=== PATIENT | female | born 1985 | race Caucasian/White ===

== ENCOUNTER 2016-07-09 16:26 | Emergency (ER) | payer OTHER | END 2016-07-09 18:05 | disposition left against medical advice (07) | LOC: UCCORT 16:26 | DX: J02.9 Acute pharyngitis, unspecified (principal); Z53.21 Procedure and treatment not carried out due to patient leaving prior to being seen by health care provider ==

== ENCOUNTER 2016-11-16 15:23 | Emergency (ER) | payer OTHER ==
[2016-11-16 15:47] VITALS: BP 149/87
--- NOTE | 2016-11-16 15:59 | UC ---
Throat Pain/Nasal Arley HPI - HPI Summary HPI Summary: pt c/o gradual onset of right ear pain, tooth pain , and ulcer on bottom of right mid tongue. X 4 days. Pt reports positive history of canker sores, chicken pox as a kid and frequent canker sores. pt denies fever, chills, sore throat, recent dental work. - History of Current Complaint Chief Complaint: UCGeneralIllness Stated Complaint: SORE THROAT,RIGHT EAR PAIN,ORAL Time Seen by Provider: 11/16/16 15:37 Hx Obtained From: Patient Hx Last Menstrual Period: 11/09/16 ?: No Onset/Duration: Gradual Onset, Lasting Days - 4 Severity: Mild Cough: None Associated Signs & Symptoms: Positive: Negative - Epiglottits Risk Factors Epiglottis Risk Factors: Negative - Allergies/Home Medications Allergies/Adverse Reactions: Allergies Allergy/AdvReac Type Severity Reaction Status Date / Time Adhesive Tape Allergy Intermediate Rash Verified 11/16/16 15:28 NARCOTICS AdvReac See Comment Uncoded 11/16/16 15:28 Home Medications: Home Medications Gabapentin CAP(*) [Neurontin 100 mg CAP(*)] 200 mg PO BID 11/16/16 [History Confirmed 11/16/16] PMH/Surg Hx/FS Hx/Imm Hx Previously Healthy: Yes - Surgical History Surgical History: Yes Surgery Procedure, Year, and Place: INTESTINAL. STOMACH. COLOSTOMY WITH REVERSAL. TENDON LLE. CYSTECTOMY FROM OVARY. TUBAL. CHOLECYSTECTOMY. CYST REMOVED FROM NASAL CAVATY. C-sec x2 - Family History Known Family History: Positive: Hypertension, Respiratory Disease Negative: Cardiac Disease, Diabetes Family History: no cardiac, cancer history in family - Social History Alcohol Use: None Substance Use Type: None Smoking Status (MU): Never Smoked Tobacco - Immunization History Most Recent Influenza Vaccination: FALL 2015 Most Recent Tetanus Shot: UTD Most Recent Pneumonia Vaccination: N/A Review of Systems Constitutional: Negative Skin: Negative Eyes: Negative ENT: Other - ulcer bottom right mid lateral side of tongue Respiratory: Negative Cardiovascular: Negative Gastrointestinal: Negative Genitourinary: Negative Motor: Negative Neurovascular: Negative Musculoskeletal: Negative Neurological: Negative Psychological: Negative All Other Systems Reviewed And Are Negative: Yes Physical Exam Triage Information Reviewed: Yes Appearance: Well-Appearing Vital Signs: Initial Vital Signs Temp 99.9 F 11/16/16 15:32 Pulse 99 11/16/16 15:32 Resp 27 11/16/16 15:32 BP 149/87 11/16/16 15:32 Pulse Ox 97 11/16/16 15:32 Vital Signs Reviewed: Yes Eye Exam: Normal ENT: Positive: Other: Dental Exam: Normal Neck exam: Normal Respiratory Exam: Normal Cardiovascular Exam: Normal Musculoskeletal Exam: Normal Musculoskeletal: Positive: Other: - uses cane to walk. Neurological Exam: Normal Psychological Exam: Normal Skin Exam: Normal Throat Pain/Nasal Course/Dx - Differential Dx/Diagnosis Differential Diagnosis/HQI/PQRI: Other - viral syndrome Provider Diagnoses: aphthous. viral syndrome Discharge - Discharge Plan Condition: Stable Disposition: HOME Prescriptions: Lidocaine 2% VISCOUS* [Xylocaine 2% Viscous*] 15 ml SWISH SPIT Q4H PRN #1 btl PRN Reason: Pain ValACYclovir (*) [Valtrex 1 GM(*)] 1 gm PO Q12H #10 tab Patient Education Materials: Canker Sores (ED) Referrals: Lorraine Powers MD [Primary Care Provider] - If Needed
== END 2016-11-16 16:09 | disposition home or self-care (01) ==
LOC: UCCORT 15:23
DX: K12.0 Recurrent oral aphthae (principal); B34.9 Viral infection, unspecified; Z88.5 Allergy status to narcotic agent
CPT/HCPCS: 99212; G0463

== ENCOUNTER 2016-12-03 18:27 | Emergency (ER) | payer OTHER ==
[2016-12-03 19:47] VITALS: BP 201/90
--- NOTE | 2016-12-03 20:52 | RAD ---
INDICATION: 1 month cough with recent worsening. History of bronchitis. COMPARISON: April 12, 2016 TECHNIQUE: Dual energy PA and routine lateral views of the chest were obtained. REPORT: Morbid obesity limits image quality. Clear lungs and pleural spaces. Negative for pneumothorax. The heart, pulmonary vasculature, and mediastinal contours are unremarkable. Unremarkable osseous structures and soft tissue contours accounting for body habitus. IMPRESSION: No evidence for acute intrathoracic disease.
[2016-12-03] MEDS ORDERED: predniSONE TAB* 20 MG PO ONE (21:09)
[2016-12-03] MEDS ORDERED: Amoxicillin PO (*) 500 MG CAP PO ONE (21:10)
--- NOTE | 2016-12-03 22:20 | UC ---
Lara Alvarado Rebecca, scribed for Calin Lewis MD on 12/03/16 at 1958 . Respiratory Complaint HPI - HPI Summary HPI Summary: Pt is a 31 y/o F who presents to ED c/o SOB and nonproductive cough. Cough began 1 month ago and has been intermittent since onset, worsening in the last few days. Sx aggravated by laying down and any pressure applied to the chest or back, alleviated by nothing, unchanged by Albuterol Tx 2 hours ago. Additionally c/o sore throat secondary to cough and intermittent wheezing. Denies sinus pressure, ear pain and rhinorrhea. PMHx asthma - unsure if she takes any steroids for it. Dx 7 years ago, has previously been treated with Prednisone. - History of Current Complaint Chief Complaint: UCRespiratory Stated Complaint: COUGH Time Seen by Provider: 12/03/16 19:50 Hx Obtained From: Patient Hx Last Menstrual Period: 11/09/16 Onset/Duration: Lasting Weeks - 1 month, Still Present, Worse Since - a few days ago Severity Currently: Mild Pain Intensity: 3 Pain Scale Used: 0-10 Numeric Character: Cough: Nonproductive Alleviating Factors: Nothing Associated Signs And Symptoms: Positive: Wheezing - Allergies/Home Medications Allergies/Adverse Reactions: Allergies Allergy/AdvReac Type Severity Reaction Status Date / Time Adhesive Tape Allergy Intermediate Rash Verified 12/03/16 19:47 NARCOTICS AdvReac See Comment Uncoded 12/03/16 19:47 PMH/Surg Hx/FS Hx/Imm Hx Cardiovascular History: Hypertension Respiratory History: Asthma - Surgical History Surgical History: Yes Surgery Procedure, Year, and Place: INTESTINAL. STOMACH. COLOSTOMY WITH REVERSAL. TENDON LLE. CYSTECTOMY FROM OVARY. TUBAL. CHOLECYSTECTOMY. CYST REMOVED FROM NASAL CAVATY - Family History Known Family History: Positive: Hypertension, Respiratory Disease Negative: Cardiac Disease, Diabetes Family History: no cardiac, cancer history in family - Social History Alcohol Use: None Substance Use Type: None Smoking Status (MU): Never Smoked Tobacco - Immunization History Most Recent Influenza Vaccination: FALL 2015 Most Recent Tetanus Shot: UTD Most Recent Pneumonia Vaccination: N/A Review of Systems Constitutional: Negative Skin: Negative Eyes: Negative ENT: Sore Throat - secondary to cough Respiratory: Shortness Of Breath, Cough - nonproductive, Other - Intermittent wheezing Cardiovascular: Negative Gastrointestinal: Negative Genitourinary: Negative Motor: Negative Neurovascular: Negative Musculoskeletal: Negative Neurological: Negative Psychological: Negative All Other Systems Reviewed And Are Negative: Yes - Comments Additional Review of Systems Comments: NEGATIVE: Sinus pressure, ear pain and rhinorrhea. Physical Exam Triage Information Reviewed: Yes Vital Signs: Initial Vital Signs Temp 97.0 F 12/03/16 19:42 Pulse 107 12/03/16 19:42 Resp 20 12/03/16 19:42 BP 201/90 12/03/16 19:42 Pulse Ox 98 12/03/16 19:42 Vital Signs Reviewed: Yes - Additional Comments The patient is well-nourished and in no acute pain. She looks winded. The skin is warm and dry and skin color reflects adequate perfusion. HEENT: The head is normocephalic and atraumatic. The pupils are equal and reactive. The conjunctivae are clear and without drainage. Nares are patent and without drainage. Mouth reveals moist mucous membranes and the throat is without erythema and exudate. The external ears are intact. The ear canals are patent and without drainage. The tympanic membranes are intact. Neck is supple with full range of motion and non-tender. No stridor in the neck. Respiratory: Chest is non-tender. Breath sounds are symmetrical and equal. Lungs have rales in the R base. Slight retractions. Cardiovascular: Hear is regular rate and rhythm. There is no murmur or rub auscultated. There is no peripheral edema and pulses are symmetrical and equal. Musculoskeletal: There is no back pain noted. Extremities are non-tender with full range of motion. There is good capillary refill. There is no peripheral edema. Neurological: Patient is alert and oriented to person, place and time. The patient has symmetrical motor strength in all four extremities. Cranial nerves are grossly intact. Deep tendon reflexes are symmetrical and equal in all four extremities. Psychiatric: The patient has an appropriate affect and does not exhibit any anxiety or depression. UC Diagnostic Evaluation - Laboratory O2 Sat by Pulse Oximetry: 98 - Radiology Xray Interpretation: No Acute Changes - CXR: No evidence for acute intrathoracic disease. Radiology Interpretation Completed By: Radiologist Re-Evaluation - Re-Evaluation First Eval Re-Evaluation Time: 21:08 Change: Unchanged Comment: Discussed XR results and plan to D/C patient. Respiratory Course/Dx - Course Course Of Treatment: Pt is a 31 y/o F who presents to ED c/o SOB and nonproductive cough. Cough began 1 month ago and has been intermittent since onset, worsening in the last few days. Sx aggravated by laying down and any pressure applied to the chest or back, unchanged by Albuterol Tx 2 hours ago. Additionally c/o sore throat secondary to cough and intermittent wheezing. Denies sinus pressure, ear pain and rhinorrhea. PMHx asthma - unsure if she takes any steroids for it, has previously been treated with Prednisone. CXR reveals no acute findings. She will be D/C to home with Dx of asthmatic bronchitis and Rx for Amoxicillin and Prednisone. Elevated BP noted and she was advised to follow up with her PCP. - Differential Dx/Diagnosis Differential Diagnosis/HQI/PQRI: Asthma, Bronchitis, Lower Resp Infection Provider Diagnoses: Asthmatic bronchitis Discharge - Discharge Plan Condition: Stable Disposition: HOME Prescriptions: Amoxicillin PO (*) [Amoxicillin 500 MG CAP*] 500 mg PO TID #30 cap predniSONE TAB* [Deltasone TAB*] 60 mg PO DAILY #15 tab Patient Education Materials: Acute Bronchitis (ED) Referrals: Lorraine Powers MD [Primary Care Provider] - 3 Days Additional Instructions: Follow up with your primary care physician in 1-2 days to have your blood pressure rechecked. The documentation as recorded by the Lara mejía Rebecca accurately reflects the service I personally performed and the decisions made by , Calin Lewis MD.
== END 2016-12-03 21:23 | disposition home or self-care (01) ==
LOC: UCCORT 18:27
DX: J45.909 Unspecified asthma, uncomplicated (principal); I10 Essential (primary) hypertension; Z88.5 Allergy status to narcotic agent; Z91.048 Other nonmedicinal substance allergy status
CPT/HCPCS: 71020; 99212; A9270-GY; G0463; J7512

== ENCOUNTER 2017-04-12 09:03 | Emergency (ER) | payer OTHER ==
[2017-04-12 10:42] VITALS: BP 136/84
--- NOTE | 2017-04-12 11:13 | UC ---
Throat Pain/Nasal Arley HPI - HPI Summary HPI Summary: SIX DAYS OF NASAL CONGESTION, FACIAL PRESSURE, COUGH,, BILATERAL EAR PRESSURE. MOUTH SORES. 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 Hx Last Menstrual Period: 02/04/17, PCOS Onset/Duration: Gradual Onset, Lasting Days, Still Present, Worse Since - PROGRESSIVE Pain Intensity: 4 Pain Scale Used: 0-10 Numeric Cough: Productive Associated Signs & Symptoms: Positive: Hoarseness, Sinus Discomfort, Nasal Discharge - Epiglottits Risk Factors Epiglottis Risk Factors: Negative - Allergies/Home Medications Allergies/Adverse Reactions: Allergies Allergy/AdvReac Type Severity Reaction Status Date / Time Adhesive Tape Allergy Intermediate Rash Verified 04/12/17 10:22 NARCOTICS AdvReac See Comment Uncoded 04/12/17 10:22 Home Medications: Home Medications Benzonatate CAP* [Tessalon 100 MG CAP*] 100 mg PO TID 04/12/17 [History Confirmed 04/12/17] PMH/Surg Hx/FS Hx/Imm Hx Previously Healthy: Yes - Surgical History Surgical History: Yes Surgery Procedure, Year, and Place: INTESTINAL. STOMACH. COLOSTOMY WITH REVERSAL. TENDON LLE. CYSTECTOMY FROM OVARY. TUBAL. CHOLECYSTECTOMY. CYST REMOVED FROM NASAL CAVATY - Family History Known Family History: Positive: Hypertension, Respiratory Disease Negative: Cardiac Disease, Diabetes Family History: no cardiac, cancer history in family - Social History Occupation: Employed Full-time Lives: With Family Alcohol Use: None Substance Use Type: None Smoking Status (MU): Never Smoked Tobacco - Immunization History Most Recent Influenza Vaccination: yes 2016 Most Recent Tetanus Shot: UTD Most Recent Pneumonia Vaccination: N/A Review of Systems Constitutional: Fatigue Skin: Negative Eyes: Negative ENT: Ear Ache, Nasal Discharge, Sinus Congestion, Sinus Pain/Tenderness Respiratory: Cough Cardiovascular: Negative Gastrointestinal: Negative Genitourinary: Negative Motor: Negative Neurovascular: Negative Musculoskeletal: Negative Neurological: Negative Psychological: Negative Is Patient Immunocompromised?: No All Other Systems Reviewed And Are Negative: Yes Physical Exam Triage Information Reviewed: Yes Appearance: Well-Appearing, No Pain Distress, Well-Nourished, Obese Vital Signs: Initial Vital Signs Temp 98.7 F 04/12/17 10:17 Pulse 100 04/12/17 10:17 Resp 20 04/12/17 10:17 BP 136/84 04/12/17 10:17 Pulse Ox 97 04/12/17 10:17 Vital Signs Reviewed: Yes Eye Exam: Normal ENT: Positive: Nasal congestion, Nasal drainage, TM bulging - BILATERAL, TM dull , TM red Dental Exam: Normal Neck exam: Normal Neck: Positive: Supple, Nontender, No Lymphadenopathy Respiratory Exam: Normal Respiratory: Positive: Chest non-tender, Lungs clear, Normal breath sounds, No respiratory distress, No accessory muscle use Cardiovascular Exam: Normal Cardiovascular: Positive: RRR, No Murmur, Pulses Normal, Brisk Capillary Refill Abdominal Exam: Normal Musculoskeletal Exam: Normal Musculoskeletal: Positive: Strength Intact, ROM Intact Neurological Exam: Normal Psychological Exam: Normal Skin Exam: Normal Throat Pain/Nasal Course/Dx - Differential Dx/Diagnosis Differential Diagnosis/HQI/PQRI: Pharyngitis, Sinusitis, Tonsillitis, URI Provider Diagnoses: SINUSITIS Discharge - Discharge Plan Condition: Stable Disposition: HOME Prescriptions: Amoxicillin/Clavulanate TAB* [Augmentin TAB 875*] 875 mg PO BID #20 tab Benzonatate CAP* [Tessalon 100 MG CAP*] 100 mg PO TID PRN #15 cap PRN Reason: Cough predniSONE TAB* [Deltasone TAB*] 10 mg PO DAILY #28 tab Patient Education Materials: Sinusitis (ED), Upper Respiratory Infection (ED) Referrals: Lorraine Powers MD [Primary Care Provider] -
== END 2017-04-12 10:47 | disposition home or self-care (01) ==
LOC: UCCORT 09:03
DX: J32.9 Chronic sinusitis, unspecified (principal); E66.9 Obesity, unspecified; Z88.5 Allergy status to narcotic agent; Z91.048 Other nonmedicinal substance allergy status
CPT/HCPCS: 99212; G0463

== ENCOUNTER 2018-10-27 12:17 | Emergency (ER) | payer OTHER ==
--- OUTSIDE RECORDS SUMMARY | 2018-10-27 13:21 | XMS REPORT | Continuity of Care Document ---
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 Lorraine Powers MD Primary Care Physician Unavailable Payers Date Identification Numbers Payment Provider Subscriber Effective: 2009 Policy Number: [id number] [employer] Ginna Pittman PayID: [id number] [address] [place] [address] Effective: 2009 Policy Number: [id number] Medicaid Ginna Pittman Expires: 2012 PayID: [id number] [address] [place] [address] Problems Active Problems Provider Date Palpitations Ra Banks M.D., Onset: 10/22/2012 [facility] Dyspnea Ra Banks M.D., Onset: 10/22/2012 [facility] Migraine variants, not intractable Ra Banks M.D., Onset: 2012 [facility] Infantile cerebral palsy Heavenly Mcclendon MD Onset: 03/06/2013 Spastic hemiplegia of nondominant side Heavenly Mcclendon MD Onset: 03/06/2013 Cerebral palsy Heavenly Mcclendon MD Onset: 07/16/2014 Essential hypertension Lorraine Powers MD Onset: 08/28/2016 Uncomplicated moderate persistent Lorraine Powers MD Onset: 08/28/2016 asthma Morbid obesity Lorraine Powers MD Onset: 08/28/2016 Anxiety state Lorraine Powers MD Onset: 08/28/2016 Thyroid nodule Lorraine Powers MD Onset: 08/28/2016 Long QT syndrome Ra Banks M.D., Onset: 04/18/2017 [facility] Neck pain Lorraine Powers MD Onset: 05/15/2017 Other specified myotonic disorders Lorraine Powers MD Onset: 05/15/2017 Otitis media Lorraine Powers MD Onset: 09/09/2017 Acquired renal cystic disease Lorraine Powers MD Onset: 12/09/2017 Benign neoplasm of skin of face Lorraine Powers MD Onset: 12/09/2017 Cyst of left ovary Lorraine Powers MD Onset: 12/09/2017 Hyperlipidemia Ra Banks M.D., Onset: 02/10/2018 [facility] Hypothyroidism Lorraine Powers MD Onset: 07/16/2018 Electrocardiogram abnormal Ra Banks M.D., Onset: 10/20/2018 [facility] Tachycardia Ra Banks M.D., Onset: 10/20/2018 [facility] Family History Date Family Member(s) Observation Comments Father 46 Father High Cholesterol Father Hypertension Onset: (age 53 Years) Father Alive Mother 45 Mother Hypercholesterolemia Onset: (age 51 Years) Mother Alive First Brother 19 First Brother Asthma Grandfather Heart Attack Grandfather Hypercholesterolemia Social History Type Date Description Comments Sex Unknown Marital Status Lives With Diet Patient is on a low fat diet 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 Not 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 Working ADL's/IADL's Dependent with all ADL's Drive Patient drives Tobacco Use Start: Unknown Never Smoked Cigarettes Smoking Status Reviewed: 10/22/18 Never Smoked Cigarettes ETOH Use Denies alcohol use Tobacco Use Start: Unknown Patient has never smoked Recreational Drug Use Denies Drug Use Exercise Type/Frequency Exercises rarely Currently Active Patient is currently sexually active Age 1st [place] 16 Years Old # Partners in a Lifetime 2 Allergies, Adverse Reactions, Alerts Description No Known Drug Allergies Medications Active Medications SIG Qnty Indications Ordering Date Provider Potassium Chloride 1 tab by mouth 30tabs Lorraine Powers, 07/16/2018 [facility] three times a day 20Meq Tablets ER Levothyroxine Sodium 1 tab by mouth 30tabs Lorraine Powers, 07/02/2018 every day 25mcg Tablets Montelukast Sodium take 1 tablet by 30tabs J45.30 Aravind Mancera, 06/30/2018 10mg mouth once daily MD Tablets Hydrocortisone Use sparingly to 118ml L29.8 Gagen, 04/16/2018 2.5% lower back and Velma, MS, Lotion shoulder area for [employer], CNM severe itching two times a day Klor-Con M20 Take one tablet 60tabs E87.6 Gagen, 04/02/2018 20Meq twice a day Velma, MS, Tablets ER [employer], CNM Nebulizer use nebulizer 1units J45.40 Gagen, 02/25/2018 Kit/Tubing/Mouthpiece with albuterol q Velma, MS, 6 hrs as needed [employer], CNM Kit wheezing/ SOB Ipratropium [place] use 2 sprays in 15ml J06.9 Gagen, 02/25/2018 0.06% each nostril Velma, MS, Solution twice a day as [employer], CNM needed Nebulizer Compressor The Patient is 1units Gagen, 02/25/2018 using albuterol Evlma, MS, Misc nebulizer [employer], CNM treatments and needs the compressor. dx: Moderate persistent asthma Vitamin D take 1 capsule by 4caps Lorraine Powers, 01/22/2018 (Ergocalciferol) mouth every week [id number] Capsules Losartan Potassium 1 by mouth 1 60tabs I10 Gagen, 01/20/2018 50mg tablet twice a Velma, MS, Tablets day [employer], CNM Zantac 75 1 tab by mouth 180tabs Lorraine Powers, 01/15/2018 75mg Tablets twice a day MD Escobarron 7 Series Blood use daily as 1units I10 Gagen, 01/06/2018 Pressure Monitor directed to MS Velma, Device monitor bp/ [employer], CNM dx:htn Amlodipine Besylate take 1 tablet by 30tabs I10 Lorraine Powers, 12/17/2017 5mg mouth once daily MD Tablets PT/OT Eval For Power PT/OT eval for 1units G80.9 Lorraine Powers, 09/24/2017 Mobility Device power mobility MD device G71.19 R26.89 Motorized Power Device Motorized power mobility G71.19 Lorraine Powers MD 09/09/2017 scooter G80.9 R26.89 Roller Walker use wide set Heavy Duty 1units G71.19 Lorraine Powers MD Misc 4 wheel walker with seat for ambulation G80.9 Albuterol Sulfate nebulized every 6 hours as 75ml Lorraine Powers, 2016 needed for MD (2.5mg/3ML) 0.083% sob/cough/wheezing Nebulizer Dulera inhale 1 puff by mouth 13units Lorraine Powers, 09/14/2016 200-5mcg/Act twice a day MD Aerosol Zyrtec Allergy 1 tab by mouth every night 30tabs [place], 08/28/2016 10mg MS Velma, Tablets [employer], CNM CBD/THC Aerosol [place] Unknown Buspirone HCL 1 tab by mouth Am, PM and 90tabs Lorraine Powers, 7.5mg two at QHS daily MD Tablets Triamterene/Hydrochlo take 1/2 tablet by mouth 30tabs Lorraine Powers, rothiazide every morning MD 37.5-25mg Tablets Flonase Allergy 1 spray to both nostrils 9.900ml Gagen, Relief daily. MS Velma, 50mcg/Act [employer], CNM Suspension Tylenol Extra 1-2 tabs by mouth every 4 Unknown Strength hours as needed 500mg Tablets Ventolin HFA 1-2 puffs every 4-6 hours 8gm Gagen, as needed MS Velma, 108(90Base) mcg/Act [employer], CNM Aerosol History Medications Ondansetron 1 tab by mouth one 30tabs Lorraine Powers, 09/25/2018 - 4mg Tablets time a day as Unknown Dispers needed for nausea Nystatin 5 milliliters by 473ml Lorraine Powers, 09/25/2018 - [id number]/ML mouth every 6hrs; 10/22/2018 Suspension swish in mouth for several minutes and spit for 14 days Amoxicillin/Clavulana 1 tab by mouth 20tabs J01.90 Lorraine Powers, 2018 - te Potassium q12hrs for 10 days Unknown 875-125mg Tablets Probiotic Acidophilus 1 cap by mouth 30caps Lorraine Powers, 09/25/2018 - every day while on 10/22/2018 Capsules antibiotic Ergocalciferol take one a week 16caps E55.9 Lorraine Powers, 09/03/2018 - MD Unknown [id number] Capsules Trazodone HCL start with 1/2 30tabs G47.00 Gagen, 04/02/2018 - 50mg tablet every at Velma, 07/16/2018 Tablets bedtime after 2 MS, [employer], CNM weeks, may increase to one tablet Ergocalciferol take one a week 12caps E55.9 Gagen, 04/02/2018 - Velma, 07/16/2018 [id number] Capsules MS, [employer], CNM Metrogel-Vaginal use in vagina for 70gm Gagen, 03/15/2018 - 0.75% 5 nights. no Velma, 04/02/2018 Gel alcohol during use MS, [employer], CNM and 2 days after Benzonatate take one capsule 30caps R05 Gagen, 02/25/2018 - 200mg every 8 hours as Evlma, 03/11/2018 Capsules needed MS, [employer], CNM Ciprodex 4 drops in right 7.500ml H66.91 Gagen, 02/25/2018 - 0.3-0.1% ear twice a day Velma, 03/11/2018 Suspension for 7 days MS, [employer], CNM Prednisone 2 tabs (40 mg) 10tabs J02.9 Gagen, 02/25/2018 - 20mg Tablets daily for 5 days Velma, 03/11/2018 MS, [employer], CNM Atorvastatin Calcium take 1 tablet by 90tabs Gagen, 01/24/2018 - mouth once daily Velma, 07/02/2018 20mg Tablets MS, [employer], CNM Rosuvastatin Calcium Take one every day 30tabs Gagen, 01/21/2018 - Velma, 01/24/2018 10mg Tablets MS, [employer], CNM Losartan Potassium Take 1/2 tablet 45tabs I10 Gagen, 01/09/2018 - 50mg (25 mg) in pm and Velma, 01/20/2018 Tablets take 1 tablet MS, [employer], CNM (50MG) in am Amoxicillin/Clavulana 1 tab by mouth 20tabs J01.90 Priya, Lorraine, 2017 - te Potassium q12hrs for 10 days 01/20/2018 875-125mg Tablets Amoxicillin 1 tab by mouth 14caps Priya Lorraine, 12/09/2017 - 500mg twice a day x 7 MD Unknown Capsules days Losartan Potassium 1 tab by mouth 60tabs I10 Priya Lorraine, 12/09/2017 - 50mg twice a day MD 01/06/2018 Tablets Chlorzoxazone take one tablet by 90tabs Errol Powersa, 11/22/2017 - 500mg mouth two times a MD Unknown Tablets day Chlorzoxazone 1 tab three times 90tabs Priya Lorraine, 11/21/2017 - 250mg a day 11/22/2017 Tablets Metaxalone 1 tab by mouth 90tabs Priya, Lorraine, 11/19/2017 - 400mg three times a day MD 11/21/2017 Tablets Valsartan 1 tab by mouth 30tabs Priya Lorraine, 09/09/2017 - 80mg Tablets every day MD 09/09/2017 Amoxicillin 1 tab by mouth 20tabs Priya Lorraine, 09/09/2017 - 500mg q12hrs x10 days MD Unknown Tablets Methocarbamol 1 tab by mouth 90tabs Priya Lorraine, 06/03/2017 - 750mg every 8 hours as 11/19/2017 Tablets needed muscle pain Lyrica 1 tab by mouth 90caps Priya, Lorraine, 05/29/2017 - 100mg Capsules three times a day 06/04/2017 mdd 3 Cheratussin ac 5ml by mouth every 236ml Lorriane Powers, 05/15/2017 - 4 hour as needed MD 09/09/2017 100-10mg/5ML Syrup cough Gabapentin 2 by mouth three Priya, Lorraine, 05/15/2017 - 100mg times a day MD 06/04/2017 Capsules Diazepam 1 tab by mouth 1 1tabs Lorraine Powers, 04/01/2017 - 2mg Tablets hour prior to MRI Unknown Tizanidine HCL 1 by mouth once in 30tabs Lorraine Powers, 02/11/2017 - 2mg evening for back MD Unknown Tablets pain/muscle spasms Omeprazole 1 by mouth every 30caps Errol Powersa, 02/11/2017 - 40mg day MD 01/15/[address] Prednisone 2 tabs (40 mg) 10tabs J20.9 Lorraine Powers, 12/20/2016 - 20mg Tablets daily for 5 days Unknown for shortness of breath/wheezing Benzonatate 1 tab by mouth 90caps Errol Powersa, 12/05/2016 - 100mg every 8 hours for MD 03/11/2018 Capsules cough Furosemide take 1 tablet by 30tabs Lorraine Powers, 11/21/2016 - 20mg Tablets mouth once daily MD 07/16/2018 if needed Trazodone HCL take 1 tablet by 30tabs Errol Powersa, 10/02/2016 - 50mg mouth at bedtime MD Unknown Tablets for sleep Dulera take one puff 8.800gm Lorraine Powers, 09/03/2016 - 100-5mcg/Act twice daily MD 09/14/2016 Aerosol Baclofen 1 by mouth once a 30tabs Errol Powersa, 08/31/2016 - 10mg Tablets day as needed for MD Unknown back pain Gabapentin take 3 tablets by 270caps Errol Powersa, 08/31/2016 - 100mg mouth three times MD 05/15/2017 Capsules daily as needed for nerve pain Dulera take one puff 8.800gm Lorraine Powers, 08/31/2016 - Aerosol twice daily MD 09/03/2016 Mdi Spacer For use with inhaler J45.20 Lorraine Powers, 08/28/2016 - Inhaler every 6hrs as Unknown needed Labetalol HCL 1/2 tab by mouth 785.0 Milana Greenfield 03/20/2011 - 100mg every evening Mateusz, 10/22/2012 Tablets MSN, [employer] 796.2 Cleocin 1 tab po q 12 hr 14caps Chester Keenan, 03/13/2011 - 300mg Capsules for 7 days M.D. 10/22/2012 Albuterol 2 puffs q 4h/ 1units Keenan Chester, 02/22/2011 - 90mcg/Act prn M.D. 03/06/2013 Aerosol Macrobid 1 po bid for 7 14caps Keenan Chester, 02/18/2011 - 100mg Capsules days M.D. Unknown 19 1 po qd 60units Keenan Chester, 12/06/2010 - Chewtabs M.D. 10/22/2012 Labetalol HCL 1 tab po bid. 60tabs Chester Keenan, 12/06/2010 - 100mg hold dose if M.D. Unknown Tablets syst bp <125 and diast bp < 75 Losartan Potassium 1 by mouth every I10 Unknown - 50mg day 01/09/2018 Tablets Mexiletine HCL 1 capsule by Unknown - 150mg mouth daily 01/06/2018 Capsules Prednisone Calin Lewis DO - 20mg Tablets Unknown Amoxicillin Calin Lewis DO - 500mg Unknown Capsules Valacyclovir HCL Rolly, - 1gm Milana Olguin NP Unknown Tablets Ibuprofen 1 by mouth every 180tabs Lorraine Powers, - 600mg Tablets 12 hours as 01/27/2018 needed pain Ibuprofen Unknown - 600mg Tablets 07/16/2014 Tylenol 8 Hour prn Unknown - 650mg 07/16/2014 Tablets ER Vitamin D High 1x week Unknown - Potency 03/06/2013 [id number] Capsules Labetalol HCL 1/2 tab po bid 785.0 Unknown - 100mg 03/20/2011 Tablets 796.2 Clindamycin HCL 1 tab by mouth twice 6caps Unknown - Unknown 300mg Capsules a day Immunizations CPT Code Status Date Vaccine Reaction Lot # 04638 Given 01/20/2018 Influenza Virus Vaccine, Quadrivalent, 36 [id number] Mos+, .5ML 94747 Given 02/11/2017 Influenza Virus Vaccine Quadrivalent Iiv4 [place] [id number] [id number] Given 08/28/2016 Pneumovax Injection [id number] 03354 Given 03/22/2011 flu vaccination 29812 Given 03/22/2011 flu vaccination [id number] Vital Signs Date Vital Result Comment 10/22/2018 11:04am BP Systolic Sitting Left Arm 124 mmHg forearm BP Diastolic Sitting Left Arm 80 mmHg forearm Body Temperature 99.8 F Heart Rate 93 /min Respiratory Rate 20 /min Height 61 inches 5'1" Weight 356.00 lb BMI (Body Mass Index) 67.3 kg/m2 BSA (Body Surface Area) 2.41 m2 [place] body weight in kilograms 48 kg O2 % BldC Oximetry 95 % Ra 10/20/2018 11:41am BP Systolic Sitting Left Arm 126 mmHg BP Diastolic Sitting Left Arm 66 mmHg Heart Rate 96 /min Respiratory Rate 18 /min Height 61 inches 5'1" Weight 360.00 lb BMI (Body Mass Index) 68.0 kg/m2 BSA (Body Surface Area) 2.42 m2 [place] body weight in kilograms 48 kg O2 % BldC Oximetry 96 % 09/25/2018 11:09am BP Systolic Sitting Right Arm 130 mmHg lower arm BP Diastolic Sitting Right Arm 82 mmHg lower arm Body Temperature 98.1 F Heart Rate 76 /min Respiratory Rate 28 /min Height 61 inches 5'1" Weight 359.00 lb BMI (Body Mass Index) 67.8 kg/m2 BSA (Body Surface Area) 2.42 m2 [place] body weight in kilograms 48 kg O2 % BldC Oximetry 96 % ra 09/16/2018 10:02am BP Systolic Sitting Right Arm 130 mmHg BP Diastolic Sitting Right Arm 82 mmHg Body Temperature 98.2 F Heart Rate 93 /min Height 61 inches 5'1" Weight 366.00 lb BMI (Body Mass Index) 69.1 kg/m2 BSA (Body Surface Area) 2.44 m2 [place] body weight in kilograms 48 kg O2 % BldC Oximetry 98 % ra 09/03/2018 9:51am BP Systolic Sitting Right Arm 110 mmHg BP Diastolic Sitting Right Arm 62 mmHg Body Temperature 98.3 F Heart Rate 100 /min Respiratory Rate 30 /min Height 61 inches 5'1" Weight 366.00 lb BMI (Body Mass Index) 69.1 kg/m2 BSA (Body Surface Area) 2.44 m2 [place] body weight in kilograms 48 kg O2 % BldC Oximetry 96 % ra 07/16/2018 9:57am BP Systolic Sitting Left Arm 110 mmHg manual forearm BP Diastolic Sitting Left Arm 80 mmHg manual forearm Body Temperature 98.9 F Heart Rate 90 /min Respiratory Rate 20 /min Height 61 inches 5'1" Weight 363.00 lb BMI (Body Mass Index) 68.6 kg/m2 BSA (Body Surface Area) 2.43 m2 [place] body weight in kilograms 48 kg O2 % BldC Oximetry 98 % Ra 06/30/2018 1:23pm BP Systolic Sitting Left Arm 124 mmHg BP Diastolic Sitting Left Arm 66 mmHg Heart Rate 87 /min Respiratory Rate 18 /min Height 61 inches 5'1" Weight 362.00 lb BMI (Body Mass Index) 68.4 kg/m2 BSA (Body Surface Area) 2.43 m2 [place] body weight in kilograms 48 kg O2 Saturation Level with Exercise 98 % 04/16/2018 10:54am BP Systolic Sitting Left Arm 118 mmHg x-large cuff - manual. BP Diastolic Sitting Left Arm 58 mmHg x-large cuff - manual. Body Temperature 99.4 F Heart Rate 91 /min reg Respiratory Rate 30 /min Height 61 inches 5'1" Weight 362.00 lb BMI (Body Mass Index) 68.4 kg/m2 BSA (Body Surface Area) 2.43 m2 [place] body weight in kilograms 48 kg O2 % BldC Oximetry 98 % ra 04/02/2018 1:00pm BP Systolic Sitting Left Arm 147 mmHg Priscilla 136/90 BP Diastolic Sitting Left Arm 86 mmHg Priscilla 136/90 Body Temperature 98.6 F Heart Rate 89 /min Respiratory Rate 18 /min Height 61 inches 5'1" [place] body weight in kilograms 48 kg 03/11/2018 10:04am BP Systolic Sitting Right Arm 152 mmHg BP Diastolic Sitting Right Arm 91 mmHg Body Temperature 97.6 F Heart Rate 88 /min Respiratory Rate 16 /min Height 61 inches 5'1" Weight 363.00 lb BMI (Body Mass Index) 68.6 kg/m2 BSA (Body Surface Area) 2.43 m2 [place] body weight in kilograms 48 kg Last Menstrual Period [id number] O2 % BldC Oximetry 99 % 02/25/2018 9:38am BP Systolic Sitting Right Arm 122 mmHg BP Diastolic Sitting Right Arm 72 mmHg Body Temperature 99.2 F Heart Rate 74 /min reg Respiratory Rate 24 /min Height 61 inches 5'1" Weight 362.00 lb per pt. BMI (Body Mass Index) 68.4 kg/m2 BSA (Body Surface Area) 2.43 m2 [place] body weight in kilograms 48 kg O2 % BldC Oximetry 96 % ra 02/10/2018 11:09am BP Systolic Sitting Left Arm 132 mmHg BP Diastolic Sitting Left Arm 86 mmHg Heart Rate 86 /min Respiratory Rate 16 /min Height 61 inches 5'1" Weight 362.00 lb per pt BMI (Body Mass Index) 68.4 kg/m2 BSA (Body Surface Area) 2.43 m2 [place] body weight in kilograms 48 kg O2 % BldC Oximetry 97 % Room air 01/27/2018 8:31am BP Systolic Sitting Left Arm 150 mmHg BP Diastolic Sitting Left Arm 91 mmHg Body Temperature 98.6 F Heart Rate 83 /min Respiratory Rate 16 /min Height 61 inches 5'1" Weight 370.00 lb BMI (Body Mass Index) 69.9 kg/m2 BSA (Body Surface Area) 2.45 m2 [place] body weight in kilograms 48 kg O2 % BldC Oximetry 99 % 01/20/2018 10:55am BP Systolic Sitting Left Arm 154 mmHg BP Diastolic Sitting Left Arm 85 mmHg Body Temperature 99.5 F Heart Rate 93 /min Respiratory Rate 20 /min Height 61 inches 5'1" Weight 367.00 lb BMI (Body Mass Index) 69.3 kg/m2 BSA (Body Surface Area) 2.44 m2 [place] body weight in kilograms 48 kg O2 % BldC Oximetry 100 % Ra 01/06/2018 10:40am BP Systolic 148 mmHg 161/94 BP Diastolic 96 mmHg 161/94 Body Temperature 98.2 F Heart Rate 99 /min Respiratory Rate 22 /min Weight 361.38 lb O2 % BldC Oximetry 97 % Ra 12/25/2017 2:58pm BP Systolic Sitting Right Arm 132 mmHg BP Diastolic Sitting Right Arm 74 mmHg Heart Rate 105 /min Respiratory Rate 18 /min Height 61 inches 5'1" Weight 364.00 lb BMI (Body Mass Index) 68.8 kg/m2 BSA (Body Surface Area) 2.44 m2 [place] body weight in kilograms 48 kg O2 % BldC Oximetry 98 % room air 12/17/2017 10:34am BP Systolic Sitting Right Arm 155 mmHg Priscilla 150/96 BP Diastolic Sitting Right Arm 96 mmHg Priscilla 150/96 Body Temperature 97.8 F Heart Rate 82 /min Respiratory Rate 28 /min Height 61 inches 5'1" Weight 362.00 lb BMI (Body Mass Index) 68.4 kg/m2 BSA (Body Surface Area) 2.43 m2 [place] body weight in kilograms 48 kg O2 % BldC Oximetry 98 % 12/09/2017 2:16pm BP Systolic Sitting Right Arm 156 mmHg priscilla 166/89 BP Diastolic Sitting Right Arm 97 mmHg priscilla 166/89 Body Temperature 99.1 F Heart Rate 102 /min Respiratory Rate 28 /min Height 61 inches 5'1" Weight 367.00 lb BMI (Body Mass Index) 69.3 kg/m2 BSA (Body Surface Area) 2.44 m2 [place] body weight in kilograms 48 kg O2 % BldC Oximetry 94 % 10/09/2017 1:08pm BP Systolic Sitting Left Arm 142 mmHg BP Diastolic Sitting Left Arm 98 mmHg Heart Rate 83 /min Respiratory Rate 18 /min Height 61 inches 5'1" Weight 375.00 lb BMI (Body Mass Index) 70.8 kg/m2 BSA (Body Surface Area) 2.47 m2 [place] body weight in kilograms 48 kg O2 % BldC Oximetry 98 % 09/09/2017 10:47am BP Systolic Sitting Left Arm 166 mmHg priscilla 141/95 BP Diastolic Sitting Left Arm 101 mmHg priscilla 141/95 Body Temperature 98.8 F Heart Rate 98 /min Height 61 inches 5'1" Weight 375.00 lb BMI (Body Mass Index) 70.8 kg/m2 BSA (Body Surface Area) 2.47 m2 [place] body weight in kilograms 48 kg O2 % BldC Oximetry 96 % 05/15/2017 9:52am BP Systolic Sitting Left Arm 120 mmHg BP Diastolic Sitting Left Arm 82 mmHg Body Temperature 98.7 F Heart Rate 113 /min Respiratory Rate 24 /min Height 61 inches 5'1" Weight 360.00 lb BMI (Body Mass Index) 68.0 kg/m2 BSA (Body Surface Area) 2.42 m2 [place] body weight in kilograms 48 kg O2 % BldC Oximetry 95 % 04/18/2017 10:08am BP Systolic Sitting Left Arm 132 mmHg BP Diastolic Sitting Left Arm 77 mmHg Heart Rate 84 /min Respiratory Rate 20 /min Height 61 inches 5'1" Weight 374.00 lb BMI (Body Mass Index) 70.7 kg/m2 BSA (Body Surface Area) 2.46 m2 [place] body weight in kilograms 48 kg 03/28/2017 4:05pm BP Systolic Sitting Left Arm 136 mmHg BP Diastolic Sitting Left Arm 70 mmHg Heart Rate 89 /min Respiratory Rate 24 /min Height 61 inches 5'1" Weight 368.00 lb BMI (Body Mass Index) 69.5 kg/m2 BSA (Body Surface Area) 2.45 m2 [place] body weight in kilograms 48 kg O2 % BldC Oximetry 91 % ra 02/11/2017 8:48am BP Systolic 144 mmHg BP Diastolic 103 mmHg Heart Rate 114 /min Respiratory Rate 18 /min Height 61 inches 5'1" Weight 359.50 lb BMI (Body Mass Index) 67.9 kg/m2 BSA (Body Surface Area) 2.42 m2 [place] body weight in kilograms 48 kg O2 % BldC Oximetry 92 % 01/09/2017 2:08pm BP Systolic Sitting Left Arm 118 mmHg BP Diastolic Sitting Left Arm 60 mmHg Heart Rate 98 /min Respiratory Rate 18 /min Height 61 inches 5'1" Weight 358.00 lb BMI (Body Mass Index) 67.6 kg/m2 BSA (Body Surface Area) 2.42 m2 [place] body weight in kilograms 48 kg O2 % BldC Oximetry 96 % 12/20/2016 2:17pm BP Systolic Sitting Right Arm 158 mmHg BP Diastolic Sitting Right Arm 104 mmHg Body Temperature 98.6 F Heart Rate 107 /min Respiratory Rate 22 /min Height 61 inches 5'1" Weight 349.00 lb BMI (Body Mass Index) 65.9 kg/m2 BSA (Body Surface Area) 2.39 m2 [place] body weight in kilograms 48 kg O2 % BldC Oximetry 96 % 12/05/2016 1:22pm BP Systolic Sitting Right Arm 138 mmHg BP Diastolic Sitting Right Arm 74 mmHg Body Temperature 99.3 F Heart Rate 111 /min Respiratory Rate 16 /min Height 61 inches 5'1" Weight 343.00 lb BMI (Body Mass Index) 64.8 kg/m2 BSA (Body Surface Area) 2.38 m2 [place] body weight in kilograms 48 kg O2 % BldC Oximetry 94 % 11/21/2016 9:21am BP Systolic Sitting Right Arm 116 mmHg BP Diastolic Sitting Right Arm 78 mmHg Body Temperature 99.0 F Heart Rate 118 /min Height 61 inches 5'1" Weight 342.00 lb BMI (Body Mass Index) 64.6 kg/m2 BSA (Body Surface Area) 2.37 m2 [place] body weight in kilograms 48 kg O2 % BldC Oximetry 95 % 10/02/2016 9:18am BP Systolic Sitting Right Arm 130 mmHg BP Diastolic Sitting Right Arm 80 mmHg Height 61 inches 5'1" Weight 332.00 lb BMI (Body Mass Index) 62.7 kg/m2 BSA (Body Surface Area) 2.34 m2 [place] body weight in kilograms 48 kg 09/14/2016 2:23pm BP Systolic 156 mmHg BP Diastolic 92 mmHg Heart Rate 118 /min Height 61 inches 5'1" Weight 324.00 lb BMI (Body Mass Index) 61.2 kg/m2 BSA (Body Surface Area) 2.32 m2 [place] body weight in kilograms 48 kg 09/03/2016 9:44am BP Systolic Sitting Right Arm 132 mmHg BP Diastolic Sitting Right Arm 82 mmHg 09/03/2016 9:41am Height 61 inches 5'1" Weight 321.25 lb BMI (Body Mass Index) 60.7 kg/m2 BSA (Body Surface Area) 2.31 m2 08/31/2016 9:58am BP Systolic 166 mmHg BP Diastolic 96 mmHg Heart Rate 100 /min Height 61 inches 5'1" Weight 321.00 lb BMI (Body Mass Index) 60.6 kg/m2 BSA (Body Surface Area) 2.31 m2 08/28/2016 8:40am BP Systolic 125 mmHg BP Diastolic 78 mmHg Body Temperature 97.5 F Heart Rate 94 /min Respiratory Rate 28 /min Height 61 inches 5'1" Weight 334.00 lb BMI (Body Mass Index) 63.1 kg/m2 BSA (Body Surface Area) 2.35 m2 O2 % BldC Oximetry 98 % 03/06/2013 8:38am BP Systolic Sitting Right Arm 128 mmHg BP Diastolic Sitting Right Arm 78 mmHg Respiratory Rate 18 /min Height 61 inches 5'1" Weight 256.00 lb BMI (Body Mass Index) 48.4 kg/m2 BSA (Body Surface Area) 2.10 m2 10/22/2012 8:56am BP Systolic Sitting Left Arm 128 mmHg BP Diastolic Sitting Left Arm 80 mmHg Heart Rate 75 /min Respiratory Rate 18 /min Height 61 inches 5'1" Weight 253.00 lb BMI (Body Mass Index) 47.8 kg/m2 BSA (Body Surface Area) 2.09 m2 03/20/2011 1:10pm BP Systolic Sitting Right Arm 130 mmHg BP Diastolic Sitting Right Arm 72 mmHg Heart Rate 100 /min Respiratory Rate 18 /min Height 61 inches 5'1" Weight 267.00 lb BMI (Body Mass Index) 50.4 kg/m2 Results Test Date Facility Test Result H/L Range Note Comprehensive Metabolic 10/20/2018 [facility] Glucose 79 mg/dL N 74-106 1 [address] [place] [address] [phone] BUN 16 mg/dL N 7-18 Creatinine 1.0 mg/dL N 0.6-1.3 Glom Filtration Rate, Estimate >60 mL/min >60 If >60 mL/min >60 2 BUN/Creat 16.0 ratio Sodium 140 mmol/L N 136-145 Potassium 3.0 mmol/L Low 3.5-5.1 Chloride 104 mmol/L N 98-107 Carbon Dioxide 25 mmol/L N 21-32 Anion Gap 11 mEq/L N 8-16 Calcium 9.1 mg/dL N 8.5-10.1 Total Protein 7.5 g/dL N 6.4-8.2 Albumin 3.6 g/dL N 3.4-5.0 Globulin 3.9 g/dL N 1.9-4.3 Alb/Glob 0.9 ratio Bilirubin,Total 0.4 mg/dL N 0.2-1.0 Sgot/Ast 53 U/L High 15-37 SGPT/Alt 82 U/L High 12-78 Alkaline Phosphatase 70 U/L N 45-117 CBC W/Automated Diff 10/20/2018 [facility] White Blood 6.6 K/uL N 3.1-10.[address] [place] [address] [phone] Red Blood Count 4.86 M/uL N 3.90-5.40 Hemoglobin 13.6 gm/dL N 11.6-15.8 Hematocrit 41.3 % N 36.0-46.1 Mean Cell Volume 85.0 fl N 80.9-99.0 Mean Corpuscular HGB 28.0 pg N 25.9-32.7 Mean Corpuscular HGB Conc 32.9 g/dL N 30.8-34.3 Platelet Count 291 K/uL N 155-360 Red Cell Distri Width SD 46.1 fl N 36-47 Red Cell Distri Width %CV 15.2 % High 11.7-14.4 Mean Platelet Volume 9.5 fl N 8.9-12.4 Neut% 64.6 % N 40.4-72.8 Lymph % 27.7 % N 20.0-42.0 [place] % 4.1 % Low 4.3-13.2 Eo% 2.4 % N 0.0-6.6 Bas% 0.6 % N 0.0-1.1 Immature Grans 0.6 % N 0.0-5.0 NRBC % 0.0 /100WBC < 10/ 100 WBC Neut# 4.23 K/uL N 1.8-7.0 Lymph # 1.82 K/uL N 1.0-4.0 [place] # 0.27 K/uL Low 0.3-0.9 Eos # 0.16 K/uL N 0.0-0.5 Baso # 0.04 K/uL N 0.0-0.1 Immature Grans Absolute 0.04 K/uL NRBC # 0.00 K/uL Laboratory test 10/20/2018 [facility] Vitamin 18.9 Low 30.0-100.0 [address] D,25-Hydroxy ng/[place] [address] [phone] LDL Cholesterol 10/20/2018 [facility] Cholesterol 181 <200 [address] mg/[place] [address] [phone] Triglycerides 174 mg/dL High <150 5 HDL Cholesterol 39 mg/dL Low >40 6 LDL-Cholesterol 107 mg/dL < 100 7 Serum or plasma 10/03/2018 N2N/CCD Import Serum or plasma 106 98-107 chloride measurement chloride measurement Serum or plasma 10/03/2018 N2N/CCD Import Serum or plasma 3.4 Low 3.5- 5.1 potassium potassium measurement measurement Sodium SerPl-sCnc 10/03/2018 N2N/CCD Import Sodium SerPl-sCnc 141 136- 145 Serum or plasma urea 10/03/2018 N2N/CCD Import Serum or plasma urea 12.7 nitrogen/creatinine nitrogen/creatinine mass rati mass ratio GFR/Bsa pred.black 10/03/2018 N2N/CCD Import GFR/Bsa pred.black >60 >60 SerPl MDRD-ArVRat SerPl MDRD-ArVRat Estimated glomerular 10/03/2018 N2N/CCD Import Estimated glomerular 60 > 60 filtration rate filtration rate (GFR) non-Afr (GFR) non- Serum or plasma 10/03/2018 N2N/CCD Import Serum or plasma 1.1 0.6-1.3 creatinine creatinine measurement measurement (mass/volum (mass/volume) Serum or plasma urea 10/03/2018 N2N/CCD Import Serum or plasma urea 14 7 -18 nitrogen measurement nitrogen measurement (mass/vo (mass/volume) Serum or plasma 10/03/2018 N2N/CCD Import Serum or plasma 103 74-106 glucose measurement glucose measurement (mass/volume) (mass/volume) Platelet poor plasma 10/03/2018 N2N/CCD Import Platelet poor plasma 1.1 0.9-1.1 international international normalized rati normalized ratio (Inr) by coagulation assay (relative time) Prothrombin time 10/03/2018 N2N/CCD Import Prothrombin time 13.7 12.0- 14.4 (PT) in platelet (PT) in platelet poor plasma poor plasma Automated blood 10/03/2018 N2N/CCD Import Automated blood 0.00 nucleated nucleated erythrocyte count erythrocyte count (count (count/volume) Co2 SerPl-sCnc 10/03/2018 N2N/CCD Import Co2 SerPl-sCnc 28 21-32 Serum or plasma 10/03/2018 N2N/CCD Import Serum or plasma 7 Low 8-16 anion gap anion gap Serum or plasma 10/03/2018 N2N/CCD Import Serum or plasma 8.9 8.5-10.1 calcium measurement calcium measurement (mass/volume) (mass/volume) Serum or plasma 10/03/2018 N2N/CCD Import Serum or plasma 7.0 6.4-8.2 protein measurement protein measurement (mass/volume) (mass/volume) Serum or plasma 10/03/2018 N2N/CCD Import Serum or plasma 3.5 3.4-5.0 albumin measurement albumin measurement (mass/volume) (mass/volume) Serum globulin 10/03/2018 N2N/CCD Import Serum globulin 3.5 1.9-4.3 measurement by measurement by calculation (mass/vo calculation (mass/volume) Serum or plasma 10/03/2018 N2N/CCD Import Serum or plasma 1.0 albumin/globulin albumin/globulin mass ratio mass ratio Serum or plasma 10/03/2018 N2N/CCD Import Serum or plasma 0.3 0.2-1.0 total bilirubin total bilirubin measurement (mass/ measurement (mass/volume) Serum or plasma 10/03/2018 N2N/CCD Import Serum or plasma 31 15-37 aspartate aspartate aminotransferase aminotransferase measure measurement (enzymatic activity/volume) Serum or plasma 10/03/2018 N2N/CCD Import Serum or plasma 68 12-78 alanine alanine aminotransferase aminotransferase measureme measurement (enzymatic activity/volume) Serum or plasma 10/03/2018 N2N/CCD Import Serum or plasma 64 45-117 alkaline phosphatase alkaline phosphatase measurement ( measurement (enzymatic activity/volume) Capillary blood 10/03/2018 N2N/CCD Import Capillary blood 118 High 70- 110 glucose measurement glucose measurement by glucometer by glucometer (mass/volume) CBC W/Automated Diff 10/03/2018 [facility] White Blood Count 7.7 N 3.1-10.[address] [place] [address] [phone] Red Blood Count 4.80 M/uL N 3.90-5.40 Hemoglobin 13.3 gm/dL N 11.6-15.8 Hematocrit 40.5 % N 36.0-46.1 Mean Cell Volume 84.4 fl N 80.9-99.0 Mean Corpuscular HGB 27.7 pg N 25.9-32.7 Mean Corpuscular HGB Conc 32.8 g/dL N 30.8-34.3 Platelet Count 296 K/uL N 155-360 Red Cell Distri Width SD 44.2 fl N 36-47 Red Cell Distri Width %CV 14.6 % High 11.7-14.4 Mean Platelet Volume 8.9 fl N 8.9-12.4 Neut% 62.3 % N 40.4-72.8 Lymph % 28.1 % N 20.0-42.0 [place] % 5.9 % N 4.3-13.2 Eo% 2.6 % N 0.0-6.6 Bas% 0.4 % N 0.0-1.1 Immature Grans 0.7 % N 0.0-5.0 NRBC % 0.0 /100WBC < 10/ 100 WBC Neut# 4.79 K/uL N 1.8-7.0 Lymph # 2.16 K/uL N 1.0-4.0 [place] # 0.45 K/uL N 0.3-0.9 Eos # 0.20 K/uL N 0.0-0.5 Baso # 0.03 K/uL N 0.0-0.1 Immature Grans Absolute 0.05 K/uL NRBC # 0.00 K/uL Protime 10/03/2018 [facility] Protime 13.7 seconds N 12.0-14.[address], [place] [id number] [phone] Inr 1.1 N 0.9-1.1 9 Laboratory test 10/03/2018 [facility] Act Partial 26.3 N 23.4-35.0 [address] [place] [address] Time [phone] Comprehensive 10/03/2018 [facility] Glucose 103 mg/dL N 74-106 Metabolic Panel [address], [place] [id number] [phone] BUN 14 mg/dL N 7-18 Creatinine 1.1 mg/dL N 0.6-1.3 Glom Filtration Rate, Estimate 60 mL/min >60 If >60 mL/min >60 11 BUN/Creat 12.7 ratio Sodium 141 mmol/L N 136-145 Potassium 3.4 mmol/L Low 3.5-5.1 Chloride 106 mmol/L N 98-107 Carbon Dioxide 28 mmol/L N 21-32 Anion Gap 7 mEq/L Low 8-16 Calcium 8.9 mg/dL N 8.5-10.1 Total Protein 7.0 g/dL N 6.4-8.2 Albumin 3.5 g/dL N 3.4-5.0 Globulin 3.5 g/dL N 1.9-4.3 Alb/Glob 1.0 ratio Bilirubin,Total 0.3 mg/dL N 0.2-1.0 Sgot/Ast 31 U/L N 15-37 SGPT/Alt 68 U/L N 12-78 Alkaline Phosphatase 64 U/L N 45-117 Laboratory test finding 10/03/2018 [facility] CK 369 U/L High 26-192 [address] [place] [address] [phone] Troponin-I < 0.015 ng/mL 12 Automated 10/03/2018 N2N/CCD Import Automated 7.7 3.1-10.7 leukocyte count leukocyte count (number/volume) (number/volume) Blood erythrocytes 10/03/2018 N2N/CCD Import Blood 4.80 3.90-5.40 automated count erythrocytes (number/volume) automated count (number/volume) Blood hemoglobin 10/03/2018 N2N/CCD Import Blood hemoglobin 13.3 11.6- 15.8 measurement measurement (mass/volume) (mass/volume) Hct VFr Bld Auto 10/03/2018 N2N/CCD Import Hct VFr Bld Auto 40.5 36.0- 46.1 Automated 10/03/2018 N2N/CCD Import Automated 84.4 80.9-99.0 erythrocyte mean erythrocyte mean corpuscular volume corpuscular (MCV volume (MCV) measurement Automated 10/03/2018 N2N/CCD Import Automated 27.7 25.9-32.7 erythrocyte mean erythrocyte mean corpuscular corpuscular hemoglobin hemoglobin (mass per erythrocyte) Automated 10/03/2018 N2N/CCD Import Automated 32.8 30.8-34.3 erythrocyte mean erythrocyte mean corpuscular corpuscular hemoglobin hemoglobin concentration measurement (mass/volume) Automated blood 10/03/2018 N2N/CCD Import Automated blood 296 155-360 platelet count platelet count (count/volume) (count/volume) Automated 10/03/2018 N2N/CCD Import Automated 44.2 36-47 erythrocyte erythrocyte distribution width distribution width Automated 10/03/2018 N2N/CCD Import Automated 14.6 High 11.7-14.4 erythrocyte erythrocyte distribution width distribution ratio width ratio Automated blood 10/03/2018 N2N/CCD Import Automated blood 8.9 8.9-12.4 platelet mean platelet mean volume measurement volume measurement Automated blood 10/03/2018 N2N/CCD Import Automated blood 62.3 40.4- 72.8 neutrophils/100 neutrophils/100 leukocytes leukocytes Automated blood 10/03/2018 N2N/CCD Import Automated blood 28.1 20.0- 42.0 lymphocytes/100 lymphocytes/100 leukocytes leukocytes Automated monocyte 10/03/2018 N2N/CCD Import Automated 5.9 4.3-13.2 % monocyte % Automated 10/03/2018 N2N/CCD Import Automated 2.6 0.0-6.6 eosinophil % eosinophil % Automated basophil 10/03/2018 N2N/CCD Import Automated 0.4 0.0-1.1 % basophil % Automated blood 10/03/2018 N2N/CCD Import Automated blood 0.7 0.0-5.0 immature immature granulocyte count granulocyte count as perc as percentage of total leukocytes Automated blood 10/03/2018 N2N/CCD Import Automated blood 0.0 < 10/ 100 nucleated nucleated WBC erythrocyte count erythrocyte count as per as percentage of total leukocytes Absolute 10/03/2018 N2N/CCD Import Absolute 4.79 1.8-7.0 neutrophil count neutrophil count Automated blood 10/03/2018 N2N/CCD Import Automated blood 0.05 immature immature granulocyte count granulocyte count (number (number/volume) Automated blood 10/03/2018 N2N/CCD Import Automated blood 0.03 0.0-0.1 basophil count basophil count (number/volume) (number/volume) Automated blood 10/03/2018 N2N/CCD Import Automated blood 0.20 0.0-0.5 eosinophil count eosinophil count Blood monocytes 10/03/2018 N2N/CCD Import Blood monocytes 0.45 0.3-0.9 automated count automated count (number/volume) (number/volume) Automated blood 10/03/2018 N2N/CCD Import Automated blood 2.16 1.0-4.0 lymphocyte count lymphocyte count (number/volume) (number/volume) Bacterial throat 09/25/2018 N2N/CCD Import Bacterial throat Normal culture culture Throat Giovanni Throat Culture 09/25/2018 [facility] Throat Culture NORMAL 13, Complete [address] Complete THROAT [place] [address] [place] [address] <SEE NOTE> [phone] Throat Culture 09/16/2018 [facility] Throat Culture NORMAL [address] [place] [address] <SEE NOTE> [phone] Urine 09/15/2018 N2N/CCD Import Urine 167 0-200 protein/creatinine protein/creatinin mass ratio e mass ratio Urine protein 09/15/2018 N2N/CCD Import Urine protein 47.4 Not Estab. measurement measurement (mass/volume) (mass/volume) Urine creatinine 09/15/2018 N2N/CCD Import Urine creatinine 284.6 Not Estab. measurement measurement (mass/volume) (mass/volume) Urine leukocyte 09/15/2018 N2N/CCD Import Urine leukocyte Negative Negative esterase detection esterase by automated te detection by automated test strip Urine nitrite 09/15/2018 N2N/CCD Import Urine nitrite Negative Negative detection by detection by automated test automated test strip strip Urine urobilinogen 09/15/2018 N2N/CCD Import Urine 0.2 0.2-1.0 measurement urobilinogen (units/volume) by measurement t (units/volume) by test strip Urine glucose 09/15/2018 N2N/CCD Import Urine glucose Negative Negative measurement by measurement by automated test automated test strip strip (mass/volume) Urine appearance 09/15/2018 N2N/CCD Import Urine appearance Cloudy Clear determination determination Urine color 09/15/2018 N2N/CCD Import Urine color Yellow Yellow determination determination Protein/Creatinine 09/15/2018 [facility] Creatinine,Urine 284.6 Not Estab. 16 Ratio,Urine [address] mg/dL [address], [place] [id number] [phone] Protein,Total,Urine 47.4 mg/dL Not Estab. Protein/Creatinine Ratio 167 MG/GCRE 0-200 17 Ua RFX Micro & Culture 09/15/2018 [facility] Urine Color YELLOW Yellow II [address] [place], [place] [id number] [phone] Urine Clarity CLOUDY Clear Urine Glucose - Dipstick NEGATIVE mg/dL Negative Urine Bilirubin - Dipstick NEGATIVE Negative Urine Ketone NEGATIVE mg/dL Negative Urine Specific [place] >=1.030 N 1.010-1.030 Urine Blood TRACE Negative Urine PH 5.5 Low 6.5-7.5 Urine Protein - Dipstick 30 mg/dL High Negative Urine Urobilinogen - Dipstick 0.2 E.U./dL N 0.2-1.0 Urine Nitrite - Dipstick NEGATIVE Negative Urine Leuk Esterase NEGATIVE Negative Source: URINE, CLEAN CAT <SEE NOTE> 18 Laboratory test finding 09/15/2018 [facility] CK 284 U/L High 26-192 [address] [place], [place] [id number] [phone] Basic Metabolic Panel 09/15/2018 [facility] Glucose 103 mg/dL N 74-[address] [place] [address] [phone] BUN 16 mg/dL N 7-18 Creatinine 1.1 mg/dL N 0.6-1.3 Glom Filtration Rate, Estimate 60 mL/min >60 If >60 mL/min >60 19 BUN/Creat 14.5 ratio Sodium 139 mmol/L N 136-145 Potassium 3.3 mmol/L Low 3.5-5.1 Chloride 105 mmol/L N 98-107 Carbon Dioxide 24 mmol/L N 21-32 Anion Gap 10 mEq/L N 8-16 Calcium 9.3 mg/dL N 8.5-10.1 Laboratory test 09/15/2018 [facility] Thyroid Stim 3.83 uIU/mL N 0.30-4.20 finding [address] [place] [address] [phone] Free T4 1.23 ng/dL N 0.76-1.46 Urine total 09/15/2018 N2N/CCD Import Urine total Negative Negative bilirubin bilirubin detection by detection by automated test automated test strip Urine ketones 09/15/2018 N2N/CCD Import Urine ketones Negative Negative measurement by measurement by automated test automated test strip strip (mass/volume) Specific gravity 09/15/2018 N2N/CCD Import Specific gravity >=1.030 1.010-1.030 of Urine by of Urine by Automated test Automated test strip strip Urine hemoglobin 09/15/2018 N2N/CCD Import Urine hemoglobin Trace Negative detection by detection by automated test automated test strip strip Urine pH 09/15/2018 N2N/CCD Import Urine pH 5.5 Low 6.5-7.5 measurement by measurement by automated test automated test strip strip Urine protein 09/15/2018 N2N/CCD Import Urine protein 30 High Negative measurement by measurement by automated test automated test strip strip (mass/volume) CBC W/Automated 07/15/2018 [facility] White Blood 7.3 K/uL N 3.1-10.7 [address] [place] [address] [phone] Red Blood Count 4.84 M/uL N 3.90-5.40 Hemoglobin 13.2 gm/dL N 11.6-15.8 Hematocrit 40.8 % N 36.0-46.1 Mean Cell Volume 84.3 fl N 80.9-99.0 Mean Corpuscular HGB 27.3 pg N 25.9-32.7 Mean Corpuscular HGB Conc 32.4 g/dL N 30.8-34.3 Platelet Count 289 K/uL N 155-360 Red Cell Distri Width SD 47.5 fl High 36-47 Red Cell Distri Width %CV 15.7 % High 11.7-14.4 Mean Platelet Volume 9.3 fL N 8.9-12.4 Neut% 63.6 % N 40.4-72.8 Lymph % 29.5 % N 20.0-42.0 [place] % 4.8 % N 4.3-13.2 Eo% 1.8 % N 0.0-6.6 Bas% 0.3 % N 0.0-1.1 Neut# 4.61 K/uL N 1.8-7.0 Lymph # 2.14 K/uL N 1.0-4.0 [place] # 0.35 K/uL N 0.3-0.9 Eos # 0.13 K/uL N 0.0-0.5 Baso # 0.02 K/uL N 0.0-0.1 Comprehensive Metabolic 07/15/2018 [facility] Glucose 101 mg/dL N 74-106 Panel [address] [place] [address] [phone] BUN 17 mg/dL N 7-18 Creatinine 1.0 mg/dL N 0.6-1.3 Glom Filtration Rate, Estimate >60 mL/min >60 If >60 mL/min >60 21 BUN/Creat 17.0 ratio Sodium 140 mmol/L N 136-145 Potassium 3.2 mmol/L Low 3.5-5.1 Chloride 106 mmol/L N 98-107 Carbon Dioxide 26 mmol/L N 21-32 Anion Gap 8 mEq/L N 8-16 Calcium 9.5 mg/dL N 8.5-10.1 Total Protein 7.4 g/dL N 6.4-8.2 Albumin 3.6 g/dL N 3.4-5.0 Globulin 3.8 g/dL N 1.9-4.3 Alb/Glob 0.9 ratio Bilirubin,Total 0.3 mg/dL N 0.2-1.0 Sgot/Ast 31 U/L N 15-37 SGPT/Alt 68 U/L N 12-78 Alkaline Phosphatase 64 U/L N 45-117 Reflex add FT3? N Reflex add FT4? Y LDL Cholesterol Profile 07/15/2018 [facility] Cholesterol 189 mg/dL <[address], [place] [id number] [phone] Triglycerides 162 mg/dL High <150 23 HDL Cholesterol 41 mg/dL >40 24 LDL-Cholesterol 116 mg/dL < 100 25 Reflex add FT3? N Reflex add FT4? Y Laboratory test 07/15/2018 [facility] Vitamin 15.9 Low 30.0-100.0 [address] D,25-Hydroxy ng/mL [place], [place] [id number] [phone] Glycohemoglobin 07/15/2018 [facility] Glycohemoglobin 5.4 % N 4.2-6.[address] (A1c) [place] [address] [phone] eAG 108 mg/dL TSH Reflex FT4 07/15/2018 [facility] Thyroid Stim 3.57 uIU/mL N 0.30-4.20 And/Or FT3 [address] [place] [address] [phone] Reflex add FT3? N Reflex add FT4? Y Serum or plasma 07/15/2018 N2N/CCD Import Serum or plasma 189 <200 cholesterol cholesterol measurement measurement (mass/volu (mass/volume) Serum or plasma 07/15/2018 N2N/CCD Import Serum or plasma 162 High <150 triglyceride triglyceride measurement measurement (mass/vol (mass/volume) Serum or plasma 07/15/2018 N2N/CCD Import Serum or plasma 41 >40 cholesterol in HDL cholesterol in HDL measurement (ma measurement (mass/volume) Serum or plasma 07/15/2018 N2N/CCD Import Serum or plasma 116 < 100 cholesterol in LDL cholesterol in LDL measurement by measurement by calculation (mass/volume) HgbA1c % 07/15/2018 N2N/CCD Import HgbA1c % 5.4 4.2-6.3 Blood estimated 07/15/2018 N2N/CCD Import Blood estimated 108 average glucose average glucose determination by e determination by estimation from glycated hemoglobin (mass/volume) Serum or plasma 07/15/2018 N2N/CCD Import Serum or plasma 15.9 Low 30.0- 100 25-hydroxyvitamin 25-hydroxyvitamin .0 D measurement (m D measurement (mass/volume) Serum or plasma 05/15/2018 N2N/CCD Import Serum or plasma 17 7-18 urea nitrogen urea nitrogen measurement measurement (mass/vo (mass/volume) Serum or plasma 05/15/2018 N2N/CCD Import Serum or plasma 17.0 urea urea nitrogen/creatinin nitrogen/creatinin e mass rati e mass ratio Sodium SerPl-sCnc 05/15/2018 N2N/CCD Import Sodium SerPl-sCnc 139 136- 145 Laboratory test 05/15/2018 [facility] Troponin-I < 0.015 28, [address] ng/[place] [address] [phone] Automated blood 05/15/2018 N2N/CCD Import Automated blood 326 155-360 platelet count platelet count Automated blood 05/15/2018 N2N/CCD Import Automated blood 64.5 40.4-72. neutrophils/100 neutrophils/100 8 leukocytes leukocytes Automated blood 05/15/2018 N2N/CCD Import Automated blood 28.7 20.0-42. lymphocytes/100 lymphocytes/100 0 leukocytes leukocytes Automated blood 05/15/2018 N2N/CCD Import Automated blood 2.60 1.0-4.0 lymphocyte count lymphocyte count (number/volume) (number/volume) Automated blood 05/15/2018 N2N/CCD Import Automated blood 9.1 3.1-10.7 leukocyte count leukocyte count (number/volume) (number/volume) Automated blood 05/15/2018 N2N/CCD Import Automated blood 0.14 0.0-0.5 eosinophil count eosinophil count Automated blood 05/15/2018 N2N/CCD Import Automated blood 0.03 0.0-0.1 basophil count basophil count (number/volume) (number/volume) Automated basophil 05/15/2018 N2N/CCD Import Automated basophil 0.3 0.0- 1.1 % % Absolute 05/15/2018 N2N/CCD Import Absolute 5.85 1.8-7.0 neutrophil count neutrophil count Basic Metabolic 05/15/2018 [facility] Glucose 113 High 74-[address] mg/[place] [address] [phone] BUN 17 mg/dL N 7-18 Creatinine 1.0 mg/dL N 0.6-1.3 Glom Filtration Rate, Estimate >60 mL/min >60 If >60 mL/min >60 30 BUN/Creat 17.0 ratio Sodium 139 mmol/L N 136-145 Potassium 3.3 mmol/L Low 3.5-5.1 Chloride 105 mmol/L N 98-107 Carbon Dioxide 24 mmol/L N 21-32 Anion Gap 10 mEq/L N 8-16 Calcium 8.8 mg/dL N 8.5-10.1 CBC W/Automated Diff 05/15/2018 [facility] White Blood 9.1 K/uL N 3.1-10.[address] [place] [address] [phone] Red Blood Count 4.90 M/uL N 3.90-5.40 Hemoglobin 13.3 gm/dL N 11.6-15.8 Hematocrit 40.9 % N 36.0-46.1 Mean Cell Volume 83.5 fl N 80.9-99.0 Mean Corpuscular HGB 27.1 pg N 25.9-32.7 Mean Corpuscular HGB Conc 32.5 g/dL N 30.8-34.3 Platelet Count 326 K/uL N 155-360 Red Cell Distri Width SD 46.1 fl N 36-47 Red Cell Distri Width %CV 15.4 % High 11.7-14.4 Mean Platelet Volume 9.3 fL N 8.9-12.4 Neut% 64.5 % N 40.4-72.8 Lymph % 28.7 % N 20.0-42.0 [place] % 5.0 % N 4.3-13.2 Eo% 1.5 % N 0.0-6.6 Bas% 0.3 % N 0.0-1.1 Neut# 5.85 K/uL N 1.8-7.0 Lymph # 2.60 K/uL N 1.0-4.0 [place] # 0.45 K/uL N 0.3-0.9 Eos # 0.14 K/uL N 0.0-0.5 Baso # 0.03 K/uL N 0.0-0.1 Automated blood 05/15/2018 N2N/CCD Import Automated blood 9.3 8.9-12.4 platelet mean platelet mean volume volume measurement measurement Automated 05/15/2018 N2N/CCD Import Automated 1.5 0.0-6.6 eosinophil % eosinophil % Automated 05/15/2018 N2N/CCD Import Automated 46.1 36-47 erythrocyte erythrocyte distribution distribution width width Automated 05/15/2018 N2N/CCD Import Automated 15.4 High 11.7-14.4 erythrocyte erythrocyte distribution distribution width ratio width ratio Automated 05/15/2018 N2N/CCD Import Automated 27.1 25.9-32.7 erythrocyte mean erythrocyte mean corpuscular corpuscular hemoglobin hemoglobin (mass per erythrocyte) Automated 05/15/2018 N2N/CCD Import Automated 32.5 30.8-34.3 erythrocyte mean erythrocyte mean corpuscular corpuscular hemoglobin hemoglobin concentration measurement (mass/volume) Automated 05/15/2018 N2N/CCD Import Automated 83.5 80.9-99.0 erythrocyte mean erythrocyte mean corpuscular corpuscular volume (MCV volume (MCV) measurement Automated 05/15/2018 N2N/CCD Import Automated 5.0 4.3-13.2 monocyte % monocyte % Blood 05/15/2018 N2N/CCD Import Blood 4.90 3.90-5.40 erythrocytes erythrocytes automated count automated count (number/volume) (number/volume) Blood hemoglobin 05/15/2018 N2N/CCD Import Blood hemoglobin 13.3 11.6- 15.8 measurement measurement (mass/volume) (mass/volume) Blood monocytes 05/15/2018 N2N/CCD Import Blood monocytes 0.45 0.3-0.9 automated count automated count (number/volume) (number/volume) Co2 SerPl-sCnc 05/15/2018 N2N/CCD Import Co2 SerPl-sCnc 24 21-32 Hct VFr Bld Auto 05/15/2018 N2N/CCD Import Hct VFr Bld Auto 40.9 36.0- 46.1 Serum or plasma 05/15/2018 N2N/CCD Import Serum or plasma 10 8-16 anion gap anion gap Serum or plasma 05/15/2018 N2N/CCD Import Serum or plasma 8.8 8.5-10.1 calcium calcium measurement measurement (mass/volume) (mass/volume) Serum or plasma 05/15/2018 N2N/CCD Import Serum or plasma 105 98-107 chloride chloride measurement measurement Serum or plasma 05/15/2018 N2N/CCD Import Serum or plasma 1.0 0.6-1.3 creatinine creatinine measurement measurement (mass/volum (mass/volume) Serum or plasma 05/15/2018 N2N/CCD Import Serum or plasma 113 High 74- 106 glucose glucose measurement measurement (mass/volume) (mass/volume) Serum or plasma 05/15/2018 N2N/CCD Import Serum or plasma 3.3 Low 3.5- 5.1 potassium potassium measurement measurement Serum or plasma 05/14/2018 N2N/CCD Import Serum or plasma 0.2 0.2-1.0 total bilirubin total bilirubin measurement measurement (mass/ (mass/volume) Aot Request 05/14/2018 [facility] Aot Request Test(s) 31, [address] added [place] [id number] [phone] Tests to be added: d-dimer * Miscellaneous 05/14/2018 N2N/CCD Import * Miscellaneous Test(s) studies (set) studies (set) added Serum or plasma 05/14/2018 N2N/CCD Import Serum or plasma 7.2 6.4- protein measurement protein measurement 8.2 (mass/volume) (mass/volume) Serum or plasma 05/14/2018 N2N/CCD Import Serum or plasma 35 15-3 aspartate aspartate 7 aminotransferase aminotransferase measure measurement (enzymatic activity/volume) Serum or plasma 05/14/2018 N2N/CCD Import Serum or plasma 72 45-1 alkaline phosphatase alkaline phosphatase 17 measurement ( measurement (enzymatic activity/volume) Serum or plasma 05/14/2018 N2N/CCD Import Serum or plasma 0.9 albumin/globulin mass albumin/globulin mass ratio ratio Serum or plasma 05/14/2018 N2N/CCD Import Serum or plasma 3.4 3.4- albumin measurement albumin measurement 5.0 (mass/volume) (mass/volume) Serum or plasma 05/14/2018 N2N/CCD Import Serum or plasma 68 12-7 alanine alanine 8 aminotransferase aminotransferase measureme measurement (enzymatic activity/volume) Serum globulin 05/14/2018 N2N/CCD Import Serum globulin 3.8 1.9- measurement by measurement by 4.3 calculation (mass/vo calculation (mass/volume) Fibrin D-dimer Feu 05/14/2018 N2N/CCD Import Fibrin D-dimer Feu 0.33 measurement in measurement in platelet poor pl platelet poor plasma (mass/volume) Laboratory test 05/14/2018 [facility] Troponin-I < 0.015 [address] ng/mL [place] [address] [phone] HCG,Serum (Qualitative) NEGATIVE (Negative) 34 D-Dimer, Quantitative 0.33 ug/mL 35 Comprehensive Metabolic 05/14/2018 [facility] Glucose 151 mg/dL High 74-[address] [place] [address] [phone] BUN 17 mg/dL N 7-18 Creatinine 1.1 mg/dL N 0.6-1.3 Glom Filtration Rate, Estimate >60 mL/min >60 If >60 mL/min >60 36 BUN/Creat 15.4 ratio Sodium 138 mmol/L N 136-145 Potassium 3.4 mmol/L Low 3.5-5.1 Chloride 105 mmol/L N 98-107 Carbon Dioxide 24 mmol/L N 21-32 Anion Gap 9 mEq/L N 8-16 Calcium 9.0 mg/dL N 8.5-10.1 Total Protein 7.2 g/dL N 6.4-8.2 Albumin 3.4 g/dL N 3.4-5.0 Globulin 3.8 g/dL N 1.9-4.3 Alb/Glob 0.9 ratio Bilirubin,Total 0.2 mg/dL N 0.2-1.0 Sgot/Ast 35 U/L N 15-37 SGPT/Alt 68 U/L N 12-78 Alkaline Phosphatase 72 U/L N 45-117 CBC W/Automated Diff 05/14/2018 [facility] White Blood 9.0 K/uL N 3.1-10.[address] [place] [address] [phone] Red Blood Count 5.19 M/uL N 3.90-5.40 Hemoglobin 14.2 gm/dL N 11.6-15.8 Hematocrit 43.1 % N 36.0-46.1 Mean Cell Volume 83.0 fl N 80.9-99.0 Mean Corpuscular HGB 27.4 pg N 25.9-32.7 Mean Corpuscular HGB Conc 32.9 g/dL N 30.8-34.3 Platelet Count 280 K/uL N 155-360 Red Cell Distri Width SD 45.7 fl N 36-47 Red Cell Distri Width %CV 15.2 % High 11.7-14.4 Mean Platelet Volume 8.9 fL N 8.9-12.4 Neut% 75.7 % High 40.4-72.8 Lymph % 17.9 % Low 20.0-42.0 [place] % 4.6 % N 4.3-13.2 Eo% 1.5 % N 0.0-6.6 Bas% 0.3 % N 0.0-1.1 Neut# 6.79 K/uL N 1.8-7.0 Lymph # 1.60 K/uL N 1.0-4.0 [place] # 0.41 K/uL N 0.3-0.9 Eos # 0.13 K/uL N 0.0-0.5 Baso # 0.03 K/uL N 0.0-0.1 Laboratory test 04/14/2018 [facility] PTH,Intact 39 pg/mL 15-65 37, 38 finding [address] [place] [address] [phone] Basic Metabolic 04/14/2018 [facility] Glucose 106 mg/dL N 74-106 Panel [address] [place] [address] [phone] BUN 14 mg/dL N 7-18 Creatinine 1.0 mg/dL N 0.6-1.3 Glom Filtration Rate, Estimate >60 mL/min >60 If >60 mL/min >60 39 BUN/Creat 14.0 ratio Sodium 139 mmol/L N 136-145 Potassium 3.6 mmol/L N 3.5-5.1 Chloride 102 mmol/L N 98-107 Carbon Dioxide 30 mmol/L N 21-32 Anion Gap 7 mEq/L Low 8-16 Calcium 8.8 mg/dL N 8.5-10.1 Serum or plasma 03/31/2018 N2N/CCD Import Serum or plasma 192 High <150 triglyceride triglyceride measurement measurement (mass/vol (mass/volume) Serum or plasma 03/31/2018 N2N/CCD Import Serum or plasma 192 <200 cholesterol cholesterol measurement measurement (mass/volu (mass/volume) Serum or plasma 03/31/2018 N2N/CCD Import Serum or plasma 114 < 100 cholesterol in LDL cholesterol in LDL measurement by measurement by calculation (mass/volume) Serum or plasma 03/31/2018 N2N/CCD Import Serum or plasma 40 >40 cholesterol in HDL cholesterol in HDL measurement (ma measurement (mass/volume) Serum or plasma 03/31/2018 N2N/CCD Import Serum or plasma 21.5 Low 30.0- 100 25-hydroxyvitamin 25-hydroxyvitamin .0 D measurement (m D measurement (mass/volume) HgbA1c % 03/31/2018 N2N/CCD Import HgbA1c % 5.9 4.2-6.3 Blood estimated 03/31/2018 N2N/CCD Import Blood estimated 123 average glucose average glucose determination by e determination by estimation from glycated hemoglobin (mass/volume) Laboratory test 03/31/2018 [facility] Vitamin 21.5 Low 30.0-100 40, [address] D,25-Hydroxy ng/mL .[address], [place] [id number] [phone] LDL Cholesterol 03/31/2018 [facility] Cholesterol 192 <200 [address] mg/dL [place], [place] [id number] [phone] Triglycerides 192 mg/dL High <150 43 HDL Cholesterol 40 mg/dL >40 44 LDL-Cholesterol 114 mg/dL < 100 45 Comprehensive Metabolic 03/31/2018 [facility] Glucose 99 mg/dL N 74-[address] [place], [place] [address]01 [phone] BUN 16 mg/dL N 7-18 Creatinine 1.0 mg/dL N 0.6-1.3 Glom Filtration Rate, Estimate >60 mL/min >60 If >60 mL/min >60 46 BUN/Creat 16.0 ratio Sodium 140 mmol/L N 136-145 Potassium 3.0 mmol/L Low 3.5-5.1 Chloride 104 mmol/L N 98-107 Carbon Dioxide 30 mmol/L N 21-32 Anion Gap 6 mEq/L Low 8-16 Calcium 8.8 mg/dL N 8.5-10.1 Total Protein 7.2 g/dL N 6.4-8.2 Albumin 3.4 g/dL N 3.4-5.0 Globulin 3.8 g/dL N 1.9-4.3 Alb/Glob 0.9 ratio Bilirubin,Total 0.4 mg/dL N 0.2-1.0 Sgot/Ast 34 U/L N 15-37 SGPT/Alt 60 U/L N 12-78 Alkaline Phosphatase 70 U/L N 45-117 Glycohemoglobin A1c 03/31/2018 [facility] Glycohemoglobin 5.9 % N 4.2-6.[address] (A1c) [place], [place] [id number] [phone] eAG 123 mg/dL CBC W/Automated Diff 03/31/2018 [facility] White Blood 6.6 K/uL N 3.1-10.[address] [place] [address] [phone] Red Blood Count 5.03 M/uL N 3.90-5.40 Hemoglobin 13.8 gm/dL N 11.6-15.8 Hematocrit 41.5 % N 36.0-46.1 Mean Cell Volume 82.5 fl N 80.9-99.0 Mean Corpuscular HGB 27.4 pg N 25.9-32.7 Mean Corpuscular HGB Conc 33.3 g/dL N 30.8-34.3 Platelet Count 286 K/uL N 155-360 Red Cell Distri Width SD 46.8 fl N 3-47 Red Cell Distri Width %CV 15.7 % High 11.7-14.4 Mean Platelet Volume 8.8 fL Low 8.9-12.4 Neut% 64.6 % N 40.4-72.8 Lymph % 28.3 % N 20.0-42.0 [place] % 4.8 % N 4.3-13.2 Eo% 2.0 % N 0.0-6.6 Bas% 0.3 % N 0.0-1.1 Neut# 4.26 K/uL N 1.8-7.0 Lymph # 1.87 K/uL N 1.0-4.0 [place] # 0.32 K/uL N 0.3-0.9 Eos # 0.13 K/uL N 0.0-0.5 Baso # 0.02 K/uL N 0.0-0.1 Genital Culture W/ 03/11/2018 [facility] Gram Stain GRAM STAIN 48, [address] [place] [address] NOTE> [phone] Gram Stain MODERATE GR POS. <SEE NOTE> 50 Gram Stain MODERATE GRAM VA <SEE NOTE> 51 Gram Stain RARE GRAM POSITI <SEE NOTE> 52 Gram Stain RARE RARE WHITE <SEE NOTE> 53 Genital Culture GENITAL GIOVANNI Urine Dipstick 03/11/2018 [facility] Ua Color orange Yellow Ua Clarity clear Clear Ua Leuko - Negative Ua Nitrite - Negative Ua Urobilinogen - Low 0.2 - 1.0 E.U./dL Ua Protein - Negative Ua PH 5 Low 6.5-7.5 Ua Blood - Negative Ua Specific [place] 1.030 1.010-1.030 Ua Ketones - Negative Ua Bilirubin - Negative Ua Glucose - Negative Serum or plasma 01/20/2018 N2N/CCD Import Serum or plasma 31 8-252 ferritin ferritin measurement measurement (mass/volume) (mass/volume) Serum or plasma 01/20/2018 N2N/CCD Import Serum or plasma 383 250-450 iron binding iron binding capacity capacity measurement measurement (mass/volume) Laboratory test 01/20/2018 [facility] Vitamin 16.2 Low 30.0-100. 54, finding 134 [facility] D,25-Hydroxy ng/mL 0 [address] [place] [address] [phone] Glycohemoglobin A1c 01/20/2018 [facility] Glycohemoglobin 6.1 % N 4.2-6.3 56 [address] [facility] (A1c) [place] [address] [phone] eAG 128 mg/dL LDL Cholesterol Profile 01/20/2018 [facility] Cholesterol 195 mg/dL <200 57 [address] [place] [address], [place] [address] [phone] Triglycerides 186 mg/dL High <150 58 HDL Cholesterol 41 mg/dL >40 59 LDL-Cholesterol 117 mg/dL < 100 60 Comprehensive Metabolic 01/20/2018 [facility] Glucose 94 mg/dL N 74-106 Panel [address] [place], [place] [address] [phone] BUN 13 mg/dL N 7-18 Creatinine 0.9 mg/dL N 0.6-1.3 Glom Filtration Rate, Estimate >60 mL/min >60 If >60 mL/min >60 61 BUN/Creat 14.4 ratio Sodium 141 mmol/L N 136-145 Potassium 3.7 mmol/L N 3.5-5.1 Chloride 102 mmol/L N 98-107 Carbon Dioxide 30 mmol/L N 21-32 Anion Gap 9 mEq/L N 8-16 Calcium 9.0 mg/dL N 8.5-10.1 Total Protein 7.2 g/dL N 6.4-8.2 Albumin 3.7 g/dL N 3.4-5.0 Globulin 3.5 g/dL N 1.9-4.3 Alb/Glob 1.1 ratio Bilirubin,Total 0.5 mg/dL N 0.2-1.0 Sgot/Ast 31 U/L N 15-37 SGPT/Alt 63 U/L N 12-78 Alkaline Phosphatase 76 U/L N 45-117 CBC W/Automated Diff 01/20/2018 [facility] White Blood 7.3 K/uL N 3.1-10.[address] [place], [place] [address] [phone] Red Blood Count 5.19 M/uL N 3.90-5.40 Hemoglobin 13.9 gm/dL N 11.6-15.8 Hematocrit 42.2 % N 36.0-46.1 Mean Cell Volume 81.3 fl N 80.9-99.0 Mean Corpuscular HGB 26.8 pg N 25.9-32.7 Mean Corpuscular HGB Conc 32.9 g/dL N 30.8-34.3 Platelet Count 285 K/uL N 155-360 Red Cell Distri Width SD 46.5 fl N 3-47 Red Cell Distri Width %CV 15.9 % High 11.7-14.4 Mean Platelet Volume 9.2 fL N 8.9-12.4 Neut% 69.1 % N 40.4-72.8 Lymph % 24.4 % N 20.0-42.0 [place] % 4.6 % N 4.3-13.2 Eo% 1.6 % N 0.0-6.6 Bas% 0.3 % N 0.0-1.1 Neut# 5.07 K/uL N 1.8-7.0 Lymph # 1.79 K/uL N 1.0-4.0 [place] # 0.34 K/uL N 0.3-0.9 Eos # 0.12 K/uL N 0.0-0.5 Baso # 0.02 K/uL N 0.0-0.1 Laboratory test 01/20/2018 [facility] Transferrin 296 mg/dL 200-370 62 finding [address] [place] [address] [phone] Iron-Tibc-%Sat 01/20/2018 [facility] Serum Iron 55 g/dL N 50-170 [address] [place] [address] [phone] Total Iron Binding Capacity 383 g/dL N 250-450 Transferrin %Saturation 14 % N 12-57 Laboratory test 01/20/2018 [facility] Ferritin 31 ng/mL N 8-252 finding [address] [place] [address] [phone] Serum or plasma 01/20/2018 N2N/CCD Import Serum or plasma 296 200-370 transferrin transferrin measurement measurement (mass/volu (mass/volume) Serum or plasma 01/20/2018 N2N/CCD Import Serum or plasma 14 12-57 iron saturation iron saturation measurement (mass measurement (mass fraction) Serum or plasma 01/20/2018 N2N/CCD Import Serum or plasma 55 50-170 iron measurement iron measurement (mass/volume) (mass/volume) Ua RFX Micro & 12/17/2017 [facility] Urine Color YELLOW Yellow 63 Culture II [address] [place] [address] [phone] Urine Clarity TURBID Clear Urine Glucose - Dipstick NEGATIVE mg/dL Negative Urine Bilirubin - Dipstick NEGATIVE Negative Urine Ketone NEGATIVE mg/dL Negative Urine Specific [place] >=1.030 N 1.010-1.030 Urine Blood NEGATIVE Negative Urine PH 6.0 Low 6.5-7.5 Urine Protein - Dipstick 30 mg/dL High Negative Urine Urobilinogen - Dipstick 0.2 E.U./dL N 0.2-1.0 Urine Nitrite - Dipstick NEGATIVE Negative Urine Leuk Esterase NEGATIVE Negative Source: URINE, CLEAN CAT <SEE NOTE> 64 Protein/Creatinine 12/17/2017 [facility] Creatinine,Urine 233.6 Not Ratio,Urine [address] [facility] mg/dL [facility] [place] [address] [phone] Protein,Total,Urine 49.5 mg/dL Not Estab. Protein/Creatinine Ratio 212 MG/GCRE High 0-200 65 CBS W/Automated 10/18/2017 [facility] White Blood 8.0 K/uL N 3.1-10.7 [address] [place] [address] [phone] Red Blood Count 5.04 M/uL N 3.90-5.40 Hemoglobin 13.3 gm/dL N 11.6-15.8 Hematocrit 40.2 % N 36.0-46.1 Mean Cell Volume 79.8 fl Low 80.9-99.0 Mean Corpuscular HGB 26.4 pg N 25.9-32.7 Mean Corpuscular HGB Conc 33.1 g/dL N 30.8-34.3 Platelet Count 307 K/uL N 155-360 Red Cell Distri Width SD 45.1 fl N 3-47 Red Cell Distri Width %CV 16.2 % High 11.7-14.4 Mean Platelet Volume 9.1 fL N 8.9-12.4 Neut% 68.1 % N 40.4-72.8 Lymph % 25.2 % N 20.0-42.0 [place] % 4.4 % N 4.3-13.2 Eo% 1.9 % N 0.0-6.6 Bas% 0.4 % N 0.0-1.1 Neut# 5.42 K/uL N 1.8-7.0 Lymph # 2.00 K/uL N 1.0-4.0 [place] # 0.35 K/uL N 0.3-0.9 Eos # 0.15 K/uL N 0.0-0.5 Baso # 0.03 K/uL N 0.0-0.1 Ua RFX Micro & Culture 10/18/2017 [facility] Urine Color YELLOW Yellow II [address] [place] [address] [phone] Urine Clarity SL CLOUDY Clear Urine Glucose - Dipstick NEGATIVE mg/dL Negative Urine Bilirubin - Dipstick NEGATIVE Negative Urine Ketone NEGATIVE mg/dL Negative Urine Specific [place] >=1.030 N 1.010-1.030 Urine Blood TRACE Negative Urine PH 5.5 Low 6.5-7.5 Urine Protein - Dipstick 30 mg/dL High Negative Urine Urobilinogen - Dipstick 0.2 E.U./dL N 0.2-1.0 Urine Nitrite - Dipstick NEGATIVE Negative Urine Leuk Esterase NEGATIVE Negative Source: URINE, CLEAN CAT <SEE NOTE> 67 Chlmaydia/GC/Trichomonas 10/18/2017 [facility] Trichomonas Negative Negative PCR [address] [place] [address] PCR [phone] Chlamydia trachomatis, PCR Negative Negative Neisseria gonorrhoeae, PCR Negative Negative 68 Comprehensive Metabolic 09/07/2017 [facility] Glucose 101 mg/dL N 74-106 [address] [place] [address] [phone] BUN 16 mg/dL N 7-18 Creatinine 1.1 mg/dL N 0.6-1.3 Glom Filtration Rate, Estimate >60 mL/min >60 If >60 mL/min >60 70 BUN/Creat 14.5 ratio Sodium 141 mmol/L N 136-145 Potassium 3.5 mmol/L N 3.5-5.1 Chloride 106 mmol/L N 98-107 Carbon Dioxide 30 mmol/L N 21-32 Anion Gap 5 mEq/L Low 8-16 Calcium 9.2 mg/dL N 8.5-10.1 Total Protein 7.2 g/dL N 6.4-8.2 Albumin 3.5 g/dL N 3.4-5.0 Globulin 3.7 g/dL N 1.9-4.3 Alb/Glob 0.9 ratio Bilirubin,Total 0.3 mg/dL N 0.2-1.0 Sgot/Ast 28 U/L N 15-37 SGPT/Alt 58 U/L N 12-78 Alkaline Phosphatase 70 U/L N 45-117 CBS W/Automated Diff 09/07/2017 [facility] White Blood 6.6 K/uL N 3.1-10.[address] [place] [address] [phone] Red Blood Count 5.18 M/uL N 3.90-5.40 Hemoglobin 13.5 gm/dL N 11.6-15.8 Hematocrit 41.7 % N 36.0-46.1 Mean Cell Volume 80.5 fl Low 80.9-99.0 Mean Corpuscular HGB 26.1 pg N 25.9-32.7 Mean Corpuscular HGB Conc 32.4 g/dL N 30.8-34.3 Platelet Count 283 K/uL N 155-360 Red Cell Distri Width SD 45.2 fl N 3-47 Red Cell Distri Width %CV 15.7 % High 11.7-14.4 Mean Platelet Volume 8.9 fL N 8.9-12.4 Neut% 62.2 % N 40.4-72.8 Lymph % 30.0 % N 20.0-42.0 [place] % 5.3 % N 4.3-13.2 Eo% 2.0 % N 0.0-6.6 Bas% 0.5 % N 0.0-1.1 Neut# 4.14 K/uL N 1.8-7.0 Lymph # 1.99 K/uL N 1.0-4.0 [place] # 0.35 K/uL N 0.3-0.9 Eos # 0.13 K/uL N 0.0-0.5 Baso # 0.03 K/uL N 0.0-0.1 LDL Cholesterol Profile 09/07/2017 [facility] Cholesterol 180 mg/dL <200 71 [address] [place], [place] [address] [phone] Triglycerides 182 mg/dL High <150 72 HDL Cholesterol 43 mg/dL >40 73 LDL-Cholesterol 101 mg/dL < 100 74 Glycohemoglobin A1c 09/07/2017 [facility] Glycohemoglobin 6.2 % N 4.2-6.3 75 [address] [facility] (A1c) [place], [place] [address] [phone] eAG 131 mg/dL Ua RFX Micro & Culture 09/07/2017 [facility] Urine Color YELLOW Yellow II [address] [place] [address] [phone] Urine Clarity CLEAR Clear Urine Glucose - Dipstick NEGATIVE mg/dL Negative Urine Bilirubin - Dipstick NEGATIVE Negative Urine Ketone NEGATIVE mg/dL Negative Urine Specific [place] >=1.030 N 1.010-1.030 Urine Blood NEGATIVE Negative Urine PH 5.5 Low 6.5-7.5 Urine Protein - Dipstick TRACE mg/dL Negative Urine Urobilinogen - Dipstick 0.2 E.U./dL N 0.2-1.0 Urine Nitrite - Dipstick NEGATIVE Negative Urine Leuk Esterase NEGATIVE Negative Source: URINE, CLEAN CAT <SEE NOTE> 76 Protein/Creatinine 09/07/2017 [facility] Creatinine,Urine 291.1 Not Ratio,Urine [address] mg/dL [place], [place] [address] [phone] Protein,Total,Urine 47.2 mg/dL Not Estab. Protein/Creatinine Ratio 162 MG/GCRE 0-200 77 Laboratory 04/18/2017 [facility] Anti-Nuclear Negative Negative 78, 79 test finding [address] Antibodies [place] [address] Direct [phone] Complement C4, Serum 36 mg/dL 14-44 Complement C3, Serum 202 mg/dL High 82-167 LDL Cholesterol Profile 04/18/2017 [facility] Cholesterol 184 mg/dL <[address] [place] [address] [phone] Triglycerides 199 mg/dL High <150 81 HDL Cholesterol 40 mg/dL >40 82 LDL-Cholesterol 104 mg/dL < 100 83 Glycohemoglobin A1c 04/18/2017 [facility] Glycohemoglobin 6.2 % N 4.2-6.[address] (A1c) [place] [address] [phone] eAG 131 mg/dL Laboratory test 04/18/2017 [facility] Rheumatoid < 10.0 N 0.0-15.[address] Factor Screen IU/[place] [address] [phone] Comprehensive 04/18/2017 [facility] Glucose 110 mg/dL High 74-106 Metabolic Panel [address], [place] [address]73 [phone] BUN 15 mg/dL N 7-18 Creatinine 1.0 mg/dL N 0.6-1.3 Glom Filtration Rate, Estimate >60 mL/min >60 If >60 mL/min >60 85 BUN/Creat 15.0 ratio Sodium 142 mmol/L N 136-145 Potassium 3.5 mmol/L N 3.5-5.1 Chloride 104 mmol/L N 98-107 Carbon Dioxide 32 mmol/L N 21-32 Anion Gap 6 mEq/L Low 8-16 Calcium 9.1 mg/dL N 8.5-10.1 Total Protein 7.1 g/dL N 6.4-8.2 Albumin 3.4 g/dL N 3.4-5.0 Globulin 3.7 g/dL N 1.9-4.3 Alb/Glob 0.9 ratio Bilirubin,Total 0.4 mg/dL N 0.2-1.0 Sgot/Ast 41 U/L High 15-37 SGPT/Alt 75 U/L N 12-78 Alkaline Phosphatase 68 U/L N 45-117 Allergens,Zone 1 01/09/2017 [facility] mRast Class (SEE NOTE) 86, [address] (Text Only) [place] [address] [phone] D Pteronyssinus <0.10 kU/L Class 0 D Farinae Mite <0.10 kU/L Class 0 Cat Hair/Dander <0.10 kU/L Class 0 Dog Hair/Dander <0.10 kU/L Class 0 Bluegrass,[facility] <0.10 kU/L Class 0 B[place] Grass <0.10 kU/L Class 0 [place] Grass <0.10 kU/L Class 0 Cockroach,Vietnamese <0.10 kU/L Class 0 Penicillium Not <0.10 kU/L Class 0 Cladosporium Herbarum <0.10 kU/L Class 0 Apergillis Fumigatus Ige <0.10 kU/L Class 0 Mucor Racemosus <0.10 kU/L Class 0 Alternaria Alternata <0.10 kU/L Class 0 Stemphylium Bot <0.10 kU/L Class 0 Birch,White <0.10 kU/L Class 0 [place],White <0.10 kU/L Class 0 Elm,Vietnamese (White) <0.10 kU/L Class 0 Vipin,White <0.10 kU/L Class 0 Hazelnut Tree T004 Ige <0.10 kU/L Class 0 Allen,White <0.10 kU/L Class 0 [place],White <0.10 kU/L Class 0 [employer],Mountain <0.10 kU/L Class 0 Ragweed,Short/ <0.10 kU/L Class 0 Mugwort <0.10 kU/L Class 0 Plantain,Armenian <0.10 kU/L Class 0 Pigweed,Rough <0.10 kU/L Class 0 Sheep Sleepy Eye (DO <0.10 kU/L Class 0 Nettle <0.10 kU/L Class 0 Maple/Diamond Ige T001 <0.10 kU/L Class 0 88 Laboratory test 01/09/2017 [facility] Immunoglobulin 47 IU/mL 0-[address],[place] [address] [phone] Laboratory test 12/06/2016 [facility] Thyroid Stim 3.78 N 0.30-4.20 [address] Hormone uIU/[place] [address] [phone] Free T4 0.95 ng/dL N 0.76-1.46 Comprehensive Metabolic 09/03/2016 [facility] Glucose 90 mg/dL N 74-106 91 Panel [address] [place] [address] [phone] BUN 17 mg/dL N 7-18 Creatinine 1.0 mg/dL N 0.6-1.3 Glom Filtration Rate, Estimate >60 mL/min >60 If >60 mL/min >60 92 BUN/Creat 17.0 ratio Sodium 142 mmol/L N 136-145 Potassium 4.1 mmol/L N 3.5-5.1 Chloride 106 mmol/L N 98-107 Carbon Dioxide 28 mmol/L N 21-32 Anion Gap 8 mEq/L N 8-16 Calcium 8.8 mg/dL N 8.5-10.1 Total Protein 7.1 g/dL N 6.4-8.2 Albumin 3.6 g/dL N 3.4-5.0 Globulin 3.5 g/dL N 1.9-4.3 Alb/Glob 1.0 ratio Bilirubin,Total 0.5 mg/dL N 0.2-1.0 Sgot/Ast 24 U/L N 15-37 SGPT/Alt 46 U/L N 12-78 Alkaline Phosphatase 66 U/L N 45-117 Laboratory test 09/03/2016 [facility] Magnesium 2.0 mg/dL N 1.8-2.4 finding [address] [place] [address] [phone] CBS W/Automated 09/03/2016 [facility] White Blood 8.2 K/uL N 3.1-10.[address] [place], [place] [address]98 [phone] Red Blood Count 5.39 M/uL N 3.90-5.40 Hemoglobin 15.0 gm/dL N 11.6-15.8 Hematocrit 45.0 % N 36.0-46.1 Mean Cell Volume 83.5 fl N 80.9-99.0 Mean Corpuscular HGB 27.8 pg N 25.9-32.7 Mean Corpuscular HGB Conc 33.3 g/dL N 30.8-34.3 Platelet Count 235 K/uL N 150-400 Red Cell Distri Width SD 47.2 fl High 3-47 Red Cell Distri Width %CV 15.8 % High 11.7-14.4 Mean Platelet Volume 10.2 fL N 8.9-12.4 Neut% 67.2 % N 40.4-72.8 Lymph % 24.8 % N 20.0-42.0 [place] % 5.0 % N 4.3-13.2 Eo% 2.8 % N 0.0-6.6 Bas% 0.2 % N 0.0-1.1 Neut# 5.47 K/uL N 1.8-7.0 Lymph # 2.02 K/uL N 1.0-4.0 [place] # 0.41 K/uL N 0.3-0.9 Eos # 0.23 K/uL N 0.0-0.5 Baso # 0.02 K/uL N 0.0-0.1 Urine Creat 04/10/2011 [facility] Urine Collection 24 Hours Clearance Profile [address], [place] [address] [phone] Urine Total Volume 750 mL Serum Creatinine 0.7 mg/dL 0.5-1.4 Urine Creatinine Conc 221 mg/dL Urine Creatinine Clearance 164 mL/min High 70-156 Urine Total Prot 04/10/2011 [facility] Urine Collection Time 24 Hours Timed Profile [address] [place] [address] [phone] Urine Total Volume 750 mL Urine Total Protein Conc 45.0 mg/dL Urine TP Total (mg/24hr) 338 [id number] High Comprehensive Metabolic 04/03/2011 [facility] Glucose 113 mg/dL 76-115 Panel [address] [place], [place] [address] [phone] BUN 8 mg/dL 5-23 Creatinine 0.9 mg/dL 0.5-1.4 Glom Filtration Rate, Estimate >60 mL/min >60 If >60 mL/min >60 93 BUN/Creat 8.8 ratio Sodium 140 mmol/L 136-145 Potassium 3.7 mmol/L 3.5-5.1 Chloride 108 mmol/L High 98-107 Carbon Dioxide 22 mEq/L 18-29 Anion Gap 14 mEq/L 8-16 Calcium 8.8 mg/dL 8.5-10.1 Total Protein 6.1 g/dL Low 6.3-8.0 Albumin 2.6 g/dL Low 3.5-5.0 Globulin 3.5 g/dL 1.9-4.3 Alb/Glob 0.7 ratio Bilirubin,Total 0.2 mg/dL 0.2-1.2 Sgot/Ast 8 U/L Low 16-40 SGPT/Alt 19 U/L Low 30-65 Alkaline Phosphatase 73 U/L 50-136 Laboratory test finding 04/03/2011 [facility] Uric Acid 3.4 mg/dL 2.1-7.4 [address] [place] [address] [phone] LDH 163 U/L Low 165-265 CBS W/Automated 04/03/2011 [facility] White Blood 11.1 K/uL High 3.1-10.[address] [place] [address] [phone] Red Blood Count 3.88 M/uL Low 3.90-5.40 Hemoglobin 11.9 gm/dL 11.6-15.8 Hematocrit 34.5 % Low 36.0-46.1 Mean Cell Volume 88.9 fl 80.9-99.0 Mean Corpuscular HGB 30.7 pg 25.9-32.7 Mean Corpuscular HGB Conc 34.5 g/dL High 30.8-34.3 Platelet Count 244 K/uL 155-360 Red Cell Distri Width %CV 14.6 % High 11.7-14.4 Mean Platelet Volume 9.0 fL 8.9-12.4 Neut% 79.2 % High 40.4-72.8 Lymph % 15.4 % Low 17.0-46.1 [place] % 4.4 % 4.3-13.2 Eo% 0.9 % 0.0-6.6 Bas% 0.1 % 0.0-1.1 Neut# 8.76 K/uL High 1.0-7.0 Lymph # 1.70 K/uL 0.8-3.4 [place] # 0.49 K/uL 0.3-0.9 Eos # 0.10 K/uL 0.0-0.5 Baso # 0.01 K/uL 0.0-0.1 Red Cell Distri Width SD 46.3 fl 3-47 Urinalysis With 03/14/2011 [facility] Urine Color YELLOW Yellow Microscopic [address] [place] [address] [phone] Urine Clarity SL CLOUDY Clear Urine Glucose - Dipstick NEGATIVE mg/dL Negative Urine Bilirubin - Dipstick NEGATIVE Negative Urine Ketone TRACE mg/dL High Negative Urine Specific [place] 1.025 1.010-1.030 Urine Blood TRACE Negative Urine PH 6.5 6.5-7.5 Urine Protein - Dipstick 30 mg/dL High Negative Urine Urobilinogen - Dipstick 1.0 E.U./dL 0.2-1.0 Urine Nitrite - Dipstick NEGATIVE Negative Urine Leuk Esterase NEGATIVE Negative Urine RBC 0-2 rbc/hpf 0-7 Urine WBC 0-2 wbc/hpf 0-7 Urine Epithelial Cells MANY NONESEEN 94 Urine Bacteria MANY NONESEEN High Urine Amorph Sediment MODERATE Negative Laboratory test 03/14/2011 [facility] Culture If See Note [address] [place] [address] [phone] Urine Culture See Note 96 CBC 03/13/2011 [facility] White Blood Count 10.1 K/uL 3.1-10.[address] [place] [address] [phone] Red Blood Count 3.95 M/uL 3.90-5.40 Hemoglobin 11.9 gm/dL 11.6-15.8 Hematocrit 34.3 % Low 36.0-46.1 Mean Cell Volume 86.8 fl 80.9-99.0 Mean Corpuscular HGB 30.1 pg 25.9-32.7 Mean Corpuscular HGB Conc 34.7 g/dL High 30.8-34.3 Platelet Count 230 K/uL 155-360 Red Cell Distri Width %CV 14.7 % High 11.7-14.4 Mean Platelet Volume 8.9 fL 8.9-12.4 Affirm Test 03/13/2011 [facility] Gardnerella Vaginalis See Note [address] [place] [address] [phone] Trichomonas Vaginalis See Note 98 Evi Species See Note 99 OB Initial 12/26/2010 [facility] Thyroid Stim 1.27 uIU/mL 0.49-4.67 [address] [place] [address] [phone] Free T4 0.79 ng/dL 0.71-1.85 101 Toxoplasma IgG Antibody <6.5 IU/mL 0.0-6.4 102 Toxoplasma IgM Antibody <0.9 index 0.0-0.8 103 Varicella-Zoster Virus IgG Ab 1.49 index High 0.00-0.90 104 Varicella-Zoster Virus IgM Ab <0.91 AU 0.00-0.90 105 Urine Screen See Note 106 Urine Culture See Note 107 Parvovirus 12/26/2010 [facility] Parvovirus B19 3.0 index High 0.0-0.8 108 B19,Human [address] [address] [phone] Parvovirus B19 Igm 0.1 index 0.0-0.8 109 Glucose,1 HR 12/26/2010 [facility] 1 HR Glucose,Post 87 mg/dL -138 110 Post [address]ucola [address] [place] [address] [phone] 1 Hour Urine Glucose NEGATIVE % Negative 1 Hour Urine Ketone NEGATIVE Negative CBS W/Automated Diff 12/26/2010 [facility] White Blood 8.9 K/uL 3.1-10.[address] [place] [address] [phone] Red Blood Count 4.96 M/uL 3.90-5.40 Hemoglobin 14.3 gm/dL 11.6-15.8 Hematocrit 40.9 % 36.0-46.1 Mean Cell Volume 82.5 fl 80.9-99.0 Mean Corpuscular HGB 28.8 pg 25.9-32.7 Mean Corpuscular HGB Conc 35.0 g/dL High 30.8-34.3 Platelet Count 238 K/uL 155-360 Red Cell Distri Width %CV 14.9 % High 11.7-14.4 Mean Platelet Volume 9.2 fL 8.9-12.4 Neut% 69.6 % 40.4-72.8 Lymph % 23.1 % 17.0-46.1 [place] % 5.5 % 4.3-13.2 Eo% 1.5 % 0.0-6.6 Bas% 0.3 % 0.0-1.1 Neut# 6.18 K/uL 1.0-7.0 Lymph # 2.05 K/uL 0.8-3.4 [place] # 0.49 K/uL 0.3-0.9 Eos # 0.13 K/uL 0.0-0.5 Baso # 0.03 K/uL 0.0-0.1 Red Cell Distri Width SD 44.0 fl 3-47 Urinalysis With 12/26/2010 [facility] Urine Color YELLOW Yellow Microscopic [address] [place] [address] [phone] Urine Clarity CLEAR Clear Urine Glucose - Dipstick NEGATIVE mg/dL Negative Urine Bilirubin - Dipstick NEGATIVE Negative Urine Ketone NEGATIVE mg/dL Negative Urine Specific [place] >=1.030 1.010-1.030 Urine Blood TRACE Negative Urine PH 6.0 Low 6.5-7.5 Urine Protein - Dipstick NEGATIVE mg/dL Negative Urine Urobilinogen - Dipstick 1.0 E.U./dL 0.2-1.0 Urine Nitrite - Dipstick NEGATIVE Negative Urine Leuk Esterase NEGATIVE Negative Urine RBC 0-2 rbc/hpf 0-7 Urine WBC NONE SEEN wbc/hpf 0-7 Urine Epithelial Cells MODERATE NONESEEN 111 Urine Bacteria MODERATE NONESEEN High Urine Mucus SMALL NONESEEN Laboratory test 12/26/2010 [facility] Rapid Plasma NONREACTIVE 112 finding [address] [place] [address] [phone] Hepatitis B Surface Antigen NEGATIVE Negative 113 Rubella IgG Antibody POSITIVE (Positive) 114 Type And Screen 12/26/2010 [facility] Patient Blood Type A POS [address] [place] [address] [phone] Antibody Screen NEGATIVE Dna Probe N. Gono 12/06/2010 [facility] Dna Probe For See Note 115 + C. Trach. [address]lam[place] [address] [phone] Dna Probe For N. Gonorrhoeae See Note 116 1 R79.89 2 Note: Persistent reduction for 3 months or more in an eGFR <60 mL/min/1.73 m2 defines CKD. Patients with eGFR values >/=60 mL/min/1.73 m2 may also have CKD if evidence of persistent proteinuria is present. The original MDRD equation for estimated GFR is not valid for patients less than 18 years of age. Additional information may be found at www.kdoqi.org. 3 Vitamin D deficiency has been defined by the [place] [employer] and an Endocrine Society practice guideline as a level of serum 25-OH vitamin D less than 20 ng/mL (1,2). The Endocrine Society went on to further define vitamin D insufficiency as a level between 21 and 29 ng/mL (2). 1. IOM ([place] of [employer]). 2010. Dietary reference intakes for calcium and D. [place]: The National Academies Press. 2. Anitra MF, Jason NC, Hansa-Loy MERLOS, et al. Evaluation, treatment, and prevention of vitamin D deficiency: an Endocrine Society clinical practice guideline. JCEM. 2010; 96(7):1911-30. Performed at: RN - [facility] [address] [id number] Manager Labor Delivery: Tonia Paz MD, Phone: [phone] 4 Reference Guidelines*: Desirable: ........... < 200 mg/dL Borderline High: ..... 200-239 mg/dL High: ................ >=240 mg/dL * The National Cholesterol Education Program (NCEP) 5 Reference Guidelines*: Normal: ............. < 150 mg/dL Borderline High: .... 150-199 mg/dL High: ............... 200-499 mg/dL Very High: .......... > 500 mg/dL * Source: National Cholesterol Education Program (NCEP) 6 Reference Guidelines*: Low HDL: ..... < 40 mg/dL Normal: ..... 40-60 mg/dL Desirable: ... > 60 mg/dL *The National Cholesterol Education Program(NCEP) 7 Reference Guidelines*: Optimal:........... <100 mg/dL Near Optimal....... 100-129 mg/dL Borderline High.... 130-159 mg/dL High............... 160-189 mg/dL Very High.......... >=190 mg/dL * Source: National Cholesterol Education Program (NCEP) 8 ?STROKE 9 THERAPEUTIC INR RANGE: 2.0 - 3.0 DVT, Pulmonary embolus, prophylaxis against venous thrombosis or systemic embolization in high risk patients. 2.5 - 3.5 Mechanical heart valves 10 Is patient on anticoagulants? Coumadin 11 Note: Persistent reduction for 3 months or more in an eGFR <60 mL/min/1.73 m2 defines CKD. Patients with eGFR values >/=60 mL/min/1.73 m2 may also have CKD if evidence of persistent proteinuria is present. The original MDRD equation for estimated GFR is not valid for patients less than 18 years of age. Additional information may be found at www.kdoqi.org. 12 0.0 - 0.045 ng/mL: Normal 0.046 - 0.5 ng/mL: Suggestive 0.6 - 1.5 ng/mL: Consistent 13 J02.9 14 NORMAL THROAT GIOVANNI 15 NORMAL THROAT GIOVANNI 16 Q61.2 E03.9 M62.82 17 INFCE Result Units: mg/g creat Performed at: RN - [facility] [address] [id number] Manager Labor Delivery: Tonia Paz MD, Phone: [phone] 18 URINE, CLEAN CATCH 19 Note: Persistent reduction for 3 months or more in an eGFR <60 mL/min/1.73 m2 defines CKD. Patients with eGFR values >/=60 mL/min/1.73 m2 may also have CKD if evidence of persistent proteinuria is present. The original MDRD equation for estimated GFR is not valid for patients less than 18 years of age. Additional information may be found at www.kdoqi.org. 20 E87.6 E55.9 21 Note: Persistent reduction for 3 months or more in an eGFR <60 mL/min/1.73 m2 defines CKD. Patients with eGFR values >/=60 mL/min/1.73 m2 may also have CKD if evidence of persistent proteinuria is present. The original MDRD equation for estimated GFR is not valid for patients less than 18 years of age. Additional information may be found at www.kdoqi.org. 22 Reference Guidelines*: Desirable: ........... < 200 mg/dL Borderline High: ..... 200-239 mg/dL High: ................ >=240 mg/dL * The National Cholesterol Education Program (NCEP) 23 Reference Guidelines*: Normal: ............. < 150 mg/dL Borderline High: .... 150-199 mg/dL High: ............... 200-499 mg/dL Very High: .......... > 500 mg/dL * Source: National Cholesterol Education Program (NCEP) 24 Reference Guidelines*: Low HDL: ..... < 40 mg/dL Normal: ..... 40-60 mg/dL Desirable: ... > 60 mg/dL *The National Cholesterol Education Program(NCEP) 25 Reference Guidelines*: Optimal:........... <100 mg/dL Near Optimal....... 100-129 mg/dL Borderline High.... 130-159 mg/dL High............... 160-189 mg/dL Very High.......... >=190 mg/dL * Source: National Cholesterol Education Program (NCEP) 26 Vitamin D deficiency has been defined by the [place] [employer] and an Endocrine Society practice guideline as a level of serum 25-OH vitamin D less than 20 ng/mL (1,2). The Endocrine Society went on to further define vitamin D insufficiency as a level between 21 and 29 ng/mL (2). 1. IOM ([place] [employer]). 2010. Dietary reference intakes for calcium and D. [place]: The National Academies Press. 2. Anitra MF, Jason NC, Irene MERLOS, et al. Evaluation, treatment, and prevention of vitamin D deficiency: an Endocrine Society clinical practice guideline. JCEM. 2010; 96(7):1911-30. Performed at: RN - [facility] [address] [id number] Manager Labor Delivery: Tonia Paz MD, Phone: [phone] 27 Elevated levels of HbA1c suggest the need for more aggressive treatment of glycemia. The [place] Diabetes Association recommends that a primary goal of therapy should be a HbA1c of <7% and that physicians should re-evaluate the treatment regimen in patients with HbA1c values consistently >8%. 28 CHEST PAIN 29 0.0 - 0.045 ng/mL: Normal 0.046 - 0.5 ng/mL: Suggestive 0.6 - 1.5 ng/mL: Consistent 30 Note: Persistent reduction for 3 months or more in an eGFR <60 mL/min/1.73 m2 defines CKD. Patients with eGFR values >/=60 mL/min/1.73 m2 may also have CKD if evidence of persistent proteinuria is present. The original MDRD equation for estimated GFR is not valid for patients less than 18 years of age. Additional information may be found at www.kdoqi.org. 31 CP 32 Tests: d-dimer Instructions: 33 0.0 - 0.045 ng/mL: Normal 0.046 - 0.5 ng/mL: Suggestive 0.6 - 1.5 ng/mL: Consistent 34 Method: Quidel QuickVue One-Step Immunoassay 35 <=0.49 ug/mL - Low likelihood of DIC, DVT or Pulmonary Embolism >0.49 ug/mL - Additional testing should be done to rule out DIC, DVT, or Pulmonary embolism as clinically indicated. ([facility] has established a 97.89% negative predictive value for thrombotic disease when a cutoff value of 0.5 ug/mL is used.) 36 Note: Persistent reduction for 3 months or more in an eGFR <60 mL/min/1.73 m2 defines CKD. Patients with eGFR values >/=60 mL/min/1.73 m2 may also have CKD if evidence of persistent proteinuria is present. The original MDRD equation for estimated GFR is not valid for patients less than 18 years of age. Additional information may be found at www.kdoqi.org. 37 E55.9 E87.6 38 Performed at: - [facility] [id number] Manager Labor Delivery: Tonia Paz MD, Phone: [phone] 39 Note: Persistent reduction for 3 months or more in an eGFR <60 mL/min/1.73 m2 defines CKD. Patients with eGFR values >/=60 mL/min/1.73 m2 may also have CKD if evidence of persistent proteinuria is present. The original MDRD equation for estimated GFR is not valid for patients less than 18 years of age. Additional information may be found at www.kdoqi.org. 40 R42 41 Vitamin D deficiency has been defined by the [employer] and an Endocrine Society practice guideline as a level of serum 25-OH vitamin D less than 20 ng/mL (1,2). The Endocrine Society went on to further define vitamin D insufficiency as a level between 21 and 29 ng/mL (2). 1. IOM ([place]). 2010. Dietary reference intakes for calcium and D. [place]: The National Academies Press. 2. Anitra MF, Jason NC, Hansa-Loy MERLOS, et al. Evaluation, treatment, and prevention of vitamin D deficiency: an Endocrine Society clinical practice guideline. JCEM. 2010; 96(7):1911-30. Performed at: - [facility] [address] [id number] Manager Labor Delivery: Tonia Paz MD, Phone: [phone] 42 Reference Guidelines*: Desirable: ........... < 200 mg/dL Borderline High: ..... 200-239 mg/dL High: ................ >=240 mg/dL * The National Cholesterol Education Program (NCEP) 43 Reference Guidelines*: Normal: ............. < 150 mg/dL Borderline High: .... 150-199 mg/dL High: ............... 200-499 mg/dL Very High: .......... > 500 mg/dL * Source: National Cholesterol Education Program (NCEP) 44 Reference Guidelines*: Low HDL: ..... < 40 mg/dL Normal: ..... 40-60 mg/dL Desirable: ... > 60 mg/dL *The National Cholesterol Education Program(NCEP) 45 Reference Guidelines*: Optimal:........... <100 mg/dL Near Optimal....... 100-129 mg/dL Borderline High.... 130-159 mg/dL High............... 160-189 mg/dL Very High.......... >=190 mg/dL * Source: National Cholesterol Education Program (NCEP) 46 Note: Persistent reduction for 3 months or more in an eGFR <60 mL/min/1.73 m2 defines CKD. Patients with eGFR values >/=60 mL/min/1.73 m2 may also have CKD if evidence of persistent proteinuria is present. The original MDRD equation for estimated GFR is not valid for patients less than 18 years of age. Additional information may be found at www.kdoqi.org. 47 Elevated levels of HbA1c suggest the need for more aggressive treatment of glycemia. The [place] Diabetes Association recommends that a primary goal of therapy should be a HbA1c of <7% and that physicians should re-evaluate the treatment regimen in patients with HbA1c values consistently >8%. 48 N76.0 49 GRAM STAIN INDETERMINANT FOR BACTERIAL VAGINOSIS 50 MODERATE GR POS. BACILLI SUGGESTIVE OF LACTOBACILLUS SP. 51 MODERATE GRAM VARIABLE COCCOBACILLI 52 RARE GRAM POSITIVE COCCI 53 RARE RARE WHITE BLOOD CELLS 54 R42 N28.1 55 Vitamin D deficiency has been defined by the [employer] and an Endocrine Society practice guideline as a level of serum 25-OH vitamin D less than 20 ng/mL (1,2). The Endocrine Society went on to further define vitamin D insufficiency as a level between 21 and 29 ng/mL (2). 1. IOM ([place] of [employer]). 2010. Dietary reference intakes for calcium and D. [place]: The National Academies Press. 2. Anitra MF, Jason NC, Irene MERLOS, et al. Evaluation, treatment, and prevention of vitamin D deficiency: an Endocrine Society clinical practice guideline. JCEM. 2010; 96(7):1911-30. Performed at: RN - [facility] [address] [id number] Manager Labor Delivery: Tonia Paz MD, Phone: [phone] 56 Elevated levels of HbA1c suggest the need for more aggressive treatment of glycemia. The [place] Diabetes Association recommends that a primary goal of therapy should be a HbA1c of <7% and that physicians should re-evaluate the treatment regimen in patients with HbA1c values consistently >8%. 57 Reference Guidelines*: Desirable: ........... < 200 mg/dL Borderline High: ..... 200-239 mg/dL High: ................ >=240 mg/dL * The National Cholesterol Education Program (NCEP) 58 Reference Guidelines*: Normal: ............. < 150 mg/dL Borderline High: .... 150-199 mg/dL High: ............... 200-499 mg/dL Very High: .......... > 500 mg/dL * Source: National Cholesterol Education Program (NCEP) 59 Reference Guidelines*: Low HDL: ..... < 40 mg/dL Normal: ..... 40-60 mg/dL Desirable: ... > 60 mg/dL *The National Cholesterol Education Program(NCEP) 60 Reference Guidelines*: Optimal:........... <100 mg/dL Near Optimal....... 100-129 mg/dL Borderline High.... 130-159 mg/dL High............... 160-189 mg/dL Very High.......... >=190 mg/dL * Source: National Cholesterol Education Program (NCEP) 61 Note: Persistent reduction for 3 months or more in an eGFR <60 mL/min/1.73 m2 defines CKD. Patients with eGFR values >/=60 mL/min/1.73 m2 may also have CKD if evidence of persistent proteinuria is present. The original MDRD equation for estimated GFR is not valid for patients less than 18 years of age. Additional information may be found at www.kdoqi.org. 62 Performed at: RN - [facility] [address] [place], [place] [id number] Manager Labor Delivery: Tonia Paz MD, Phone: [phone] 63 E66.01 I10 R82.99 64 URINE, CLEAN CATCH 65 INFCE Result Units: mg/g creat Performed at: RN - [facility] [place] [address] [place], [place] [id number] Manager Labor Delivery: Tonia Paz MD, Phone: [phone] 66 SEVERE ABD BACK PAIN 67 URINE, CLEAN CATCH 68 A negative result for either C. trachomatis and/or N. gonorrhoeae does not preclued an infection because results are dependent on adequate specimen collection, absence of inhibitors, and sufficient DNA to be detected. 69 K21.9 E78.2 R73.9 70 Note: Persistent reduction for 3 months or more in an eGFR <60 mL/min/1.73 m2 defines CKD. Patients with eGFR values >/=60 mL/min/1.73 m2 may also have CKD if evidence of persistent proteinuria is present. The original MDRD equation for estimated GFR is not valid for patients less than 18 years of age. Additional information may be found at www.kdoqi.org. 71 Reference Guidelines*: Desirable: ........... < 200 mg/dL Borderline High: ..... 200-239 mg/dL High: ................ >=240 mg/dL * The National Cholesterol Education Program (NCEP) 72 Reference Guidelines*: Normal: ............. < 150 mg/dL Borderline High: .... 150-199 mg/dL High: ............... 200-499 mg/dL Very High: .......... > 500 mg/dL * Source: National Cholesterol Education Program (NCEP) 73 Reference Guidelines*: Low HDL: ..... < 40 mg/dL Normal: ..... 40-60 mg/dL Desirable: ... > 60 mg/dL *The National Cholesterol Education Program(NCEP) 74 Reference Guidelines*: Optimal:........... <100 mg/dL Near Optimal....... 100-129 mg/dL Borderline High.... 130-159 mg/dL High............... 160-189 mg/dL Very High.......... >=190 mg/dL * Source: National Cholesterol Education Program (NCEP) 75 Elevated levels of HbA1c suggest the need for more aggressive treatment of glycemia. The [place] Diabetes Association recommends that a primary goal of therapy should be a HbA1c of <7% and that physicians should re-evaluate the treatment regimen in patients with HbA1c values consistently >8%. 76 URINE, CLEAN CATCH 77 INFCE Result Units: mg/g creat Performed at: [facility] - [facility] [address] [id number] Manager Labor Delivery: Tonia Paz MD, Phone: [phone] 78 G80.9 O71.19 R53.82 R60.0 R66.01 79 Performed at: [facility] [address] [id number] Manager Labor Delivery: Tonia Paz MD, Phone: [phone] 80 Reference Guidelines*: Desirable: ........... < 200 mg/dL Borderline High: ..... 200-239 mg/dL High: ................ >=240 mg/dL * The National Cholesterol Education Program (NCEP) 81 Reference Guidelines*: Normal: ............. < 150 mg/dL Borderline High: .... 150-199 mg/dL High: ............... 200-499 mg/dL Very High: .......... > 500 mg/dL * Source: National Cholesterol Education Program (NCEP) 82 Reference Guidelines*: Low HDL: ..... < 40 mg/dL Normal: ..... 40-60 mg/dL Desirable: ... > 60 mg/dL *The National Cholesterol Education Program(NCEP) 83 Reference Guidelines*: Optimal:........... <100 mg/dL Near Optimal....... 100-129 mg/dL Borderline High.... 130-159 mg/dL High............... 160-189 mg/dL Very High.......... >=190 mg/dL * Source: National Cholesterol Education Program (NCEP) 84 Elevated levels of HbA1c suggest the need for more aggressive treatment of glycemia. The [place] Diabetes Association recommends that a primary goal of therapy should be a HbA1c of <7% and that physicians should re-evaluate the treatment regimen in patients with HbA1c values consistently >8%. 85 Note: Persistent reduction for 3 months or more in an eGFR <60 mL/min/1.73 m2 defines CKD. Patients with eGFR values >/=60 mL/min/1.73 m2 may also have CKD if evidence of persistent proteinuria is present. The original MDRD equation for estimated GFR is not valid for patients less than 18 years of age. Additional information may be found at www.kdoqi.org. 86 J30.89 87 Levels of Specific IgE Class Description of Class ----- < 0.10 0 Negative 0.10 - 0.31 0/I Equivocal/Low 0.32 - 0.55 I Low 0.56 - 1.40 II Moderate 1.41 - 3.90 III High 3.91 - 19.00 IV Very High 19.01 - 100.00 V Very High >100.00 Very High 88 Performed at: - [facility] [id number] Manager Labor Delivery: Kwasi Henson MD, Phone: [phone] Performed at: - [facility] [address] [id number] Manager Labor Delivery: Tonia Paz MD, Phone: [phone] 89 Test(s) [id number] Cockroach, Vietnamese; [id number]- [id number] Deni Stanley were developed and had performance characteristics determined by [employer]. These tests have not been cleared or approved by the U.S. Food and Drug Administration. The FDA has determined that such clearance or approval is not necessary. These tests are used for clinical purposes. These should not be regarded as investigational or for research. 90 E07.9 91 INS HAS STAUBER- BEING FIXED (pittman name) 92 Note: Persistent reduction for 3 months or more in an eGFR <60 mL/min/1.73 m2 defines CKD. Patients with eGFR values >/=60 mL/min/1.73 m2 may also have CKD if evidence of persistent proteinuria is present. The original MDRD equation for estimated GFR is not valid for patients less than 18 years of age. Additional information may be found at www.kdoqi.org. 93 Note: Persistent reduction for 3 months or more in an eGFR <60 mL/min/1.73 m2 defines CKD. Patients with eGFR values >/=60 mL/min/1.73 m2 may also have CKD if evidence of persistent proteinuria is present. The original MDRD equation for estimated GFR is not valid for patients less than 18 years of age. Additional information may be found at www.kdoqi.org. 94 POSSIBLE UROGENITAL CONTAMINATION. 95 CULTURE TO FOLLOW 96 COLONY COUNT ! 40,000-50,000 CFU/ml Organism 1 ! MIXED URETHRAL GIOVANNI 97 POSITIVE FOR GARDNERELLA VAGINALIS 98 NEGATIVE FOR TRICHOMONAS VAGINALIS 99 NEGATIVE FOR EVI SPECIES Testing Performed by: [place] [address] 100 QUERY: @[facility] Pat ID: [id number] QUERY: @[facility] Req #: [id number] QUERY: @[facility] Pat ID: [id number] QUERY: @[facility] Req #: [id number] 102 Negative <6.5 Equivocal 6.5 - 7.9 Positive >7.9 103 Negative <0.9 Indeterminate 0.9 - 1.0 Positive >1.0 Although the presence of Toxo IgM antibodies suggests an acute infection, low levels may persist for many months following infection. 104 Negative <0.91 Equivocal 0.91 - 1.09 Positive >1.09 105 Negative <0.91 Borderline 0.91 - 1.09 Positive >1.09 Performed at: RN - [facility] [address] [id number] Manager Labor Delivery: Phil Roque MD, Phone: [phone] 106 12/26/10 [email or web address] Deleted by [facility] [place] 107 COLONY COUNT ! >100,000 CFU/ml Organism 1 ! URETHRAL GIOVANNI 108 Negative <0.9 Equivocal 0.9 - 1.1 Positive >1.1 109 Negative <0.9 Equivocal 0.9 - 1.1 Positive >1.1 110 POST GLUCOLA 111 POSSIBLE UROGENITAL CONTAMINATION. 112 PENDING; TEST PERFORMED ON MONDAYS AND THURSDAYS QUERY: @EMR Pat ID: [id number] QUERY: @[facility] Req #: [id number] QUERY: @EMR Pat ID: [id number] QUERY: @[facility] Req #: [id number] 113 HBsAg not detected; does not exclude the possibility of exposure to or early acute infections with HBV. 114 QUERY: @EMR Pat ID: [id number] QUERY: @[facility] Req #: [id number] 115 NEGATIVE FOR CHLAMYDIA TRACHOMATIS BY DNA HYBRIDIZATION ASSAY. THIS TEST IS APPROVED FOR OCULAR AND UROGENITAL SITES ONLY. 116 NEGATIVE FOR NEISSERIA GONORRHOEAE BY DNA HYBRIDIZATION ASSAY. THIS METHOD IS APPROVED FOR UROGENITAL SITES ONLY. Procedures Date Code Description Status 09/25/2018 05001 Pressurized/Non-Pressurized Inhalation Treatment,Acute Completed Obstructio 09/04/2018 98102 Event Monitor Inter/Review Only Completed 09/01/2018 90891 EKG-Tracing And Report Completed 07/09/2018 54951 EKG-Tracing And Report Completed 05/15/2018 65023 Echocardiogram Complete Completed 02/25/2018 05699 Pressurized/Non-Pressurized Inhalation Treatment,Acute Completed Obstructio 02/10/2018 95348 EKG-Tracing And Report Completed 12/25/2017 75706 EKG-Tracing And Report Completed 04/18/2017 87916 EKG-Tracing And Report Completed 12/26/2016 89994 Bronchospasm Provocation Evaluation Multi Spirometric Completed Determinati 12/26/2016 82908 Spirometry Completed 01/15/2013 19835 Anesthesia, Nose & Accessory Sinus Surgery Not Otherwise Completed Spec 10/22/2012 26118 EKG-Tracing And Report Completed 10/22/2012 60829 Event Monitor Inter/Review Only Completed 07/08/2011 70127 Anesthesia, Delivery Completed 03/22/2011 97011 Theraputic Or Diagnostic Injection Completed 03/22/2011 19900 For Antepartum 4-6 Total Office Visits Completed 03/20/2011 80343 EKG-Tracing And Report Completed 03/13/2011 65849 For Antepartum 4-6 Total Office Visits Completed 03/13/2011 55977 Non-Stress Test (NST) Completed 02/22/2011 22270 For Antepartum 4-6 Total Office Visits Completed 01/30/2011 48671 For Antepartum 4-6 Total Office Visits Completed 01/04/2011 69573 For Antepartum 4-6 Total Office Visits Completed 12/06/2010 64161 Ultrasound Transvag, Completed 09/06/2009 94201 Echocardiogram Complete Completed 09/06/2009 94481 EKG Interpretation And Report Only Completed Encounters Type Date Location Provider Dx Diagnosis Office Visit 09/25/2018 Primary Care Lorraine Powers MD J02.9 Acute pharyngitis, 11:20a Office unspecified R19.7 Diarrhea, unspecified J01.90 Acute sinusitis, unspecified R05 Cough B37.0 Candidal stomatitis Office Visit 09/16/2018 Primary Care Malathi, E03.9 Hypothyroidism, 10:00a Office [place] Velma, unspecified [facility], CNM J02.9 Acute pharyngitis, unspecified R79.89 Other specified abnormal findings of blood chemistry E87.6 Hypokalemia H69.93 Unspecified Eustachian tube disorder, bilateral Office Visit 09/03/2018 10:00a Primary Care Velma Servin, I10 Essential (primary) Office MS, [facility] OFFICIAL-[facility], CNM hypertension Q61.2 Polycystic kidney, adult type 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 E55.9 Vitamin D deficiency, unspecified R42 Dizziness and giddiness Office Visit 07/16/2018 10:00a Primary Care Lorraine Powers, I10 Essential ( primary) Office hypertension Q61.2 Polycystic kidney, adult type E03.9 Hypothyroidism, unspecified 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 Office Visit 07/09/2018 9:30a Cardiology Office Ra Banks 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., FACC syndrome R07.9 Chest pain, unspecified Office Visit 06/30/2018 1:30p Pulmonology Aravind Mancera 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, uncomplicated G47.33 Obstructive sleep apnea (adult) (pediatric) J30.89 Other allergic rhinitis K21.9 Gastro-esophageal reflux disease without esophagitis Office Visit 04/16/2018 11:00a Primary Care Velma Servin, L29.8 Other pruritus Office , [facility], CNM E87.6 Hypokalemia M25.549 Pain in joints of unspecified hand G47.00 Insomnia, unspecified E66.9 Obesity, unspecified E55.9 Vitamin D deficiency, unspecified Q61.2 Polycystic kidney, adult type Office Visit 04/02/2018 1:00p Primary Care Malathi Velma, E87.6 Hypokalemia Office , [facility], CNM E55.9 Vitamin D deficiency, unspecified Q61.2 Polycystic kidney, adult type E66.9 Obesity, unspecified E78.5 Hyperlipidemia, unspecified I10 Essential (primary) hypertension G47.00 Insomnia, unspecified M25.549 Pain in joints of unspecified hand M79.669 Pain in unspecified lower leg Office Visit 03/11/2018 10:00a Primary Care Velma Servin, Z00.00 Encntr for Office , [facility], CNM general adult medical exam w/o abnormal findings N76.0 Acute vaginitis I10 Essential (primary) hypertension E66.9 Obesity, unspecified Z71.3 Dietary counseling and surveillance Office Visit 02/25/2018 9:30a Primary Care Velma Servin, J06.9 Acute upper Office , ALEJANDRO-C, CNBernie respiratory infection, unspecified J02.9 Acute pharyngitis, unspecified J45.40 Moderate persistent asthma, uncomplicated J06.9 Acute upper respiratory infection, unspecified J45.40 Moderate persistent asthma, uncomplicated H66.91 Otitis media, unspecified, right ear R05 Cough Office Visit 02/10/2018 11:00a Cardiology Office Ra Banks 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., FACC syndrome E78.5 Hyperlipidemia, unspecified I10 Essential (primary) hypertension Office Visit 01/27/2018 8:30a Primary Care Velma Servin, Q61.2 Polycystic Office , ALEJANDRO-C, CNM kidney, adult type I10 Essential (primary) hypertension E66.01 Morbid (severe) obesity due to excess calories E55.9 Vitamin D deficiency, unspecified R60.0 Localized edema 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 E78.2 Mixed hyperlipidemia Office Visit 01/20/2018 11:00a Primary Care Velma Servin, I10 Essential (primary) Office MS, [facility], CNM hypertension Q61.2 Polycystic kidney, adult type E66.01 Morbid (severe) obesity due to excess calories M54.5 Low back pain Z23 Encounter for immunization Office Visit 01/06/2018 10:30a Primary Care Velma Servin, I10 Essential (primary) Office MS, [facility], CNM hypertension R29.6 Repeated falls R42 Dizziness and giddiness Z71.3 Dietary counseling and surveillance 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 Office Visit 12/25/2017 2:45p Pulmonology Aravind Mancera, J45.40 Moderate persistent MD asthma, uncomplicated J30.89 Other allergic rhinitis K21.9 Gastro-esophageal reflux disease without esophagitis G47.33 Obstructive sleep apnea (adult) (pediatric) Office Visit 12/17/2017 10:40a Primary Care Lorraine Powers, E66.01 Morbid ( severe) Office MD obesity due to excess calories 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 G80.9 Cerebral palsy, unspecified I10 Essential (primary) hypertension J01.90 Acute sinusitis, unspecified Office Visit 12/09/2017 2:20p Primary Care Lorraine Powers, E66.01 Morbid ( severe) Office MD obesity due to excess calories F41.9 Anxiety disorder, unspecified I10 Essential (primary) hypertension 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 N28.1 Cyst of kidney, acquired D22.39 Melanocytic nevi of other parts of face H66.91 Otitis media, unspecified, right ear N83.292 Other ovarian cyst, left side Office Visit 10/09/2017 1:00p Cardiology Office Ra Banks I45.81 Long QT [place] Esparza, FACC syndrome Office Visit 09/09/2017 10:40a Primary Care Lorraine Powers, G71.19 Other specified Office MD myotonic disorders I45.81 Long QT syndrome E66.01 Morbid (severe) obesity due to excess calories F41.9 Anxiety disorder, unspecified I10 Essential (primary) hypertension H66.92 Otitis media, unspecified, left ear M54.2 Cervicalgia Office Visit 05/15/2017 10:00a Primary Care Lorraine Powers, G80.9 Cerebral palsy, Office MD unspecified M54.2 Cervicalgia 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 J45.40 Moderate persistent asthma, uncomplicated Office Visit 04/18/2017 10:00a Cardiology Office Ra Banks I45.81 Long QT [place] Esparza, FACC syndrome Office Visit 03/28/2017 4:00p Primary Care Lorraine Powers, R60.0 Localized edema Office MD 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 G80.9 Cerebral palsy, unspecified R53.82 Chronic fatigue, unspecified M54.2 Cervicalgia R06.02 Shortness of breath Office Visit 02/11/2017 8:40a Primary Care Lorraine Powers J45.20 Mild intermittent Office MD asthma, uncomplicated J30.89 Other allergic rhinitis K21.9 Gastro-esophageal reflux disease without esophagitis 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 G80.9 Cerebral palsy, unspecified Z23 Encounter for immunization Office Visit 01/09/2017 2:00p Pulmonology Aravind Mancera J45.20 Mild intermittent MD asthma, uncomplicated J30.89 Other allergic rhinitis G47.33 Obstructive sleep apnea (adult) (pediatric) K21.9 Gastro-esophageal reflux disease without esophagitis Office Visit 12/20/2016 2:20p Primary Care Lorraine Powers, J20.9 Acute bronchitis, Office MD unspecified 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 J45.41 Moderate persistent asthma with (acute) exacerbation Office Visit 12/05/2016 1:20p Primary Care Lorraine Powers, G80.9 Cerebral palsy, Office MD unspecified R20.2 Paresthesia of skin E66.01 Morbid (severe) obesity due to excess calories J20.9 Acute bronchitis, unspecified F41.9 Anxiety disorder, unspecified Office Visit 11/21/2016 9:20a Primary Care Lorraine Powers, R20.2 Paresthesia of Office MD skin G80.9 Cerebral palsy, unspecified F41.9 Anxiety disorder, unspecified R60.0 Localized edema Office Visit 10/02/2016 9:20a Primary Care Lorraine Powers, G80.9 Cerebral palsy, Office MD unspecified R20.2 Paresthesia of skin M54.5 Low back pain F41.9 Anxiety disorder, unspecified Office Visit 09/14/2016 2:20p Primary Care Lorraine Powers, G80.9 Cerebral palsy, Office MD unspecified R20.2 Paresthesia of skin Office Visit 09/03/2016 9:40a Primary Care Lorraine Powers, R20.2 Paresthesia of Office MD skin G80.9 Cerebral palsy, unspecified Office Visit 08/31/2016 10:00a Primary Care Lorraine Powers, G80.9 Cerebral palsy, Office MD unspecified Office Visit 08/28/2016 8:40a Primary Care Lorraine Powers G80.9 Cerebral palsy, Office MD unspecified I10 Essential (primary) hypertension J45.40 Moderate persistent asthma, uncomplicated E66.01 Morbid (severe) obesity due to excess calories E04.1 Nontoxic single thyroid nodule F41.9 Anxiety disorder, unspecified Z23 Encounter for immunization Office Visit 07/16/2014 8:45a Orthopaedic Office Heavenly Mcclendon, 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 Office Visit 03/06/2013 8:30a Orthopaedic Office Heavenly Mcclendon, 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 Office Visit 10/22/2012 8:30a Cardiology Office Ra Banks 785.1 Palpitations [place] Esparza, FACC 786.05 Shortness Of Breath 346.92 Migraine Unspecified, W/Out Mention Intractable Migraine Office Visit 03/20/2011 1:00p Cardiology Milana Greenfield 785.0 Tachycardia Office MIRELA Child, Unspec [facility] 796.2 Blood Pressure Reading Elevated W/O Hypertension 278.00 Obesity Unspec Office Visit 03/13/2011 1:40p 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 Normal Other V23.9 High Risk Unspec 278.00 Obesity Unspec 654.23 Delivery Previous Antepartum Cond Or Compl Plan of Treatment Future Appointment(s):12/05/2018 10:15 am - Ra Banks M.D., FACC at Cardiology [id number]/01/2018 11:00 am - Velma Servin MS, [facility], CNM at Primary Care [id number]/29/2018 1:30 pm - Aravind Mancera MD at Pulmonology
--- OUTSIDE RECORDS SUMMARY | 2018-10-27 13:22 | XMS REPORT | Continuity of Care Document ---
:1985 External Reference #:[id number] Author Name Graciela Guerin Care Team Providers Name Role Phone Lorraine Powers MD Care Team Information Product Safety Head Unavailable Lorraine Powers MD Primary Care Physician Unavailable Payers Date Identification Numbers Payment Provider Subscriber Effective: 2009 Policy Number: [id number] [employer] Ginna Pittman PayID: [id number] [address] [place] [address] Effective: 2009 Policy Number: [id number] Medicaid Ginna Pittman Expires: 2012 PayID: [id number] [address] [place] [address] Problems Active Problems Provider Date Palpitations Ra Banks M.D., Onset: 10/22/2012 [facility] Dyspnea Ra Banks M.D., Onset: 10/22/2012 [facility] Migraine variants, not intractable Ra Banks M.D., Onset: 2012 [facility] Infantile cerebral palsy Heavenly Mcclendon MD Onset: [...] QT syndrome Ra Banks M.D., Onset: 04/18/2017 [facility] Neck pain Lorraine Powers MD Onset: 05/15/2017 Other specified myotonic disorders Lorraine Powers MD Onset: 05/15/2017 Otitis media Lorraine Powers MD Onset: 09/09/2017 Acquired renal cystic disease Lorraine Powers MD Onset: 12/09/2017 Benign neoplasm of skin of face Lorraine Powers MD Onset: 12/09/2017 Cyst of left ovary Lorraine Powers MD Onset: 12/09/2017 Hyperlipidemia Ra Banks M.D., Onset: 02/10/2018 [facility] Hypothyroidism Lorraine Powers MD Onset: 07/16/2018 Electrocardiogram abnormal Ra Banks M.D., Onset: 10/20/2018 [facility] Tachycardia Ra Banks M.D., Onset: 10/20/2018 [facility] Family History Date Family Member(s) Observation Comments [...] Unknown Never Smoked Cigarettes Smoking Status Reviewed: 10/20/18 Never Smoked Cigarettes ETOH Use Denies alcohol use Tobacco Use Start: Unknown Patient has never smoked Recreational Drug Use Denies Drug Use Exercise Type/Frequency Exercises rarely Currently Active Patient is currently sexually active Age 1st [place] 16 Years Old # Partners in a Lifetime 2 Allergies, Adverse Reactions, Alerts Description No Known Drug Allergies Medications Active Medications SIG Qnty Indications Ordering Date Provider Nystatin 5 milliliters by 473ml Lorraine Powers, 09/25/2018 [id number] mouth every 6hrs; Suspension swish in mouth for several minutes and spit for 14 days Probiotic Acidophilus 1 cap by mouth 30caps Lorraine Powers, 09/25/2018 every day while on MD Capsules antibiotic Potassium Chloride 1 tab by mouth 30tabs Lorraine Powers, 07/16/2018 T[facility] ER every day MD 20Meq Tablets ER Levothyroxine Sodium 1 tab by mouth 30tabs Lorraine Powers, 07/02/2018 every day MD 25mcg Tablets Montelukast Sodium take 1 tablet by 30tabs J45.30 Aravind Mancera, 06/30/2018 10mg mouth once daily MD Tablets Hydrocortisone Use sparingly to 118ml L29.8 Gagen, 04/16/2018 2.5% lower back and Velma, MS, Lotion shoulder area for [employer], CNM severe itching two times a day Klor-Con M20 Take one tablet 60tabs E87.6 Gagen, 04/02/2018 20Meq twice a day Velma, MS, Tablets ER [employer], CNM Nebulizer use nebulizer with 1units J45.40 Gagen, 02/25/2018 Kit/Tubing/Mouthpiece albuterol q 6 hrs Velma, MS, as needed [employer], CNM Kit wheezing/ SOB Ipratropium Shelly use 2 sprays in 15ml J06.9 Gagen, 02/25/2018 each nostril twice Velma, MS, 0.06% Solution a day as needed [employer], CNM Nebulizer Compressor The Patient is 1units Gagen, 02/25/2018 using albuterol Velma, MS, Misc nebulizer [employer], CNM treatments and needs the compressor. dx: Moderate persistent asthma Vitamin D take 1 capsule by 12capLorraine Cash, 01/22/2018 (Ergocalciferol) mouth every week [id number] Capsules Losartan Potassium 1 by mouth 1 60tabs I10 Gagen, 01/20/2018 50mg tablet twice a day Velma, MS, Tablets [employer], CNM Zantac 75 1 tab by mouth 180tabs Lorraine Powers, 01/15/2018 75mg Tablets twice a day Omurbano 7 Series Blood use daily as 1units I10 Gagen, 01/06/2018 Pressure Monitor directed to MS Velma, monitor bp/ dx:htn [employer], CNM Device Amlodipine Besylate take 1 tablet by 30tabs [...] 1 tab by mouth every night 30tabs Gagen, 08/28/2016 10mg MS Velma, Tablets [employer], CNM CBD/THC Aerosol [place] Unknown Buspirone HCL 1 tab by mouth three times 90tabs Lorraine Powers, 7.5mg daily MD Tablets Triamterene/Hydrochlo take 1 tablet by mouth 30tabs Lorraine Powers, rothiazide every morning MD 37.5-25mg Tablets Flonase Allergy 1 spray to both nostrils 9.900ml Gagen, Relief daily. Velma MS, 50mcg/Act [employer], CNM Suspension Tylenol Extra 1-2 tabs by mouth every 4 Unknown Strength hours as needed 500mg Tablets Ventolin HFA 1-2 puffs every 4-6 hours 8gm Gagen, as needed Velma, MS, 108(90Base) mcg/Act [employer], CNM Aerosol History Medications Ondansetron 1 tab by mouth 30tabs Errol Powersa, 09/25/2018 - 4mg Tablets one time a day as MD Unknown Dispers needed for nausea Amoxicillin/Clavulanat 1 tab by mouth 20tabs J01.90 Lorraine Powers, 2018 - e Potassium q12hrs for 10 MD Unknown 875-125mg days Tablets Ergocalciferol take one a week 16caps E55.9 Priya, Lorraine, 09/03/2018 - 58537Rsic MD Unknown Capsules Ergocalciferol take one a week 12caps E55.9 Gagen, 04/02/2018 - 94647Ccto Velma, 07/16/2018 Capsules MS, [employer], CNM Trazodone HCL start with 1/2 30tabs G47.00 Gagen, 04/02/2018 - 50mg tablet every at Velma, 07/16/2018 Tablets bedtime after 2 MS, [employer], CNM weeks, may increase to one tablet Metrogel-Vaginal use in vagina for 70gm Gagen, 03/15/2018 - 0.75% 5 nights. no Velma, 04/02/2018 Gel alcohol during MS, [employer], CNM use and 2 days after Benzonatate take one capsule 30caps R05 Gagen, 02/25/2018 - 200mg every 8 hours as Velma, 03/11/2018 Capsules needed MS, [employer], CNM Ciprodex 4 drops in right 7.500ml H66.91 Gagen, 02/25/2018 - 0.3-0.1% ear twice a day Velma, 03/11/2018 Suspension for 7 days MS, [employer], CNM Prednisone 2 tabs (40 mg) 10tabs J02.9 Gagen, 02/25/2018 - 20mg Tablets daily for 5 days Velma, 03/11/2018 MS, [employer], CNM Atorvastatin Calcium take 1 tablet by 90tabs Gagen, 01/24/2018 - 20mg mouth once daily Velma, 07/02/2018 Tablets MS, [employer], CNM Rosuvastatin Calcium Take one every 30tabs Gagen, 01/21/2018 - 10mg day Velma, 01/24/2018 Tablets MS, [employer], CNM Losartan Potassium Take 1/2 tablet 45tabs I10 Gagen, 01/09/2018 - 50mg (25 mg) in pm and Velma, 01/20/2018 Tablets take 1 tablet MS, [employer], CNM (50MG) in am Amoxicillin/Clavulanat 1 tab by mouth 20tabs J01.90 Priya, Lorraine, 2017 - e Potassium q12hrs for 10 MD 01/20/2018 875-125mg days Tablets Amoxicillin 1 tab by mouth 14caps Priya, Lorraine, 12/09/2017 - 500mg twice a day x 7 MD Unknown Capsules days Losartan Potassium 1 tab by mouth 60tabs I10 Priya, Lorraine, 12/09/2017 - 50mg twice a day MD 01/06/2018 Tablets Chlorzoxazone take one tablet 90tabs Priya, Lorraine, 11/22/2017 - 500mg by mouth two MD Unknown Tablets times a day Chlorzoxazone 1 tab three times 90tabs Priya, Lorraine, 11/21/2017 - 250mg a day MD 11/22/2017 Tablets Metaxalone 1 tab by mouth 90tabs Priya, Lorraine, 11/19/2017 - 400mg Tablets three times a day MD 11/21/2017 Valsartan 1 tab by mouth 30tabs Priya, Lorraine, 09/09/2017 - 80mg Tablets every day MD 09/09/2017 Amoxicillin 1 tab by mouth 20tabs Priya, Lorraine, 09/09/2017 - 500mg Tablets q12hrs x10 days Unknown Methocarbamol 1 tab by mouth 90tabs Priya, Lorraine, 06/03/2017 - 750mg every 8 hours as 11/19/2017 Tablets needed muscle pain Lyrica 1 tab by mouth 90caps Priya, Lorraine, 05/29/2017 - 100mg Capsules three times a day 06/04/2017 mdd 3 Cheratussin ac 5ml by mouth 236ml Priya, Lorraine, 05/15/2017 - every 4 hour as 09/09/2017 100-10mg/5ML Syrup needed cough Gabapentin 2 by mouth three PriyaErrola, 05/15/2017 - 100mg Capsules times a day 06/04/2017 Diazepam 1 tab by mouth 1 1tabs Errol Powersa, 04/01/2017 - 2mg Tablets hour prior to MRI MD Unknown Tizanidine HCL 1 by mouth once 30tabs Errol Powersa, 02/11/2017 - 2mg in evening for MD Unknown Tablets back pain/muscle spasms Omeprazole 1 by mouth every 30caps Errol Powersa, 02/11/2017 - 40mg Capsules day 01/15/2018 DR Prednisone 2 tabs (40 mg) 10tabs J20.9 Errol Powersa, 12/20/2016 - 20mg Tablets daily for 5 days Unknown for shortness of breath/wheezing Benzonatate 1 tab by mouth 90caps Lorraine Powers, 12/05/2016 - 100mg every 8 hours for 03/11/2018 Capsules cough Furosemide take 1 tablet by 30tabs Priya Lorraine, 11/21/2016 - 20mg Tablets mouth once daily MD 07/16/2018 if needed Trazodone HCL take 1 tablet by 30tabs Errol Powersa, 10/02/2016 - 50mg mouth at bedtime MD Unknown Tablets for sleep Dulera take one puff 8.800gm Errol Powersa, 09/03/2016 - 100-5mcg/Act twice daily MD 09/14/2016 Aerosol Baclofen 1 by mouth once a 30tabs Errol Powersa, 08/31/2016 - 10mg Tablets day as needed for MD Unknown back pain Gabapentin take 3 tablets by 270caps Errol Powersa, 08/31/2016 - 100mg Capsules mouth three times MD 05/15/2017 daily as needed for nerve pain Dulera take one puff 8.800gm Errol Powersa, 08/31/2016 - Aerosol twice daily MD 09/03/2016 Mdi Spacer For Inhaler use with inhaler J45.20 Errol Powersa, 08/28/2016 - every 6hrs as MD Unknown needed Labetalol HCL 1/2 tab by mouth 785.0 Milana Greenfield 03/20/2011 - 100mg every evening Mateusz, 10/22/2012 Tablets MSN, [employer] 796.2 Cleocin 1 tab po q 12 hr 14caps Chester Keenan, 03/13/2011 - 300mg Capsules for 7 days M.D. 10/22/2012 Albuterol 2 puffs q 4h/ 1units Chester Keenan, 02/22/2011 - 90mcg/Act prn M.D. 03/06/2013 Aerosol Macrobid 1 po bid for 7 14caps Chester Keenan, 02/18/2011 - 100mg Capsules days M.D. Unknown 19 1 po qd 60units Chester Keenan, 12/06/2010 - Chewtabs M.D. 10/22/2012 Labetalol HCL [...] High 1x week Unknown - Potency 03/06/2013 [id number] Capsules Labetalol HCL 1/2 tab po bid 785.0 Unknown - 100mg 03/20/2011 Tablets 796.2 Clindamycin HCL 1 tab by mouth twice 6caps Unknown - Unknown 300mg Capsules a day Immunizations CPT Code Status Date Vaccine Reaction Lot # 44267 Given 01/20/2018 Influenza Virus Vaccine, Quadrivalent, 36 [id number] Mos+, .5ML 03207 Given 02/11/2017 Influenza Virus Vaccine Quadrivalent Iiv4 [id number] [id number] Given 08/28/2016 Pneumovax Injection [id number] 79313 Given 03/22/2011 flu vaccination 95339 Given 03/22/2011 flu vaccination [id number] Vital Signs Date Vital Result Comment 10/20/2018 11:41am BP Systolic Sitting Left Arm 126 mmHg BP Diastolic Sitting Left Arm 66 mmHg Heart Rate 96 /min Respiratory Rate 18 /min Height 61 inches 5'1" Weight 360.00 lb BMI (Body Mass Index) 68.0 kg/m2 BSA (Body Surface Area) 2.42 m2 Weinert body weight in kilograms 48 kg O2 % BldC Oximetry 96 % 09/25/2018 11:09am BP Systolic Sitting Right Arm 130 mmHg lower arm BP Diastolic Sitting Right Arm 82 mmHg lower arm Body Temperature 98.1 F Heart Rate 76 /min Respiratory Rate 28 /min Height 61 inches 5'1" Weight 359.00 lb BMI (Body Mass Index) 67.8 kg/m2 BSA (Body Surface Area) 2.42 m2 Weinert body weight in kilograms 48 kg O2 % BldC Oximetry 96 % ra 09/16/2018 10:02am BP Systolic Sitting Right Arm 130 mmHg BP Diastolic Sitting Right Arm 82 mmHg Body Temperature 98.2 F Heart Rate 93 /min Height 61 inches 5'1" Weight 366.00 lb BMI (Body Mass Index) 69.1 kg/m2 BSA (Body Surface Area) 2.44 m2 Weinert body weight in kilograms 48 kg O2 % BldC Oximetry 98 % ra 09/03/2018 9:51am BP Systolic Sitting Right Arm 110 mmHg BP Diastolic Sitting Right Arm 62 mmHg Body Temperature 98.3 F Heart Rate 100 /min Respiratory Rate 30 /min Height 61 inches 5'1" Weight 366.00 lb BMI (Body Mass Index) 69.1 kg/m2 BSA (Body Surface Area) 2.44 m2 Weinert body weight in kilograms 48 kg O2 [...] kg/m2 BSA (Body Surface Area) 2.43 m2 Weinert body weight in kilograms 48 kg O2 % BldC Oximetry 98 % Ra 06/30/2018 1:23pm BP Systolic Sitting Left Arm 124 mmHg BP Diastolic Sitting Left Arm 66 mmHg Heart Rate 87 /min Respiratory Rate 18 /min Height 61 inches 5'1" Weight 362.00 lb BMI (Body Mass Index) 68.4 kg/m2 BSA (Body Surface Area) 2.43 m2 Weinert body weight in kilograms 48 kg O2 [...] kg/m2 BSA (Body Surface Area) 2.43 m2 Weinert body weight in kilograms 48 kg O2 % BldC Oximetry 98 % ra 04/02/2018 1:00pm BP Systolic Sitting Left Arm 147 mmHg Priscilla 136/90 BP Diastolic Sitting Left Arm 86 mmHg Priscilla 136/90 Body Temperature 98.6 F Heart Rate 89 /min Respiratory Rate 18 /min Height 61 inches 5'1" Weinert body weight in kilograms 48 kg 03/11/2018 10:04am BP Systolic Sitting Right Arm 152 mmHg BP Diastolic Sitting Right Arm 91 mmHg Body Temperature 97.6 F Heart Rate 88 /min Respiratory Rate 16 /min Height 61 inches 5'1" Weight 363.00 lb BMI (Body Mass Index) 68.6 kg/m2 BSA (Body Surface Area) 2.43 m2 Weinert body weight in kilograms 48 kg Last Menstrual Period [id number] O2 % BldC Oximetry 99 % 02/25/2018 9:38am BP Systolic Sitting Right Arm 122 mmHg BP Diastolic Sitting Right Arm 72 mmHg Body Temperature 99.2 F Heart Rate 74 /min reg Respiratory Rate 24 /min Height 61 inches 5'1" Weight 362.00 lb per pt. BMI (Body Mass Index) 68.4 kg/m2 BSA (Body Surface Area) 2.43 m2 Weinert body weight in kilograms 48 kg O2 % BldC Oximetry 96 % ra 02/10/2018 11:09am BP Systolic Sitting Left Arm 132 mmHg BP Diastolic Sitting Left Arm 86 mmHg Heart Rate 86 /min Respiratory Rate 16 /min Height 61 inches 5'1" Weight 362.00 lb per pt BMI (Body Mass Index) 68.4 kg/m2 BSA (Body Surface Area) 2.43 m2 Weinert body weight in kilograms 48 kg O2 % BldC Oximetry 97 % Room air 01/27/2018 8:31am BP Systolic Sitting Left Arm 150 mmHg BP Diastolic Sitting Left Arm 91 mmHg Body Temperature 98.6 F Heart Rate 83 /min Respiratory Rate 16 /min Height 61 inches 5'1" Weight 370.00 lb BMI (Body Mass Index) 69.9 kg/m2 BSA (Body Surface Area) 2.45 m2 Weinert body weight in kilograms 48 kg O2 % BldC Oximetry 99 % 01/20/2018 10:55am BP Systolic Sitting Left Arm 154 mmHg BP Diastolic Sitting Left Arm 85 mmHg Body Temperature 99.5 F Heart Rate 93 /min Respiratory Rate 20 /min Height 61 inches 5'1" Weight 367.00 lb BMI (Body Mass Index) 69.3 kg/m2 BSA (Body Surface Area) 2.44 m2 Weinert body weight in kilograms 48 kg O2 [...] kg/m2 BSA (Body Surface Area) 2.44 m2 Weinert body weight in kilograms 48 kg O2 [...] kg/m2 BSA (Body Surface Area) 2.43 m2 Weinert body weight in kilograms 48 kg O2 % BldC Oximetry 98 % 12/09/2017 2:16pm BP Systolic Sitting Right Arm 156 mmHg priscilla 166/89 BP Diastolic Sitting Right Arm 97 mmHg priscilla 166/89 Body Temperature 99.1 F Heart Rate 102 /min Respiratory Rate 28 /min Height 61 inches 5'1" Weight 367.00 lb BMI (Body Mass Index) 69.3 kg/m2 BSA (Body Surface Area) 2.44 m2 Weinert body weight in kilograms 48 kg O2 % BldC Oximetry 94 % 10/09/2017 1:08pm BP Systolic Sitting Left Arm 142 mmHg BP Diastolic Sitting Left Arm 98 mmHg Heart Rate 83 /min Respiratory Rate 18 /min Height 61 inches 5'1" Weight 375.00 lb BMI (Body Mass Index) 70.8 kg/m2 BSA (Body Surface Area) 2.47 m2 Weinert body weight in kilograms 48 kg O2 % BldC Oximetry 98 % 09/09/2017 10:47am BP Systolic Sitting Left Arm 166 mmHg priscilla 141/95 BP Diastolic Sitting Left Arm 101 mmHg priscilla 141/95 Body Temperature 98.8 F Heart Rate 98 /min Height 61 inches 5'1" Weight 375.00 lb BMI (Body Mass Index) 70.8 kg/m2 BSA (Body Surface Area) 2.47 m2 Weinert body weight in kilograms 48 kg O2 % BldC Oximetry 96 % 05/15/2017 9:52am BP Systolic Sitting Left Arm 120 mmHg BP Diastolic Sitting Left Arm 82 mmHg Body Temperature 98.7 F Heart Rate 113 /min Respiratory Rate 24 /min Height 61 inches 5'1" Weight 360.00 lb BMI (Body Mass Index) 68.0 kg/m2 BSA (Body Surface Area) 2.42 m2 Weinert body weight in kilograms 48 kg O2 % BldC Oximetry 95 % 04/18/2017 10:08am BP Systolic Sitting Left Arm 132 mmHg BP Diastolic Sitting Left Arm 77 mmHg Heart Rate 84 /min Respiratory Rate 20 /min Height 61 inches 5'1" Weight 374.00 lb BMI (Body Mass Index) 70.7 kg/m2 BSA (Body Surface Area) 2.46 m2 Weinert body weight in kilograms 48 kg 03/28/2017 4:05pm BP Systolic Sitting Left Arm 136 mmHg BP Diastolic Sitting Left Arm 70 mmHg Heart Rate 89 /min Respiratory Rate 24 /min Height 61 inches 5'1" Weight 368.00 lb BMI (Body Mass Index) 69.5 kg/m2 BSA (Body Surface Area) 2.45 m2 Weinert body weight in kilograms 48 kg O2 % BldC Oximetry 91 % ra 02/11/2017 8:48am BP Systolic 144 mmHg BP Diastolic 103 mmHg Heart Rate 114 /min Respiratory Rate 18 /min Height 61 inches 5'1" Weight 359.50 lb BMI (Body Mass Index) 67.9 kg/m2 BSA (Body Surface Area) 2.42 m2 Weinert body weight in kilograms 48 kg O2 % BldC Oximetry 92 % 01/09/2017 2:08pm BP Systolic Sitting Left Arm 118 mmHg BP Diastolic Sitting Left Arm 60 mmHg Heart Rate 98 /min Respiratory Rate 18 /min Height 61 inches 5'1" Weight 358.00 lb BMI (Body Mass Index) 67.6 kg/m2 BSA (Body Surface Area) 2.42 m2 Weinert body weight in kilograms 48 kg O2 % BldC Oximetry 96 % 12/20/2016 2:17pm BP Systolic Sitting Right Arm 158 mmHg BP Diastolic Sitting Right Arm 104 mmHg Body Temperature 98.6 F Heart Rate 107 /min Respiratory Rate 22 /min Height 61 inches 5'1" Weight 349.00 lb BMI (Body Mass Index) 65.9 kg/m2 BSA (Body Surface Area) 2.39 m2 Weinert body weight in kilograms 48 kg O2 % BldC Oximetry 96 % 12/05/2016 1:22pm BP Systolic Sitting Right Arm 138 mmHg BP Diastolic Sitting Right Arm 74 mmHg Body Temperature 99.3 F Heart Rate 111 /min Respiratory Rate 16 /min Height 61 inches 5'1" Weight 343.00 lb BMI (Body Mass Index) 64.8 kg/m2 BSA (Body Surface Area) 2.38 m2 Weinert body weight in kilograms 48 kg O2 % BldC Oximetry 94 % 11/21/2016 9:21am BP Systolic Sitting Right Arm 116 mmHg BP Diastolic Sitting Right Arm 78 mmHg Body Temperature 99.0 F Heart Rate 118 /min Height 61 inches 5'1" Weight 342.00 lb BMI (Body Mass Index) 64.6 kg/m2 BSA (Body Surface Area) 2.37 m2 Weinert body weight in kilograms 48 kg O2 % BldC Oximetry 95 % 10/02/2016 9:18am BP Systolic Sitting Right Arm 130 mmHg BP Diastolic Sitting Right Arm 80 mmHg Height 61 inches 5'1" Weight 332.00 lb BMI (Body Mass Index) 62.7 kg/m2 BSA (Body Surface Area) 2.34 m2 Weinert body weight in kilograms 48 kg 09/14/2016 2:23pm BP Systolic 156 mmHg BP Diastolic 92 mmHg Heart Rate 118 /min Height 61 inches 5'1" Weight 324.00 lb BMI (Body Mass Index) 61.2 kg/m2 BSA (Body Surface Area) 2.32 m2 Weinert body weight in kilograms 48 kg 09/03/2016 [...] Result H/L Range Note Comprehensive Metabolic 10/20/2018 [facility] Glucose 79 mg/dL N 74-106 1 Panel [address] [place] [address] [phone] BUN 16 mg/dL N 7-18 Creatinine 1.0 [...] U/L N 45-117 CBC W/Automated Diff 10/20/2018 [facility] White Blood 6.6 K/uL N 3.1-10.[address] [place], [place] [id number] [phone] Red Blood Count 4.86 M/uL N 3.90-5.40 [...] 40.4-72.8 Lymph % 27.7 % N 20.0-42.0 Twiggs % 4.1 % Low 4.3-13.2 Eo% 2.4 % N 0.0-6.6 Bas% 0.6 % N 0.0-1.1 Immature Grans 0.6 % N 0.0-5.0 NRBC % 0.0 /100WBC < 10/ 100 WBC Neut# 4.23 K/uL N 1.8-7.0 Lymph # 1.82 K/uL N 1.0-4.0 Twiggs # 0.27 K/uL Low 0.3-0.9 Eos # 0.16 K/uL N 0.0-0.5 Baso # 0.04 K/uL N 0.0-0.1 Immature Grans Absolute 0.04 K/uL NRBC # 0.00 K/uL Laboratory test 10/20/2018 [facility] Vitamin <pending> finding [address] [address] [phone] LDL Cholesterol 10/20/2018 [facility] Cholesterol 181 mg/dL <200 3 Profile [address] [place] [address] [phone] Triglycerides 174 mg/dL High <150 4 HDL Cholesterol 39 mg/dL Low >40 5 LDL-Cholesterol 107 mg/dL < 100 6 Co2 SerPl-sCnc 10/03/2018 N2N/CCD Import Co2 SerPl-sCnc 28 21-32 Serum or plasma 10/03/2018 N2N/CCD Import Serum or plasma 106 98-107 chloride measurement chloride measurement Serum or plasma 10/03/2018 N2N/CCD Import Serum or plasma 3.4 Low 3.5- 5.1 potassium potassium measurement measurement Sodium SerPl-sCnc 10/03/2018 [facility]D [facility] 136- 145 Serum or plasma urea [...] (PT) in platelet poor plasma poor plasma Serum or plasma 10/03/2018 N2N/CCD Import Serum [...] by glucometer (mass/volume) CBC W/Automated Diff 10/03/2018 [facility] White Blood Count 7.7 N 3.1-10.[address] [place] [address] [phone] Red Blood Count 4.80 M/uL N 3.90-5.40 [...] 40.4-72.8 Lymph % 28.1 % N 20.0-42.0 Twiggs % 5.9 % N 4.3-13.2 Eo% 2.6 % N 0.0-6.6 Bas% 0.4 % N 0.0-1.1 Immature Grans 0.7 % N 0.0-5.0 NRBC % 0.0 /100WBC < 10/ 100 WBC Neut# 4.79 K/uL N 1.8-7.0 Lymph # 2.16 K/uL N 1.0-4.0 Twiggs # 0.45 K/uL N 0.3-0.9 Eos # 0.20 K/uL N 0.0-0.5 Baso # 0.03 K/uL N 0.0-0.1 Immature Grans Absolute 0.05 K/uL NRBC # 0.00 K/uL Protime 10/03/2018 [facility] Protime 13.7 seconds N 12.0-14.4 [address] [place] [address] [phone] Inr 1.1 N 0.9-1.1 8 Laboratory test 10/03/2018 [facility] Act Partial 26.3 N 23.4-35.0 [address] [place] [place] [address] [phone] Comprehensive 10/03/2018 [facility] Glucose 103 mg/dL N 74-106 Metabolic Panel [address] [place] [address] [phone] BUN 14 mg/dL N 7-18 Creatinine 1.1 mg/dL N 0.6-1.3 Glom Filtration Rate, Estimate 60 mL/min >60 If >60 mL/min >60 10 BUN/Creat 12.7 ratio Sodium 141 mmol/L N [...] U/L N 45-117 Laboratory test finding 10/03/2018 [facility] CK 369 U/L High 26-192 [address] [place] [address] [phone] Troponin-I < 0.015 ng/mL 11 Automated 10/03/2018 N2N/CCD Import Automated 7.7 3.1-10.7 [...] nucleated erythrocyte count erythrocyte count (count (count/volume) Automated blood 10/03/2018 N2N/CCD Import Automated blood [...] culture culture Throat Giovanni Throat Culture 09/25/2018 [facility] Throat Culture NORMAL 12, Complete [address] Complete THROAT [address] [place] [address] <SEE NOTE> [phone] Throat Culture 09/16/2018 [facility] Throat Culture NORMAL [address] [place] [address] <SEE NOTE> [phone] Urine 09/15/2018 N2N/CCD Import Urine 167 0-200 [...] automated test automated test strip strip Urine total 09/15/2018 N2N/CCD Import Urine total Negative Negative bilirubin bilirubin detection by detection by automated test automated test strip Urine glucose 09/15/2018 N2N/CCD Import Urine glucose Negative Negative measurement by measurement by automated test automated test strip strip (mass/volume) Urine appearance 09/15/2018 N2N/CCD Import Urine appearance Cloudy Clear determination determination Urine color 09/15/2018 N2N/CCD Import Urine color Yellow Yellow determination determination Protein/Creatinine 09/15/2018 [facility] Creatinine,Urine 284.6 Not Estab. 15 Ratio,Urine [address] [facility] mg/dL [place], [place] [id number] [phone] Protein,Total,Urine 47.4 mg/dL Not Estab. Protein/Creatinine Ratio 167 MG/GCRE 0-200 16 Ua RFX Micro & Culture 09/15/2018 [facility] Urine Color YELLOW Yellow II [address] [place] [address] [phone] Urine Clarity CLOUDY Clear Urine Glucose - Dipstick NEGATIVE mg/dL Negative Urine Bilirubin - Dipstick NEGATIVE Negative Urine Ketone NEGATIVE mg/dL Negative Urine Specific [place] >=1.030 N 1.010-1.030 Urine Blood TRACE Negative Urine PH 5.5 Low 6.5-7.5 Urine Protein - Dipstick 30 mg/dL High Negative Urine Urobilinogen - Dipstick 0.2 E.U./dL N 0.2-1.0 Urine Nitrite - Dipstick NEGATIVE Negative Urine Leuk Esterase NEGATIVE Negative Source: URINE, CLEAN CAT <SEE NOTE> 17 Laboratory test finding 09/15/2018 [facility] CK 284 U/L High 26-192 [address] [place], [place] [id number] [phone] Basic Metabolic Panel 09/15/2018 [facility] Glucose 103 mg/dL N 74-106 [address] [place] [address] [phone] BUN 16 mg/dL N 7-18 Creatinine 1.1 mg/dL N 0.6-1.3 Glom Filtration Rate, Estimate 60 mL/min >60 If >60 mL/min >60 18 BUN/Creat 14.5 ratio Sodium 139 mmol/L N 136-145 Potassium 3.3 mmol/L Low 3.5-5.1 Chloride 105 mmol/L N 98-107 Carbon Dioxide 24 mmol/L N 21-32 Anion Gap 10 mEq/L N 8-16 Calcium 9.3 mg/dL N 8.5-10.1 Laboratory test 09/15/2018 [facility] Thyroid Stim 3.83 uIU/mL N 0.30-4.20 finding [address] [place] [address] [phone] Free T4 1.23 ng/dL N 0.76-1.46 Urine ketones 09/15/2018 N2N/CCD Import Urine ketones [...] test automated test strip strip (mass/volume) Urine 09/15/2018 N2N/CCD Import Urine 0.2 0.2-1.0 urobilinogen urobilinogen measurement measurement (units/volume) by (units/volume) t by test strip Serum or plasma 07/15/2018 N2N/CCD Import Serum or plasma 15.9 Low 30.0- 100.0 25-hydroxyvitamin 25-hydroxyvitami D measurement (m n D measurement (mass/volume) Blood estimated 07/15/2018 N2N/CCD Import Blood estimated 108 average glucose average glucose determination by determination by e estimation from glycated hemoglobin (mass/volume) HgbA1c % 07/15/2018 N2N/CCD Import HgbA1c % 5.4 4.2-6.3 Serum or plasma 07/15/2018 N2N/CCD Import Serum or plasma 116 < 100 cholesterol in cholesterol in LDL measurement LDL measurement by by calculation (mass/volume) Serum or plasma 07/15/2018 N2N/CCD Import Serum or plasma 41 >40 cholesterol in cholesterol in HDL measurement HDL measurement (ma (mass/volume) Serum or plasma 07/15/2018 N2N/CCD Import Serum or plasma 162 High <150 triglyceride triglyceride measurement measurement (mass/vol (mass/volume) Serum or plasma 07/15/2018 N2N/CCD Import Serum or plasma 189 <200 cholesterol cholesterol measurement measurement (mass/volu (mass/volume) TSH Reflex FT4 07/15/2018 [facility] Thyroid Stim 3.57 uIU/mL N 0.30-4.20 19 And/Or FT3 [address] [place] [address] [phone] Reflex add FT3? N Reflex add FT4? Y Glycohemoglobin A1c 07/15/2018 [facility] Glycohemoglobin 5.4 % N 4.2-6.[address] (A1c) [place] [address] [phone] eAG 108 mg/dL Laboratory test 07/15/2018 [facility] Vitamin 15.9 Low 30.0-100.0 [address] D,25-Hydroxy ng/[place] [address] [phone] LDL Cholesterol 07/15/2018 [facility] Cholesterol 189 <200 [address] mg/[place] [address] [phone] Triglycerides 162 mg/dL High <150 23 HDL Cholesterol 41 mg/dL >40 24 LDL-Cholesterol 116 mg/dL < 100 25 Reflex add FT3? N Reflex add FT4? Y Comprehensive Metabolic 07/15/2018 [facility] Glucose 101 mg/dL N 74-[address] [place] [address] [phone] BUN 17 mg/dL N 7-18 Creatinine 1.0 mg/dL N 0.6-1.3 Glom Filtration Rate, Estimate >60 mL/min >60 If >60 mL/min >60 26 BUN/Creat 17.0 ratio Sodium 140 mmol/L N [...] add FT3? N Reflex add FT4? Y CBC W/Automated Diff 07/15/2018 [facility] White Blood 7.3 K/uL N 3.1-10.[address] [place], [place] [id number] [phone] Red Blood Count 4.84 M/uL N 3.90-5.40 [...] 40.4-72.8 Lymph % 29.5 % N 20.0-42.0 Twiggs % 4.8 % N 4.3-13.2 Eo% 1.8 % N 0.0-6.6 Bas% 0.3 % N 0.0-1.1 Neut# 4.61 K/uL N 1.8-7.0 Lymph # 2.14 K/uL N 1.0-4.0 Twiggs # 0.35 K/uL N 0.3-0.9 Eos # 0.13 K/uL N 0.0-0.5 Baso # 0.02 K/uL N 0.0-0.1 Serum or plasma 05/15/2018 N2N/CCD Import Serum [...] potassium potassium measurement measurement Serum or plasma 05/15/2018 N2N/CCD Import Serum or plasma 17 7-18 urea nitrogen urea nitrogen measurement measurement (mass/vo (mass/volume) Serum or plasma 05/15/2018 N2N/CCD Import Serum or plasma 17.0 urea urea nitrogen/creatinin nitrogen/creatini e mass rati ne mass ratio Sodium SerPl-sCnc 05/15/2018 N2N/CCD Import Sodium SerPl-sCnc 139 136- 145 Laboratory test 05/15/2018 [facility] Troponin-I < 0.015 27, [address] ng/mL [place], [place] [id number] [phone] CBC W/Automated 05/15/2018 [facility] White Blood Count 9.1 N 3.1-10.[address] K/[place] [address] [phone] Red Blood Count 4.90 M/uL N 3.90-5.40 [...] 40.4-72.8 Lymph % 28.7 % N 20.0-42.0 Twiggs % 5.0 % N 4.3-13.2 Eo% 1.5 % N 0.0-6.6 Bas% 0.3 % N 0.0-1.1 Neut# 5.85 K/uL N 1.8-7.0 Lymph # 2.60 K/uL N 1.0-4.0 Twiggs # 0.45 K/uL N 0.3-0.9 Eos # 0.14 K/uL N 0.0-0.5 Baso # 0.03 K/uL N 0.0-0.1 Basic Metabolic Panel 05/15/2018 [facility] Glucose 113 mg/dL High 74-106 [address] [place], [place] [id number] [phone] BUN 17 mg/dL N 7-18 Creatinine 1.0 mg/dL N 0.6-1.3 Glom Filtration Rate, Estimate >60 mL/min >60 If >60 mL/min >60 29 BUN/Creat 17.0 ratio Sodium 139 mmol/L N 136-145 Potassium 3.3 mmol/L Low 3.5-5.1 Chloride 105 mmol/L N 98-107 Carbon Dioxide 24 mmol/L N 21-32 Anion Gap 10 mEq/L N 8-16 Calcium 8.8 mg/dL N 8.5-10.1 Absolute 05/15/2018 N2N/CCD Import Absolute 5.85 1.8-7.0 neutrophil count neutrophil count Automated 05/15/2018 N2N/CCD Import Automated basophil 0.3 0.0-1.1 basophil % % Automated blood 05/15/2018 N2N/CCD Import Automated blood 0.03 0.0-0.1 basophil count basophil count (number/volume) (number/volume) Automated blood 05/15/2018 N2N/CCD Import Automated blood 0.14 0.0-0.5 eosinophil count eosinophil count Automated blood 05/15/2018 N2N/CCD Import Automated blood 9.1 3.1-10.7 leukocyte count leukocyte count (number/volume) (number/volume) Automated blood 05/15/2018 N2N/CCD Import Automated blood 2.60 1.0-4.0 lymphocyte count lymphocyte count (number/volume) (number/volume) Automated blood 05/15/2018 N2N/CCD Import Automated blood 28.7 20.0- 42.0 lymphocytes/100 lymphocytes/100 leukocytes leukocytes Automated blood 05/15/2018 N2N/CCD Import Automated blood 64.5 40.4- 72.8 neutrophils/100 neutrophils/100 leukocytes leukocytes Automated blood 05/15/2018 N2N/CCD Import [...] High 11.7-14.4 erythrocyte erythrocyte distribution distribution width width ratio ratio Automated 05/15/2018 N2N/CCD Import Automated 27.1 25.9-32.7 erythrocyte mean erythrocyte mean corpuscular corpuscular hemoglobin hemoglobin (mass per erythrocyte) Automated 05/15/2018 N2N/CCD Import Automated 32.5 30.8-34.3 erythrocyte mean erythrocyte mean corpuscular corpuscular hemoglobin hemoglobin concentration measurement (mass/volume) Automated 05/15/2018 N2N/CCD Import Automated 83.5 80.9-99.0 erythrocyte mean erythrocyte mean corpuscular corpuscular volume volume (MCV (MCV) measurement Automated 05/15/2018 N2N/CCD Import Automated monocyte 5.0 4.3-13.2 monocyte % % Blood 05/15/2018 N2N/CCD Import Blood erythrocytes 4.90 3.90-5.40 erythrocytes automated count automated count (number/volume) (number/volume) [...] plasma 10 8-16 anion gap anion gap CBC W/Automated 05/14/2018 [facility] White Blood Count 9.0 K/uL N 3.1-10.7 30 Diff [address] [place] [address] [phone] Red Blood Count 5.19 M/uL N 3.90-5.40 [...] 40.4-72.8 Lymph % 17.9 % Low 20.0-42.0 Twiggs % 4.6 % N 4.3-13.2 Eo% 1.5 % N 0.0-6.6 Bas% 0.3 % N 0.0-1.1 Neut# 6.79 K/uL N 1.8-7.0 Lymph # 1.60 K/uL N 1.0-4.0 Twiggs # 0.41 K/uL N 0.3-0.9 Eos # 0.13 K/uL N 0.0-0.5 Baso # 0.03 K/uL N 0.0-0.1 Comprehensive Metabolic 05/14/2018 [facility] Glucose 151 mg/dL High 74-106 Panel [address] [place], [place] [id number] [phone] BUN 17 mg/dL N 7-18 Creatinine 1.1 mg/dL N 0.6-1.3 Glom Filtration Rate, Estimate >60 mL/min >60 If >60 mL/min >60 31 BUN/Creat 15.4 ratio Sodium 138 mmol/L N [...] 12-78 Alkaline Phosphatase 72 U/L N 45-117 Laboratory test finding 05/14/2018 [facility] Troponin-I < 0.015 ng/mL 32 [address] [place] [address] [phone] HCG,Serum (Qualitative) NEGATIVE (Negative) 33 D-Dimer, Quantitative 0.33 ug/mL 34 Fibrin D-dimer Feu 05/14/2018 N2N/CCD Import Fibrin D-dimer Feu 0.33 measurement in measurement in platelet poor pl platelet poor plasma (mass/volume) Serum globulin 05/14/2018 N2N/CCD Import Serum globulin 3.8 1.9-4 measurement by measurement by .3 calculation (mass/vo calculation (mass/volume) Serum or plasma 05/14/2018 N2N/CCD Import Serum or plasma 68 12-78 alanine alanine aminotransferase aminotransferase measureme measurement (enzymatic activity/volume) Serum or plasma 05/14/2018 N2N/CCD Import Serum or plasma 3.4 3.4-5 albumin measurement albumin measurement .0 (mass/volume) (mass/volume) Serum or plasma 05/14/2018 N2N/CCD Import Serum or plasma 0.9 albumin/globulin mass albumin/globulin mass ratio ratio Serum or plasma 05/14/2018 N2N/CCD Import Serum or plasma 72 45-11 alkaline phosphatase alkaline phosphatase 7 measurement ( measurement (enzymatic activity/volume) Serum or plasma 05/14/2018 N2N/CCD Import Serum or plasma 35 15-37 aspartate aspartate aminotransferase aminotransferase measure measurement (enzymatic activity/volume) Serum or plasma 05/14/2018 N2N/CCD Import Serum or plasma 7.2 6.4-8 protein measurement protein measurement .2 (mass/volume) (mass/volume) * Miscellaneous 05/14/2018 N2N/CCD Import * Miscellaneous Test(s) studies (set) studies (set) added Aot Request 05/14/2018 [facility] Aot Request Test(s) [address] [place] [address] [phone] Tests to be added: d-dimer Serum or plasma 05/14/2018 N2N/CCD Import Serum or plasma 0.2 0.2-1.0 total bilirubin total bilirubin measurement (mass/ measurement (mass/volume) Basic Metabolic 04/14/2018 [facility] Glucose 106 mg/dL N 74-106 [address] [place] [address] [phone] BUN 14 mg/dL N 7-18 Creatinine 1.0 mg/dL N 0.6-1.3 Glom Filtration Rate, Estimate >60 mL/min >60 If >60 mL/min >60 37 BUN/Creat 14.0 ratio Sodium 139 mmol/L N 136-145 Potassium 3.6 mmol/L N 3.5-5.1 Chloride 102 mmol/L N 98-107 Carbon Dioxide 30 mmol/L N 21-32 Anion Gap 7 mEq/L Low 8-16 Calcium 8.8 mg/dL N 8.5-10.1 Laboratory test 04/14/2018 [facility] PTH,Intact 39 pg/mL 15-65 [address] [place] [address] [phone] CBC W/Automated 03/31/2018 [facility] White Blood 6.6 K/uL N 3.1-10.7 [address] [place] [address] [phone] Red Blood Count 5.03 M/uL N 3.90-5.40 [...] 40.4-72.8 Lymph % 28.3 % N 20.0-42.0 Twiggs % 4.8 % N 4.3-13.2 Eo% 2.0 % N 0.0-6.6 Bas% 0.3 % N 0.0-1.1 Neut# 4.26 K/uL N 1.8-7.0 Lymph # 1.87 K/uL N 1.0-4.0 Twiggs # 0.32 K/uL N 0.3-0.9 Eos # 0.13 K/uL N 0.0-0.5 Baso # 0.02 K/uL N 0.0-0.1 Serum or plasma 03/31/2018 N2N/CCD Import Serum [...] Import Serum or plasma 21.5 Low 30.0- 100. 25-hydroxyvitamin D 25-hydroxyvitamin 0 measurement (m D measurement (mass/volume) HgbA1c % 03/31/2018 N2N/CCD Import HgbA1c % 5.9 4.2-6.3 Blood estimated 03/31/2018 N2N/CCD Import Blood estimated 123 average glucose average glucose determination by e determination by estimation from glycated hemoglobin (mass/volume) Laboratory test 03/31/2018 [facility] Vitamin 21.5 Low 30.0-100. [address] D,25-Hydroxy ng/mL 0 [place] [address] [phone] LDL Cholesterol 03/31/2018 [facility] Cholesterol 192 <200 [address] mg/[place] [address] [phone] Triglycerides 192 mg/dL High <150 42 HDL Cholesterol 40 mg/dL >40 43 LDL-Cholesterol 114 mg/dL < 100 44 Comprehensive Metabolic 03/31/2018 [facility] Glucose 99 mg/dL N 74-[address] [place], [place] [address] [phone] BUN 16 mg/dL N 7-18 Creatinine 1.0 mg/dL N 0.6-1.3 Glom Filtration Rate, Estimate >60 mL/min >60 If >60 mL/min >60 45 BUN/Creat 16.0 ratio Sodium 140 mmol/L N [...] 70 U/L N 45-117 Glycohemoglobin A1c 03/31/2018 [facility] Glycohemoglobin 5.9 % N 4.2-6.[address] (A1c) [place], [place] [id number] [phone] eAG 123 mg/dL Genital Culture W/ 03/11/2018 [facility] Gram Stain GRAM STAIN 47, [address] [place] <[place] [address] NOTE> [phone] Gram Stain MODERATE GR POS. <SEE NOTE> 49 Gram Stain MODERATE GRAM VA <SEE NOTE> 50 Gram Stain RARE GRAM POSITI <SEE NOTE> 51 Gram Stain RARE RARE WHITE <SEE NOTE> 52 Genital Culture GENITAL GIOVANNI Urine Dipstick 03/11/2018 [facility] Ua Color orange Yellow Ua Clarity clear Clear Ua Leuko - Negative Ua Nitrite - Negative Ua Urobilinogen - Low 0.2 - 1.0 E.U./dL Ua Protein - Negative Ua PH 5 Low 6.5-7.5 Ua Blood - Negative Ua Specific [place] 1.030 1.010-1.030 Ua Ketones - Negative Ua Bilirubin - Negative Ua Glucose - Negative Serum or plasma 01/20/2018 N2N/CCD Import Serum or plasma 31 8-252 ferritin measurement ferritin (mass/volume) measurement (mass/volume) Serum or plasma iron 01/20/2018 N2N/CCD Import Serum or plasma 383 250- 450 binding capacity iron binding measurement capacity measurement (mass/volume) Serum or plasma iron 01/20/2018 N2N/CCD Import Serum or plasma 55 50- 170 measurement iron measurement (mass/volume) (mass/volume) Serum or plasma iron 01/20/2018 N2N/CCD Import Serum or plasma 14 12-57 saturation iron saturation measurement (mass measurement (mass fraction) Serum or plasma 01/20/2018 N2N/CCD Import Serum or plasma 296 200-370 transferrin transferrin measurement measurement (mass/volu (mass/volume) Laboratory test 01/20/2018 [facility] Ferritin 31 ng/mL N 8-252 53 finding [address] [place] [address] [phone] Iron-Tibc-%Sat 01/20/2018 [facility] Serum Iron 55 g/dL N 50-170 [address] [place], [place] [address] [phone] Total Iron Binding Capacity 383 g/dL N 250-450 Transferrin %Saturation 14 % N 12-57 Laboratory test 01/20/2018 [facility] Transferrin 296 mg/dL 200-370 54 finding [address] [place] [address] [phone] CBC W/Automated 01/20/2018 [facility] White Blood 7.3 K/uL N 3.1-10.7 Diff [address] [facility] [place] [address] [phone] Red Blood Count 5.19 M/uL N 3.90-5.40 [...] 40.4-72.8 Lymph % 24.4 % N 20.0-42.0 Twiggs % 4.6 % N 4.3-13.2 Eo% 1.6 % N 0.0-6.6 Bas% 0.3 % N 0.0-1.1 Neut# 5.07 K/uL N 1.8-7.0 Lymph # 1.79 K/uL N 1.0-4.0 Twiggs # 0.34 K/uL N 0.3-0.9 Eos # 0.12 K/uL N 0.0-0.5 Baso # 0.02 K/uL N 0.0-0.1 Comprehensive Metabolic 01/20/2018 [facility] Glucose 94 mg/dL N 74-106 Panel [address] [place] [address] [phone] BUN 13 mg/dL N 7-18 Creatinine 0.9 mg/dL N 0.6-1.3 Glom Filtration Rate, Estimate >60 mL/min >60 If >60 mL/min >60 55 BUN/Creat 14.4 ratio Sodium 141 mmol/L N [...] 12-78 Alkaline Phosphatase 76 U/L N 45-117 LDL Cholesterol Profile 01/20/2018 [facility] Cholesterol 195 mg/dL <200 56 [address] [place] [address] [phone] Triglycerides 186 mg/dL High <150 57 HDL Cholesterol 41 mg/dL >40 58 LDL-Cholesterol 117 mg/dL < 100 59 Glycohemoglobin A1c 01/20/2018 [facility] Glycohemoglobin 6.1 % N 4.2-6.[address] (A1c) [place] [address] [phone] eAG 128 mg/dL Laboratory 01/20/2018 [facility] Vitamin 16.2 Low 30.0-100.0 61 test finding [address] D,25-Hydroxy ng/[place] [address] [phone] Ua RFX Micro & 12/17/2017 [facility] Urine Color YELLOW Yellow 62 Culture II [address] [place] [address] [phone] Urine Clarity TURBID Clear Urine Glucose - Dipstick NEGATIVE mg/dL Negative Urine Bilirubin - Dipstick NEGATIVE Negative Urine Ketone NEGATIVE mg/dL Negative Urine Specific [place] >=1.030 N 1.010-1.030 Urine Blood NEGATIVE Negative Urine PH 6.0 Low 6.5-7.5 Urine Protein - Dipstick 30 mg/dL High Negative Urine Urobilinogen - Dipstick 0.2 E.U./dL N 0.2-1.0 Urine Nitrite - Dipstick NEGATIVE Negative Urine Leuk Esterase NEGATIVE Negative Source: URINE, CLEAN CAT <SEE NOTE> 63 Protein/Creatinine 12/17/2017 [facility] Creatinine,Urine 233.6 Not Ratio,Urine [address] mg/[place] [address] [phone] Protein,Total,Urine 49.5 mg/dL Not [place]. Protein/Creatinine Ratio 212 MG/GCRE High 0-200 64 CBS W/Automated 10/18/2017 [facility] White Blood 8.0 K/uL N 3.1-10.7 [address] [place] [address] [phone] Red Blood Count 5.04 M/uL N 3.90-5.40 [...] 40.4-72.8 Lymph % 25.2 % N 20.0-42.0 Twiggs % 4.4 % N 4.3-13.2 Eo% 1.9 % N 0.0-6.6 Bas% 0.4 % N 0.0-1.1 Neut# 5.42 K/uL N 1.8-7.0 Lymph # 2.00 K/uL N 1.0-4.0 Tw[place]gs # 0.35 K/uL N 0.3-0.9 Eos # 0.15 K/uL N 0.0-0.5 Baso # 0.03 K/uL N 0.0-0.1 Ua RFX Micro & Culture 10/18/2017 [facility] Urine Color YELLOW Yellow II [address] [place] [id number] [phone] Urine Clarity SL CLOUDY Clear Urine Glucose - Dipstick NEGATIVE mg/dL Negative Urine Bilirubin - Dipstick NEGATIVE Negative Urine Ketone NEGATIVE mg/dL Negative Urine Specific [place] >=1.030 N 1.010-1.030 Urine Blood TRACE Negative Urine PH 5.5 Low 6.5-7.5 Urine Protein - Dipstick 30 mg/dL High Negative Urine Urobilinogen - Dipstick 0.2 E.U./dL N 0.2-1.0 Urine Nitrite - Dipstick NEGATIVE Negative Urine Leuk Esterase NEGATIVE Negative Source: URINE, CLEAN CAT <SEE NOTE> 66 Chlmaydia/GC/Trichomonas 10/18/2017 [facility] Trichomonas Negative Negative PCR [address] [place] [address] PCR [phone] Chlamydia trachomatis, PCR Negative Negative Neisseria gonorrhoeae, PCR Negative Negative 67 Comprehensive Metabolic 09/07/2017 [facility] Glucose 101 mg/dL N 74-106 68 Panel [address] [place] [address] [phone] BUN 16 mg/dL N 7-18 Creatinine 1.1 mg/dL N 0.6-1.3 Glom Filtration Rate, Estimate >60 mL/min >60 If >60 mL/min >60 69 BUN/Creat 14.5 ratio Sodium 141 mmol/L N [...] U/L N 45-117 CBS W/Automated Diff 09/07/2017 [facility] White Blood 6.6 K/uL N 3.1-10.[address] [place] [address] [phone] Red Blood Count 5.18 M/uL N 3.90-5.40 [...] 40.4-72.8 Lymph % 30.0 % N 20.0-42.0 Twiggs % 5.3 % N 4.3-13.2 Eo% 2.0 % N 0.0-6.6 Bas% 0.5 % N 0.0-1.1 Neut# 4.14 K/uL N 1.8-7.0 Lymph # 1.99 K/uL N 1.0-4.0 Twiggs # 0.35 K/uL N 0.3-0.9 Eos # 0.13 K/uL N 0.0-0.5 Baso # 0.03 K/uL N 0.0-0.1 Ua RFX Micro & Culture 09/07/2017 [facility] Urine Color YELLOW Yellow II [address] [place] [address] [phone] Urine Clarity CLEAR Clear Urine Glucose - Dipstick NEGATIVE mg/dL Negative Urine Bilirubin - Dipstick NEGATIVE Negative Urine Ketone NEGATIVE mg/dL Negative Urine Specific [place] >=1.030 N 1.010-1.030 Urine Blood NEGATIVE Negative Urine PH 5.5 Low 6.5-7.5 Urine Protein - Dipstick TRACE mg/dL Negative Urine Urobilinogen - Dipstick 0.2 E.U./dL N 0.2-1.0 Urine Nitrite - Dipstick NEGATIVE Negative Urine Leuk Esterase NEGATIVE Negative Source: URINE, CLEAN CAT <SEE NOTE> 70 Protein/Creatinine 09/07/2017 [facility] Creatinine,Urine 291.1 Not Ratio,Urine [address] mg/dL [place], [place] [id number] [phone] Protein,Total,Urine 47.2 mg/dL Not [place]. Protein/Creatinine Ratio 162 MG/GCRE 0-200 71 LDL Cholesterol Profile 09/07/2017 [facility] Cholesterol 180 mg/dL <[address] [place], [place] [address] [phone] Triglycerides 182 mg/dL High <150 73 HDL Cholesterol 43 mg/dL >40 74 LDL-Cholesterol 101 mg/dL < 100 75 Glycohemoglobin A1c 09/07/2017 [facility] Glycohemoglobin 6.2 % N 4.2-6.[address] (A1c) [place] [address] [phone] eAG 131 mg/dL Laboratory 04/18/2017 [facility] Anti-Nuclear Negative Negative 77, 78 test finding [address] Antibodies AU/[place] [address] Direct [phone] Complement C4, Serum 36 mg/dL 14-44 Complement C3, Serum 202 mg/dL High 82-167 LDL Cholesterol Profile 04/18/2017 [facility] Cholesterol 184 mg/dL <[address] [place], [place] [id number] [phone] Triglycerides 199 mg/dL High <150 80 HDL Cholesterol 40 mg/dL >40 81 LDL-Cholesterol 104 mg/dL < 100 82 Glycohemoglobin A1c 04/18/2017 [facility] Glycohemoglobin 6.2 % N 4.2-6.[address] (A1c) [place] [address] [phone] eAG 131 mg/dL Laboratory test 04/18/2017 [facility] Rheumatoid < 10.0 N 0.0-15.[address] Factor Screen IU/[place] [address] [phone] Comprehensive 04/18/2017 [facility] Glucose 110 mg/dL High 74-106 Metabolic Panel [address] [place] [address] [phone] BUN 15 mg/dL N 7-18 Creatinine 1.0 mg/dL N 0.6-1.3 Glom Filtration Rate, Estimate >60 mL/min >60 If >60 mL/min >60 84 BUN/Creat 15.0 ratio Sodium 142 mmol/L N [...] 12-78 Alkaline Phosphatase 68 U/L N 45-117 Laboratory 01/09/2017 [facility] Immunoglobulin 47 IU/mL 0-100 85, 86 test finding [address] E,[place] [address] [phone] Allergens,Zone 01/09/2017 [facility] mRast Class (Text (SEE [address] Only) NOTE) [place] [address] [phone] D Pteronyssinus <0.10 kU/L Class 0 D Farinae Mite <0.10 kU/L Class 0 Cat Hair/Dander <0.10 kU/L Class 0 Dog Hair/Dander <0.10 kU/L Class 0 Bluegrass,[place] <0.10 kU/L Class 0 Bermuda Grass <0.10 kU/L Class 0 [place]ia Grass <0.10 kU/L Class 0 Cockroach,Lebanese <0.10 kU/L Class 0 Penicillium Not <0.10 kU/L Class 0 Cladosporium Herbarum <0.10 kU/L Class 0 Apergillis Fumigatus Ige <0.10 kU/L Class 0 Mucor Racemosus <0.10 kU/L Class 0 Alternaria Alternata <0.10 kU/L Class 0 Stemphylium Bot <0.10 kU/L Class 0 Birch,White <0.10 kU/L Class 0 [place],White <0.10 kU/L Class 0 Elm,Lebanese (White) <0.10 kU/L Class 0 Vipin,White <0.10 kU/L Class 0 Hazelnut Tree T004 Ige <0.10 kU/L Class 0 Luna,White <0.10 kU/L Class 0 [place],White <0.10 kU/L Class 0 [place] <0.10 kU/L Class 0 Ragweed,Short/ <0.10 kU/L Class 0 Mugwort <0.10 kU/L Class 0 Plantain,Samoan <0.10 kU/L Class 0 Pigweed,Rough <0.10 kU/L Class 0 Sheep Coyle (DO <0.10 kU/L Class 0 Nettle <0.10 kU/L Class 0 Maple/Mills Ige T001 <0.10 kU/L Class 0 88 Laboratory test 12/06/2016 [facility] Thyroid Stim 3.78 uIU/mL N 0.30-4.20 [address] [place] [address] [phone] Free T4 0.95 ng/dL N 0.76-1.46 Comprehensive Metabolic 09/03/2016 [facility] Glucose 90 mg/dL N 74-106 90 Panel [address] [place] [address] [phone] BUN 17 mg/dL N 7-18 Creatinine 1.0 mg/dL N 0.6-1.3 Glom Filtration Rate, Estimate >60 mL/min >60 If >60 mL/min >60 91 BUN/Creat 17.0 ratio Sodium 142 mmol/L N [...] 66 U/L N 45-117 Laboratory test 09/03/2016 [facility] Magnesium 2.0 mg/dL N 1.8-2.4 finding [address] [place] [address] [phone] CBS W/Automated 09/03/2016 [facility] White Blood 8.2 K/uL N 3.1-10.7 Diff [address] [place] [address] [phone] Red Blood Count 5.39 M/uL N 3.90-5.40 [...] 40.4-72.8 Lymph % 24.8 % N 20.0-42.0 [place] % 5.0 % N 4.3-13.2 Eo% 2.8 % N 0.0-6.6 Bas% 0.2 % N 0.0-1.1 Neut# 5.47 K/uL N 1.8-7.0 Lymph # 2.02 K/uL N 1.0-4.0 [place] # 0.41 K/uL N 0.3-0.9 Eos # 0.23 K/uL N 0.0-0.5 Baso # 0.02 K/uL N 0.0-0.1 Urine Creat 04/10/2011 [facility] Urine Collection 24 Hours Clearance Profile [address] [place] [address] [phone] Urine Total Volume 750 mL Serum Creatinine 0.7 mg/dL 0.5-1.4 Urine Creatinine Conc 221 mg/dL Urine Creatinine Clearance 164 mL/min High 70-156 Urine Total Prot 04/10/2011 [facility] Urine Collection Time 24 Hours Timed Profile [address] [place] [address] [phone] Urine Total Volume 750 mL Urine Total Protein Conc 45.0 mg/dL Urine TP Total (mg/24hr) 338 [id number] High Comprehensive Metabolic 04/03/2011 [facility] Glucose 113 mg/dL 76-115 Panel [address] [place] [address] [phone] BUN 8 mg/dL 5-23 Creatinine 0.9 mg/dL 0.5-1.4 Glom Filtration Rate, Estimate >60 mL/min >60 If >60 mL/min >60 92 BUN/Creat 8.8 ratio Sodium 140 mmol/L 136-145 [...] 73 U/L 50-136 Laboratory test finding 04/03/2011 [facility] Uric Acid 3.4 mg/dL 2.1-7.[address] [place], [place] [address] [phone] LDH 163 U/L Low 165-265 CBS W/Automated 04/03/2011 [facility] White Blood 11.1 K/uL High 3.1-10.[address] [place] [address] [phone] Red Blood Count 3.88 M/uL Low 3.90-5.40 [...] 40.4-72.8 Lymph % 15.4 % Low 17.0-46.1 [place] % 4.4 % 4.3-13.2 Eo% 0.9 % 0.0-6.6 Bas% 0.1 % 0.0-1.1 Neut# 8.76 K/uL High 1.0-7.0 Lymph # 1.70 K/uL 0.8-3.4 [place] # 0.49 K/uL 0.3-0.9 Eos # 0.10 K/uL 0.0-0.5 Baso # 0.01 K/uL 0.0-0.1 Red Cell Distri Width SD 46.3 fl 3-47 Urinalysis With 03/14/2011 [facility] Urine Color YELLOW Yellow Microscopic [address] [place] [address] [phone] Urine Clarity SL CLOUDY Clear Urine Glucose - Dipstick NEGATIVE mg/dL Negative Urine Bilirubin - Dipstick NEGATIVE Negative Urine Ketone TRACE mg/dL High Negative Urine Specific [place] 1.025 1.010-1.030 Urine Blood TRACE Negative Urine PH 6.5 6.5-7.5 Urine Protein - Dipstick 30 mg/dL High Negative Urine Urobilinogen - Dipstick 1.0 E.U./dL 0.2-1.0 Urine Nitrite - Dipstick NEGATIVE Negative Urine Leuk Esterase NEGATIVE Negative Urine RBC 0-2 rbc/hpf 0-7 Urine WBC 0-2 wbc/hpf 0-7 Urine Epithelial Cells MANY NONESEEN 93 Urine Bacteria MANY NONESEEN High Urine Amorph Sediment MODERATE Negative Laboratory test 03/14/2011 [facility] Culture If See Note 94 finding [address] [facility] [place] [address] [phone] Urine Culture See Note 95 CBC 03/13/2011 [facility] White Blood Count 10.1 K/uL 3.1-10.7 [address] [place] [address] [phone] Red Blood Count 3.95 M/uL 3.90-5.40 Hemoglobin 11.9 gm/dL 11.6-15.8 Hematocrit 34.3 % Low 36.0-46.1 Mean Cell Volume 86.8 fl 80.9-99.0 Mean Corpuscular HGB 30.1 pg 25.9-32.7 Mean Corpuscular HGB Conc 34.7 g/dL High 30.8-34.3 Platelet Count 230 K/uL 155-360 Red Cell Distri Width %CV 14.7 % High 11.7-14.4 Mean Platelet Volume 8.9 fL 8.9-12.4 Affirm Test 03/13/2011 [facility] Gardnerella Vaginalis See Note 96 [address] [place] [address] [phone] Trichomonas Vaginalis See Note 97 Evi Species See Note 98 OB Initial 12/26/2010 [facility] Thyroid Stim 1.27 uIU/mL 0.49-4.67 [address] [place] [address] [phone] Free T4 0.79 ng/dL 0.71-1.85 100 Toxoplasma IgG Antibody <6.5 IU/mL 0.0-6.4 101 Toxoplasma IgM Antibody <0.9 index 0.0-0.8 102 Varicella-Zoster Virus IgG Ab 1.49 index High 0.00-0.90 103 Varicella-Zoster Virus IgM Ab <0.91 AU 0.00-0.90 104 Urine Screen See Note 105 Urine Culture See Note 106 Parvovirus 12/26/2010 [facility] Parvovirus B19 3.0 index High 0.0-0.8 107 B19,Human [address] Igg Igg/[place] [address] [phone] Parvovirus B19 Igm 0.1 index 0.0-0.8 108 Glucose,1 HR 12/26/2010 [facility] 1 HR Glucose,Post 87 mg/dL -138 109 Post Glucola [address] [place] [address] [phone] 1 Hour Urine Glucose NEGATIVE % Negative 1 Hour Urine Ketone NEGATIVE Negative CBS W/Automated Diff 12/26/2010 [facility] White Blood 8.9 K/uL 3.1-10.[address] [place] [address] [phone] Red Blood Count 4.96 M/uL 3.90-5.40 Hemoglobin 14.3 gm/dL 11.6-15.8 Hematocrit 40.9 % 36.0-46.1 Mean Cell Volume 82.5 fl 80.9-99.0 Mean Corpuscular HGB 28.8 pg 25.9-32.7 Mean Corpuscular HGB Conc 35.0 g/dL High 30.8-34.3 Platelet Count 238 K/uL 155-360 Red Cell Distri Width %CV 14.9 % High 11.7-14.4 Mean Platelet Volume 9.2 fL 8.9-12.4 Neut% 69.6 % 40.4-72.8 Lymph % 23.1 % 17.0-46.1 Twiggs % 5.5 % 4.3-13.2 Eo% 1.5 % 0.0-6.6 Bas% 0.3 % 0.0-1.1 Neut# 6.18 K/uL 1.0-7.0 Lymph # 2.05 K/uL 0.8-3.4 Twiggs # 0.49 K/uL 0.3-0.9 Eos # 0.13 K/uL 0.0-0.5 Baso # 0.03 K/uL 0.0-0.1 Red Cell Distri Width SD 44.0 fl 3-47 Urinalysis With 12/26/2010 [facility] Urine Color YELLOW Yellow Microscopic [address] [place], [place] [id number] [phone] Urine Clarity CLEAR Clear Urine Glucose - Dipstick NEGATIVE mg/dL Negative Urine Bilirubin - Dipstick NEGATIVE Negative Urine Ketone NEGATIVE mg/dL Negative Urine Specific [place] >=1.030 1.010-1.030 Urine Blood TRACE Negative Urine PH 6.0 Low 6.5-7.5 Urine Protein - Dipstick NEGATIVE mg/dL Negative Urine Urobilinogen - Dipstick 1.0 E.U./dL 0.2-1.0 Urine Nitrite - Dipstick NEGATIVE Negative Urine Leuk Esterase NEGATIVE Negative Urine RBC 0-2 rbc/hpf 0-7 Urine WBC NONE SEEN wbc/hpf 0-7 Urine Epithelial Cells MODERATE NONESEEN 110 Urine Bacteria MODERATE NONESEEN High Urine Mucus SMALL NONESEEN Laboratory test 12/26/2010 [facility] Rapid Plasma NONREACTIVE [address] [place] [address] [phone] Hepatitis B Surface Antigen NEGATIVE Negative 112 Rubella IgG Antibody POSITIVE (Positive) 113 Type And Screen 12/26/2010 [facility] Patient Blood Type A POS [address] [place] [address] [phone] Antibody Screen NEGATIVE Dna Probe N. Gono 12/06/2010 [facility] Dna Probe For See Note 114 + C. Trach. [address] [place] [address] [phone] Dna Probe For N. Gonorrhoeae See Note 115 1 R79.89 2 Note: Persistent reduction for 3 months or more in an eGFR <60 mL/min/1.73 m2 defines CKD. Patients with eGFR values >/=60 mL/min/1.73 m2 may also have CKD if evidence of persistent proteinuria is present. The original MDRD equation for estimated GFR is not valid for patients less than 18 years of age. Additional information may be found at www.kdoqi.org. 3 Reference Guidelines*: Desirable: ........... < 200 mg/dL Borderline High: ..... 200-239 mg/dL High: ................ >=240 mg/dL * The National Cholesterol Education Program (NCEP) 4 Reference Guidelines*: Normal: ............. < 150 mg/dL Borderline High: .... 150-199 mg/dL High: ............... 200-499 mg/dL Very High: .......... > 500 mg/dL * Source: National Cholesterol Education Program (NCEP) 5 Reference Guidelines*: Low HDL: ..... < 40 mg/dL Normal: ..... 40-60 mg/dL Desirable: ... > 60 mg/dL *The National Cholesterol Education Program(NCEP) 6 Reference Guidelines*: Optimal:........... <100 mg/dL Near Optimal....... 100-129 mg/dL Borderline High.... 130-159 mg/dL High............... 160-189 mg/dL Very High.......... >=190 mg/dL * Source: National Cholesterol Education Program (NCEP) 7 ?STROKE 8 THERAPEUTIC INR RANGE: 2.0 - 3.0 DVT, Pulmonary embolus, prophylaxis against venous thrombosis or systemic embolization in high risk patients. 2.5 - 3.5 Mechanical heart valves 9 Is patient on anticoagulants? Coumadin 10 Note: Persistent reduction for 3 months or more in an eGFR <60 mL/min/1.73 m2 defines CKD. Patients with eGFR values >/=60 mL/min/1.73 m2 may also have CKD if evidence of persistent proteinuria is present. The original MDRD equation for estimated GFR is not valid for patients less than 18 years of age. Additional information may be found at www.kdoqi.org. 11 0.0 - 0.045 ng/mL: Normal 0.046 - 0.5 ng/mL: Suggestive 0.6 - 1.5 ng/mL: Consistent 12 J02.9 13 NORMAL THROAT GIOVANNI 14 NORMAL THROAT GIOVANNI 15 Q61.2 E03.9 M62.82 16 INFCE Result Units: mg/g creat Performed at: RN - [facility] [address] [id number] Signal Technician: Tonia Paz MD, Phone: [phone] 17 URINE, CLEAN CATCH 18 Note: Persistent reduction for 3 months or more in an eGFR <60 mL/min/1.73 m2 defines CKD. Patients with eGFR values >/=60 mL/min/1.73 m2 may also have CKD if evidence of persistent proteinuria is present. The original MDRD equation for estimated GFR is not valid for patients less than 18 years of age. Additional information may be found at www.[email or web address]. 19 E87.6 E55.9 20 Elevated levels of HbA1c suggest the need for more aggressive treatment of glycemia. The [place] [employer] recommends that a primary goal of therapy should be a HbA1c of <7% and that physicians should re-evaluate the treatment regimen in patients with HbA1c values consistently >8%. 21 Vitamin D deficiency has been defined by the [employer] and an Endocrine Society practice guideline as a level of serum 25-OH vitamin D less than 20 ng/mL (1,2). The Endocrine Society went on to further define vitamin D insufficiency as a level between 21 and 29 ng/mL (2). 1. IOM ([employer]). 2010. Dietary reference intakes for calcium and D. [place]: The National Academies Press. 2. Anitra MF, Jason RINALDI, Irene MERLOS, et al. Evaluation, treatment, and prevention of vitamin D deficiency: an Endocrine Society clinical practice guideline. JCEM. 2010; 96(7):1911-30. Performed at: RN - [facility] [address] [id number] Signal Technician: Tonia Paz MD, Phone: [phone] 22 Reference Guidelines*: Desirable: ........... < 200 [...] Source: National Cholesterol Education Program (NCEP) 26 Note: Persistent reduction for 3 months or more in an eGFR <60 mL/min/1.73 m2 defines CKD. Patients with eGFR values >/=60 mL/min/1.73 m2 may also have CKD if evidence of persistent proteinuria is present. The original MDRD equation for estimated GFR is not valid for patients less than 18 years of age. Additional information may be found at www.[email or web address]. 27 CHEST PAIN 28 0.0 - 0.045 ng/mL: Normal 0.046 - 0.5 ng/mL: Suggestive 0.6 - 1.5 ng/mL: Consistent 29 Note: Persistent reduction for 3 months or more in an eGFR <60 mL/min/1.73 m2 defines CKD. Patients with eGFR values >/=60 mL/min/1.73 m2 may also have CKD if evidence of persistent proteinuria is present. The original MDRD equation for estimated GFR is not valid for patients less than 18 years of age. Additional information may be found at www.[email or web address]. 30 CP 31 Note: Persistent reduction for 3 months or more in an eGFR <60 mL/min/1.73 m2 defines CKD. Patients with eGFR values >/=60 mL/min/1.73 m2 may also have CKD if evidence of persistent proteinuria is present. The original MDRD equation for estimated GFR is not valid for patients less than 18 years of age. Additional information may be found at www.[email or web address]. 32 0.0 - 0.045 ng/mL: Normal 0.046 - 0.5 ng/mL: Suggestive 0.6 - 1.5 ng/mL: Consistent 33 Method: Quidel QuickVue One-Step Immunoassay 34 <=0.49 ug/mL - Low likelihood of DIC, DVT or Pulmonary Embolism >0.49 ug/mL - Additional testing should be done to rule out DIC, DVT, or Pulmonary embolism as clinically indicated. ([facility] has established a 97.89% negative predictive value for thrombotic disease when a cutoff value of 0.5 ug/mL is used.) 35 Tests: d-dimer Instructions: 36 E55.9 E87.6 37 Note: Persistent reduction for 3 months or more in an eGFR <60 mL/min/1.73 m2 defines CKD. Patients with eGFR values >/=60 mL/min/1.73 m2 may also have CKD if evidence of persistent proteinuria is present. The original MDRD equation for estimated GFR is not valid for patients less than 18 years of age. Additional information may be found at www.[email or web address]. 38 Performed at: [facility] - [facility] [address] [id number] Signal Technician: Tonia Paz MD, Phone: [phone] 39 r42 40 Vitamin D deficiency has been defined by the [employer] and an Endocrine Society practice guideline as a level of serum 25-OH vitamin D less than 20 ng/mL (1,2). The Endocrine Society went on to further define vitamin D insufficiency as a level between 21 and 29 ng/mL (2). 1. IOM ([employer]). 2010. Dietary reference intakes for calcium and D. [place]: The National Academies Press. 2. Anitra SNOW, Jason RINALDI, Irene MERLOS, et al. Evaluation, treatment, and prevention of vitamin D deficiency: an Endocrine Society clinical practice guideline. JCEM. 2010; 96(7):1911-30. Performed at: [facility] - [facility] [address] [id number] Signal Technician: Tonia Paz MD, Phone: [phone] 41 Reference Guidelines*: Desirable: ........... < 200 mg/dL Borderline High: ..... 200-239 mg/dL High: ................ >=240 mg/dL * The National Cholesterol Education Program (NCEP) 42 Reference Guidelines*: Normal: ............. < 150 mg/dL Borderline High: .... 150-199 mg/dL High: ............... 200-499 mg/dL Very High: .......... > 500 mg/dL * Source: National Cholesterol Education Program (NCEP) 43 Reference Guidelines*: Low HDL: ..... < 40 mg/dL Normal: ..... 40-60 mg/dL Desirable: ... > 60 mg/dL *The National Cholesterol Education Program(NCEP) 44 Reference Guidelines*: Optimal:........... <100 mg/dL Near Optimal....... 100-129 mg/dL Borderline High.... 130-159 mg/dL High............... 160-189 mg/dL Very High.......... >=190 mg/dL * Source: National Cholesterol Education Program (NCEP) 45 Note: Persistent reduction for 3 months or more in an eGFR <60 mL/min/1.73 m2 defines CKD. Patients with eGFR values >/=60 mL/min/1.73 m2 may also have CKD if evidence of persistent proteinuria is present. The original MDRD equation for estimated GFR is not valid for patients less than 18 years of age. Additional information may be found at www.kdoqi.org. 46 Elevated levels of HbA1c suggest the need for more aggressive treatment of glycemia. The [place] [employer] recommends that a primary goal of therapy should be a HbA1c of <7% and that physicians should re-evaluate the treatment regimen in patients with HbA1c values consistently >8%. 47 N76.0 48 GRAM STAIN INDETERMINANT FOR BACTERIAL VAGINOSIS 49 MODERATE GR POS. BACILLI SUGGESTIVE OF LACTOBACILLUS SP. 50 MODERATE GRAM VARIABLE COCCOBACILLI 51 RARE GRAM POSITIVE COCCI 52 RARE RARE WHITE BLOOD CELLS 53 R42 N28.1 54 Performed at: RN - [facility] [address] [id number] Signal Technician: Tonia Paz MD, Phone: [phone] 55 Note: Persistent reduction for 3 months or more in an eGFR <60 mL/min/1.73 m2 defines CKD. Patients with eGFR values >/=60 mL/min/1.73 m2 may also have CKD if evidence of persistent proteinuria is present. The original MDRD equation for estimated GFR is not valid for patients less than 18 years of age. Additional information may be found at www.kdoqi.org. 56 Reference Guidelines*: Desirable: ........... < 200 mg/dL Borderline High: ..... 200-239 mg/dL High: ................ >=240 mg/dL * The National Cholesterol Education Program (NCEP) 57 Reference Guidelines*: Normal: ............. < 150 mg/dL Borderline High: .... 150-199 mg/dL High: ............... 200-499 mg/dL Very High: .......... > 500 mg/dL * Source: National Cholesterol Education Program (NCEP) 58 Reference Guidelines*: Low HDL: ..... < 40 mg/dL Normal: ..... 40-60 mg/dL Desirable: ... > 60 mg/dL *The National Cholesterol Education Program(NCEP) 59 Reference Guidelines*: Optimal:........... <100 mg/dL Near Optimal....... 100-129 mg/dL Borderline High.... 130-159 mg/dL High............... 160-189 mg/dL Very High.......... >=190 mg/dL * Source: National Cholesterol Education Program (NCEP) 60 Elevated levels of HbA1c suggest the need for more aggressive treatment of glycemia. The [place] [employer] recommends that a primary goal of therapy should be a HbA1c of <7% and that physicians should re-evaluate the treatment regimen in patients with HbA1c values consistently >8%. 61 Vitamin D deficiency has been defined by the [employer] and an Endocrine Society practice guideline as a level of serum 25-OH vitamin D less than 20 ng/mL (1,2). The Endocrine Society went on to further define vitamin D insufficiency as a level between 21 and 29 ng/mL (2). 1. IOM ([employer]). 2010. Dietary reference intakes for calcium and D. [place]: The National Academies Press. 2. Anitra MF, Jason RINALDI, Irene MERLOS, et al. Evaluation, treatment, and prevention of vitamin D deficiency: an Endocrine Society clinical practice guideline. JCEM. 2010; 96(7):1911-30. Performed at: [facility] [id number] Signal Technician: Tonia Paz MD, Phone: [phone] 62 E66.01 I10 R82.99 63 URINE, CLEAN CATCH 64 INFCE Result Units: mg/g creat Performed at: [facility] [id number] Signal Technician: Tonia Paz MD, Phone: [phone] 65 SEVERE ABD BACK PAIN 66 URINE, CLEAN CATCH 67 A negative result for either C. trachomatis and/or N. gonorrhoeae does not preclued an infection because results are dependent on adequate specimen collection, absence of inhibitors, and sufficient DNA to be detected. 68 K21.9 E78.2 R73.9 69 Note: Persistent reduction for 3 months or more in an eGFR <60 mL/min/1.73 m2 defines CKD. Patients with eGFR values >/=60 mL/min/1.73 m2 may also have CKD if evidence of persistent proteinuria is present. The original MDRD equation for estimated GFR is not valid for patients less than 18 years of age. Additional information may be found at www.kdoqi.org. 70 URINE, CLEAN CATCH 71 INFCE Result Units: mg/g creat Performed at: [facility] [id number] Signal Technician: Tonia Paz MD, Phone: [phone] 72 Reference Guidelines*: Desirable: ........... < 200 mg/dL Borderline High: ..... 200-239 mg/dL High: ................ >=240 mg/dL * The National Cholesterol Education Program (NCEP) 73 Reference Guidelines*: Normal: ............. < 150 mg/dL Borderline High: .... 150-199 mg/dL High: ............... 200-499 mg/dL Very High: .......... > 500 mg/dL * Source: National Cholesterol Education Program (NCEP) 74 Reference Guidelines*: Low HDL: ..... < 40 mg/dL Normal: ..... 40-60 mg/dL Desirable: ... > 60 mg/dL *The National Cholesterol Education Program(NCEP) 75 Reference Guidelines*: Optimal:........... <100 mg/dL Near Optimal....... 100-129 mg/dL Borderline High.... 130-159 mg/dL High............... 160-189 mg/dL Very High.......... >=190 mg/dL * Source: National Cholesterol Education Program (NCEP) 76 Elevated levels of HbA1c suggest the need for more aggressive treatment of glycemia. The [place] [employer] recommends that a primary goal of therapy should be a HbA1c of <7% and that physicians should re-evaluate the treatment regimen in patients with HbA1c values consistently >8%. 77 G80.9 O71.19 R53.82 R60.0 R66.01 78 Performed at: RN - [facility] [address] [id number] Signal Technician: Tonia Paz MD, Phone: [phone] 79 Reference Guidelines*: Desirable: ........... < 200 mg/dL Borderline High: ..... 200-239 mg/dL High: ................ >=240 mg/dL * The National Cholesterol Education Program (NCEP) 80 Reference Guidelines*: Normal: ............. < 150 mg/dL Borderline High: .... 150-199 mg/dL High: ............... 200-499 mg/dL Very High: .......... > 500 mg/dL * Source: National Cholesterol Education Program (NCEP) 81 Reference Guidelines*: Low HDL: ..... < 40 mg/dL Normal: ..... 40-60 mg/dL Desirable: ... > 60 mg/dL *The National Cholesterol Education Program(NCEP) 82 Reference Guidelines*: Optimal:........... <100 mg/dL Near Optimal....... 100-129 mg/dL Borderline High.... 130-159 mg/dL High............... 160-189 mg/dL Very High.......... >=190 mg/dL * Source: National Cholesterol Education Program (NCEP) 83 Elevated levels of HbA1c suggest the need for more aggressive treatment of glycemia. The [place] [employer] recommends that a primary goal of therapy should be a HbA1c of <7% and that physicians should re-evaluate the treatment regimen in patients with HbA1c values consistently >8%. 84 Note: Persistent reduction for 3 months or more in an eGFR <60 mL/min/1.73 m2 defines CKD. Patients with eGFR values >/=60 mL/min/1.73 m2 may also have CKD if evidence of persistent proteinuria is present. The original MDRD equation for estimated GFR is not valid for patients less than 18 years of age. Additional information may be found at www.kdoqi.org. 85 J30.89 86 Test(s) [id number] Cockroach, [place]; 129515- [id number] Deni Stanley were developed and had performance characteristics determined by [facility]. These tests have not been cleared or approved by the U.S. Food and Drug Administration. The FDA has determined that such clearance or approval is not necessary. These tests are used for clinical purposes. These should not be regarded as investigational or for research. 87 Levels of Specific IgE Class Description of Class ----- < 0.10 0 Negative 0.10 - 0.31 0/I Equivocal/Low 0.32 - 0.55 I Low 0.56 - 1.40 II Moderate 1.41 - 3.90 III High 3.91 - 19.00 IV Very High 19.01 - 100.00 V Very High >100.00 Very High 88 Performed at: BN - [facility] [address] [id number] Signal Technician: Kwasi Henson MD, Phone: [phone] Performed at: - [facility] [address] [id number] Signal Technician: Tonia Paz MD, Phone: [phone] 89 E07.9 90 INS HAS STAUBER- BEING FIXED (pittman name) 91 Note: Persistent reduction for 3 months or more in an eGFR <60 mL/min/1.73 m2 defines CKD. Patients with eGFR values >/=60 mL/min/1.73 m2 may also have CKD if evidence of persistent proteinuria is present. The original MDRD equation for estimated GFR is not valid for patients less than 18 years of age. Additional information may be found at www.kdoqi.org. 92 Note: Persistent reduction for 3 months or more in an eGFR <60 mL/min/1.73 m2 defines CKD. Patients with eGFR values >/=60 mL/min/1.73 m2 may also have CKD if evidence of persistent proteinuria is present. The original MDRD equation for estimated GFR is not valid for patients less than 18 years of age. Additional information may be found at www.kdoqi.org. 93 POSSIBLE UROGENITAL CONTAMINATION. 94 CULTURE TO FOLLOW 95 COLONY COUNT ! 40,000-50,000 CFU/ml Organism 1 ! MIXED URETHRAL GIOVANNI 96 POSITIVE FOR GARDNERELLA VAGINALIS 97 NEGATIVE FOR TRICHOMONAS VAGINALIS 98 NEGATIVE FOR EVI SPECIES Testing Performed by: [place] [address] 99 QUERY: @[facility] Pat ID: [id number] QUERY: @[facility] Req #: [id number] QUERY: @[facility] Pat ID: [id number] QUERY: @[facility] Req #: [id number] 101 Negative <6.5 Equivocal 6.5 - 7.9 Positive >7.9 102 Negative <0.9 Indeterminate 0.9 - 1.0 Positive >1.0 Although the presence of Toxo IgM antibodies suggests an acute infection, low levels may persist for many months following infection. 103 Negative <0.91 Equivocal 0.91 - 1.09 Positive >1.09 104 Negative <0.91 Borderline 0.91 - 1.09 Positive >1.09 Performed at: - [facility] [address] [id number] Signal Technician: Phil Roque MD, Phone: [phone] 105 12/26/10 LAB.[email or web address] Deleted by [facility]ACOM 106 COLONY COUNT ! >100,000 CFU/ml Organism 1 ! URETHRAL GIOVANNI 107 Negative <0.9 Equivocal 0.9 - 1.1 Positive >1.1 108 Negative <0.9 Equivocal 0.9 - 1.1 Positive >1.1 109 POST GLUCOLA 110 POSSIBLE UROGENITAL CONTAMINATION. 111 PENDING; TEST PERFORMED ON MONDAYS AND THURSDAYS QUERY: @[facility] Pat ID: [id number] QUERY: @[facility] Req #: [id number] QUERY: @[facility] Pat ID: [id number] QUERY: @[facility] Req #: [id number] 112 HBsAg not detected; does not exclude the possibility of exposure to or early acute infections with HBV. 113 QUERY: @[facility] Pat ID: [id number] QUERY: @[facility] Req #: [id number] 114 NEGATIVE FOR CHLAMYDIA TRACHOMATIS BY DNA HYBRIDIZATION ASSAY. THIS TEST IS APPROVED FOR OCULAR AND UROGENITAL SITES ONLY. 115 NEGATIVE FOR NEISSERIA GONORRHOEAE BY DNA HYBRIDIZATION ASSAY. THIS METHOD IS APPROVED FOR UROGENITAL SITES ONLY. Procedures Date Code Description Status 09/25/2018 38561 Pressurized/Non-Pressurized Inhalation Treatment,Acute Completed Obstructio 09/04/2018 54806 Event Monitor Inter/Review Only Completed 09/01/2018 55390 EKG-Tracing And Report Completed 07/09/2018 89820 EKG-Tracing And Report Completed 05/15/2018 14417 Echocardiogram Complete Completed 02/25/2018 41560 Pressurized/Non-Pressurized Inhalation Treatment,Acute Completed Obstructio 02/10/2018 55460 EKG-Tracing And Report Completed 12/25/2017 91729 EKG-Tracing And Report Completed 04/18/2017 79291 EKG-Tracing And Report Completed 12/26/2016 15687 Bronchospasm Provocation Evaluation Multi Spirometric Completed Determinati 12/26/2016 19801 Spirometry Completed 01/15/2013 04588 Anesthesia, Nose & Accessory Sinus Surgery Not Otherwise Completed Spec 10/22/2012 09284 EKG-Tracing And Report Completed 10/22/2012 63499 Event Monitor Inter/Review Only Completed 07/08/2011 23912 Anesthesia, Delivery Completed 03/22/2011 72182 Theraputic Or Diagnostic Injection Completed 03/22/2011 15221 For Antepartum 4-6 Total Office Visits Completed 03/20/2011 72081 EKG-Tracing And Report Completed 03/13/2011 14496 For Antepartum 4-6 Total Office Visits Completed 03/13/2011 25871 Non-Stress Test (NST) Completed 02/22/2011 41717 For Antepartum 4-6 Total Office Visits Completed 01/30/2011 76837 For Antepartum 4-6 Total Office Visits Completed 01/04/2011 38137 For Antepartum 4-6 Total Office Visits Completed 12/06/2010 39570 Ultrasound Transvag, Completed 09/06/2009 90079 Echocardiogram Complete Completed 09/06/2009 83892 EKG Interpretation And Report Only Completed Encounters Type Date Location Provider Dx Diagnosis Office Visit 09/25/2018 Primary Care Lorraine Powers MD J02.9 Acute pharyngitis, 11:20a Office unspecified R19.7 Diarrhea, unspecified J01.90 Acute sinusitis, unspecified R05 Cough B37.0 Candidal stomatitis Office Visit 09/16/2018 Primary Care Malathi, E03.9 Hypothyroidism, 10:00a Office [place] Velma, unspecified [employer], CNM J02.9 Acute pharyngitis, unspecified R79.89 Other specified abnormal findings of blood chemistry E87.6 Hypokalemia H69.93 Unspecified Eustachian tube disorder, bilateral Office Visit 09/03/2018 10:00a Primary Care Velma Servin, I10 Essential (primary) Office MS, [employer], CNM hypertension Q61.2 Polycystic kidney, adult type 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 E55.9 Vitamin D deficiency, unspecified R42 Dizziness and giddiness Office Visit 07/16/2018 10:00a Primary Care Lorraine Powers, I10 Essential ( primary) Office MD hypertension Q61.2 Polycystic kidney, adult type E03.9 Hypothyroidism, unspecified 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 Office Visit 07/09/2018 9:30a Cardiology Office Ra Banks I45.81 Long QT iRo Esparza, FACC syndrome R07.9 Chest pain, unspecified Office Visit 06/30/2018 1:30p Pulmonology Aravind Mancera 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, uncomplicated G47.33 Obstructive sleep apnea (adult) (pediatric) J30.89 Other allergic rhinitis K21.9 Gastro-esophageal reflux disease without esophagitis Office Visit 04/16/2018 11:00a Primary Care Velma Servin, L29.8 Other pruritus Office MS, [employer], CNM E87.6 Hypokalemia M25.549 Pain in joints of unspecified hand G47.00 Insomnia, unspecified E66.9 Obesity, unspecified E55.9 Vitamin D deficiency, unspecified Q61.2 Polycystic kidney, adult type Office Visit 04/02/2018 1:00p Primary Care Velma Servin, E87.6 Hypokalemia Office MS, [employer], CNM E55.9 Vitamin D deficiency, unspecified Q61.2 Polycystic kidney, adult type E66.9 Obesity, unspecified E78.5 Hyperlipidemia, unspecified I10 Essential (primary) hypertension G47.00 Insomnia, unspecified M25.549 Pain in joints of unspecified hand M79.669 Pain in unspecified lower leg Office Visit 03/11/2018 10:00a Primary Care Velma Servin, Z00.00 Encntr for Office MS, [employer], CNM general adult medical exam w/o abnormal findings N76.0 Acute vaginitis I10 Essential (primary) hypertension E66.9 Obesity, unspecified Z71.3 Dietary counseling and surveillance Office Visit 02/25/2018 9:30a Primary Care Velma Servin J06.9 Acute upper Office MS, [employer], CNM respiratory infection, unspecified J02.9 Acute pharyngitis, unspecified J45.40 Moderate persistent asthma, uncomplicated J06.9 Acute upper respiratory infection, unspecified J45.40 Moderate persistent asthma, uncomplicated H66.91 Otitis media, unspecified, right ear R05 Cough Office Visit 02/10/2018 11:00a Cardiology Office Ra Banks 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., FACC syndrome E78.5 Hyperlipidemia, unspecified I10 Essential (primary) hypertension Office Visit 01/27/2018 8:30a Primary Care Velma Servin, Q61.2 Polycystic Office MS, [employer], CNM kidney, adult type I10 Essential (primary) hypertension E66.01 Morbid (severe) obesity due to excess calories E55.9 Vitamin D deficiency, unspecified R60.0 Localized edema 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 E78.2 Mixed hyperlipidemia Office Visit 01/20/2018 11:00a Primary Care Velma Servin, I10 Essential (primary) Office MS, [employer], CNM hypertension Q61.2 Polycystic kidney, adult type E66.01 Morbid (severe) obesity due to excess calories M54.5 Low back pain Z23 Encounter for immunization Office Visit 01/06/2018 10:30a Primary Care Velma Servin, I10 Essential (primary) Office MS, [employer], CNM hypertension R29.6 Repeated falls R42 Dizziness and giddiness Z71.3 Dietary counseling and surveillance 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 Office Visit 12/25/2017 2:45p Pulmonology Aravind Mancera, J45.40 Moderate persistent MD asthma, uncomplicated J30.89 Other allergic rhinitis K21.9 Gastro-esophageal reflux disease without esophagitis G47.33 Obstructive sleep apnea (adult) (pediatric) Office Visit 12/17/2017 10:40a Primary Care Priya, Lorraine, E66.01 Morbid ( severe) Office MD obesity due to excess calories 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 G80.9 Cerebral palsy, unspecified I10 Essential (primary) hypertension J01.90 Acute sinusitis, unspecified Office Visit 12/09/2017 2:20p Primary Care Priya, Lorraine, E66.01 Morbid ( severe) Office MD obesity due to excess calories F41.9 Anxiety disorder, unspecified I10 Essential (primary) hypertension 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 N28.1 Cyst of kidney, acquired D22.39 Melanocytic nevi of other parts of face H66.91 Otitis media, unspecified, right ear N83.292 Other ovarian cyst, left side Office Visit 10/09/2017 1:00p Cardiology Office Ra Banks I45.Asha Long QT [place] Esparza, FACC syndrome Office Visit 09/09/2017 10:40a Primary Care Lorraine Powers G71.19 Other specified Office MD myotonic disorders [...] Visit 04/18/2017 10:00a Cardiology Office Ra Banks I45.Asah Long QT [place] Esparza, FACC syndrome Office Visit 03/28/2017 4:00p Primary Care Lorraine Powers, R60.0 Localized edema Office MD 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 G80.9 Cerebral palsy, unspecified R53.82 Chronic fatigue, unspecified M54.2 Cervicalgia R06.02 Shortness of breath Office Visit 02/11/2017 8:40a Primary Care Lorraine Powers, J45.20 Mild intermittent Office MD asthma, uncomplicated [...] Office Visit 08/28/2016 8:40a Primary Care Lorraine Powers, G80.9 Cerebral palsy, Office MD unspecified I10 [...] Office Visit 03/06/2013 8:30a Orthopaedic Office Heavenly Mcclendon 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 Office Visit 10/22/2012 8:30a Cardiology Office Ra Banks 785.1 Palpitations [place] Esparza, FACC 786.05 Shortness Of Breath 346.92 Migraine Unspecified, W/Out Mention Intractable Migraine Office Visit 03/20/2011 1:00p Cardiology Milana Greenfield 785.0 Tachycardia Office Mateusz, MSN, Unspec [employer] 796.2 Blood Pressure Reading Elevated W/O Hypertension 278.00 Obesity Unspec Office Visit 03/13/2011 1:40p 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 Chester Keenan, V22.1 Supervison Of [place] Normal Other V22.1 Supervison Of Normal Other V23.9 High Risk Unspec 654.23 Delivery Previous Antepartum Cond Or Compl 644.03 Premature Labor Threatened Antepartum Cond Or Compl Office Visit 12/06/2010 10:20a 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
--- OUTSIDE RECORDS SUMMARY | 2018-10-27 13:23 | XMS REPORT | Continuity of Care Document ---
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 Unavailable Lorraine Powers MD Primary Care Physician Unavailable Payers Date Identification Numbers Payment Provider Subscriber Effective: 2009 Policy Number: [id number] [employer] Ginna Pittman PayID: [id number] [address] [place] [address] Effective: 2009 Policy Number: [id number] Medicaid Ginna Pittman Expires: 2012 PayID: [id number] [address] [place] [address] Problems Active Problems Provider Date Palpitations Ra Banks M.D., Onset: 10/22/2012 [facility] Dyspnea Ra Banks M.D., Onset: 10/22/2012 [facility] Migraine variants, not intractable Ra Banks M.D., Onset: 2012 [facility] Infantile cerebral palsy Heavenly Mcclendon MD Onset: [...] QT syndrome Ra Banks M.D., Onset: 04/18/2017 [facility] Neck pain Lorraine Powers MD Onset: 05/15/2017 Other specified myotonic disorders Lorraine Powers MD Onset: 05/15/2017 Otitis media Lorraine Powers MD Onset: 09/09/2017 Acquired renal cystic disease Lorraine Powers MD Onset: 12/09/2017 Benign neoplasm of skin of face Lorraine Powers MD Onset: 12/09/2017 Cyst of left ovary Lorraine Powers MD Onset: 12/09/2017 Hyperlipidemia Ra Banks M.D., Onset: 02/10/2018 [facility] Hypothyroidism Lorraine Powers MD Onset: 07/16/2018 Electrocardiogram abnormal Ra Banks M.D., Onset: 10/20/2018 [facility] Tachycardia Ra Banks M.D., Onset: 10/20/2018 [facility] Family History Date Family Member(s) Observation Comments [...] Patient is currently sexually active Age [address] [facility] [place] 16 Years Old # Partners in a Lifetime 2 Allergies, Adverse Reactions, Alerts Description No Known Drug Allergies Medications Active Medications SIG Qnty Indications Ordering Date Provider Nystatin 5 milliliters by 473ml Lorraine Powers, 09/25/2018 158178Ayzz/ML mouth every 6hrs; Suspension swish in mouth [...] and Velma, MS, Lotion shoulder area for [employer]-C, CNM severe itching two times a day Klor-Con M20 Take one tablet 60tabs E87.6 Gagen, 04/02/2018 20Meq twice a day Velma, MS, Tablets ER [employer], CNM Nebulizer use nebulizer with 1units J45.40 Gagen, 02/25/2018 Kit/Tubing/Mouthpiece albuterol q 6 hrs Velma, MS, as needed [employer], CNM Kit wheezing/ SOB Ipratropium [place] use 2 sprays in 15ml J06.9 Gagen, 02/25/2018 each nostril twice Velma, MS, 0.06% Solution a day as needed [employer]-C, CNM Nebulizer Compressor The Patient is 1units Gagen, 02/25/2018 using albuterol Velma, MS, Misc nebulizer [employer]-C, CNM treatments and needs the compressor. dx: Moderate persistent asthma Vitamin D take 1 capsule by 12capLorraine Cash, 01/22/2018 (Ergocalciferol) mouth every week [id number] Capsules Losartan Potassium 1 by mouth 1 60tabs I10 Gagen, 01/20/2018 50mg tablet twice a day MS Velma, Tablets [employer], CNM Zantac 75 1 tab by mouth 180tabs Lorraine Powers, 01/15/2018 75mg Tablets twice a day Omron 7 Series Blood use daily as 1units I10 Gagen, 01/06/2018 Pressure Monitor directed to MS Velma, monitor bp/ dx:htn [employer], CNM Device Amlodipine Besylate take 1 tablet [...] Heavy Duty 1units G71.19 [place]raine Powers [place] [facility] [place] with seat for ambulation G80.9 Albuterol Sulfate nebulized every 6 hours as 75ml Lorraine Powers, 2016 needed for MD (2.5mg/3ML) 0.083% sob/cough/wheezing Nebulizer Dulera inhale 1 puff by mouth 13units Lorraine Powers, 09/14/2016 200-5mcg/Act twice a day Aerosol Zyrtec Allergy 1 tab by mouth every night 30tabs Gagen, 08/28/2016 10mg MS Velma, Tablets [employer], CNM CBD/THC Aerosol [place] Unknown Buspirone HCL 1 tab by mouth three times 90tabs Lorraine Powers, 7.5mg daily MD Tablets Triamterene/Hydrochlo take 1 tablet by mouth 30tabs Lorraine Powers, rothiazide every morning 37.5-25mg Tablets Flonase Allergy 1 spray to both nostrils 9.900ml Gagen, Relief daily. Velma, MS, 50mcg/Act [employer], CNM Suspension Tylenol Extra 1-2 tabs by mouth every 4 Unknown Strength hours as needed 500mg Tablets Ventolin HFA 1-2 puffs every 4-6 hours 8gm Gagen, as needed Velma, MS, 108(90Base) mcg/Act [employer], CNM Aerosol History Medications Ondansetron 1 tab by mouth 30tabs Priya, Lorraine, 09/25/2018 - 4mg Tablets one time a day as MD Unknown Dispers needed for nausea Amoxicillin/Clavulanat 1 tab by mouth 20tabs J01.90 Priya, Lorraine, 2018 - e Potassium q12hrs for 10 MD Unknown 875-125mg days Tablets Ergocalciferol take one a week 16caps E55.9 Priya, Lorraine, 09/03/2018 - 86126Wzof MD Unknown Capsules Ergocalciferol take one a week 12caps E55.9 Gagen, 04/02/2018 - 21256Fixm Velma, 07/16/2018 Capsules MS, [employer], CNM Trazodone HCL start with 1/2 30tabs G47.00 Gagen, 04/02/2018 - 50mg tablet every at Velma, 07/16/2018 Tablets bedtime after 2 MS, [employer], CNM weeks, may increase to one tablet Metrogel-Vaginal use in vagina for 70gm Gagen, 03/15/2018 - 0.75% 5 nights. no Velma, 04/02/2018 Gel alcohol during MS, [employer], CNM use and 2 days after Benzonatate take one capsule 30caps R05 Gagen, 02/25/2018 - 200mg every 8 hours as Velma, 03/11/2018 Capsules needed MS, [employer], CNM Ciprodex 4 drops in right 7.500ml H66.91 Gagen, 02/25/2018 - 0.3-0.1% ear twice a day Velma, 03/11/2018 Suspension for 7 days MS, [employer], CNM Prednisone 2 tabs (40 mg) 10tabs J02.9 Gagen, 02/25/2018 - 20mg Tablets daily for 5 days Velma, 03/11/2018 MS, [employer], CNM Atorvastatin Calcium take 1 tablet by 90tabs Gagen, 01/24/2018 - 20mg mouth once daily Velma, 07/02/2018 Tablets MS, [employer], CNM Rosuvastatin Calcium Take one every 30tabs Gagen, 01/21/2018 - 10mg day Velma, 01/24/2018 Tablets MS, [employer], CNM Losartan Potassium Take 1/2 tablet 45tabs I10 Gagen, 01/09/2018 - 50mg (25 mg) in pm and Velma, 01/20/2018 Tablets take 1 tablet MS, [employer], CNM (50MG) in am Amoxicillin/Clavulanat 1 tab [...] Priya, Lorraine, 11/21/2017 - 250mg a day 11/22/2017 Tablets Metaxalone 1 tab by mouth 90tabs Priya, Lorraine, 11/19/2017 - 400mg Tablets three times a day 11/21/2017 Valsartan 1 tab by mouth 30tabs Priya, Lorraine, 09/09/2017 - 80mg Tablets every day MD 09/09/2017 Amoxicillin 1 tab by mouth 20tabs Priya, Lorraine, 09/09/2017 - 500mg Tablets q12hrs x10 days MD Unknown Methocarbamol 1 tab by mouth 90tabs Priya, Lorraine, 06/03/2017 - 750mg every 8 hours as 11/19/2017 Tablets needed muscle pain Lyrica 1 tab by mouth 90caps Priya, Lorraine, 05/29/2017 - 100mg Capsules three times a day 06/04/2017 mdd 3 Cheratussin ac 5ml by mouth 236ml Lorraine Powers, 05/15/2017 - every 4 hour as 09/09/2017 100-10mg/5ML Syrup needed cough Gabapentin 2 by mouth three Lorraine Powers, 05/15/2017 - 100mg Capsules times a day 06/04/2017 Diazepam 1 tab by mouth 1 1tabs Lorraine Powers, 04/01/2017 - 2mg Tablets hour prior to MRI Unknown Tizanidine HCL 1 by mouth once 30tabs Lorraine Powers, 02/11/2017 - 2mg in evening for MD Unknown Tablets back pain/muscle spasms Omeprazole 1 by mouth every 30caps Lorraine Powers, 02/11/2017 - 40mg Capsules day MD 01/15/2018 Prednisone 2 tabs (40 mg) 10tabs J20.9 [...] Trazodone HCL take 1 tablet by 30tabs Lorraine Powers, 10/02/2016 - 50mg mouth at bedtime MD Unknown Tablets for sleep Dulera take one puff 8.800gm Lorraine Powers, 09/03/2016 - 100-5mcg/Act twice daily MD 09/14/2016 Aerosol Baclofen 1 by mouth once a 30tabs Lorraine Powers, 08/31/2016 - 10mg Tablets day as needed for MD Unknown back pain Gabapentin take 3 tablets by 270caps Lorraine Powers, 08/31/2016 - 100mg Capsules mouth three times MD 05/15/2017 daily as needed for nerve pain Dulera take one puff 8.800gm Lorraine Powers, 08/31/2016 - Aerosol twice daily MD 09/03/2016 Mdi Spacer For Inhaler use with inhaler J45.20 Lorraine Powers, 08/28/2016 - every 6hrs as Unknown needed Labetalol HCL 1/2 tab by mouth 785.0 Milana Greenfield 03/20/2011 - 100mg every evening Mateusz, 10/22/2012 Tablets MSN, [employer] INST[employer]ER 796.2 Cleocin 1 tab po q 12 [...] Labetalol HCL 1 tab po bid. 60tabs Chetser Keenan, 12/06/2010 - 100mg hold dose if [...] High 1x week Unknown - Potency 03/06/2013 [id number] Capsules Labetalol HCL 1/2 tab po bid 785.0 Unknown - 100mg 03/20/2011 Tablets 796.2 Clindamycin HCL 1 tab by mouth twice 6caps Unknown - Unknown 300mg Capsules a day Immunizations CPT Code Status Date Vaccine Reaction Lot # [id number] Given 01/20/2018 Influenza Virus Vaccine, Quadrivalent, 36 [id number] Mos+, .5ML 71554 Given 02/11/2017 Influenza Virus Vaccine Quadrivalent Iiv4 [place] [id number] [address] Given 08/28/2016 Pneumovax Injection [id number] 03928 Given 03/22/2011 flu vaccination 98503 Given 03/22/2011 flu vaccination [id number] Vital Signs Date Vital Result Comment 10/20/2018 11:41am BP Systolic Sitting Left Arm 126 mmHg BP Diastolic Sitting Left Arm 66 mmHg Heart Rate 96 /min Respiratory Rate 18 /min Height 61 inches 5'1" Weight 360.00 lb BMI (Body Mass Index) 68.0 kg/m2 BSA (Body Surface Area) 2.42 m2 [place] body weight in kilograms 48 kg O2 % BldC Oximetry 96 % 09/25/2018 11:09am BP Systolic Sitting Right Arm 130 mmHg lower arm BP Diastolic Sitting Right Arm 82 mmHg lower arm Body Temperature 98.1 F Heart Rate 76 /min Respiratory Rate 28 /min Height 61 inches 5'1" Weight 359.00 lb BMI (Body Mass Index) 67.8 kg/m2 BSA (Body Surface Area) 2.42 m2 [place] body weight in kilograms 48 kg O2 % BldC Oximetry 96 % ra 09/16/2018 10:02am BP Systolic Sitting Right Arm 130 mmHg BP Diastolic Sitting Right Arm 82 mmHg Body Temperature 98.2 F Heart Rate 93 /min Height 61 inches 5'1" Weight 366.00 lb BMI (Body Mass Index) 69.1 kg/m2 BSA (Body Surface Area) 2.44 m2 [place] body weight in kilograms 48 kg O2 % BldC Oximetry 98 % ra 09/03/2018 9:51am BP Systolic Sitting Right Arm 110 mmHg BP Diastolic Sitting Right Arm 62 mmHg Body Temperature 98.3 F Heart Rate 100 /min Respiratory Rate 30 /min Height 61 inches 5'1" Weight 366.00 lb BMI (Body Mass Index) 69.1 kg/m2 BSA (Body Surface Area) 2.44 m2 [place] body weight in kilograms 48 kg O2 [...] kg/m2 BSA (Body Surface Area) 2.43 m2 [place] body weight in kilograms 48 kg O2 % BldC Oximetry 98 % Ra 06/30/2018 1:23pm BP Systolic Sitting Left Arm 124 mmHg BP Diastolic Sitting Left Arm 66 mmHg Heart Rate 87 /min Respiratory Rate 18 /min Height 61 inches 5'1" Weight 362.00 lb BMI (Body Mass Index) 68.4 kg/m2 BSA (Body Surface Area) 2.43 m2 [place] body weight in kilograms 48 kg O2 [...] kg/m2 BSA (Body Surface Area) 2.43 m2 [place] body weight in kilograms 48 kg O2 % BldC Oximetry 98 % ra 04/02/2018 1:00pm BP Systolic Sitting Left Arm 147 mmHg Priscilla 136/90 BP Diastolic Sitting Left Arm 86 mmHg Priscilla 136/90 Body Temperature 98.6 F Heart Rate 89 /min Respiratory Rate 18 /min Height 61 inches 5'1" [place] body weight in kilograms 48 kg 03/11/2018 10:04am BP Systolic Sitting Right Arm 152 mmHg BP Diastolic Sitting Right Arm 91 mmHg Body Temperature 97.6 F Heart Rate 88 /min Respiratory Rate 16 /min Height 61 inches 5'1" Weight 363.00 lb BMI (Body Mass Index) 68.6 kg/m2 BSA (Body Surface Area) 2.43 m2 [place] body weight in kilograms 48 kg Last Menstrual Period [id number] O2 % BldC Oximetry 99 % 02/25/2018 9:38am BP Systolic Sitting Right Arm 122 mmHg BP Diastolic Sitting Right Arm 72 mmHg Body Temperature 99.2 F Heart Rate 74 /min reg Respiratory Rate 24 /min Height 61 inches 5'1" Weight 362.00 lb per pt. BMI (Body Mass Index) 68.4 kg/m2 BSA (Body Surface Area) 2.43 m2 [place] body weight in kilograms 48 kg O2 % BldC Oximetry 96 % ra 02/10/2018 11:09am BP Systolic Sitting Left Arm 132 mmHg BP Diastolic Sitting Left Arm 86 mmHg Heart Rate 86 /min Respiratory Rate 16 /min Height 61 inches 5'1" Weight 362.00 lb per pt BMI (Body Mass Index) 68.4 kg/m2 BSA (Body Surface Area) 2.43 m2 [place] body weight in kilograms 48 kg O2 % BldC Oximetry 97 % Room air 01/27/2018 8:31am BP Systolic Sitting Left Arm 150 mmHg BP Diastolic Sitting Left Arm 91 mmHg Body Temperature 98.6 F Heart Rate 83 /min Respiratory Rate 16 /min Height 61 inches 5'1" Weight 370.00 lb BMI (Body Mass Index) 69.9 kg/m2 BSA (Body Surface Area) 2.45 m2 [place] body weight in kilograms 48 kg O2 % BldC Oximetry 99 % 01/20/2018 10:55am BP Systolic Sitting Left Arm 154 mmHg BP Diastolic Sitting Left Arm 85 mmHg Body Temperature 99.5 F Heart Rate 93 /min Respiratory Rate 20 /min Height 61 inches 5'1" Weight 367.00 lb BMI (Body Mass Index) 69.3 kg/m2 BSA (Body Surface Area) 2.44 m2 [place] body weight in kilograms 48 kg O2 [...] kg/m2 BSA (Body Surface Area) 2.44 m2 [place] body weight in kilograms 48 kg O2 [...] kg/m2 BSA (Body Surface Area) 2.43 m2 [place] body weight in kilograms 48 kg O2 % BldC Oximetry 98 % 12/09/2017 2:16pm BP Systolic Sitting Right Arm 156 mmHg priscilla 166/89 BP Diastolic Sitting Right Arm 97 mmHg priscilla 166/89 Body Temperature 99.1 F Heart Rate 102 /min Respiratory Rate 28 /min Height 61 inches 5'1" Weight 367.00 lb BMI (Body Mass Index) 69.3 kg/m2 BSA (Body Surface Area) 2.44 m2 [place] body weight in kilograms 48 kg O2 % BldC Oximetry 94 % 10/09/2017 1:08pm BP Systolic Sitting Left Arm 142 mmHg BP Diastolic Sitting Left Arm 98 mmHg Heart Rate 83 /min Respiratory Rate 18 /min Height 61 inches 5'1" Weight 375.00 lb BMI (Body Mass Index) 70.8 kg/m2 BSA (Body Surface Area) 2.47 m2 [place] body weight in kilograms 48 kg O2 % BldC Oximetry 98 % 09/09/2017 10:47am BP Systolic Sitting Left Arm 166 mmHg priscilla 141/95 BP Diastolic Sitting Left Arm 101 mmHg priscilla 141/95 Body Temperature 98.8 F Heart Rate 98 /min Height 61 inches 5'1" Weight 375.00 lb BMI (Body Mass Index) 70.8 kg/m2 BSA (Body Surface Area) 2.47 m2 [place] body weight in kilograms 48 kg O2 % BldC Oximetry 96 % 05/15/2017 9:52am BP Systolic Sitting Left Arm 120 mmHg BP Diastolic Sitting Left Arm 82 mmHg Body Temperature 98.7 F Heart Rate 113 /min Respiratory Rate 24 /min Height 61 inches 5'1" Weight 360.00 lb BMI (Body Mass Index) 68.0 kg/m2 BSA (Body Surface Area) 2.42 m2 [place] body weight in kilograms 48 kg O2 % BldC Oximetry 95 % 04/18/2017 10:08am BP Systolic Sitting Left Arm 132 mmHg BP Diastolic Sitting Left Arm 77 mmHg Heart Rate 84 /min Respiratory Rate 20 /min Height 61 inches 5'1" Weight 374.00 lb BMI (Body Mass Index) 70.7 kg/m2 BSA (Body Surface Area) 2.46 m2 [place] body weight in kilograms 48 kg 03/28/2017 4:05pm BP Systolic Sitting Left Arm 136 mmHg BP Diastolic Sitting Left Arm 70 mmHg Heart Rate 89 /min Respiratory Rate 24 /min Height 61 inches 5'1" Weight 368.00 lb BMI (Body Mass Index) 69.5 kg/m2 BSA (Body Surface Area) 2.45 m2 [place] body weight in kilograms 48 kg O2 % BldC Oximetry 91 % ra 02/11/2017 8:48am BP Systolic 144 mmHg BP Diastolic 103 mmHg Heart Rate 114 /min Respiratory Rate 18 /min Height 61 inches 5'1" Weight 359.50 lb BMI (Body Mass Index) 67.9 kg/m2 BSA (Body Surface Area) 2.42 m2 [place] body weight in kilograms 48 kg O2 % BldC Oximetry 92 % 01/09/2017 2:08pm BP Systolic Sitting Left Arm 118 mmHg BP Diastolic Sitting Left Arm 60 mmHg Heart Rate 98 /min Respiratory Rate 18 /min Height 61 inches 5'1" Weight 358.00 lb BMI (Body Mass Index) 67.6 kg/m2 BSA (Body Surface Area) 2.42 m2 [place] body weight in kilograms 48 kg O2 % BldC Oximetry 96 % 12/20/2016 2:17pm BP Systolic Sitting Right Arm 158 mmHg BP Diastolic Sitting Right Arm 104 mmHg Body Temperature 98.6 F Heart Rate 107 /min Respiratory Rate 22 /min Height 61 inches 5'1" Weight 349.00 lb BMI (Body Mass Index) 65.9 kg/m2 BSA (Body Surface Area) 2.39 m2 [place] body weight in kilograms 48 kg O2 % BldC Oximetry 96 % 12/05/2016 1:22pm BP Systolic Sitting Right Arm 138 mmHg BP Diastolic Sitting Right Arm 74 mmHg Body Temperature 99.3 F Heart Rate 111 /min Respiratory Rate 16 /min Height 61 inches 5'1" Weight 343.00 lb BMI (Body Mass Index) 64.8 kg/m2 BSA (Body Surface Area) 2.38 m2 [place] body weight in kilograms 48 kg O2 % BldC Oximetry 94 % 11/21/2016 9:21am BP Systolic Sitting Right Arm 116 mmHg BP Diastolic Sitting Right Arm 78 mmHg Body Temperature 99.0 F Heart Rate 118 /min Height 61 inches 5'1" Weight 342.00 lb BMI (Body Mass Index) 64.6 kg/m2 BSA (Body Surface Area) 2.37 m2 [place] body weight in kilograms 48 kg O2 % BldC Oximetry 95 % 10/02/2016 9:18am BP Systolic Sitting Right Arm 130 mmHg BP Diastolic Sitting Right Arm 80 mmHg Height 61 inches 5'1" Weight 332.00 lb BMI (Body Mass Index) 62.7 kg/m2 BSA (Body Surface Area) 2.34 m2 [place] body weight in kilograms 48 kg 09/14/2016 2:23pm BP Systolic 156 mmHg BP Diastolic 92 mmHg Heart Rate 118 /min Height 61 inches 5'1" Weight 324.00 lb BMI (Body Mass Index) 61.2 kg/m2 BSA (Body Surface Area) 2.32 m2 [place] body weight in kilograms 48 kg 09/03/2016 [...] Date Facility Test Result H/L Range Note Automated blood 10/04/19 N2N/CCD Import Automated blood 0.00 nucleated 19 nucleated erythrocyte count erythrocyte count (count (count/volume) Prothrombin time 10/04/19 N2N/CCD Import Prothrombin time 13.7 12.0-14. (PT) in platelet 19 (PT) in platelet 4 poor plasma poor plasma Platelet poor plasma 10/04/19 N2N/CCD Import Platelet poor 1.1 0.9-1.1 international 19 plasma normalized rati international normalized ratio (Inr) by coagulation assay (relative time) Serum or plasma 10/04/19 N2N/CCD Import Serum or plasma 103 74-106 glucose measurement 19 glucose measurement (mass/volume) (mass/volume) Serum or plasma urea 10/04/19 N2N/CCD Import Serum or plasma 14 7-18 nitrogen measurement 19 urea nitrogen (mass/vo measurement (mass/volume) Serum or plasma 10/04/19 N2N/CCD Import Serum or plasma 1.1 0.6-1.3 creatinine 19 creatinine measurement measurement (mass/volum (mass/volume) Estimated glomerular 10/04/19 N2N/CCD Import Estimated 60 >60 filtration rate 19 glomerular (GFR) non-Afr filtration rate (GFR) non- GFR/Bsa pred.black 10/04/19 N2N/CCD Import GFR/Bsa pred.black >60 >60 SerPl MDRD-ArVRat 19 SerPl MDRD-ArVRat Serum or plasma urea 10/04/19 N2N/CCD Import Serum or plasma 12.7 nitrogen/creatinine 19 urea mass rati nitrogen/creatinine mass ratio Sodium SerPl-sCnc 10/04/19 N2N/CCD Import Sodium SerPl-sCnc 141 136-145 19 Serum or plasma 10/04/19 N2N/CCD Import Serum or plasma 3.4 Low 3.5-5.1 potassium 19 potassium measurement measurement Serum or plasma 10/04/19 N2N/CCD Import Serum or plasma 106 98-107 chloride measurement 19 chloride measurement Co2 SerPl-sCnc 10/04/19 N2N/CCD Import Co2 SerPl-sCnc 28 21-32 19 Serum or plasma 10/04/19 N2N/CCD Import Serum or plasma 7 Low 8-16 anion gap 19 anion gap Serum or plasma 10/04/19 N2N/CCD Import Serum or plasma 8.9 8.5-10.1 calcium measurement 19 calcium measurement (mass/volume) (mass/volume) Serum or plasma 10/04/19 N2N/CCD Import Serum or plasma 7.0 6.4-8.2 protein measurement 19 protein measurement (mass/volume) (mass/volume) Serum or plasma 10/04/19 N2N/CCD Import Serum or plasma 3.5 3.4-5.0 albumin measurement 19 albumin measurement (mass/volume) (mass/volume) Serum globulin 10/04/19 N2N/CCD Import Serum globulin 3.5 1.9-4.3 measurement by 19 measurement by calculation (mass/vo calculation (mass/volume) Serum or plasma 10/04/19 N2N/CCD Import Serum or plasma 1.0 albumin/globulin 19 albumin/globulin mass ratio mass ratio Serum or plasma 10/04/19 N2N/CCD Import Serum or plasma 0.3 0.2-1.0 total bilirubin 19 total bilirubin measurement (mass/ measurement (mass/volume) Serum or plasma 10/04/19 N2N/CCD Import Serum or plasma 31 15-37 aspartate 19 aspartate aminotransferase aminotransferase measure measurement (enzymatic activity/volume) Serum or plasma 10/04/19 N2N/CCD Import Serum or plasma 68 12-78 alanine 19 alanine aminotransferase aminotransferase measureme measurement (enzymatic activity/volume) Serum or plasma 10/04/19 N2N/CCD Import Serum or plasma 64 45-117 alkaline phosphatase 19 alkaline measurement ( phosphatase measurement (enzymatic activity/volume) Capillary blood 10/04/19 N2N/CCD Import Capillary blood 118 High 70-110 glucose measurement 19 glucose measurement by glucometer by glucometer (mass/volume) CBC W/Automated Diff 10/04/19 [facility] White Blood Count 7.7 K/uL N 3.1-10.7 1 19 [address] [place] [address] [phone] Red Blood Count 4.80 M/uL N 3.90-5.40 [...] 40.4-72.8 Lymph % 28.1 % N 20.0-42.0 [place] % 5.9 % N 4.3-13.2 Eo% 2.6 % N 0.0-6.6 Bas% 0.4 % N 0.0-1.1 Immature Grans 0.7 % N 0.0-5.0 NRBC % 0.0 /100WBC < 10/ 100 WBC Neut# 4.79 K/uL N 1.8-7.0 Lymph # 2.16 K/uL N 1.0-4.0 [place] # 0.45 K/uL N 0.3-0.9 Eos # 0.20 K/uL N 0.0-0.5 Baso # 0.03 K/uL N 0.0-0.1 Immature Grans Absolute 0.05 K/uL NRBC # 0.00 K/uL Protime 10/03/2018 [facility] Protime 13.7 seconds N 12.0-14.4 [address] [place] [address] [phone] Inr 1.1 N 0.9-1.1 2 Laboratory test 10/03/2018 [facility] Act Partial 26.3 N 23.4-35.0 [address] [place] [address] [phone] Comprehensive 10/03/2018 [facility] Glucose 103 mg/dL N 74-106 Metabolic Panel [address] [place] [address] [phone] BUN 14 mg/dL N 7-18 Creatinine 1.1 mg/dL N 0.6-1.3 Glom Filtration Rate, Estimate 60 mL/min >60 If >60 mL/min >60 4 BUN/Creat 12.7 ratio Sodium 141 mmol/L N [...] U/L N 45-117 Laboratory test finding [facility]/03[facility] U/L High 26-192 [address] [place] [address] [phone] Troponin-I < 0.015 ng/mL 5 Automated 10/03/2018 N2N/CCD Import Automated 7.7 3.1-10.7 leukocyte count leukocyte count (number/volume) (number/volume) Blood erythrocytes 10/03/2018 N2N/CCD Import Blood erythrocytes 4.80 3.90-5.40 automated count automated count (number/volume) (number/volume) Blood hemoglobin 10/03/2018 N2N/CCD Import Blood hemoglobin 13.3 11.6- 15.8 measurement measurement (mass/volume) (mass/volume) Hct VFr Bld Auto 10/03/2018 N2N/CCD Import Hct VFr Bld Auto 40.5 36.0- 46.1 Automated 10/03/2018 N2N/CCD Import Automated 84.4 80.9-99.0 erythrocyte mean erythrocyte mean corpuscular volume corpuscular volume (MCV (MCV) measurement Automated 10/03/2018 N2N/CCD Import Automated [...] erythrocyte erythrocyte distribution width distribution width Automated blood 10/03/2018 N2N/CCD Import Automated blood 2.16 1.0-4.0 lymphocyte count lymphocyte count (number/volume) (number/volume) Blood monocytes 10/03/2018 N2N/CCD Import Blood monocytes 0.45 0.3-0.9 automated count automated count (number/volume) (number/volume) Automated blood 10/03/2018 N2N/CCD Import Automated blood 0.20 0.0-0.5 eosinophil count eosinophil count Automated blood 10/03/2018 N2N/CCD Import Automated blood 0.03 0.0-0.1 basophil count basophil count (number/volume) (number/volume) Automated blood 10/03/2018 N2N/CCD Import Automated blood 0.05 immature immature granulocyte count granulocyte count (number (number/volume) Absolute 10/03/2018 N2N/CCD Import Absolute 4.79 1.8-7.0 neutrophil count neutrophil count Automated blood 10/03/2018 N2N/CCD Import Automated blood 0.0 < 10/ 100 nucleated nucleated WBC erythrocyte count erythrocyte count as per as percentage of total leukocytes Automated blood 10/03/2018 N2N/CCD Import Automated blood 0.7 0.0-5.0 immature immature granulocyte count granulocyte count as perc as percentage of total leukocytes Automated basophil 10/03/2018 N2N/CCD Import Automated basophil 0.4 0.0- 1.1 % % Automated 10/03/2018 N2N/CCD Import Automated 2.6 0.0-6.6 eosinophil % eosinophil % Automated monocyte 10/03/2018 N2N/CCD Import Automated monocyte 5.9 4.3- 13.2 % % Automated blood 10/03/2018 N2N/CCD Import Automated blood 28.1 20.0- 42.0 lymphocytes/100 lymphocytes/100 leukocytes leukocytes Automated blood 10/03/2018 N2N/CCD Import Automated blood 62.3 40.4- 72.8 neutrophils/100 neutrophils/100 leukocytes leukocytes Automated blood 10/03/2018 N2N/CCD Import Automated blood 8.9 8.9-12.4 platelet mean platelet mean volume measurement volume measurement Automated 10/03/2018 N2N/CCD Import Automated 14.6 High 11.7-14.4 erythrocyte erythrocyte distribution width distribution width ratio ratio Throat Culture 09/25/2018 [facility] Throat Culture NORMAL 6, Complete [address] Complete THROAT [place] 7 [place] [address] <SEE NOTE> [phone] Bacterial throat 09/25/2018 N2N/CCD Import Bacterial throat Normal culture culture Throat Giovanni Throat Culture 09/16/2018 [facility] Throat Culture NORMAL [address] [place] [address] <SEE NOTE> [phone] Urine 09/15/2018 N2N/CCD Import Urine 167 0-200 protein/creatinine protein/creatinine mass ratio mass ratio Urine protein 09/15/2018 N2N/CCD Import Urine protein 47.4 Not Estab. measurement measurement (mass/volume) (mass/volume) Urine creatinine 09/15/2018 N2N/CCD Import Urine creatinine 284.6 Not Estab. measurement measurement (mass/volume) (mass/volume) Urine leukocyte 09/15/2018 N2N/CCD Import Urine leukocyte Negative Negative esterase detection esterase detection by automated te by automated test strip Specific gravity 09/15/2018 N2N/CCD Import Specific gravity >=1.030 1.010-1.03 of Urine by of Urine by 0 Automated test Automated test strip strip Urine ketones 09/15/2018 N2N/CCD Import Urine ketones Negative Negative measurement by measurement by automated test automated test strip strip (mass/volume) Urine total 09/15/2018 N2N/CCD Import Urine total [...] color Yellow Yellow determination determination Protein/Creatinine 09/15/2018 [facility] Creatinine,Urine 284.6 Not Estab. 9 Ratio,Urine [address] mg/dL [place], [place] [id number] [phone] Protein,Total,Urine 47.4 mg/dL Not Estab. Protein/Creatinine Ratio 167 MG/GCRE 0-200 10 Ua RFX Micro & Culture 09/15/2018 [facility] Urine Color YELLOW Yellow II [address] [place] [address] [phone] Urine Clarity CLOUDY Clear Urine Glucose - Dipstick NEGATIVE mg/dL Negative Urine Bilirubin - Dipstick NEGATIVE Negative Urine Ketone NEGATIVE mg/dL Negative Urine Specific [place] >=1.030 N 1.010-1.030 Urine Blood TRACE Negative Urine PH 5.5 Low 6.5-7.5 Urine Protein - Dipstick 30 mg/dL High Negative Urine Urobilinogen - Dipstick 0.2 E.U./dL N 0.2-1.0 Urine Nitrite - Dipstick NEGATIVE Negative Urine Leuk Esterase NEGATIVE Negative Source: URINE, CLEAN CAT <SEE NOTE> 11 Laboratory test finding 09/15/2018 [facility] CK 284 U/L High 26-192 [address] [place], [place] [id number] [phone] Basic Metabolic Panel 09/15/2018 [facility] Glucose 103 mg/dL N 74-106 [address] [place] [address] [phone] BUN 16 mg/dL N 7-18 Creatinine 1.1 mg/dL N 0.6-1.3 Glom Filtration Rate, Estimate 60 mL/min >60 If >60 mL/min >60 12 BUN/Creat 14.5 ratio Sodium 139 mmol/L N 136-145 Potassium 3.3 mmol/L Low 3.5-5.1 Chloride 105 mmol/L N 98-107 Carbon Dioxide 24 mmol/L N 21-32 Anion Gap 10 mEq/L N 8-16 Calcium 9.3 mg/dL N 8.5-10.1 Laboratory test 09/15/2018 [facility] Thyroid Stim 3.83 uIU/mL N 0.30-4.20 finding [address] [place] [address] [phone] Free T4 1.23 ng/dL N 0.76-1.46 Urine hemoglobin 09/15/2018 N2N/CCD Import Urine hemoglobin [...] (units/volume) by (units/volume) t by test strip Urine nitrite 09/15/2018 N2N/CCD Import Urine nitrite Negative Negative detection by detection by automated test automated test strip strip Serum or plasma 07/15/2018 N2N/CCD Import [...] measurement (mass/volu (mass/volume) TSH Reflex FT4 07/15/2018 [facility] Thyroid Stim 3.57 uIU/mL N 0.30-4.20 13 And/Or FT3 [address] Hormone [place], [place] [id number] [phone] Reflex add FT3? N Reflex add FT4? Y Glycohemoglobin A1c 07/15/2018 [facility] Glycohemoglobin 5.4 % N 4.2-6.[address] (A1c) [place], [place] [id number] [phone] eAG 108 mg/dL Laboratory test 07/15/2018 [facility] Vitamin 15.9 Low 30.0-100.0 [address] D,25-Hydroxy ng/[place] [address] [phone] LDL Cholesterol 07/15/2018 [facility] Cholesterol 189 <200 [address] mg/[place] [address] [phone] Triglycerides 162 mg/dL High <150 17 HDL Cholesterol 41 mg/dL >40 18 LDL-Cholesterol 116 mg/dL < 100 19 Reflex add FT3? N Reflex add FT4? Y Comprehensive Metabolic 07/15/2018 [facility] Glucose 101 mg/dL N 74-[address] [place] [address] [phone] BUN 17 mg/dL N 7-18 Creatinine 1.0 mg/dL N 0.6-1.3 Glom Filtration Rate, Estimate >60 mL/min >60 If >60 mL/min >60 20 BUN/Creat 17.0 ratio Sodium 140 mmol/L N [...] add FT4? Y CBC W/Automated Diff 07/15/2018 [facility] White Blood 7.3 K/uL N 3.1-10.[address] Count [place], [place] [id number] [phone] Red Blood Count 4.84 M/uL N 3.90-5.40 [...] 40.4-72.8 Lymph % 29.5 % N 20.0-42.0 [place] % 4.8 % N 4.3-13.2 Eo% 1.8 % N 0.0-6.6 Bas% 0.3 % N 0.0-1.1 Neut# 4.61 K/uL N 1.8-7.0 Lymph # 2.14 K/uL N 1.0-4.0 [place] # 0.35 K/uL N 0.3-0.9 Eos # 0.13 K/uL N 0.0-0.5 Baso # 0.02 K/uL N 0.0-0.1 Basic Metabolic Panel 05/15/2018 [facility] Glucose 113 mg/dL High 74-[address] [place] [address] [phone] BUN 17 mg/dL N 7-18 Creatinine 1.0 mg/dL N 0.6-1.3 Glom Filtration Rate, Estimate >60 mL/min >60 If >60 mL/min >60 22 BUN/Creat 17.0 ratio Sodium 139 mmol/L N 136-145 Potassium 3.3 mmol/L Low 3.5-5.1 Chloride 105 mmol/L N 98-107 Carbon Dioxide 24 mmol/L N 21-32 Anion Gap 10 mEq/L N 8-16 Calcium 8.8 mg/dL N 8.5-10.1 CBC W/Automated Diff 05/15/2018 [facility] White Blood 9.1 K/uL N 3.1-10.[address] [place] [address] [phone] Red Blood Count 4.90 M/uL N 3.90-5.40 [...] 40.4-72.8 Lymph % 28.7 % N 20.0-42.0 [place] % 5.0 % N 4.3-13.2 Eo% 1.5 % N 0.0-6.6 Bas% 0.3 % N 0.0-1.1 Neut# 5.85 K/uL N 1.8-7.0 Lymph # 2.60 K/uL N 1.0-4.0 [place] # 0.45 K/uL N 0.3-0.9 Eos # 0.14 K/uL N 0.0-0.5 Baso # 0.03 K/uL N 0.0-0.1 Laboratory test 05/15/2018 [facility] Troponin-I < 0.015 [address] ng/[place] [address] [phone] Sodium SerPl-sCnc 05/15/2018 N2N/CCD Import Sodium SerPl-sCnc 139 136- 145 Serum or plasma 05/15/2018 N2N/CCD Import Serum or plasma 17.0 urea urea nitrogen/creatini nitrogen/creatini ne mass rati ne mass ratio Serum or plasma 05/15/2018 N2N/CCD Import Serum or plasma 17 7-18 urea nitrogen urea nitrogen measurement measurement (mass/vo (mass/volume) Serum or plasma 05/15/2018 N2N/CCD Import Serum or plasma 3.3 Low 3.5- potassium potassium 5.1 measurement measurement Serum or plasma 05/15/2018 N2N/CCD Import Serum or plasma 113 High 74-1 glucose glucose 06 measurement measurement (mass/volume) (mass/volume) Serum or plasma 05/15/2018 N2N/CCD Import Serum or plasma 1.0 0.6- creatinine creatinine 1.3 measurement measurement (mass/volum (mass/volume) Absolute 05/15/2018 N2N/CCD Import Absolute 5.85 1.8- neutrophil count neutrophil count 7.0 Automated 05/15/2018 N2N/CCD Import Automated 0.3 0.0- basophil % basophil % 1.1 Automated blood 05/15/2018 N2N/CCD Import Automated blood 0.03 0.0- basophil count basophil count 0.1 (number/volume) (number/volume) Automated blood 05/15/2018 N2N/CCD Import Automated blood 0.14 0.0- eosinophil count eosinophil count 0.5 Automated blood 05/15/2018 N2N/CCD Import Automated blood 9.1 3.1- leukocyte count leukocyte count 10.7 (number/volume) (number/volume) Automated blood 05/15/2018 N2N/CCD Import Automated blood 2.60 1.0- lymphocyte count lymphocyte count 4.0 (number/volume) (number/volume) Automated blood 05/15/2018 N2N/CCD Import Automated blood 28.7 20.0 lymphocytes/100 lymphocytes/100 -42. leukocytes leukocytes 0 Automated blood 05/15/2018 N2N/CCD Import Automated blood 64.5 40.4 neutrophils/100 neutrophils/100 -72. leukocytes leukocytes 8 Automated blood 05/15/2018 N2N/CCD Import Automated blood 326 155- platelet count platelet count 360 Automated blood 05/15/2018 N2N/CCD Import Automated blood 9.3 8.9- platelet mean platelet mean 12.4 volume volume measurement measurement Automated 05/15/2018 N2N/CCD Import Automated 1.5 0.0- eosinophil % eosinophil % 6.6 Automated 05/15/2018 N2N/CCD Import Automated 46.1 36-4 erythrocyte erythrocyte 7 distribution distribution width width Automated 05/15/2018 N2N/CCD Import Automated 15.4 High 11.7 erythrocyte erythrocyte -14. distribution distribution 4 width ratio width ratio Automated 05/15/2018 N2N/CCD Import Automated 27.1 25.9 erythrocyte mean erythrocyte mean -32. corpuscular corpuscular 7 hemoglobin hemoglobin (mass per erythrocyte) Automated 05/15/2018 N2N/CCD Import Automated 32.5 30.8 erythrocyte mean erythrocyte mean -34. corpuscular corpuscular 3 hemoglobin hemoglobin concentration measurement (mass/volume) Automated 05/15/2018 N2N/CCD Import Automated 83.5 80.9 erythrocyte mean erythrocyte mean -99. corpuscular corpuscular 0 volume (MCV volume (MCV) measurement Automated 05/15/2018 N2N/CCD Import Automated 5.0 4.3- monocyte % monocyte % 13.2 Blood 05/15/2018 N2N/CCD Import Blood 4.90 3.90 erythrocytes erythrocytes -5.4 automated count automated count 0 (number/volume) (number/volume) Blood hemoglobin 05/15/2018 N2N/CCD Import Blood hemoglobin 13.3 11.6 measurement measurement -15. (mass/volume) (mass/volume) 8 Blood monocytes 05/15/2018 N2N/CCD Import Blood monocytes 0.45 0.3- automated count automated count 0.9 (number/volume) (number/volume) Co2 SerPl-sCnc 05/15/2018 N2N/CCD Import Co2 SerPl-sCnc 24 21-3 2 Hct VFr Bld Auto 05/15/2018 N2N/CCD Import Hct VFr Bld Auto 40.9 36.0 -46. 1 Serum or plasma 05/15/2018 N2N/CCD Import Serum or plasma 10 8-16 anion gap anion gap Serum or plasma 05/15/2018 N2N/CCD Import Serum or plasma 8.8 8.5- calcium calcium 10.1 measurement measurement (mass/volume) (mass/volume) Serum or plasma 05/15/2018 N2N/CCD Import Serum or plasma 105 98-1 chloride chloride 07 measurement measurement CBC W/Automated 05/14/2018 [facility] White Blood Count 9.0 K/uL N 3.1- [address] 10.7 [place] [address] [phone] Red Blood Count 5.19 M/uL N 3.90-5.40 [...] 40.4-72.8 Lymph % 17.9 % Low 20.0-42.0 [place] % 4.6 % N 4.3-13.2 Eo% 1.5 % N 0.0-6.6 Bas% 0.3 % N 0.0-1.1 Neut# 6.79 K/uL N 1.8-7.0 Lymph # 1.60 K/uL N 1.0-4.0 [place] # 0.41 K/uL N 0.3-0.9 Eos # 0.13 K/uL N 0.0-0.5 Baso # 0.03 K/uL N 0.0-0.1 Comprehensive Metabolic 05/14/2018 [facility] Glucose 151 mg/dL High 74-106 Panel [address] [place], [place] [address] [phone] BUN 17 mg/dL N 7-18 Creatinine 1.1 mg/dL N 0.6-1.3 Glom Filtration Rate, Estimate >60 mL/min >60 If >60 mL/min >60 25 BUN/Creat 15.4 ratio Sodium 138 mmol/L N [...] U/L N 45-117 Laboratory test finding 05/14/2018 [facility] Troponin-I < 0.015 ng/mL 26 [address] [place] [address] [phone] HCG,Serum (Qualitative) NEGATIVE (Negative) 27 D-Dimer, Quantitative 0.33 ug/mL 28 Fibrin D-dimer Feu 05/14/2018 N2N/CCD Import Fibrin [...] (set) studies (set) added Aot Request 05/14/2018 [facility] Aot Request Test(s) 29 [address] [facility] [place] [address] [phone] Tests to be added: d-dimer Serum or plasma 05/14/2018 N2N/CCD Import Serum or plasma 0.2 0.2-1.0 total bilirubin total bilirubin measurement (mass/ measurement (mass/volume) Basic Metabolic 04/14/2018 [facility] Glucose 106 mg/dL N 74-106 30 Panel [address] [place] [address] [phone] BUN 14 mg/dL N 7-18 Creatinine 1.0 mg/dL N 0.6-1.3 Glom Filtration Rate, Estimate >60 mL/min >60 If >60 mL/min >60 31 BUN/Creat 14.0 ratio Sodium 139 mmol/L N 136-145 Potassium 3.6 mmol/L N 3.5-5.1 Chloride 102 mmol/L N 98-107 Carbon Dioxide 30 mmol/L N 21-32 Anion Gap 7 mEq/L Low 8-16 Calcium 8.8 mg/dL N 8.5-10.1 Laboratory test finding 04/14/2018 [facility] PTH,Intact 39 pg/mL 15-[address] [place] [address] [phone] Comprehensive Metabolic 03/31/2018 [facility] Glucose 99 mg/dL N 74-106 33 Panel [address] [place] [address] [phone] BUN 16 mg/dL N 7-18 Creatinine 1.0 mg/dL N 0.6-1.3 Glom Filtration Rate, Estimate >60 mL/min >60 If >60 mL/min >60 34 BUN/Creat 16.0 ratio Sodium 140 mmol/L N [...] 70 U/L N 45-117 Glycohemoglobin A1c 03/31/2018 [facility] Glycohemoglobin 5.9 % N 4.2-6.[address] (A1c) [place] [address] [phone] eAG 123 mg/dL CBC W/Automated Diff 03/31/2018 [facility] White Blood 6.6 K/uL N 3.1-10.[address] [place] [address] [phone] Red Blood Count 5.03 M/uL N 3.90-5.40 [...] 40.4-72.8 Lymph % 28.3 % N 20.0-42.0 [place] % 4.8 % N 4.3-13.2 Eo% 2.0 % N 0.0-6.6 Bas% 0.3 % N 0.0-1.1 Neut# 4.26 K/uL N 1.8-7.0 Lymph # 1.87 K/uL N 1.0-4.0 [place] # 0.32 K/uL N 0.3-0.9 Eos # 0.13 K/uL N 0.0-0.5 Baso # 0.02 K/uL N 0.0-0.1 LDL Cholesterol Profile 03/31/2018 [facility] Cholesterol 192 mg/dL <[address] [place] [address] [phone] Triglycerides 192 mg/dL High <150 37 HDL Cholesterol 40 mg/dL >40 38 LDL-Cholesterol 114 mg/dL < 100 39 Laboratory test 03/31/2018 [facility] Vitamin 21.5 Low 30.0-100.0 [address] D,25-Hydroxy ng/[place] [address] [phone] Blood estimated 03/31/2018 N2N/CCD Import Blood estimated 123 average glucose average glucose determination by determination e by estimation from glycated hemoglobin (mass/volume) HgbA1c % 03/31/2018 N2N/CCD Import HgbA1c % 5.9 4.2-6.3 Serum or plasma 03/31/2018 N2N/CCD Import Serum or plasma 21.5 Low 30.0- 100.0 25-hydroxyvitami 25-hydroxyvitam n D measurement in D (m measurement (mass/volume) Serum or plasma 03/31/2018 N2N/CCD Import Serum or plasma 40 >40 cholesterol in cholesterol in HDL measurement HDL measurement (ma (mass/volume) Serum or plasma 03/31/2018 N2N/CCD Import Serum or plasma 114 < 100 cholesterol in cholesterol in LDL measurement LDL measurement by by calculation (mass/volume) Serum or plasma 03/31/2018 N2N/CCD Import Serum or plasma 192 <200 cholesterol cholesterol measurement measurement (mass/volu (mass/volume) Serum or plasma 03/31/2018 N2N/CCD Import Serum or plasma 192 High <150 triglyceride triglyceride measurement measurement (mass/vol (mass/volume) Urine Dipstick 03/11/2018 [facility] Ua Color orange Yellow Ua Clarity clear Clear Ua Leuko - Negative Ua Nitrite - Negative Ua Urobilinogen - Low 0.2 - 1.0 E.U./dL Ua Protein - Negative Ua PH 5 Low 6.5-7.5 Ua Blood - Negative Ua Specific [place] 1.030 1.010-1.030 Ua Ketones - Negative Ua Bilirubin - Negative Ua Glucose - Negative Genital Culture W/ 03/11/2018 [facility] Gram Stain GRAM STAIN 41, 42 Gram Stain [address] [facility] [place] <[place] [address] NOTE> [phone] Gram Stain MODERATE GR POS. <SEE NOTE> 43 Gram Stain MODERATE GRAM VA <SEE NOTE> 44 Gram Stain RARE GRAM POSITI <SEE NOTE> 45 Gram Stain RARE RARE WHITE <SEE NOTE> 46 Genital Culture GENITAL GIOVANNI Serum or plasma 01/20/2018 N2N/CCD Import Serum or plasma 31 8-842 ferritin measurement ferritin (mass/volume) measurement (mass/volume) Serum [...] measurement measurement (mass/volu (mass/volume) Laboratory test 01/20/2018 [facility] Ferritin 31 ng/mL N 8-252 [address] [place], [place] [id number] [phone] Iron-Tibc-%Sat 01/20/2018 [facility] Serum Iron 55 g/dL N 50-170 [address] [place] [address] [phone] Total Iron Binding Capacity 383 g/dL N 250-450 Transferrin %Saturation 14 % N 12-57 Laboratory test 01/20/2018 [facility] Transferrin 296 mg/dL 200-370 48 finding [address] [place] [address] [phone] CBC W/Automated 01/20/2018 [facility] White Blood 7.3 K/uL N 3.1-10.[address] [place] [address] [phone] Red Blood Count 5.19 M/uL N 3.90-5.40 [...] 40.4-72.8 Lymph % 24.4 % N 20.0-42.0 [place] % 4.6 % N 4.3-13.2 Eo% 1.6 % N 0.0-6.6 Bas% 0.3 % N 0.0-1.1 Neut# 5.07 K/uL N 1.8-7.0 Lymph # 1.79 K/uL N 1.0-4.0 [place] # 0.34 K/uL N 0.3-0.9 Eos # 0.12 K/uL N 0.0-0.5 Baso # 0.02 K/uL N 0.0-0.1 Comprehensive Metabolic 01/20/2018 [facility] Glucose 94 mg/dL N 74-106 Panel [address] [place] [address] [phone] BUN 13 mg/dL N 7-18 Creatinine 0.9 mg/dL N 0.6-1.3 Glom Filtration Rate, Estimate >60 mL/min >60 If >60 mL/min >60 49 BUN/Creat 14.4 ratio Sodium 141 mmol/L N [...] U/L N 45-117 LDL Cholesterol Profile 01/20/2018 [facility] Cholesterol 195 mg/dL <200 50 [address] [place], [place] [id number] [phone] Triglycerides 186 mg/dL High <150 51 HDL Cholesterol 41 mg/dL >40 52 LDL-Cholesterol 117 mg/dL < 100 53 Glycohemoglobin A1c 01/20/2018 [facility] Glycohemoglobin 6.1 % N 4.2-6.3 54 [address] [facility] (A1c) [place] [id number] [phone] eAG 128 mg/dL Laboratory 01/20/2018 [facility] Vitamin 16.2 Low 30.0-100.0 55 test finding [address] D,25-Hydroxy ng/[place] [address] [phone] Ua RFX Micro & 12/17/2017 [facility] Urine Color YELLOW Yellow 56 Culture II [address] [place] [address] [phone] Urine Clarity TURBID Clear Urine Glucose - Dipstick NEGATIVE mg/dL Negative Urine Bilirubin - Dipstick NEGATIVE Negative Urine Ketone NEGATIVE mg/dL Negative Urine Specific [place] >=1.030 N 1.010-1.030 Urine Blood NEGATIVE Negative Urine PH 6.0 Low 6.5-7.5 Urine Protein - Dipstick 30 mg/dL High Negative Urine Urobilinogen - Dipstick 0.2 E.U./dL N 0.2-1.0 Urine Nitrite - Dipstick NEGATIVE Negative Urine Leuk Esterase NEGATIVE Negative Source: URINE, CLEAN CAT <SEE NOTE> 57 Protein/Creatinine 12/17/2017 [facility] Creatinine,Urine 233.6 Not Ratio,Urine [address] mg/[place] [address] [phone] Protein,Total,Urine 49.5 mg/dL Not Estab. Protein/Creatinine Ratio 212 MG/GCRE High 0-200 58 Chlmaydia/GC/Trichomonas 10/18/2017 [facility] Trichomonas Negative Negative [address] [place] [address] PCR [phone] Chlamydia trachomatis, PCR Negative Negative Neisseria gonorrhoeae, PCR Negative Negative 60 Ua RFX Micro & Culture 10/18/2017 [facility] Urine Color YELLOW Yellow II [address] [place] [address] [phone] Urine Clarity SL CLOUDY Clear Urine Glucose - Dipstick NEGATIVE mg/dL Negative Urine Bilirubin - Dipstick NEGATIVE Negative Urine Ketone NEGATIVE mg/dL Negative Urine Specific [place] >=1.030 N 1.010-1.030 Urine Blood TRACE Negative Urine PH 5.5 Low 6.5-7.5 Urine Protein - Dipstick 30 mg/dL High Negative Urine Urobilinogen - Dipstick 0.2 E.U./dL N 0.2-1.0 Urine Nitrite - Dipstick NEGATIVE Negative Urine Leuk Esterase NEGATIVE Negative Source: URINE, CLEAN CAT <SEE NOTE> 61 CBS W/Automated Diff 10/18/2017 [facility] White Blood 8.0 K/uL N 3.1-10.[address] [place] [address] [phone] Red Blood Count 5.04 M/uL N 3.90-5.40 [...] 40.4-72.8 Lymph % 25.2 % N 20.0-42.0 [place] % 4.4 % N 4.3-13.2 Eo% 1.9 % N 0.0-6.6 Bas% 0.4 % N 0.0-1.1 Neut# 5.42 K/uL N 1.8-7.0 Lymph # 2.00 K/uL N 1.0-4.0 [place] # 0.35 K/uL N 0.3-0.9 Eos # 0.15 K/uL N 0.0-0.5 Baso # 0.03 K/uL N 0.0-0.1 LDL Cholesterol 09/07/2017 [facility] Cholesterol 180 mg/dL <200 62, [address] [place] [address] [phone] Triglycerides 182 mg/dL High <150 64 HDL Cholesterol 43 mg/dL >40 65 LDL-Cholesterol 101 mg/dL < 100 66 Glycohemoglobin A1c 09/07/2017 [facility] Glycohemoglobin 6.2 % N 4.2-6.[address] (A1c) [place] [address] [phone] eAG 131 mg/dL CBS W/Automated Diff 09/07/2017 [facility] White Blood 6.6 K/uL N 3.1-10.[address] [place] [address] [phone] Red Blood Count 5.18 M/uL N 3.90-5.40 [...] 40.4-72.8 Lymph % 30.0 % N 20.0-42.0 [place] % 5.3 % N 4.3-13.2 Eo% 2.0 % N 0.0-6.6 Bas% 0.5 % N 0.0-1.1 Neut# 4.14 K/uL N 1.8-7.0 Lymph # 1.99 K/uL N 1.0-4.0 [place] # 0.35 K/uL N 0.3-0.9 Eos # 0.13 K/uL N 0.0-0.5 Baso # 0.03 K/uL N 0.0-0.1 Protein/Creatinine 09/07/2017 [facility] Creatinine,Urine 291.1 Not Ratio,Urine [address] mg/[place] [address] [phone] Protein,Total,Urine 47.2 mg/dL Not Estab. Protein/Creatinine Ratio 162 MG/GCRE 0-200 68 Ua RFX Micro & Culture 09/07/2017 [facility] Urine Color YELLOW Yellow II [address] [place] [address] [phone] Urine Clarity CLEAR Clear Urine Glucose - Dipstick NEGATIVE mg/dL Negative Urine Bilirubin - Dipstick NEGATIVE Negative Urine Ketone NEGATIVE mg/dL Negative Urine Specific [place] >=1.030 N 1.010-1.030 Urine Blood NEGATIVE Negative Urine PH 5.5 Low 6.5-7.5 Urine Protein - Dipstick TRACE mg/dL Negative Urine Urobilinogen - Dipstick 0.2 E.U./dL N 0.2-1.0 Urine Nitrite - Dipstick NEGATIVE Negative Urine Leuk Esterase NEGATIVE Negative Source: URINE, CLEAN CAT <SEE NOTE> 69 Comprehensive Metabolic 09/07/2017 [facility] Glucose 101 mg/dL N 74-106 Panel [address] [place] [address] [phone] BUN 16 mg/dL N 7-18 Creatinine 1.1 [...] 12-78 Alkaline Phosphatase 70 U/L N 45-117 Comprehensive 04/18/2017 [facility] Glucose 110 mg/dL High 74-106 71 Metabolic Panel [address] [place] [address] [phone] BUN 15 mg/dL N 7-18 Creatinine 1.0 mg/dL N 0.6-1.3 Glom Filtration Rate, Estimate >60 mL/min >60 If >60 mL/min >60 72 BUN/Creat 15.0 ratio Sodium 142 mmol/L N [...] Alkaline Phosphatase 68 U/L N 45-117 Laboratory 04/18/2017 [facility] Anti-Nuclear Negative Negative 73 test finding [address] Antibodies AU/[place] [address] Direct [phone] Complement C4, Serum 36 mg/dL 14-44 Complement C3, Serum 202 mg/dL High 82-167 LDL Cholesterol Profile 04/18/2017 [facility] Cholesterol 184 mg/dL <[address] [place], [place] [address] [phone] Triglycerides 199 mg/dL High <150 75 HDL Cholesterol 40 mg/dL >40 76 LDL-Cholesterol 104 mg/dL < 100 77 Glycohemoglobin A1c 04/18/2017 [facility] Glycohemoglobin 6.2 % N 4.2-6.[address] (A1c) [place], [place] [id number] [phone] eAG 131 mg/dL Laboratory 04/18/2017 [facility] Rheumatoid Factor < 10.0 N 0.0-15.0 test finding [address] Screen IU/[place] [address] [phone] Laboratory 01/09/2017 [facility] Immunoglobulin 47 IU/mL 0-100 79, test finding [address] E,Total 80 [place], [place] [id number] [phone] Allergens,Zone 01/09/2017 [facility] mRast Class (Text (SEE [address] Only) NOTE) [place], [place] [id number] [phone] D Pteronyssinus <0.10 kU/L Class 0 D Farinae Mite <0.10 kU/L Class 0 Cat Hair/Dander <0.10 kU/L Class 0 Dog Hair/Dander <0.10 kU/L Class 0 Bluegrass,[place] <0.10 kU/L Class 0 Bermuda Grass <0.10 kU/L Class 0 Bahia Grass <0.10 kU/L Class 0 Cockroach,[place] <0.10 kU/L Class 0 Penicillium Not <0.10 kU/L Class 0 Cladosporium Herbarum <0.10 kU/L Class 0 Apergillis Fumigatus Ige <0.10 kU/L Class 0 Mucor Racemosus <0.10 kU/L Class 0 Alternaria Alternata <0.10 kU/L Class 0 Stemphylium Bot <0.10 kU/L Class 0 Birch,White <0.10 kU/L Class 0 Glenwood,White <0.10 kU/L Class 0 Elm,[place] (White) <0.10 kU/L Class 0 Vipin,White <0.10 kU/L Class 0 Hazelnut Tree T004 Ige <0.10 kU/L Class 0 [place],White <0.10 kU/L Class 0 [place],White <0.10 kU/L Class 0 [place] <0.10 kU/L Class 0 Ragweed,Short/ <0.10 kU/L Class 0 Mugwort <0.10 kU/L Class 0 Plantain,Kyrgyz <0.10 kU/L Class 0 Pigweed,Rough <0.10 kU/L Class 0 Sheep [place] (DO <0.10 kU/L Class 0 Nettle <0.10 kU/L Class 0 Maple/[place] Ige T001 <0.10 kU/L Class 0 82 Laboratory test 12/06/2016 [facility] Thyroid Stim 3.78 uIU/mL N 0.30-4.[address] [place] [address] [phone] Free T4 0.95 ng/dL N 0.76-1.46 CBS W/Automated 09/03/2016 [facility] White Blood 8.2 K/uL N 3.1-10.[address] Count [place], [place] [address] [phone] Red Blood Count 5.39 M/uL N 3.90-5.40 [...] 40.4-72.8 Lymph % 24.8 % N 20.0-42.0 [place] % 5.0 % N 4.3-13.2 Eo% 2.8 % N 0.0-6.6 Bas% 0.2 % N 0.0-1.1 Neut# 5.47 K/uL N 1.8-7.0 Lymph # 2.02 K/uL N 1.0-4.0 [place] # 0.41 K/uL N 0.3-0.9 Eos # 0.23 K/uL N 0.0-0.5 Baso # 0.02 K/uL N 0.0-0.1 Laboratory test finding 09/03/2016 [facility] Magnesium 2.0 mg/dL N 1.8-2.4 [address] [place] [address] [phone] Comprehensive Metabolic 09/03/2016 [facility] Glucose 90 mg/dL N 74-106 Panel [address] [place] [address] [phone] BUN 17 mg/dL N 7-18 Creatinine 1.0 mg/dL N 0.6-1.3 Glom Filtration Rate, Estimate >60 mL/min >60 If >60 mL/min >60 85 BUN/Creat 17.0 ratio Sodium 142 mmol/L N [...] 12-78 Alkaline Phosphatase 66 U/L N 45-117 Urine Creat 04/10/2011 [facility] Urine Collection 24 Hours Clearance Profile [address] [place] [address] [phone] Urine Total Volume 750 mL Serum Creatinine 0.7 mg/dL 0.5-1.4 Urine Creatinine Conc 221 mg/dL Urine Creatinine Clearance 164 mL/min High 70-156 Urine Total Prot 04/10/2011 [facility] Urine Collection Time 24 Hours Timed Profile [address] [place] [address] [phone] Urine Total Volume 750 mL Urine Total Protein Conc 45.0 mg/dL Urine TP Total (mg/24hr) 338 [id number] High Comprehensive Metabolic 04/03/2011 [facility] Glucose 113 mg/dL 76-115 Panel [address] [place] [address] [phone] BUN 8 mg/dL 5-23 Creatinine 0.9 mg/dL 0.5-1.4 Glom Filtration Rate, Estimate >60 mL/min >60 If >60 mL/min >60 86 BUN/Creat 8.8 ratio Sodium 140 mmol/L 136-145 [...] 73 U/L 50-136 Laboratory test finding 04/03/2011 [facility] Uric Acid 3.4 mg/dL 2.1-7.4 [address] [place] [address] [phone] LDH 163 U/L Low 165-265 CBS W/Automated 04/03/2011 [facility] White Blood 11.1 K/uL High 3.1-10.7 Diff [address] [place] [address] [phone] Red Blood Count 3.88 M/uL Low 3.90-5.40 [...] 40.4-72.8 Lymph % 15.4 % Low 17.0-46.1 [place] % 4.4 % 4.3-13.2 Eo% 0.9 % 0.0-6.6 Bas% 0.1 % 0.0-1.1 Neut# 8.76 K/uL High 1.0-7.0 Lymph # 1.70 K/uL 0.8-3.4 [place] # 0.49 K/uL 0.3-0.9 Eos # 0.10 K/uL 0.0-0.5 Baso # 0.01 K/uL 0.0-0.1 Red Cell Distri Width SD 46.3 fl 3-47 Urinalysis With 03/14/2011 [facility] Urine Color YELLOW Yellow Microscopic [address] [place] [address] [phone] Urine Clarity SL CLOUDY Clear Urine Glucose - Dipstick NEGATIVE mg/dL Negative Urine Bilirubin - Dipstick NEGATIVE Negative Urine Ketone TRACE mg/dL High Negative Urine Specific [place] 1.025 1.010-1.030 Urine Blood TRACE Negative Urine PH 6.5 6.5-7.5 Urine Protein - Dipstick 30 mg/dL High Negative Urine Urobilinogen - Dipstick 1.0 E.U./dL 0.2-1.0 Urine Nitrite - Dipstick NEGATIVE Negative Urine Leuk Esterase NEGATIVE Negative Urine RBC 0-2 rbc/hpf 0-7 Urine WBC 0-2 wbc/hpf 0-7 Urine Epithelial Cells MANY NONESEEN 87 Urine Bacteria MANY NONESEEN High Urine Amorph Sediment MODERATE Negative Laboratory test 03/14/2011 [facility] Culture If See Note [address] [place] [place] [address] [phone] Urine Culture See Note 89 CBC 03/13/2011 [facility] White Blood Count 10.1 K/uL 3.1-10.[address] [place] [address] [phone] Red Blood Count 3.95 M/uL 3.90-5.40 Hemoglobin 11.9 gm/dL 11.6-15.8 Hematocrit 34.3 % Low 36.0-46.1 Mean Cell Volume 86.8 fl 80.9-99.0 Mean Corpuscular HGB 30.1 pg 25.9-32.7 Mean Corpuscular HGB Conc 34.7 g/dL High 30.8-34.3 Platelet Count 230 K/uL 155-360 Red Cell Distri Width %CV 14.7 % High 11.7-14.4 Mean Platelet Volume 8.9 fL 8.9-12.4 Affirm Test 03/13/2011 [facility] Gardnerella Vaginalis See Note 90 [address] [place] [address] [phone] Trichomonas Vaginalis See Note 91 Evi Species See Note 92 OB Initial 12/26/2010 [facility] Thyroid Stim 1.27 uIU/mL 0.49-4.67 [address] [place] [address] [phone] Free T4 0.79 ng/dL 0.71-1.85 94 Toxoplasma IgG Antibody <6.5 IU/mL 0.0-6.4 95 Toxoplasma IgM Antibody <0.9 index 0.0-0.8 96 Varicella-Zoster Virus IgG Ab 1.49 index High 0.00-0.90 97 Varicella-Zoster Virus IgM Ab <0.91 AU 0.00-0.90 98 Urine Screen See Note 99 Urine Culture See Note 100 Parvovirus 12/26/2010 [facility] Parvovirus B19 3.0 index High 0.0-0.8 101 B19,Human [address] Igg Igg/[place] [address] [phone] Parvovirus B19 Igm 0.1 index 0.0-0.8 102 Glucose,1 HR 12/26/2010 [facility] 1 HR Glucose,Post 87 mg/dL -138 103 Post Glucola [address] [place] [address] [phone] 1 Hour Urine Glucose NEGATIVE % Negative 1 Hour Urine Ketone NEGATIVE Negative Urinalysis With 12/26/2010 [facility] Urine Color YELLOW Yellow Microscopic [address] [place] [address] [phone] Urine Clarity CLEAR Clear Urine Glucose - Dipstick NEGATIVE mg/dL Negative Urine Bilirubin - Dipstick NEGATIVE Negative Urine Ketone NEGATIVE mg/dL Negative Urine Specific [place] >=1.030 1.010-1.030 Urine Blood TRACE Negative Urine PH 6.0 Low 6.5-7.5 Urine Protein - Dipstick NEGATIVE mg/dL Negative Urine Urobilinogen - Dipstick 1.0 E.U./dL 0.2-1.0 Urine Nitrite - Dipstick NEGATIVE Negative Urine Leuk Esterase NEGATIVE Negative Urine RBC 0-2 rbc/hpf 0-7 Urine WBC NONE SEEN wbc/hpf 0-7 Urine Epithelial Cells MODERATE NONESEEN 104 Urine Bacteria MODERATE NONESEEN High Urine Mucus SMALL NONESEEN CBS W/Automated Diff 12/26/2010 [facility] White Blood 8.9 K/uL 3.1-10.[address] [place] [address] [phone] Red Blood Count 4.96 M/uL 3.90-5.40 Hemoglobin 14.3 gm/dL 11.6-15.8 Hematocrit 40.9 % 36.0-46.1 Mean Cell Volume 82.5 fl 80.9-99.0 Mean Corpuscular HGB 28.8 pg 25.9-32.7 Mean Corpuscular HGB Conc 35.0 g/dL High 30.8-34.3 Platelet Count 238 K/uL 155-360 Red Cell Distri Width %CV 14.9 % High 11.7-14.4 Mean Platelet Volume 9.2 fL 8.9-12.4 Neut% 69.6 % 40.4-72.8 Lymph % 23.1 % 17.0-46.1 [place] % 5.5 % 4.3-13.2 Eo% 1.5 % 0.0-6.6 Bas% 0.3 % 0.0-1.1 Neut# 6.18 K/uL 1.0-7.0 Lymph # 2.05 K/uL 0.8-3.4 [place] # 0.49 K/uL 0.3-0.9 Eos # 0.13 K/uL 0.0-0.5 Baso # 0.03 K/uL 0.0-0.1 Red Cell Distri Width SD 44.0 fl 3-47 Laboratory test 12/26/2010 [facility] Rapid Plasma NONREACTIVE [address] Reagin NONREACTIVE [place], [place] [address] [phone] Hepatitis B Surface Antigen NEGATIVE Negative 106 Rubella IgG Antibody POSITIVE (Positive) 107 Type And Screen 12/26/2010 [facility] Patient Blood Type A POS [address] [place], [place] [id number] [phone] Antibody Screen NEGATIVE Dna Probe N. Gono 12/06/2010 [facility] Dna Probe For See Note 108 + C. Trach. [address] [place] [address] [phone] Dna Probe For N. Gonorrhoeae See Note 109 1 ?STROKE 2 THERAPEUTIC INR RANGE: 2.0 - 3.0 DVT, Pulmonary embolus, prophylaxis against venous thrombosis or systemic embolization in high risk patients. 2.5 - 3.5 Mechanical heart valves 3 Is patient on anticoagulants? Coumadin 4 Note: Persistent reduction for 3 months or more in an eGFR <60 mL/min/1.73 m2 defines CKD. Patients with eGFR values >/=60 mL/min/1.73 m2 may also have CKD if evidence of persistent proteinuria is present. The original MDRD equation for estimated GFR is not valid for patients less than 18 years of age. Additional information may be found at www.kdoqi.org. 5 0.0 - 0.045 ng/mL: Normal 0.046 - 0.5 ng/mL: Suggestive 0.6 - 1.5 ng/mL: Consistent 6 J02.9 7 NORMAL THROAT GIOVANNI 8 NORMAL THROAT GIOVANNI 9 Q61.2 E03.9 M62.82 10 INFCE Result Units: mg/g creat Performed at: RN - [facility] [address] [id number] Incident Response Consultant: Tonia Paz MD, Phone: [phone] 11 URINE, CLEAN CATCH 12 Note: Persistent reduction for 3 months or more in an eGFR <60 mL/min/1.73 m2 defines CKD. Patients with eGFR values >/=60 mL/min/1.73 m2 may also have CKD if evidence of persistent proteinuria is present. The original MDRD equation for estimated GFR is not valid for patients less than 18 years of age. Additional information may be found at www.kdoqi.org. 13 E87.6 E55.9 14 Elevated levels of HbA1c suggest the need for more aggressive treatment of glycemia. The [place] Diabetes Association recommends that a primary goal of therapy should be a HbA1c of <7% and that physicians should re-evaluate the treatment regimen in patients with HbA1c values consistently >8%. 15 Vitamin D deficiency has been defined by the [place] [employer] and an Endocrine Society practice guideline as a level of serum 25-OH vitamin D less than 20 ng/mL (1,2). The Endocrine Society went on to further define vitamin D insufficiency as a level between 21 and 29 ng/mL (2). 1. IOM ([place] of [employer]). 2010. Dietary reference intakes for calcium and D. [place]: The National Academies Press. 2. Anitra MF, Jason RINALDI, Irene MERLOS, et al. Evaluation, treatment, and prevention of vitamin D deficiency: an Endocrine Society clinical practice guideline. JCEM. 2010; 96(7):1911-30. Performed at: RN - [facility] [address] [id number] Incident Response Consultant: Tonia Paz MD, Phone: [phone] 16 Reference Guidelines*: Desirable: ........... < 200 mg/dL Borderline High: ..... 200-239 mg/dL High: ................ >=240 mg/dL * The National Cholesterol Education Program (NCEP) 17 Reference Guidelines*: Normal: ............. < 150 mg/dL Borderline High: .... 150-199 mg/dL High: ............... 200-499 mg/dL Very High: .......... > 500 mg/dL * Source: National Cholesterol Education Program (NCEP) 18 Reference Guidelines*: Low HDL: ..... < 40 mg/dL Normal: ..... 40-60 mg/dL Desirable: ... > 60 mg/dL *The National Cholesterol Education Program(NCEP) 19 Reference Guidelines*: Optimal:........... <100 mg/dL Near Optimal....... 100-129 mg/dL Borderline High.... 130-159 mg/dL High............... 160-189 mg/dL Very High.......... >=190 mg/dL * Source: National Cholesterol Education Program (NCEP) 20 Note: Persistent reduction for 3 months or more in an eGFR <60 mL/min/1.73 m2 defines CKD. Patients with eGFR values >/=60 mL/min/1.73 m2 may also have CKD if evidence of persistent proteinuria is present. The original MDRD equation for estimated GFR is not valid for patients less than 18 years of age. Additional information may be found at www.kdoqi.org. 21 CHEST PAIN 22 Note: Persistent reduction for 3 months or more in an eGFR <60 mL/min/1.73 m2 defines CKD. Patients with eGFR values >/=60 mL/min/1.73 m2 may also have CKD if evidence of persistent proteinuria is present. The original MDRD equation for estimated GFR is not valid for patients less than 18 years of age. Additional information may be found at www.kdoqi.org. 23 0.0 - 0.045 ng/mL: Normal 0.046 - 0.5 ng/mL: Suggestive 0.6 - 1.5 ng/mL: Consistent 24 CP 25 Note: Persistent reduction for 3 months or more in an eGFR <60 mL/min/1.73 m2 defines CKD. Patients with eGFR values >/=60 mL/min/1.73 m2 may also have CKD if evidence of persistent proteinuria is present. The original MDRD equation for estimated GFR is not valid for patients less than 18 years of age. Additional information may be found at www.kdoqi.org. 26 0.0 - 0.045 ng/mL: Normal 0.046 - 0.5 ng/mL: Suggestive 0.6 - 1.5 ng/mL: Consistent 27 Method: Quidel QuickVue One-Step Immunoassay 28 <=0.49 ug/mL - Low likelihood of DIC, DVT or Pulmonary Embolism >0.49 ug/mL - Additional testing should be done to rule out DIC, DVT, or Pulmonary embolism as clinically indicated. ([facility] has established a 97.89% negative predictive value for thrombotic disease when a cutoff value of 0.5 ug/mL is used.) 29 Tests: d-dimer Instructions: 30 E55.9 E87.6 31 Note: Persistent reduction for 3 months or more in an eGFR <60 mL/min/1.73 m2 defines CKD. Patients with eGFR values >/=60 mL/min/1.73 m2 may also have CKD if evidence of persistent proteinuria is present. The original MDRD equation for estimated GFR is not valid for patients less than 18 years of age. Additional information may be found at www.kdoqi.org. 32 Performed at: RN - [facility] [address] [id number] Incident Response Consultant: Tonia Paz MD, Phone: [phone] 33 R42 34 Note: Persistent reduction for 3 months or more in an eGFR <60 mL/min/1.73 m2 defines CKD. Patients with eGFR values >/=60 mL/min/1.73 m2 may also have CKD if evidence of persistent proteinuria is present. The original MDRD equation for estimated GFR is not valid for patients less than 18 years of age. Additional information may be found at www.kdoqi.org. 35 Elevated levels of HbA1c suggest the need for more aggressive treatment of glycemia. The [place] Diabetes Association recommends that a primary goal of therapy should be a HbA1c of <7% and that physicians should re-evaluate the treatment regimen in patients with HbA1c values consistently >8%. 36 Reference Guidelines*: Desirable: ........... < 200 mg/dL Borderline High: ..... 200-239 mg/dL High: ................ >=240 mg/dL * The National Cholesterol Education Program (NCEP) 37 Reference Guidelines*: Normal: ............. < 150 mg/dL Borderline High: .... 150-199 mg/dL High: ............... 200-499 mg/dL Very High: .......... > 500 mg/dL * Source: National Cholesterol Education Program (NCEP) 38 Reference Guidelines*: Low HDL: ..... < 40 mg/dL Normal: ..... 40-60 mg/dL Desirable: ... > 60 mg/dL *The National Cholesterol Education Program(NCEP) 39 Reference Guidelines*: Optimal:........... <100 mg/dL Near Optimal....... 100-129 mg/dL Borderline High.... 130-159 mg/dL High............... 160-189 mg/dL Very High.......... >=190 mg/dL * Source: National Cholesterol Education Program (NCEP) 40 Vitamin D deficiency has been defined by the [place] [employer] and an Endocrine Society practice guideline as a level of serum 25-OH vitamin D less than 20 ng/mL (1,2). The Endocrine Society went on to further define vitamin D insufficiency as a level between 21 and 29 ng/mL (2). 1. IOM ([place] of [employer]). 2010. Dietary reference intakes for calcium and D. [place]: The National Academies Press. 2. Anitra MF, Jason NC, Irene MERLOS, et al. Evaluation, treatment, and prevention of vitamin D deficiency: an Endocrine Society clinical practice guideline. JCEM. 2010; 96(7):1911-30. Performed at: RN - [facility] [address] [id number] Incident Response Consultant: Tonia Paz MD, Phone: [phone] 41 N76.0 42 GRAM STAIN INDETERMINANT FOR BACTERIAL VAGINOSIS 43 MODERATE GR POS. BACILLI SUGGESTIVE OF LACTOBACILLUS SP. 44 MODERATE GRAM VARIABLE COCCOBACILLI 45 RARE GRAM POSITIVE COCCI 46 RARE RARE WHITE BLOOD CELLS 47 R42 N28.1 48 Performed at: [facility] [address] [id number] Incident Response Consultant: Tonia Paz MD, Phone: [phone] 49 Note: Persistent reduction for 3 months or more in an eGFR <60 mL/min/1.73 m2 defines CKD. Patients with eGFR values >/=60 mL/min/1.73 m2 may also have CKD if evidence of persistent proteinuria is present. The original MDRD equation for estimated GFR is not valid for patients less than 18 years of age. Additional information may be found at www.kdoqi.org. 50 Reference Guidelines*: Desirable: ........... < 200 mg/dL Borderline High: ..... 200-239 mg/dL High: ................ >=240 mg/dL * The National Cholesterol Education Program (NCEP) 51 Reference Guidelines*: Normal: ............. < 150 mg/dL Borderline High: .... 150-199 mg/dL High: ............... 200-499 mg/dL Very High: .......... > 500 mg/dL * Source: National Cholesterol Education Program (NCEP) 52 Reference Guidelines*: Low HDL: ..... < 40 mg/dL Normal: ..... 40-60 mg/dL Desirable: ... > 60 mg/dL *The National Cholesterol Education Program(NCEP) 53 Reference Guidelines*: Optimal:........... <100 mg/dL Near Optimal....... 100-129 mg/dL Borderline High.... 130-159 mg/dL High............... 160-189 mg/dL Very High.......... >=190 mg/dL * Source: National Cholesterol Education Program (NCEP) 54 Elevated levels of HbA1c suggest the need for more aggressive treatment of glycemia. The [place] Diabetes Association recommends that a primary goal of therapy should be a HbA1c of <7% and that physicians should re-evaluate the treatment regimen in patients with HbA1c values consistently >8%. 55 Vitamin D deficiency has been defined by the [place] [employer] and an Endocrine Society practice guideline as a level of serum 25-OH vitamin D less than 20 ng/mL (1,2). The Endocrine Society went on to further define vitamin D insufficiency as a level between 21 and 29 ng/mL (2). 1. IOM ([place] of [employer]). 2010. Dietary reference intakes for calcium and D. [place]: The National Academies Press. 2. Anitra SNOW, Jason RINALDI, Irene MERLOS, et al. Evaluation, treatment, and prevention of vitamin D deficiency: an Endocrine Society clinical practice guideline. JCEM. 2010; 96(7):1911-30. Performed at: [facility] [address] [id number] Incident Response Consultant: Tonia Paz MD, Phone: [phone] 56 E66.01 I10 R82.99 57 URINE, CLEAN CATCH 58 INFCE Result Units: mg/g creat Performed at: [facility] [id number] Incident Response Consultant: Tonia Paz MD, Phone: [phone] 59 SEVERE ABD BACK PAIN 60 A negative result for either C. trachomatis and/or N. gonorrhoeae does not preclued an infection because results are dependent on adequate specimen collection, absence of inhibitors, and sufficient DNA to be detected. 61 URINE, CLEAN CATCH 62 K21.9 E78.2 R73.9 63 Reference Guidelines*: Desirable: ........... < 200 mg/dL Borderline High: ..... 200-239 mg/dL High: ................ >=240 mg/dL * The National Cholesterol Education Program (NCEP) 64 Reference Guidelines*: Normal: ............. < 150 mg/dL Borderline High: .... 150-199 mg/dL High: ............... 200-499 mg/dL Very High: .......... > 500 mg/dL * Source: National Cholesterol Education Program (NCEP) 65 Reference Guidelines*: Low HDL: ..... < 40 mg/dL Normal: ..... 40-60 mg/dL Desirable: ... > 60 mg/dL *The National Cholesterol Education Program(NCEP) 66 Reference Guidelines*: Optimal:........... <100 mg/dL Near Optimal....... 100-129 mg/dL Borderline High.... 130-159 mg/dL High............... 160-189 mg/dL Very High.......... >=190 mg/dL * Source: National Cholesterol Education Program (NCEP) 67 Elevated levels of HbA1c suggest the need for more aggressive treatment of glycemia. The [place] Diabetes Association recommends that a primary goal of therapy should be a HbA1c of <7% and that physicians should re-evaluate the treatment regimen in patients with HbA1c values consistently >8%. 68 INFCE Result Units: mg/g creat Performed at: RN - [facility] [place] [address] [place], [place] [id number] Incident Response Consultant: Tonia Paz MD, Phone: [phone] 69 URINE, CLEAN CATCH 70 Note: Persistent reduction for 3 months or more in an eGFR <60 mL/min/1.73 m2 defines CKD. Patients with eGFR values >/=60 mL/min/1.73 m2 may also have CKD if evidence of persistent proteinuria is present. The original MDRD equation for estimated GFR is not valid for patients less than 18 years of age. Additional information may be found at www.kdoqi.org. 71 G80.9 O71.19 R53.82 R60.0 R66.01 72 Note: Persistent reduction for 3 months or more in an eGFR <60 mL/min/1.73 m2 defines CKD. Patients with eGFR values >/=60 mL/min/1.73 m2 may also have CKD if evidence of persistent proteinuria is present. The original MDRD equation for estimated GFR is not valid for patients less than 18 years of age. Additional information may be found at www.kdoqi.org. 73 Performed at: [facility] [place] [address] [place], [place] [id number] Incident Response Consultant: Tonia Paz MD, Phone: [phone] 74 Reference Guidelines*: Desirable: ........... < 200 mg/dL Borderline High: ..... 200-239 mg/dL High: ................ >=240 mg/dL * The National Cholesterol Education Program (NCEP) 75 Reference Guidelines*: Normal: ............. < 150 mg/dL Borderline High: .... 150-199 mg/dL High: ............... 200-499 mg/dL Very High: .......... > 500 mg/dL * Source: National Cholesterol Education Program (NCEP) 76 Reference Guidelines*: Low HDL: ..... < 40 mg/dL Normal: ..... 40-60 mg/dL Desirable: ... > 60 mg/dL *The National Cholesterol Education Program(NCEP) 77 Reference Guidelines*: Optimal:........... <100 mg/dL Near Optimal....... 100-129 mg/dL Borderline High.... 130-159 mg/dL High............... 160-189 mg/dL Very High.......... >=190 mg/dL * Source: National Cholesterol Education Program (NCEP) 78 Elevated levels of HbA1c suggest the need for more aggressive treatment of glycemia. The [place] Diabetes Association recommends that a primary goal of therapy should be a HbA1c of <7% and that physicians should re-evaluate the treatment regimen in patients with HbA1c values consistently >8%. 79 J30.89 80 Test(s) [id number] Cockroach, [place]; [id number] Deni Stanley were developed and had performance characteristics determined by [employer]. These tests have not been cleared or approved by the U.S. Food and Drug Administration. The FDA has determined that such clearance or approval is not necessary. These tests are used for clinical purposes. These should not be regarded as investigational or for research. 81 Levels of Specific IgE Class Description of Class ----- < 0.10 0 Negative 0.10 - 0.31 0/I Equivocal/Low 0.32 - 0.55 I Low 0.56 - 1.40 II Moderate 1.41 - 3.90 III High 3.91 - 19.00 IV Very High 19.01 - 100.00 V Very High >100.00 Very High 82 Performed at: [address] [place] [id number] Incident Response Consultant: Kwasi Henson MD, Phone: [phone] Performed at: RN - [facility] [place] [address] [place], [place] [id number] Incident Response Consultant: Tonia Paz MD, Phone: [phone] 83 E07.9 84 INS HAS STAUBER- BEING FIXED (pittman name) 85 Note: Persistent reduction for 3 months or more in an eGFR <60 mL/min/1.73 m2 defines CKD. Patients with eGFR values >/=60 mL/min/1.73 m2 may also have CKD if evidence of persistent proteinuria is present. The original MDRD equation for estimated GFR is not valid for patients less than 18 years of age. Additional information may be found at www.kdoqi.org. 86 Note: Persistent reduction for 3 months or more in an eGFR <60 mL/min/1.73 m2 defines CKD. Patients with eGFR values >/=60 mL/min/1.73 m2 may also have CKD if evidence of persistent proteinuria is present. The original MDRD equation for estimated GFR is not valid for patients less than 18 years of age. Additional information may be found at www.kdoqi.org. 87 POSSIBLE UROGENITAL CONTAMINATION. 88 CULTURE TO FOLLOW 89 COLONY COUNT ! 40,000-50,000 CFU/ml Organism 1 ! MIXED URETHRAL GIOVANNI 90 POSITIVE FOR GARDNERELLA VAGINALIS 91 NEGATIVE FOR TRICHOMONAS VAGINALIS 92 NEGATIVE FOR EVI SPECIES Testing Performed by: [place] [address] 93 QUERY: @[facility] Pat ID: [id number] QUERY: @[facility] Req #: [id number] 94 QUERY: @[facility] Pat ID: [id number] QUERY: @[facility] Req #: [id number] 95 Negative <6.5 Equivocal 6.5 - 7.9 Positive >7.9 96 Negative <0.9 Indeterminate 0.9 - 1.0 Positive >1.0 Although the presence of Toxo IgM antibodies suggests an acute infection, low levels may persist for many months following infection. 97 Negative <0.91 Equivocal 0.91 - 1.09 Positive >1.09 98 Negative <0.91 Borderline 0.91 - 1.09 Positive >1.09 Performed at: [facility] [place] [address] [place], [place] [id number] Incident Response Consultant: Phil Roque MD, Phone: [phone] 12/26/10 [email or web address] Deleted by [facility] UACOM 100 COLONY COUNT ! >100,000 CFU/ml Organism 1 ! URETHRAL GIOVANNI 101 Negative <0.9 Equivocal 0.9 - 1.1 Positive >1.1 102 Negative <0.9 Equivocal 0.9 - 1.1 Positive >1.1 103 POST GLUCOLA 104 POSSIBLE UROGENITAL CONTAMINATION. 105 PENDING; TEST PERFORMED ON MONDAYS AND THURSDAYS QUERY: @[facility] Pat ID: [id number] QUERY: @[facility] Req #: [id number] QUERY: @[facility] Pat ID: [id number] QUERY: @[facility] Req #: [id number] 106 HBsAg not detected; does not exclude the possibility of exposure to or early acute infections with HBV. 107 QUERY: @[facility] Pat ID: [id number] QUERY: @[facility] Req #: [id number] 108 NEGATIVE FOR CHLAMYDIA TRACHOMATIS BY DNA HYBRIDIZATION ASSAY. THIS TEST IS APPROVED FOR OCULAR AND UROGENITAL SITES ONLY. 109 NEGATIVE FOR NEISSERIA [employer] BY [employer] HYBRIDIZATION ASSAY. THIS METHOD IS APPROVED FOR UROGENITAL SITES ONLY. Procedures Date Code Description Status 09/25/2018 70735 Pressurized/Non-Pressurized Inhalation Treatment,Acute Completed Obstructio 09/04/2018 60295 Event Monitor Inter/Review Only Completed 09/01/2018 10909 EKG-Tracing And Report Completed 07/09/2018 80366 EKG-Tracing And Report Completed 05/15/2018 78050 Echocardiogram Complete Completed 02/25/2018 02049 Pressurized/Non-Pressurized Inhalation Treatment,Acute Completed Obstructio 02/10/2018 83489 EKG-Tracing And Report Completed 12/25/2017 50217 EKG-Tracing And Report Completed 04/18/2017 99974 EKG-Tracing And Report Completed 12/26/2016 04467 Bronchospasm Provocation Evaluation Multi Spirometric Completed Determinati 12/26/2016 89523 Spirometry Completed 01/15/2013 75849 Anesthesia, Nose & Accessory Sinus Surgery Not Otherwise Completed Spec 10/22/2012 62437 EKG-Tracing And Report Completed 10/22/2012 84148 Event Monitor Inter/Review Only Completed 07/08/2011 79949 Anesthesia, Delivery Completed 03/22/2011 27409 Theraputic Or Diagnostic Injection Completed 03/22/2011 01923 For Antepartum 4-6 Total Office Visits Completed 03/20/2011 05939 EKG-Tracing And Report Completed 03/13/2011 83837 For Antepartum 4-6 Total Office Visits Completed 03/13/2011 73189 Non-Stress Test (NST) Completed 02/22/2011 14266 For Antepartum 4-6 Total Office Visits Completed 01/30/2011 22483 For Antepartum 4-6 Total Office Visits Completed 01/04/2011 17843 For Antepartum 4-6 Total Office Visits Completed 12/06/2010 06123 Ultrasound Transvag, Completed 09/06/2009 47615 Echocardiogram Complete Completed 09/06/2009 41195 EKG Interpretation And Report Only Completed Encounters Type Date Location Provider Dx Diagnosis Office Visit 09/25/2018 Primary Care Lorraine Powers MD J02.9 Acute pharyngitis, 11:20a Office unspecified R19.7 Diarrhea, unspecified J01.90 Acute sinusitis, unspecified R05 Cough B37.0 Candidal stomatitis Office Visit 09/16/2018 Primary Care Malathi E03.9 Hypothyroidism, 10:00a Office [place] Velma, unspecified [employer], CNM J02.9 Acute pharyngitis, unspecified R79.89 Other specified abnormal findings of blood chemistry E87.6 Hypokalemia H69.93 Unspecified Eustachian tube disorder, bilateral Office Visit 09/03/2018 10:00a Primary Care Velma Servin, I10 Essential (primary) Office MS, [employer], CNM hypertension Q61.2 Polycystic kidney, adult type [...] unspecified Office Visit 06/30/2018 1:30p Pulmonology Aravind Mancera, 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, uncomplicated G47.33 Obstructive sleep apnea (adult) (pediatric) J30.89 Other allergic rhinitis K21.9 Gastro-esophageal reflux disease without esophagitis Office Visit 04/16/2018 11:00a Primary Care Velma Servin, L29.8 Other pruritus Office , [employer], CNM E87.6 Hypokalemia M25.549 Pain in joints of unspecified hand G47.00 Insomnia, unspecified E66.9 Obesity, unspecified E55.9 Vitamin D deficiency, unspecified Q61.2 Polycystic kidney, adult type Office Visit 04/02/2018 1:00p Primary Care Velma Servin, E87.6 Hypokalemia Office , [employer], CNM E55.9 Vitamin D deficiency, unspecified Q61.2 Polycystic kidney, adult type E66.9 Obesity, unspecified E78.5 Hyperlipidemia, unspecified I10 Essential (primary) hypertension G47.00 Insomnia, unspecified M25.549 Pain in joints of unspecified hand M79.669 Pain in unspecified lower leg Office Visit 03/11/2018 10:00a Primary Care Velma Servin, Z00.00 Encntr for Office MS, [employer], CNM general adult medical exam w/o abnormal findings N76.0 Acute vaginitis I10 Essential (primary) hypertension E66.9 Obesity, unspecified Z71.3 Dietary counseling and surveillance Office Visit 02/25/2018 9:30a Primary Care Velma Servin, J06.9 Acute upper Office MS, [employer], CNM respiratory infection, unspecified J02.9 Acute pharyngitis, [...] Care Velma Servin, Q61.2 Polycystic Office MS, [employer], CNM kidney, adult type I10 Essential (primary) hypertension E66.01 Morbid (severe) obesity due to excess calories E55.9 Vitamin D deficiency, unspecified R60.0 Localized edema 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 E78.2 Mixed hyperlipidemia Office Visit 01/20/2018 11:00a Primary Care Velma Servin, I10 Essential (primary) Office MS, [employer], CNM hypertension Q61.2 Polycystic kidney, adult type E66.01 Morbid (severe) obesity due to excess calories M54.5 Low back pain Z23 Encounter for immunization Office Visit 01/06/2018 10:30a Primary Care Velma Servin, I10 Essential (primary) Office MS, [employer], CNM hypertension R29.6 Repeated falls R42 Dizziness [...] unspecified Office Visit 12/09/2017 2:20p Primary Care Errol Powersa, E66.01 Morbid ( severe) Office MD obesity [...] 04/18/2017 10:00a Cardiology Office Ra Banks 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., FACC syndrome Office Visit 03/28/2017 4:00p Primary [...] immunization Office Visit 01/09/2017 2:00p Pulmonology Aravind Mancera, J45.20 Mild intermittent MD asthma, uncomplicated J30.89 [...] Cardiology Milana Greenfield 785.0 Tachycardia Office Mateusz, MIRELA, Unspec [employer] 796.2 Blood Pressure Reading Elevated W/O Hypertension 278.00 Obesity Unspec Office Visit 03/13/2011 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 Chester Keenan, V22.1 Supervison Of M.DKortney Normal Other V22.1 Supervison Of Normal Other V23.9 High Risk Unspec 654.23 Delivery Previous Antepartum Cond Or Compl 644.03 Premature Labor Threatened Antepartum Cond Or Compl Office Visit 12/06/2010 10:20a 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
[2018-10-27 13:27] VITALS: BP 139/77
--- NOTE | 2018-10-27 13:56 | UC ---
Respiratory Complaint HPI - HPI Summary HPI Summary: Pt presents with c/o of sinus congestion, pressure, productive cough, generalized malaise X 5 dsays. Pt began taking OTC robutussin with no improvement. Pt is concerned about blood streaked productive cough and has HX of asthma. - History of Current Complaint Chief Complaint: UCRespiratory Stated Complaint: UPPER RESPITORY,COUGH,EARS Time Seen by Provider: 10/27/18 13:27 Hx Obtained From: Patient Hx Last Menstrual Period: 10/16/18 ?: No Onset/Duration: Gradual Onset, Lasting Days, Still Present, Worse Since - onset Timing: Constant Severity Initially: Mild Severity Currently: Moderate Pain Intensity: 2 Character: Cough: Productive, Sputum Description: - bright red streaked Aggravating Factors: Deep Breaths, Recumbent Position Alleviating Factors: Nothing Associated Signs And Symptoms: Positive: Chills, Hemoptysis, URI, Nasal Congestion, Sinus Discomfort - Risk Factors Pulmonary Embolism Risk Factors: Negative Cardiac Risk Factors: Negative Pseudomonas Risk Factors: Chronic Lung Disease Tuberculosis Risk Factors: Negative - Allergies/Home Medications Allergies/Adverse Reactions: Allergies Allergy/AdvReac Type Severity Reaction Status Date / Time gabapentin Allergy Severe Coughing Verified 10/27/18 13:21 Adhesive Tape Allergy Intermediate Rash Verified 10/27/18 13:21 NARCOTICS AdvReac See Comment Uncoded 10/27/18 13:21 Home Medications: Home Medications Albuterol HFA INHALER* [Ventolin HFA Inhaler*] 2 puff Q6HR PRN 10/27/18 [ History Confirmed 10/27/18] Benzonatate CAP* [Tessalon 100 MG CAP*] 100 mg PO TID PRN 10/27/18 [History Confirmed 10/27/18] Cholecalciferol TAB* [Vitamin D TAB*] 50,000 unit WEEKLY 10/27/18 [History Confirmed 10/27/18] Fluticasone NASAL SPRAY 50MCG* [Flonase NASAL SPRAY 50MCG*] 2 spray BOTH NARES DAILY 10/27/18 [History Confirmed 10/27/18] Ipratropium Br (Nf)0.03% Nasal [Ipratropium [place]] 1 spray DAILY PRN 10/27/18 [History Confirmed 10/27/18] Levothyroxine TAB* [Synthroid 25 MCG TAB*] 25 mcg PO DAILY 10/27/18 [History Confirmed 10/27/18] Losartan Potassium [Cozaar] 50 mg PO BID 10/27/18 [History Confirmed 10/27/18] Mometasone/Formoter 200/5 MDI* [Dulera 200/5 MDI*] 2 puff INH DAILY 10/27/18 [ History Confirmed 10/27/18] Montelukast Sodium TAB* [Singulair 10 MG TAB*] 10 mg PO DAILY 10/27/18 [History Confirmed 10/27/18] Potassium Chlor TAB* [Potassium Chlor TAB 20 MEQ*] 20 meq PO DAILY 10/27/18 [ History Confirmed 10/27/18] Triamterene/HCTZ 37.5-25 MG* [Dyazide CAP*] 1 tab DAILY 10/27/18 [History Confirmed 10/27/18] amLODIPine TAB* [Norvasc 5 mg TAB*] 5 mg PO DAILY 10/27/18 [History Confirmed ] busPIRone TAB* [Buspar TAB*] 7.5 mg PO TID PRN 10/27/18 [History Confirmed 10/27] raNITIdine HCl [Zantac 75] 1 tab PO BID 10/27/18 [History Confirmed 10/27/18] PMH/Surg Hx/FS Hx/Imm Hx Previously Healthy: No - pt is obeses, uses scooter, has chronic lumg disease and states she "has a Respiratory History: Asthma - Surgical History Surgical History: Yes Surgery Procedure, Year, and Place: INTESTINAL. STOMACH. COLOSTOMY WITH REVERSAL. TENDON LLE. CYSTECTOMY FROM OVARY. TUBAL. CHOLECYSTECTOMY. CYST REMOVED FROM NASAL CAVATY - Family History Known Family History: Positive: Hypertension, Respiratory Disease Negative: Cardiac Disease, Diabetes Family History: no cardiac, cancer history in family - Social History Occupation: Employed Full-time Lives: With Family Alcohol Use: None Substance Use Type: None Smoking Status (MU): Never Smoked Tobacco Have You Smoked in the Last Year: No - Immunization History Most Recent Influenza Vaccination: yes 2016 Most Recent Tetanus Shot: UTD Most Recent Pneumonia Vaccination: N/A Vaccination Up to Date: Yes Review of Systems All Other Systems Reviewed And Are Negative: Yes Constitutional: Positive: Chills, Fatigue Skin: Positive: Negative Eyes: Positive: Negative ENT: Positive: Nasal Discharge, Sinus Congestion Respiratory: Positive: Shortness Of Breath, Cough, Other - productive cough Cardiovascular: Positive: Negative Gastrointestinal: Positive: Negative Genitourinary: Positive: Negative Motor: Positive: Negative Neurovascular: Positive: Negative Musculoskeletal: Positive: Negative Neurological: Positive: Negative Psychological: Positive: Negative Is Patient Immunocompromised?: No Physical Exam Triage Information Reviewed: Yes Appearance: Ill-Appearing, Obese Vital Signs: Initial Vital Signs Temp 98.7 F 10/27/18 13:21 Pulse 92 10/27/18 13:21 Resp 16 10/27/18 13:21 BP 139/77 10/27/18 13:21 Pulse Ox 99 10/27/18 13:21 Vital Signs Reviewed: Yes Eye Exam: Normal ENT: Positive: Nasal congestion, Nasal drainage, TM bulging - right, Sinus tenderness Dental Exam: Normal Neck exam: Normal Respiratory: Positive: Decreased breath sounds - bases bilateral Cardiovascular Exam: Normal Musculoskeletal Exam: Normal Neurological Exam: Normal Psychological Exam: Normal Skin Exam: Normal Respiratory Course/Dx - Differential Dx/Diagnosis Differential Diagnosis/HQI/PQRI: Bronchitis, Influenza, Sinusitis Provider Diagnosis: Sinusitis Discharge - Sign-Out/Discharge Documenting (check all that apply): Patient Departure All imaging exams completed and their final reports reviewed: No Studies - Discharge Plan Condition: Stable Disposition: HOME Prescriptions: Amoxicillin PO (*) [Amoxicillin 875 MG (*)] 875 mg PO Q12H #20 tab Cetirizine* [ZyrTEC 10 MG TAB*] 10 mg PO DAILY #7 tab Fluconazole 150 MG TAB* [Diflucan 150 MG TAB*] 150 mg PO UC ONCE #2 tablet Patient Education Materials: Sinusitis (ED), Acute Cough (ED) Referrals: Lorraine Powers MD [Primary Care Provider] - If Needed - Billing Disposition and Condition Condition: STABLE Disposition: Home
== END 2018-10-27 14:04 | disposition home or self-care (01) ==
LOC: UCCORT 12:17
DX: J32.9 Chronic sinusitis, unspecified (principal); J45.909 Unspecified asthma, uncomplicated; E66.9 Obesity, unspecified
CPT/HCPCS: 99212; G0463

== ENCOUNTER 2018-12-16 12:51 | Emergency (ER) | payer OTHER ==
--- OUTSIDE RECORDS SUMMARY | 2018-12-16 13:24 | XMS REPORT | Continuity of Care Document ---
:1985 External Reference #:[id number] Author Name Velma Servin, MS, [employer]ELDING PROC[employer] ENGINEER-C, CNM Address [address] [place] [address] Care Team Providers Name Role Phone Ra Banks MD [facility] - Care Team Information Animal Daycare Provider [phone] Cardiovascular Disease Lorraine Powers MD - Internal Medicine Care Team Information Animal Daycare Provider [phone] [facility] Physical Therapy/[address] Care Team Information Animal Daycare Provider [phone] [address] [place] [facility] - Nurse Care Team Information Animal Daycare Provider [phone] Practitioner Alin Obrien MD - Neurology Care Team Information Animal Daycare Provider Jessica Deras NP - Nurse Care Team Information Animal Daycare Provider [phone] Practitioner Problems Active Problems Provider Date Palpitations Ra Banks M.D., Onset: 10/22/2012 [facility] Dyspnea Ra Banks M.D., Onset: 10/22/2012 [facility] Migraine variants, not intractable Ra Banks M.D., Onset: 2012 [facility] Infantile cerebral palsy Heavenly Mcclendon [...] QT syndrome Ra Banks M.D., Onset: 04/18/2017 [facility] Neck pain Lorraine Powers MD Onset: 05/15/2017 Other specified myotonic disorders Lorraine Powers MD Onset: 05/15/2017 Otitis media Lorraine Powers MD Onset: 09/09/2017 Acquired renal cystic disease Lorraine Powers MD Onset: 12/09/2017 Benign neoplasm of skin of face Lorraine Powers MD Onset: 12/09/2017 Cyst of left ovary Lorraine Powers MD Onset: 12/09/2017 Hyperlipidemia Ra Banks M.D., Onset: 02/10/2018 [facility] Hypothyroidism Lorraine Powers MD Onset: 07/16/2018 Electrocardiogram abnormal Ra Banks M.D., Onset: 10/20/2018 [facility] Tachycardia Ra Banks M.D., Onset: 10/20/2018 [facility] Social History Type Date Description Comments Sex Unknown Tobacco Use Start: Unknown Never Smoked Cigarettes Smoking Status Reviewed: 12/10/18 Never Smoked Cigarettes ETOH Use Denies alcohol use Tobacco Use Start: Unknown Patient has never smoked Recreational Drug Use Denies Drug Use Exercise Type/Frequency Exercises rarely Allergies, Adverse Reactions, Alerts Description No Known Drug Allergies Medications Active Medications SIG Qnty Indications Ordering Date Provider Vitamin D take one capsule 16caps Lorraine Powers, 12/11/2018 (Ergocalciferol) once a week [id number] Capsules Amlodipine Besylate 1 by mouth every I10 Darren, 12/08/2018 5mg day Ra Esparza M.D., Tablets [facility] Cephalexin 1 by mouth three 30tabs R31.9 Lorraine Powers, 12/01/2018 500mg Tablets times a day Losartan Potassium Take 2 tablets 60tabs I10 Lorraine Powers, 10/24/2018 25mg twice a day by Tablets mouth every day Levothyroxine Sodium 1 tab by mouth 30tabs Lorraine Powers, 07/02/2018 every day 25mcg Tablets Montelukast Sodium take 1 tablet by 30tabs J45.30 Aravind Mancera, 06/30/2018 10mg mouth once daily Tablets Hydrocortisone Use sparingly to 118ml L29.8 Gagen, 04/16/2018 2.5% lower back and Velma, , Lotion shoulder area for 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 dx: Moderate persistent asthma Ipratropium Bullard use 2 sprays in 15ml J06.9 Gagen, 02/25/2018 0.06% each nostril MS Velma, Solution twice a day as [employer]ELDING PROC[employer] ENGINEER[employer], CNM needed Nebulizer use nebulizer 1units J45.40 Gagen, 02/25/2018 Kit/Tubing/Mouthpiece with albuterol q Velma MS, 6 hrs as needed [employer] ENG[employer], CNM Kit wheezing/ SOB Vitamin D take 1 capsule by 4caps Lorraine Powers, 01/22/2018 (Ergocalciferol) mouth every week [id number] Capsules Zantac 75 1 tab by mouth 180tabs Lorraine Powers, 01/15/2018 75mg Tablets twice a day Omron 7 Series Blood use daily as 1units I10 Gagen, 01/06/2018 Pressure Monitor directed to MS Velma, Device monitor bp/ WELDING PROC[employer] ENGINEER-C, CNM dx:htn PT/OT Eval For Power PT/OT eval for 1units G80.9 Lorraine Powers, 09/24/2017 Mobility Device power mobility device G71.19 R26.89 Motorized Power Device Motorized power mobility Apolinar71.19 Lorraine Powers MD 09/09/2017 scooter G80.9 R26.89 Roller Walker use wide set Heavy Duty 1units G71.19 Lorraine Powers MD [facility] 4 wheel walker with seat for ambulation G80.9 Albuterol Sulfate nebulized every 6 hours as 75ml oLrraine Powers, 2016 needed for MD (2.5mg/3ML) 0.083% sob/cough/wheezing Nebulizer Dulera inhale 1 puff by mouth 13units Lorraine Powers, 09/14/2016 200-5mcg/Act twice a day MD Aerosol Zyrtec Allergy 1 tab by mouth every night 30tabs Gagen, 08/28/2016 10mg Velma, MS, Tablets [employer]ING PROC[employer] ENGINEER-C, CNM Ventolin HFA 1-2 puffs every 4-6 hours 8gm Gagen, as needed Velma, MS, 108(90Base) mcg/Act [employer]ING PROC[employer] ENGINEER-C, CNM Aerosol Tylenol Extra 1-2 tabs by mouth every 4 Unknown Strength hours as needed 500mg Tablets Flonase Allergy 1 spray to both nostrils 9.900ml Gagen, Relief daily. Velma, MS, 50mcg/Act [employer]ELDING PROC[employer] ENGINEER-C, CNM Suspension Buspirone HCL 1 tab by mouth Am, PM and 90tabs Lorraine Powers, 7.5mg two at QHS daily MD Tablets CBD/THC Aerosol [place] Unknown History Medications Metronidazole Apply to external 45gm R30.0 Lorraine Powers, 12/05/2018 - 0.75% Gel genitalia bid x 7 MD 12/12/2018 days Amlodipine Besylate 1 by mouth every 30tabs I10 Lorraine Powers, 12/05/2018 - 2.5mg day MD 12/08/2018 Tablets Cyclobenzaprine HCL take one tablet 20tabs Lorraine Powers, 11/21/2018 - 7.5mg twice a day as 11/21/2018 Tablets needed Cyclobenzaprine HCL take 1 tablet by 20tabs Lorraine Powers, 11/21/2018 - 10mg mouth two times a MD 12/01/2018 Tablets day as needed for muscle spasms Ondansetron 1 tab by mouth one 30tabs Lorraine Powers, 09/25/2018 - 4mg Tablets time a day as Unknown Dispers needed for nausea Nystatin 5 milliliters by 473ml Lorraine Powers, 09/25/2018 - [id number]/ML mouth every 6hrs; 10/22/2018 Suspension swish in mouth for several minutes and spit for 14 days Amoxicillin/Clavulanat 1 tab by mouth 20tabs J01.90 Lorraine Powers, 2018 - e Potassium q12hrs for 10 days Unknown 875-125mg Tablets Probiotic Acidophilus 1 cap by mouth 30caps Lorraine Powers, 09/25/2018 - every day while on 10/22/2018 Capsules antibiotic Ergocalciferol take one a week 16caps E55.9 Lorraine Powers, 09/03/2018 - [id number] Unknown Capsules Potassium Chloride 1 tab by mouth 30tabs Lorraine Powers, 07/16/2018 - Tiffany ER three times a day 12/01/2018 20Meq Tablets ER Immunizations CPT Code Status Date Vaccine Reaction Lot # [id number] Given 01/20/2018 Influenza Virus Vaccine, Quadrivalent, 36 [id number] Mos+, .5ML 83788 Given 02/11/2017 Influenza Virus Vaccine Quadrivalent Iiv4 [place] [id number] [address] Given 08/28/2016 Pneumovax Injection [id number] 74128 Given 03/22/2011 flu vaccination 84103 Given 03/22/2011 flu vaccination [id number] Vital Signs Date Vital Result Comment 12/08/2018 11:30am BP Systolic Sitting Right Arm 162 mmHg BP Diastolic Sitting Right Arm 84 mmHg 12/05/2018 10:11am BP Systolic Sitting Left Arm 170 mmHg BP Diastolic Sitting Left Arm 98 mmHg Body Temperature 99.6 F Heart Rate 83 /min Respiratory Rate 22 /min Height 61 inches 5'1" Weight 354.00 lb previous BMI (Body Mass Index) 66.9 kg/m2 BSA (Body Surface Area) 2.41 m2 [place] body weight in kilograms 48 kg O2 % BldC Oximetry 97 % Ra Results Test Date Facility Test Result H/L Range Note Urine Culture 12/05/2018 [facility] Urine ENTEROCOCCUS GABO Abnormal 1, [address] Culture <SEE NOTE> [place] [address] [phone] Quantity < 10,000 CFU/mL Affirm 12/05/2018 [facility] Trichomonas Negative [Negative] Vaginitis [address] vaginalis Panel [place] [address] [phone] Gardnerella vaginalis Negative [Negative] Evi species Negative [Negative] 3 Genital Culture W/ 12/05/2018 [facility] Gram Stain FEW GR POS. BACI [address]ain [address] <SEE NOTE> [place] [address] [phone] Gram Stain GRAM STAIN INDIC <SEE NOTE> 5 Genital Culture GENITAL GIOVANNI [id number] 12/05/2018 [facility] Penicillin G [address] [place] [address] [phone] Tetracycline <=1 Susceptible Nitrofurantoin <=16 Susceptible Ampicillin <=2 Susceptible Ciprofloxacin 1 Susceptible Levofloxacin 1 Susceptible Vancomycin 1 Susceptible Urine Dipstick 12/05/2018 [facility] Ua Color yellow Yellow Ua Clarity cloudy Clear Ua Leuko negative Negative Ua Nitrite negative Negative Ua Urobilinogen 0.2 0.2 - 1.0 E.U./dL Ua Protein 1+ High Negative Ua PH 5.5 Low 6.5-7.5 Ua Blood negative Negative Ua Specific [place] 1.030 1.010-1.030 Ua Ketones negative Negative Ua Bilirubin negative Negative Ua Glucose negative Negative Ua RFX Micro & Culture 12/01/2018 [facility] Urine Color YELLOW Yellow 6 II [address] [place] [address] [phone] Urine Clarity TURBID Clear Urine Glucose - Dipstick NEGATIVE mg/dL Negative Urine Bilirubin - Dipstick SMALL Abnormal Negative Urine Ketone NEGATIVE mg/dL Negative Urine Specific [place] >=1.030 Normal 1.010-1.030 Urine Blood SMALL Abnormal Negative Urine PH 5.5 Low 6.5-7.5 Urine Protein - Dipstick 30 mg/dL High Negative Urine Urobilinogen - Dipstick 0.2 E.U./dL Normal 0.2-1.0 Urine Nitrite - Dipstick NEGATIVE Negative Urine Leuk Esterase NEGATIVE Negative Urine RBC 2-5 rbc/hpf 0-2 Urine WBC NONE SEEN wbc/hpf 0-7 Urine Epithelial Cells FEW /lpf None Seen Urine Bacteria FEW None Seen Urine Amorph Sediment LARGE Negative Source: URINE, CLEAN CAT <SEE NOTE> 7 Urine Dipstick 12/01/2018 [facility] Ua Color yellow Yellow Ua Clarity cloudy Clear Ua Leuko negative Negative Ua Nitrite negative Negative Ua Urobilinogen 0.2 0.2 - 1.0 E.U./dL Ua Protein 2+ High Negative Ua PH 5.5 Low 6.5-7.5 Ua Blood 1+ High Negative Ua Specific [place] 1.030 1.010-1.030 Ua Ketones trace Negative Ua Bilirubin negative Negative Ua Glucose negative Negative Ua RFX Micro & Culture 11/28/2018 [facility] Urine Color YELLOW Yellow [address] [place] [address] [phone] Urine Clarity CLEAR Clear Urine Glucose - Dipstick NEGATIVE mg/dL Negative Urine Bilirubin - Dipstick NEGATIVE Negative Urine Ketone NEGATIVE mg/dL Negative Urine Specific [place] >=1.030 Normal 1.010-1.030 Urine Blood NEGATIVE Negative Urine PH 5.5 Low 6.5-7.5 Urine Protein - Dipstick NEGATIVE mg/dL Negative Urine Urobilinogen - Dipstick 0.2 E.U./dL Normal 0.2-1.0 Urine Nitrite - Dipstick NEGATIVE Negative Urine Leuk Esterase NEGATIVE Negative Protein/Creatinine 11/28/2018 [facility] Creatinine,Urine 283.8 Not Ratio,Urine [address] mg/[place] [address] [phone] Protein,Total,Urine 15.0 mg/dL Not Estab. Protein/Creatinine Ratio 53 MG/GCRE 0-200 9 CBC W/Automated 11/28/2018 [facility] White Blood 6.8 K/uL Normal 3.1-10.[address] [place] [address] [phone] Red Blood Count 4.75 M/uL Normal 3.90-5.40 Hemoglobin 12.8 gm/dL Normal 11.6-15.8 Hematocrit 40.1 % Normal 36.0-46.1 Mean Cell Volume 84.4 fl Normal 80.9-99.0 Mean Corpuscular HGB 26.9 pg Normal 25.9-32.7 Mean Corpuscular HGB Conc 31.9 g/dL Normal 30.8-34.3 Platelet Count 293 K/uL Normal 155-360 Red Cell Distri Width SD 46.4 fl Normal 36-47 Red Cell Distri Width %CV 15.2 % High 11.7-14.4 Mean Platelet Volume 8.9 fl Normal 8.9-12.4 Neut% 67.1 % Normal 40.4-72.8 Lymph % 24.1 % Normal 20.0-42.0 Metcalfe % 4.9 % Normal 4.3-13.2 Eo% 2.5 % Normal 0.0-6.6 Bas% 0.7 % Normal 0.0-1.1 Immature Grans 0.7 % Normal 0.0-5.0 NRBC % 0.0 /100WBC < 10/ 100 WBC Neut# 4.53 K/uL Normal 1.8-7.0 Lymph # 1.63 K/uL Normal 1.0-4.0 Metcalfe # 0.33 K/uL Normal 0.3-0.9 Eos # 0.17 K/uL Normal 0.0-0.5 Baso # 0.05 K/uL Normal 0.0-0.1 Immature Grans Absolute 0.05 K/uL NRBC # 0.00 K/uL Comprehensive 11/28/2018 [facility] Glucose 103 mg/dL Normal 74-106 Metabolic Panel [address] [place] [address] [phone] BUN 14 mg/dL Normal 7-18 Creatinine 1.0 mg/dL Normal 0.6-1.3 Glom Filtration Rate, Estimate >60 mL/min >60 If >60 mL/min >60 10 BUN/Creat 14.0 ratio Sodium 140 mmol/L Normal 136-145 Potassium 3.8 mmol/L Normal 3.5-5.1 Chloride 106 mmol/L Normal 98-107 Carbon Dioxide 26 mmol/L Normal 21-32 Anion Gap 8 mEq/L Normal 8-16 Calcium 9.0 mg/dL Normal 8.5-10.1 Total Protein 7.2 g/dL Normal 6.4-8.2 Albumin 3.5 g/dL Normal 3.4-5.0 Globulin 3.7 g/dL Normal 1.9-4.3 Alb/Glob 0.9 ratio Bilirubin,Total 0.5 mg/dL Normal 0.2-1.0 Sgot/Ast 38 U/L High 15-37 SGPT/Alt 70 U/L Normal 12-78 Alkaline Phosphatase 69 U/L Normal 45-117 LDL Cholesterol Profile 11/28/2018 [facility] Cholesterol 196 mg/dL <200 11 [address] [place] [address] [phone] Triglycerides 166 mg/dL High <150 12 HDL Cholesterol 39 mg/dL Low >40 13 LDL-Cholesterol 124 mg/dL < 100 14 Laboratory 11/28/2018 [facility] Vitamin 20.6 Low 30.0-100.0 15 test finding [address] D,25-Hydroxy ng/[place] [address] [phone] CBC 11/20/2018 [facility] White Blood 7.0 K/uL Normal 3.1-10.7 16 W/Automated [address] [place] [address] [phone] Red Blood Count 4.27 M/uL Normal 3.90-5.40 Hemoglobin 11.6 gm/dL Normal 11.6-15.8 Hematocrit 36.0 % Normal 36.0-46.1 Mean Cell Volume 84.3 fl Normal 80.9-99.0 Mean Corpuscular HGB 27.2 pg Normal 25.9-32.7 Mean Corpuscular HGB Conc 32.2 g/dL Normal 30.8-34.3 Platelet Count 235 K/uL Normal 155-360 Red Cell Distri Width SD 46.3 fl Normal 36-47 Red Cell Distri Width %CV 15.0 % High 11.7-14.4 Mean Platelet Volume 8.8 fl Low 8.9-12.4 Neut% 62.5 % Normal 40.4-72.8 Lymph % 29.8 % Normal 20.0-42.0 Metcalfe % 4.2 % Low 4.3-13.2 Eo% 2.7 % Normal 0.0-6.6 Bas% 0.4 % Normal 0.0-1.1 Immature Grans 0.4 % Normal 0.0-5.0 NRBC % 0.0 /100WBC < 10/ 100 WBC Neut# 4.36 K/uL Normal 1.8-7.0 Lymph # 2.08 K/uL Normal 1.0-4.0 Metcalfe # 0.29 K/uL Low 0.3-0.9 Eos # 0.19 K/uL Normal 0.0-0.5 Baso # 0.03 K/uL Normal 0.0-0.1 Immature Grans Absolute 0.03 K/uL NRBC # 0.00 K/uL Comprehensive Metabolic 11/20/2018 [facility] Glucose 111 mg/dL High 74-106 Panel [address] [place], [place] [id number] [phone] BUN 18 mg/dL Normal 7-18 Creatinine 1.0 mg/dL Normal 0.6-1.3 Glom Filtration Rate, Estimate >60 mL/min >60 If >60 mL/min >60 17 BUN/Creat 18.0 ratio Sodium 144 mmol/L Normal 136-145 Potassium 3.9 mmol/L Normal 3.5-5.1 Chloride 112 mmol/L High 98-107 Carbon Dioxide 26 mmol/L Normal 21-32 Anion Gap 6 mEq/L Low 8-16 Calcium 8.6 mg/dL Normal 8.5-10.1 Total Protein 6.4 g/dL Normal 6.4-8.2 Albumin 3.2 g/dL Low 3.4-5.0 Globulin 3.2 g/dL Normal 1.9-4.3 Alb/Glob 1.0 ratio Bilirubin,Total 0.2 mg/dL Normal 0.2-1.0 Sgot/Ast 29 U/L Normal 15-37 SGPT/Alt 55 U/L Normal 12-78 Alkaline Phosphatase 63 U/L Normal 45-117 Aot Request 10/28/2018 [facility] Aot Request Test(s) added 18, 19 [address] [place], [place] [id number] [phone] Tests to be added: magnesium crp CBC W/Automated 10/28/2018 [facility] White 8.4 K/uL Normal 3.1-10.7 20 Diff [address] [place] [address] Count [phone] Red Blood Count 4.67 M/uL Normal 3.90-5.40 Hemoglobin 12.7 gm/dL Normal 11.6-15.8 Hematocrit 39.1 % Normal 36.0-46.1 Mean Cell Volume 83.7 fl Normal 80.9-99.0 Mean Corpuscular HGB 27.2 pg Normal 25.9-32.7 Mean Corpuscular HGB Conc 32.5 g/dL Normal 30.8-34.3 Platelet Count 270 K/uL Normal 155-360 Red Cell Distri Width SD 45.1 fl Normal 36-47 Red Cell Distri Width %CV 15.0 % High 11.7-14.4 Mean Platelet Volume 8.9 fl Normal 8.9-12.4 Neut% 73.3 % High 40.4-72.8 Lymph % 19.9 % Low 20.0-42.0 Metcalfe % 3.7 % Low 4.3-13.2 Eo% 2.0 % Normal 0.0-6.6 Bas% 0.5 % Normal 0.0-1.1 Immature Grans 0.6 % Normal 0.0-5.0 NRBC % 0.0 /100WBC < 10/ 100 WBC Neut# 6.16 K/uL Normal 1.8-7.0 Lymph # 1.67 K/uL Normal 1.0-4.0 Metcalfe # 0.31 K/uL Normal 0.3-0.9 Eos # 0.17 K/uL Normal 0.0-0.5 Baso # 0.04 K/uL Normal 0.0-0.1 Immature Grans Absolute 0.05 K/uL NRBC # 0.00 K/uL Comprehensive 10/20/2018 [facility] Glucose 79 mg/dL Normal 74-106 21 Metabolic Panel [address] [place], [place] [id number] [phone] BUN 16 mg/dL Normal 7-18 Creatinine 1.0 mg/dL Normal 0.6-1.3 Glom Filtration Rate, Estimate >60 mL/min >60 If >60 mL/min >60 22 BUN/Creat 16.0 ratio Sodium 140 mmol/L Normal 136-145 Potassium 3.0 mmol/L Low 3.5-5.1 Chloride 104 mmol/L Normal 98-107 Carbon Dioxide 25 mmol/L Normal 21-32 Anion Gap 11 mEq/L Normal 8-16 Calcium 9.1 mg/dL Normal 8.5-10.1 Total Protein 7.5 g/dL Normal 6.4-8.2 Albumin 3.6 g/dL Normal 3.4-5.0 Globulin 3.9 g/dL Normal 1.9-4.3 Alb/Glob 0.9 ratio Bilirubin,Total 0.4 mg/dL Normal 0.2-1.0 Sgot/Ast 53 U/L High 15-37 SGPT/Alt 82 U/L High 12-78 Alkaline Phosphatase 70 U/L Normal 45-117 CBC W/Automated 10/20/2018 [facility] White Blood 6.6 K/uL Normal 3.1-10.[address] [place] [address] [phone] Red Blood Count 4.86 M/uL Normal 3.90-5.40 Hemoglobin 13.6 gm/dL Normal 11.6-15.8 Hematocrit 41.3 % Normal 36.0-46.1 Mean Cell Volume 85.0 fl Normal 80.9-99.0 Mean Corpuscular HGB 28.0 pg Normal 25.9-32.7 Mean Corpuscular HGB Conc 32.9 g/dL Normal 30.8-34.3 Platelet Count 291 K/uL Normal 155-360 Red Cell Distri Width SD 46.1 fl Normal 36-47 Red Cell Distri Width %CV 15.2 % High 11.7-14.4 Mean Platelet Volume 9.5 fl Normal 8.9-12.4 Neut% 64.6 % Normal 40.4-72.8 Lymph % 27.7 % Normal 20.0-42.0 Metcalfe % 4.1 % Low 4.3-13.2 Eo% 2.4 % Normal 0.0-6.6 Bas% 0.6 % Normal 0.0-1.1 Immature Grans 0.6 % Normal 0.0-5.0 NRBC % 0.0 /100WBC < 10/ 100 WBC Neut# 4.23 K/uL Normal 1.8-7.0 Lymph # 1.82 K/uL Normal 1.0-4.0 Metcalfe # 0.27 K/uL Low 0.3-0.9 Eos # 0.16 K/uL Normal 0.0-0.5 Baso # 0.04 K/uL Normal 0.0-0.1 Immature Grans Absolute 0.04 K/uL NRBC # 0.00 K/uL Laboratory test 10/20/2018 [facility] Vitamin 18.9 Low 30.0-100.0 [address] D,25-Hydroxy ng/[place] [address] [phone] LDL Cholesterol 10/20/2018 [facility] Cholesterol 181 <200 [address] mg/[place] [address] [phone] Triglycerides 174 mg/dL High <150 25 HDL Cholesterol 39 mg/dL Low >40 26 LDL-Cholesterol 107 mg/dL < 100 27 Prothrombin time 10/03/2018 N2N/CCD Import Prothrombin time 13.7 12.0- 14.4 (PT) in platelet (PT) in platelet poor plasma poor plasma Platelet poor plasma 10/03/2018 N2N/CCD Import Platelet poor 1.1 0.9- 1.1 international plasma normalized rati international normalized ratio (Inr) by coagulation assay (relative time) Serum or plasma 10/03/2018 N2N/CCD Import Serum or plasma 103 74-106 glucose measurement glucose measurement (mass/volume) (mass/volume) Serum or plasma urea 10/03/2018 N2N/CCD Import Serum or plasma 14 7-18 nitrogen measurement urea nitrogen (mass/vo measurement (mass/volume) Serum or plasma 10/03/2018 N2N/CCD Import Serum or plasma 1.1 0.6-1.3 creatinine creatinine measurement measurement (mass/volum (mass/volume) Estimated glomerular 10/03/2018 N2N/CCD Import Estimated 60 >60 filtration rate glomerular (GFR) non-Afr filtration rate (GFR) non- GFR/Bsa pred.black 10/03/2018 N2N/CCD Import GFR/Bsa pred.black >60 >60 SerPl MDRD-ArVRat SerPl MDRD-ArVRat Serum or plasma urea 10/03/2018 N2N/CCD Import Serum or plasma 12.7 nitrogen/creatinine urea mass rati nitrogen/creatinine mass ratio Sodium SerPl-sCnc 10/03/2018 N2N/CCD Import Sodium SerPl-sCnc 141 136- 145 Serum or plasma 10/03/2018 N2N/CCD Import Serum or plasma 3.4 Low 3.5- 5.1 potassium potassium measurement measurement Serum or plasma 10/03/2018 N2N/CCD Import Serum or plasma 106 98-107 chloride measurement chloride measurement Co2 SerPl-sCnc 10/03/2018 N2N/CCD Import Co2 SerPl-sCnc [...] or plasma 64 45-117 alkaline phosphatase alkaline measurement ( phosphatase measurement (enzymatic activity/volume) Capillary blood 10/03/2018 N2N/CCD Import Capillary blood 118 High 70- 110 glucose measurement glucose measurement by glucometer by glucometer (mass/volume) Blood erythrocytes 10/03/2018 N2N/CCD Import Blood erythrocytes 4.80 3.90-5.40 automated count automated count (number/volume) (number/volume) Automated leukocyte 10/03/2018 N2N/CCD Import Automated leukocyte 7.7 3.1-10.7 count count (number/volume) (number/volume) Laboratory test 10/03/2018 [facility] CK 369 U/L High 26-192 28 finding [address] [place] [address] [phone] Troponin-I < 0.015 ng/mL 29 Comprehensive 10/03/2018 [facility] Glucose 103 mg/dL Normal 74-106 Metabolic Panel [address] [place] [address] [phone] BUN 14 mg/dL Normal 7-18 Creatinine 1.1 mg/dL Normal 0.6-1.3 Glom Filtration Rate, Estimate 60 mL/min >60 If >60 mL/min >60 30 BUN/Creat 12.7 ratio Sodium 141 mmol/L Normal 136-145 Potassium 3.4 mmol/L Low 3.5-5.1 Chloride 106 mmol/L Normal 98-107 Carbon Dioxide 28 mmol/L Normal 21-32 Anion Gap 7 mEq/L Low 8-16 Calcium 8.9 mg/dL Normal 8.5-10.1 Total Protein 7.0 g/dL Normal 6.4-8.2 Albumin 3.5 g/dL Normal 3.4-5.0 Globulin 3.5 g/dL Normal 1.9-4.3 Alb/Glob 1.0 ratio Bilirubin,Total 0.3 mg/dL Normal 0.2-1.0 Sgot/Ast 31 U/L Normal 15-37 SGPT/Alt 68 U/L Normal 12-78 Alkaline Phosphatase 64 U/L Normal 45-117 Laboratory 10/03/2018 [facility] Act Partial 26.3 Normal 23.4-35.0 31 test finding [address] [place] [address] Time [phone] Protime 10/03/2018 [facility] Protime 13.7 Normal 12.0-14.[address] seconds [place], [place] [address] [phone] Inr 1.1 Normal 0.9-1.1 32 CBC W/Automated 10/03/2018 [facility] White Blood 7.7 K/uL Normal 3.1-10.[address] Count [place], [place] [id number] [phone] Red Blood Count 4.80 M/uL Normal 3.90-5.40 Hemoglobin 13.3 gm/dL Normal 11.6-15.8 Hematocrit 40.5 % Normal 36.0-46.1 Mean Cell Volume 84.4 fl Normal 80.9-99.0 Mean Corpuscular HGB 27.7 pg Normal 25.9-32.7 Mean Corpuscular HGB Conc 32.8 g/dL Normal 30.8-34.3 Platelet Count 296 K/uL Normal 155-360 Red Cell Distri Width SD 44.2 fl Normal 36-47 Red Cell Distri Width %CV 14.6 % High 11.7-14.4 Mean Platelet Volume 8.9 fl Normal 8.9-12.4 Neut% 62.3 % Normal 40.4-72.8 Lymph % 28.1 % Normal 20.0-42.0 Metcalfe % 5.9 % Normal 4.3-13.2 Eo% 2.6 % Normal 0.0-6.6 Bas% 0.4 % Normal 0.0-1.1 Immature Grans 0.7 % Normal 0.0-5.0 NRBC % 0.0 /100WBC < 10/ 100 WBC Neut# 4.79 K/uL Normal 1.8-7.0 Lymph # 2.16 K/uL Normal 1.0-4.0 Metcalfe # 0.45 K/uL Normal 0.3-0.9 Eos # 0.20 K/uL Normal 0.0-0.5 Baso # 0.03 K/uL Normal 0.0-0.1 Immature Grans Absolute 0.05 K/uL NRBC # 0.00 K/uL Blood hemoglobin 10/03/2018 N2N/CCD Import Blood hemoglobin 13.3 11.6- 15.8 measurement measurement (mass/volume) (mass/volume) Hct VFr Bld Auto 10/03/2018 N2N/CCD Import Hct VFr Bld Auto 40.5 36.0- 46.1 Automated 10/03/2018 N2N/CCD Import Automated 84.4 80.9-99.0 erythrocyte mean erythrocyte mean corpuscular corpuscular volume (MCV volume (MCV) measurement Automated 10/03/2018 N2N/CCD [...] Import Automated 44.2 36-47 erythrocyte erythrocyte distribution distribution width width Automated 10/03/2018 N2N/CCD Import Automated 14.6 High 11.7-14.4 erythrocyte erythrocyte distribution distribution width ratio width ratio Automated blood 10/03/2018 N2N/CCD Import Automated blood 0.00 nucleated nucleated erythrocyte erythrocyte count (count count (count/volume) Automated blood 10/03/2018 N2N/CCD Import Automated blood 0.05 immature immature granulocyte granulocyte count (number count (number/volume) Automated blood 10/03/2018 N2N/CCD Import Automated blood 0.03 0.0-0.1 basophil count basophil count (number/volume) (number/volume) Automated blood 10/03/2018 N2N/CCD Import Automated blood 0.20 0.0-0.5 eosinophil count eosinophil count Blood monocytes 10/03/2018 N2N/CCD Import Blood monocytes 0.45 0.3-0.9 automated count automated count (number/volume) (number/volume) Automated blood 10/03/2018 N2N/CCD Import Automated blood 2.16 1.0-4.0 lymphocyte count lymphocyte count (number/volume) (number/volume) Absolute 10/03/2018 N2N/CCD Import Absolute 4.79 1.8-7.0 neutrophil count neutrophil count Automated blood 10/03/2018 N2N/CCD Import Automated blood 8.9 8.9-12.4 platelet mean platelet mean volume volume measurement measurement Automated blood 10/03/2018 N2N/CCD Import Automated blood 62.3 40.4- 72.8 neutrophils/100 neutrophils/100 leukocytes leukocytes Automated blood 10/03/2018 N2N/CCD Import Automated blood 28.1 20.0- 42.0 lymphocytes/100 lymphocytes/100 leukocytes leukocytes Automated 10/03/2018 N2N/CCD Import Automated 5.9 4.3-13.2 monocyte % monocyte % Automated 10/03/2018 N2N/CCD Import Automated 2.6 0.0-6.6 eosinophil % eosinophil % Automated 10/03/2018 N2N/CCD Import Automated 0.4 0.0-1.1 basophil % basophil % Automated blood 10/03/2018 N2N/CCD Import Automated blood 0.7 0.0-5.0 immature immature granulocyte granulocyte count as perc count as percentage of total leukocytes Automated blood 10/03/2018 N2N/CCD Import Automated blood 0.0 < 10/ 100 nucleated nucleated WBC erythrocyte erythrocyte count as per count as percentage of total leukocytes Bacterial throat 09/25/2018 N2N/CCD Import Bacterial throat Normal culture culture Throat Giovanni Throat Culture 09/25/2018 [facility] Throat Culture NORMAL 33, Complete [address] Complete THROAT [address] [place] [address] <SEE NOTE> [phone] Throat Culture 09/16/2018 [facility] Throat Culture NORMAL [address] [place] [place] [address] <SEE NOTE> [phone] Urine 09/15/2018 N2N/CCD Import Urine 167 0-200 protein/creatini protein/creatini ne mass ratio ne mass ratio Urine protein 09/15/2018 N2N/CCD Import Urine protein 47.4 Not Estab. measurement measurement (mass/volume) (mass/volume) Urine creatinine 09/15/2018 N2N/CCD Import Urine creatinine 284.6 Not Estab. measurement measurement (mass/volume) (mass/volume) Urine leukocyte 09/15/2018 N2N/CCD Import Urine leukocyte Negative Negative esterase esterase detection by detection by automated te automated test strip Urine nitrite 09/15/2018 N2N/CCD Import Urine nitrite Negative Negative detection by detection by automated test automated test strip strip Urine 09/15/2018 N2N/CCD Import Urine 0.2 0.2-1.0 urobilinogen urobilinogen measurement measurement (units/volume) (units/volume) by t by test strip Urine appearance 09/15/2018 N2N/CCD Import Urine appearance Cloudy Clear determination determination Urine color 09/15/2018 N2N/CCD Import Urine color Yellow Yellow determination determination Protein/Creatini 09/15/2018 [facility] Creatinine,Urine 284.6 mg/dL Not Estab. 36 ne Ratio,Urine [address] [place] [address] [phone] Protein,Total,Urine 47.4 mg/dL Not Estab. Protein/Creatinine Ratio 167 MG/GCRE 0-200 37 Ua RFX Micro & Culture 09/15/2018 [facility] Urine Color YELLOW Yellow II [address] [place], [place] [id number] [phone] Urine Clarity CLOUDY Clear Urine Glucose - Dipstick NEGATIVE mg/dL Negative Urine Bilirubin - Dipstick NEGATIVE Negative Urine Ketone NEGATIVE mg/dL Negative Urine Specific [place] >=1.030 Normal 1.010-1.030 Urine Blood TRACE Negative Urine PH 5.5 Low 6.5-7.5 Urine Protein - Dipstick 30 mg/dL High Negative Urine Urobilinogen - Dipstick 0.2 E.U./dL Normal 0.2-1.0 Urine Nitrite - Dipstick NEGATIVE Negative Urine Leuk Esterase NEGATIVE Negative Source: URINE, CLEAN CAT <SEE NOTE> 38 Laboratory test 09/15/2018 [facility] CK 284 U/L High 26-192 finding [address] [place] [address] [phone] Basic Metabolic Panel 09/15/2018 [facility] Glucose 103 mg/dL Normal 74-106 [address] [place] [address] [phone] BUN 16 mg/dL Normal 7-18 Creatinine 1.1 mg/dL Normal 0.6-1.3 Glom Filtration Rate, Estimate 60 mL/min >60 If >60 mL/min >60 39 BUN/Creat 14.5 ratio Sodium 139 mmol/L Normal 136-145 Potassium 3.3 mmol/L Low 3.5-5.1 Chloride 105 mmol/L Normal 98-107 Carbon Dioxide 24 mmol/L Normal 21-32 Anion Gap 10 mEq/L Normal 8-16 Calcium 9.3 mg/dL Normal 8.5-10.1 Laboratory test 09/15/2018 [facility] Thyroid 3.83 Normal 0.30-4.20 finding [address] Stim uIU/[place] [address] Hormone [phone] Free T4 1.23 ng/dL Normal 0.76-1.46 Urine glucose 09/15/2018 N2N/CCD Import Urine glucose [...] automated test automated test strip strip (mass/volume) Serum or plasma 07/15/2018 N2N/CCD Import Serum or plasma 15.9 Low 30.0- 100.0 25-hydroxyvitami 25-hydroxyvitami n D measurement n D measurement (m (mass/volume) Blood estimated 07/15/2018 N2N/CCD Import Blood [...] [facility] Thyroid Stim 3.57 uIU/mL Normal 0.30-4.20 40 And/Or FT3 [address] [place] [address] [phone] Reflex add FT3? N Reflex add FT4? Y Glycohemoglobin 07/15/2018 [facility] Glycohemoglobin 5.4 % Normal 4.2-6.[address] (A1c) [place], [place] [address] [phone] eAG 108 mg/dL Laboratory test 07/15/2018 [facility] Vitamin 15.9 Low 30.0-100.0 [address] D,25-Hydroxy ng/[place] [address] [phone] LDL Cholesterol 07/15/2018 [facility] Cholesterol 189 <[address] mg/[place] [address] [phone] Triglycerides 162 mg/dL High <150 44 HDL Cholesterol 41 mg/dL >40 45 LDL-Cholesterol 116 mg/dL < 100 46 Reflex add FT3? N Reflex add FT4? Y Comprehensive 07/15/2018 [facility] Glucose 101 mg/dL Normal 74-106 Metabolic Panel [address] [place] [address] [phone] BUN 17 mg/dL Normal 7-18 Creatinine 1.0 mg/dL Normal 0.6-1.3 Glom Filtration Rate, Estimate >60 mL/min >60 If >60 mL/min >60 47 BUN/Creat 17.0 ratio Sodium 140 mmol/L Normal 136-145 Potassium 3.2 mmol/L Low 3.5-5.1 Chloride 106 mmol/L Normal 98-107 Carbon Dioxide 26 mmol/L Normal 21-32 Anion Gap 8 mEq/L Normal 8-16 Calcium 9.5 mg/dL Normal 8.5-10.1 Total Protein 7.4 g/dL Normal 6.4-8.2 Albumin 3.6 g/dL Normal 3.4-5.0 Globulin 3.8 g/dL Normal 1.9-4.3 Alb/Glob 0.9 ratio Bilirubin,Total 0.3 mg/dL Normal 0.2-1.0 Sgot/Ast 31 U/L Normal 15-37 SGPT/Alt 68 U/L Normal 12-78 Alkaline Phosphatase 64 U/L Normal 45-117 Reflex add FT3? N Reflex add FT4? Y CBC W/Automated 07/15/2018 [facility] White Blood 7.3 K/uL Normal 3.1-10.[address] [place] [address] [phone] Red Blood Count 4.84 M/uL Normal 3.90-5.40 Hemoglobin 13.2 gm/dL Normal 11.6-15.8 Hematocrit 40.8 % Normal 36.0-46.1 Mean Cell Volume 84.3 fl Normal 80.9-99.0 Mean Corpuscular HGB 27.3 pg Normal 25.9-32.7 Mean Corpuscular HGB Conc 32.4 g/dL Normal 30.8-34.3 Platelet Count 289 K/uL Normal 155-360 Red Cell Distri Width SD 47.5 fl High 36-47 Red Cell Distri Width %CV 15.7 % High 11.7-14.4 Mean Platelet Volume 9.3 fL Normal 8.9-12.4 Neut% 63.6 % Normal 40.4-72.8 Lymph % 29.5 % Normal 20.0-42.0 Metcalfe % 4.8 % Normal 4.3-13.2 Eo% 1.8 % Normal 0.0-6.6 Bas% 0.3 % Normal 0.0-1.1 Neut# 4.61 K/uL Normal 1.8-7.0 Lymph # 2.14 K/uL Normal 1.0-4.0 Metcalfe # 0.35 K/uL Normal 0.3-0.9 Eos # 0.13 K/uL Normal 0.0-0.5 Baso # 0.02 K/uL Normal 0.0-0.1 1 R30.0 2 ENTEROCOCCUS FAECALIS 3 Method: BD Affirm VPIII DNA Probe Assay 4 FEW GR POS. BACILLI SUGGESTIVE OF LACTOBACILLUS SP. 5 GRAM STAIN INDICATES NORMAL GENITAL GIOVANNI 6 R31.9 7 URINE, CLEAN CATCH 8 R79.89 9 INFCE Result Units: mg/g creat Performed at: RN - [facility] [address] [id number] African History Professor: Tonia Paz MD, Phone: [phone] Note: Persistent reduction for 3 months or more in an eGFR <60 mL/min/1.73 m2 defines CKD. Patients with eGFR values >/=60 mL/min/1.73 m2 may also have CKD if evidence of persistent proteinuria is present. The original MDRD equation for estimated GFR is not valid for patients less than 18 years of age. Additional information may be found at www.kdoqi.org. 11 Reference Guidelines*: Desirable: ........... < 200 mg/dL Borderline High: ..... 200-239 mg/dL High: ................ >=240 mg/dL * The National Cholesterol Education Program (NCEP) 12 Reference Guidelines*: Normal: ............. < 150 mg/dL Borderline High: .... 150-199 mg/dL High: ............... 200-499 mg/dL Very High: .......... > 500 mg/dL * Source: National Cholesterol Education Program (NCEP) 13 Reference Guidelines*: Low HDL: ..... < 40 mg/dL Normal: ..... 40-60 mg/dL Desirable: ... > 60 mg/dL *The National Cholesterol Education Program(NCEP) 14 Reference Guidelines*: Optimal:........... <100 mg/dL Near Optimal....... 100-129 mg/dL Borderline High.... 130-159 mg/dL High............... 160-189 mg/dL Very High.......... >=190 mg/dL * Source: National Cholesterol Education Program (NCEP) 15 Vitamin D deficiency has been defined by the [employer] of [employer] and an Endocrine Society practice guideline as a level of serum 25-OH vitamin D less than 20 ng/mL (1,2). The Endocrine Society went on to further define vitamin D insufficiency as a level between 21 and 29 ng/mL (2). 1. IOM (Melissa of Medicine). 2010. Dietary reference intakes for calcium and D. [place]: The National Academies Press. 2. Anitra MF, Jason NC, Irene MERLOS, et al. Evaluation, treatment, and prevention of vitamin D deficiency: an Endocrine Society clinical practice guideline. JCEM. 2010; 96(7):1911-30. Performed at: RN - [facility] [address] [id number] African History Professor: Tonia Paz MD, Phone: [phone] DIZZINESS 17 Note: Persistent reduction for 3 months or more in an eGFR <60 mL/min/1.73 m2 defines CKD. Patients with eGFR values >/=60 mL/min/1.73 m2 may also have CKD if evidence of persistent proteinuria is present. The original MDRD equation for estimated GFR is not valid for patients less than 18 years of age. Additional information may be found at www.kdoqi.org. 18 CHEST PAIN 19 Tests: magnesium crp Instructions: 20 CHEST FEELS HEAVY, LIGHT HEADED 21 R7.89 22 Note: Persistent reduction for 3 months or more in an eGFR <60 mL/min/1.73 m2 defines CKD. Patients with eGFR values >/=60 mL/min/1.73 m2 may also have CKD if evidence of persistent proteinuria is present. The original MDRD equation for estimated GFR is not valid for patients less than 18 years of age. Additional information may be found at www.kdoqi.org. 23 Vitamin D deficiency has been defined by the [employer] of [employer] and an Endocrine Society practice guideline as a level of serum 25-OH vitamin D less than 20 ng/mL (1,2). The Endocrine Society went on to further define vitamin D insufficiency as a level between 21 and 29 ng/mL (2). 1. IOM (Melissa of Medicine). 2010. Dietary reference intakes for calcium and D. [place]: The National Academies Press. 2. Anitra MF, Jason RINALDI, Irene MERLOS, et al. Evaluation, treatment, and prevention of vitamin D deficiency: an Endocrine Society clinical practice guideline. JCEM. 2010; 96(7):1911-30. Performed at: RN - [facility] [address] [id number] African History Professor: Tonia Paz MD, Phone: [phone] 24 Reference Guidelines*: Desirable: ........... < 200 mg/dL Borderline High: ..... 200-239 mg/dL High: ................ >=240 mg/dL * The National Cholesterol Education Program (NCEP) 25 Reference Guidelines*: Normal: ............. < 150 mg/dL Borderline High: .... 150-199 mg/dL High: ............... 200-499 mg/dL Very High: .......... > 500 mg/dL * Source: National Cholesterol Education Program (NCEP) 26 Reference Guidelines*: Low HDL: ..... < 40 mg/dL Normal: ..... 40-60 mg/dL Desirable: ... > 60 mg/dL *The National Cholesterol Education Program(NCEP) 27 Reference Guidelines*: Optimal:........... <100 mg/dL Near Optimal....... 100-129 mg/dL Borderline High.... 130-159 mg/dL High............... 160-189 mg/dL Very High.......... >=190 mg/dL * Source: National Cholesterol Education Program (NCEP) 28 ?STROKE 29 0.0 - 0.045 ng/mL: Normal 0.046 [...] information may be found at www.kdoqi.org. 31 Is patient on anticoagulants? Coumadin 32 THERAPEUTIC INR RANGE: 2.0 - 3.0 DVT, Pulmonary embolus, prophylaxis against venous thrombosis or systemic embolization in high risk patients. 2.5 - 3.5 Mechanical heart valves 33 J02.9 34 NORMAL THROAT GIOVANNI 35 NORMAL THROAT GIOVANNI 36 Q61.2 E03.9 M62.82 37 INFCE Result Units: mg/g creat Performed at: RN - [facility] [address] [id number] African History Professor: Tonia Paz MD, Phone: [phone] URINE, CLEAN CATCH 39 Note: Persistent reduction for 3 months or more in an eGFR <60 mL/min/1.73 m2 defines CKD. Patients with eGFR values >/=60 mL/min/1.73 m2 may also have CKD if evidence of persistent proteinuria is present. The original MDRD equation for estimated GFR is not valid for patients less than 18 years of age. Additional information may be found at www.kdoqi.org. 40 E87.6 E55.9 41 Elevated levels of HbA1c suggest the need for more aggressive treatment of glycemia. The [place] Diabetes Association recommends that a primary goal of therapy should be a HbA1c of <7% and that physicians should re-evaluate the treatment regimen in patients with HbA1c values consistently >8%. 42 Vitamin D deficiency has been defined by the [employer] of Medicine and an Endocrine Society practice guideline as a level of serum 25-OH vitamin D less than 20 ng/mL (1,2). The Endocrine Society went on to further define vitamin D insufficiency as a level between 21 and 29 ng/mL (2). 1. IOM (Melissa of Medicine). 2010. Dietary reference intakes for calcium and D. [place]: The National Academies Press. 2. Anitra MF, Jason NC, Irene MERLOS, et al. Evaluation, treatment, and prevention of vitamin D deficiency: an Endocrine Society clinical practice guideline. JCEM. 2010; 96(7):1911-30. Performed at: RN - [facility] [address] [id number] African History Professor: Tonia Paz MD, Phone: [phone] 43 Reference Guidelines*: Desirable: ........... < 200 mg/dL Borderline High: ..... 200-239 mg/dL High: ................ >=240 mg/dL * The National Cholesterol Education Program (NCEP) 44 Reference Guidelines*: Normal: ............. < 150 mg/dL Borderline High: .... 150-199 mg/dL High: ............... 200-499 mg/dL Very High: .......... > 500 mg/dL * Source: National Cholesterol Education Program (NCEP) 45 Reference Guidelines*: Low HDL: ..... < 40 mg/dL Normal: ..... 40-60 mg/dL Desirable: ... > 60 mg/dL *The National Cholesterol Education Program(NCEP) 46 Reference Guidelines*: Optimal:........... <100 mg/dL Near Optimal....... 100-129 mg/dL Borderline High.... 130-159 mg/dL High............... 160-189 mg/dL Very High.......... >=190 mg/dL * Source: National Cholesterol Education Program (NCEP) 47 Note: Persistent reduction for 3 months or more in an eGFR <60 mL/min/1.73 m2 defines CKD. Patients with eGFR values >/=60 mL/min/1.73 m2 may also have CKD if evidence of persistent proteinuria is present. The original MDRD equation for estimated GFR is not valid for patients less than 18 years of age. Additional information may be found at www.kdoqi.org. Procedures Date Code Description Status 12/08/2018 42336 EKG-Tracing And Report Completed 10/20/2018 11224 EKG-Tracing And Report Completed 09/25/2018 42684 Pressurized/Non-Pressurized Inhalation Treatment,Acute Completed Obstructio 09/04/2018 03570 Event Monitor Inter/Review Only Completed 09/01/2018 65487 EKG-Tracing And Report Completed 07/09/2018 43775 EKG-Tracing And Report Completed Medical Devices Description No Information Available Encounters Type Date Location Provider Dx Diagnosis Office Visit 12/08/2018 Cardiology Office Ra Banks I10 Essential ( primary) 11:00a Rio Esparza, [facility] hypertension Office Visit 12/05/2018 Primary Care Komal, R30.0 Dysuria 10:00a Office MAL Do I10 Essential (primary) hypertension Office Visit 12/01/2018 11:00a Primary Care Velma Servin, R31.9 Hematuria, Office MS, [employer]INEER[employer], CNM unspecified Q61.2 Polycystic kidney, adult type I10 Essential (primary) hypertension R73.9 Hyperglycemia, unspecified R94.5 Abnormal results of liver function studies N92.0 Excessive and frequent menstruation with regular cycle M54.5 Low back pain E55.9 Vitamin D deficiency, unspecified Office Visit 10/22/2018 11:00a Primary Care Lorraine Powers, Q61.2 Polycystic kidney, Office adult type E78.5 Hyperlipidemia, unspecified I10 Essential (primary) hypertension 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 G43.009 Migraine w/o aura, not intractable, w/o status migrainosus E87.6 Hypokalemia E55.9 Vitamin D deficiency, unspecified K76.0 Fatty (change of) liver, not elsewhere classified Office 10/20/2018 Cardiology Darren, R94.31 Abnormal Visit 11:40a Office Ra Esparza M.D., electrocardiogram [facility] [ECG] [EKG] R00.0 Tachycardia, unspecified I45.81 Long QT syndrome Office Visit 09/25/2018 11:20a Primary Care Lorraine Powers, J02.9 Acute pharyngitis, Office MD unspecified R19.7 Diarrhea, unspecified J01.90 Acute sinusitis, unspecified R05 Cough B37.0 Candidal stomatitis Office Visit 09/16/2018 Primary Care Malathi, E03.9 Hypothyroidism, 10:00a Office Velma, MS, unspecified [employer] ENGINEER[employer], CNM J02.9 Acute pharyngitis, unspecified R79.89 Other specified abnormal findings of blood chemistry E87.6 Hypokalemia H69.93 Unspecified Eustachian tube disorder, bilateral Office Visit 09/03/2018 10:00a Primary Care Velma Servin, I10 Essential (primary) Office MS, [employer] ENGINEER-C, CNM hypertension Q61.2 Polycystic kidney, adult type 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 E55.9 Vitamin D deficiency, unspecified R42 Dizziness and giddiness Office Visit 07/16/2018 10:00a Primary Care Lorraine Powers, I10 Essential ( primary) Office hypertension Q61.2 Polycystic kidney, adult type E03.9 Hypothyroidism, unspecified 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 Office Visit 07/09/2018 9:30a Cardiology Office Ra Banks I45.81 Long QT Rio Esparza, FACC syndrome R07.9 Chest pain, unspecified Office Visit 06/30/2018 1:30p Pulmonology Aravind Mancera, 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, uncomplicated G47.33 Obstructive sleep apnea (adult) (pediatric) J30.89 Other allergic rhinitis K21.9 Gastro-esophageal reflux disease without esophagitis Assessments Date Code Description Provider 12/08/2018 I10 Essential (primary) hypertension Ra Banks M.D., FACC 12/05/2018 R30.0 Dysuria Ansley Sauceda PA 12/05/2018 I10 Essential (primary) hypertension Ansley Sauceda PA 12/01/2018 R31.9 Hematuria, unspecified Velma Servin MS, [employer] PROC[employer] ENGINEER-C, [facility] 12/01/2018 Q61.2 Polycystic kidney, adult type Velma Servin MS, [employer] PROC[employer] ENGINEER-C, [facility] 12/01/2018 I10 Essential (primary) hypertension Velma Servin MS, [employer] PROC[employer] ENGINEER-C, [facility] 12/01/2018 R73.9 Hyperglycemia, unspecified Velma Servin, , [employer] PROC[employer] ENGINEER-C, [facility] 12/01/2018 R94.5 Abnormal results of liver function Velma Servin MS, studies [employer] ENGINEER[employer], [facility] 12/01/2018 N92.0 Excessive and frequent menstruation Velma Servin MS, with regular cycle [employer] PROC[employer] ENGINEER[employer], [facility] 12/01/2018 M54.5 Low back pain Velma Servni MS, [employer] PROC[employer] ENGINEER-C, [facility] 12/01/2018 E55.9 Vitamin D deficiency, unspecified Velma Servin MS, [employer] PROC[employer] ENGINEER-C, [facility] 10/28/2018 R00.2 Palpitations Tanya Pond M.D. 10/28/2018 R09.02 Hypoxemia Tanya Pond M.D. 10/28/2018 F41.9 Anxiety disorder, unspecified Tanya Pond M.D. 10/28/2018 Z53.21 Procedure and treatment not carried Tanya Pond M.D. out due to patient leaving prior to being seen by health care provider 10/22/2018 Q61.2 Polycystic kidney, adult type Lorraine Powers MD 10/22/2018 E78.5 Hyperlipidemia, unspecified Lorraine Powers MD 10/22/2018 I10 Essential (primary) hypertension Lorraine Powers MD 10/22/2018 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 Lorraine Powers MD 10/22/2018 G43.009 Migraine without aura, not Lorraine Powers MD intractable, without status migra 10/22/2018 E87.6 Hypokalemia Lorraine Powers MD 10/22/2018 E55.9 Vitamin D deficiency, unspecified Lorraine Powers MD 10/22/2018 K76.0 Fatty (change of) liver, not elsewhere Lorraine Powers MD classified 10/20/2018 R94.31 Abnormal electrocardiogram [ECG] [EKG] Ra Banks M.D., [facility] 10/20/2018 R00.0 Tachycardia, unspecified Ra Banks M.D., [facility] 10/20/2018 I45.81 Long QT syndrome Ra Banks M.D., [facility] 09/25/2018 J02.9 Acute pharyngitis, unspecified Lorraine Powers MD 09/25/2018 R19.7 Diarrhea, unspecified Lorraine Powers MD 09/25/2018 J01.90 Acute sinusitis, unspecified Lorraine Powers MD 09/25/2018 R05 Cough Lorraine Powers MD 09/25/2018 B37.0 Candidal stomatitis Lorraine Powers MD 09/16/2018 E03.9 Hypothyroidism, unspecified Velma Servin, MS, [employer]ELDING PROC[employer] ENGINEER-C, [facility] 09/16/2018 J02.9 Acute pharyngitis, unspecified Velma Servin, MS, [employer]ELDING PROC[employer] ENGINEER-C, [facility] 09/16/2018 R79.89 Other specified abnormal findings of RebeccaVelma lee, MS , blood chemistry [employer]ELDING PROCESS ENGINEER-C, [facility] 09/16/2018 E87.6 Hypokalemia Velma Servin, MS, [employer]ELDING PROC[employer] ENGINEER-C, [facility] 09/16/2018 H69.93 Unspecified Eustachian tube disorder, RebeccaVelma lee, MS, bilateral [employer]ELDING PROC[employer] ENGINEER-C, [facility] 09/04/2018 R00.1 Bradycardia, unspecified Sushant Wan MD 09/03/2018 I10 Essential (primary) hypertension Velma Servin MS, WELDING PROCESS ENGINEER-C, [facility] 09/03/2018 Q61.2 Polycystic kidney, adult type Velma Servin MS, WELDING PROCESS ENGINEER-C, [facility] 09/03/2018 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 Velma Servin, MS, WELDING PROCESS ENGINEER-C, [facility] 09/03/2018 E55.9 Vitamin D deficiency, unspecified Velma Servin, MS, [employer]ELDING PROCESS ENGINEER-C, [facility] 09/03/2018 R42 Dizziness and giddiness Velma Servin, MS, WELDING PROCESS ENGINEER-C, CN 09/01/2018 I10 Essential (primary) hypertension Sushant Wan MD 07/16/2018 I10 Essential (primary) hypertension Lorraine Powers MD 07/16/2018 Q61.2 Polycystic kidney, adult type Lorraine Powers MD 07/16/2018 E03.9 Hypothyroidism, unspecified Lorraine Powers MD 07/16/2018 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 Lorraine Powers MD 07/09/2018 I45.81 Long QT syndrome Sushant Wan MD 07/09/2018 I45.81 Long QT syndrome Ra Banks M.D., [facility] 07/09/2018 R07.9 Chest pain, unspecified Sushant Wan MD 07/09/2018 R07.9 Chest pain, unspecified Ra Banks M.D., [facility] 06/30/2018 J45.30 Mild persistent asthma, uncomplicated Aravind aMncera MD 06/30/2018 G47.33 Obstructive sleep apnea (adult) Aravind Mancera MD (pediatric) 06/30/2018 J30.89 Other allergic rhinitis Aravind Mancera MD 06/30/2018 K21.9 Gastro-esophageal reflux disease Aravind Mancera MD without esophagitis Plan of Treatment Future Appointment(s):01/19/2019 10:00 am - Milana Greenfield, MIRELA, WELDING PROCESS ENGINEER at Cardiology [id number]/05/2018 - Ansley Sauceda, PAR30.0 DysuriaNew Medication:Metronidazole 0.75 % - Apply to external genitalia bid x 7 daysComments:Urine dip shows protein only. This is a chronic finding. Currently on CephalexinWill send cx.Send vaginal cx, affirm. Will empirically start Metronidazole.Follow up:Follow-up as [id number] Essential (primary) hypertensionNew Medication:Amlodipine Besylate 2.5 mg - 1 by mouth every dayComments:Previously on Amlodipine. With persistently elevated BP, will have pt restart med at low dose.Follow up:Follow-up next week as scheduled Functional Status Functional Condition Comment Date Status Dependent with all ADL's Active Electric wheelchair is used to ambulate Active Mental Status Description No Information Available Referrals Refer to Reason for Referral Status Appt Date Jhonatan Andrews MD polycystic kidney disease Created [address] [place] [address] [phone] Alin Obrien MD Electrical myotonia, morbid obesity Scheduled 04/15 Scooter bound.Muscle spasms, pain, neuropathic pain Gene test negative for muscular dystrophy Hx of cerebral palsy Hx Migraines Recent admission for slurred speech, neg imaging thought to be due to complex migraines possibly? vs TIA. give magnesium. Has long QT syndrome. pls send hospital records, previous note, images, labs, gene test result for dystrophy, [facility] note 10/23/18 faxed notes... [address] [place] [address] [phone] Moses Beckwith MD Electrical myotonia, morbid obesity Scheduled 2018 [employer].Muscle spasms, pain, neuropathic pain Chronic pain -cannot taked NSAIDS due to suspicion for polycystic kidney disease, has not tolerated muscle relaxants and gabapentin caused cough Sees [facility]. Has also seen Rheum. Interested in medica marijuana eval [address] [place] [address] [phone]
--- OUTSIDE RECORDS SUMMARY | 2018-12-16 13:25 | XMS REPORT | Continuity of Care Document ---
:1985 External Reference #:[id number] Author Name Graciela Guerin Care Team Providers Name Role Phone Lorraine Powers MD Care Team Information Personnel Analyst Unavailable Lorraine Powers MD Primary Care Physician Unavailable Payers Date Identification Numbers Payment Provider Subscriber Effective: 2009 Policy Number: [id number] [employer] Ginna Pittman PayID: [id number] [address] [place] [address] Effective: 2009 Policy Number: [id number] Medicaid Ginna Pittman Expires: 2012 PayID: [id number] [address] [place] [address] Problems Active Problems Provider Date Palpitations Ra Banks M.D., Onset: 10/22/2012 [facility] Dyspnea Ra Banks M.D., Onset: 10/22/2012 [facility] Migraine variants, not intractable Ra Banks M.D., Onset: 2012 [facility] Infantile cerebral palsy Heavenly Mcclendon MD [...] QT syndrome Ra Banks M.D., Onset: 04/18/2017 [facility] Neck pain Lorraine Powers MD Onset: 05/15/2017 Other specified myotonic disorders Lorraine Powers MD Onset: 05/15/2017 Otitis media Lorraine Powers MD Onset: 09/09/2017 Acquired renal cystic disease Lorraine Powers MD Onset: 12/09/2017 Benign neoplasm of skin of face Lorraine Powers MD Onset: 12/09/2017 Cyst of left ovary Lorraine Powers MD Onset: 12/09/2017 Hyperlipidemia Ra Banks M.D., Onset: 02/10/2018 [facility] Hypothyroidism Lorraine Powers MD Onset: 07/16/2018 Electrocardiogram abnormal Ra Banks M.D., Onset: 10/20/2018 [facility] Tachycardia Ra Banks M.D., Onset: 10/20/2018 [facility] Family History Date Family Member(s) Observation [...] Patient is currently sexually active Age 1st [place] 16 Years Old # Partners in a Lifetime 2 Allergies, Adverse Reactions, Alerts Description No Known Drug Allergies Medications Active Medications SIG Qnty Indications Ordering Date Provider Amlodipine Besylate 1 by mouth every I10 Darren, 12/08/2018 5mg day Ra Esparza M.D., Tablets FACC Metronidazole Apply to external 45gm R30.0 Lorraine Powers, 12/05/2018 0.75% Gel genitalia bid x 7 MD days Cephalexin 1 by mouth three 30tabs R31.9 Lorraine Powers, 12/01/2018 500mg Tablets times a day MD Losartan Potassium Take 2 tablets 60tabs I10 Lorraine Powers, 10/24/2018 25mg twice a day by MD Tablets mouth every day Levothyroxine Sodium 1 tab by mouth 30tabs Lorraine Powers, 07/02/2018 every day 25mcg Tablets Montelukast Sodium take 1 tablet by 30tabs J45.30 Aravind Mancera, 06/30/2018 10mg mouth once daily MD Tablets Hydrocortisone Use sparingly to 118ml L29.8 Gagen, 04/16/2018 2.5% lower back and Velma, MS, Lotion shoulder area for [employer]-C, CNM severe itching two times a day Klor-Con M20 Take one tablet 60tabs E87.6 Gagen, 04/02/2018 20Meq twice a day Velma, MS, Tablets ER [employer]-C, CNM Nebulizer use nebulizer 1units J45.40 Gagen, 02/25/2018 Kit/Tubing/Mouthpiece with albuterol q Velma, MS, 6 hrs as needed [employer]-C, CNM Kit wheezing/ SOB Ipratropium [place] use 2 sprays in 15ml J06.9 Gagen, 02/25/2018 0.06% each nostril Velma, MS, Solution twice a day as [employer]C, CNM needed Nebulizer Compressor The Patient is 1units Gagen, 02/25/2018 using albuterol Velma, MS, Misc nebulizer [employer]-C, CNM treatments and needs the compressor. dx: Moderate persistent asthma Vitamin D take 1 capsule by 4caps Lorraine Powers, 01/22/2018 (Ergocalciferol) mouth every week [id number] Capsules Zantac 75 1 tab by mouth 180tabs Lorraine Powers, 01/15/2018 75mg Tablets twice a day Omron 7 Series Blood use daily as 1units I10 [place]ag[place]a, 01/06/2018 Pressure Monitor directed to MS Velma, Device monitor bp/ [employer]C, CNM dx:htn PT/OT Eval For Power PT/OT eval for 1units G80.9 Lorraine Powers, 09/24/2017 Mobility Device power mobility device G71.19 R26.89 Motorized Power Device Motorized power mobility Apolinar71.19 Lorraine Powers MD 09/09/2017 scooter G80.9 R26.89 Roller Walker use wide set Heavy Duty 1units G71.19 Lorraine Powers MD Mis 4 wheel walker with seat for ambulation G80.9 Albuterol Sulfate nebulized every 6 hours as 75ml Lorraine Powers, 2016 needed for MD (2.5mg/3ML) 0.083% sob/cough/wheezing Nebulizer Dulera inhale 1 puff by mouth 13units Lorraine Powers, 09/14/2016 200-5mcg/Act twice a day Aerosol Zyrtec Allergy 1 tab by mouth every night 30tabs Gagen, 08/28/2016 10mg MS Velma, Tablets [employer], CNM CBD/THC Aerosol [place] Unknown Buspirone HCL 1 tab by mouth Am, PM and 90tabs Lorraine Powers, 7.5mg two at QHS daily Tablets Flonase Allergy 1 spray to both nostrils 9.900ml Gagen, Relief daily. MS Velma, 50mcg/Act [employer], CNM Suspension Tylenol Extra 1-2 tabs by mouth every 4 Unknown Strength hours as needed 500mg Tablets Ventolin HFA 1-2 puffs every 4-6 hours 8gm Gagen, as needed MS Velma, 108(90Base) mcg/Act [employer], CNM Aerosol History Medications Amlodipine Besylate 1 by mouth every 30tabs I10 Lorraine Powers, 12/05/2018 - 2.5mg day 12/08/2018 Tablets Cyclobenzaprine HCL take one tablet [...] milliliters by 473ml Lorraine Powers, 09/25/2018 - [id number]/ML mouth every 6hrs; 10/22/2018 Suspension swish in [...] week 16caps E55.9 Lorraine Powers, 09/03/2018 - [id number] Unknown Capsules Potassium Chloride 1 tab by mouth 30tabs Lorraine Powers, 07/16/2018 - Tiffany ER three times a day 12/01/2018 20Meq Tablets ER Ergocalciferol take one a week 12caps E55.9 Gagen, 04/02/2018 - [id number] Velma, 07/16/2018 Capsules MS, [employer], CNM Trazodone HCL start with 1/2 30tabs G47.00 Gagen, 04/02/2018 - 50mg tablet every at Velma, 07/16/2018 Tablets bedtime after 2 MS, [employer], CNM weeks, may increase to one tablet Metrogel-Vaginal use in vagina for 70gm Gagen, 03/15/2018 - 0.75% 5 nights. no Velma, 04/02/2018 Gel alcohol during use MS, [employer], CNM and 2 days after Benzonatate take one capsule 30caps R05 Gagen, 02/25/2018 - 200mg every 8 hours as Velma, 03/11/2018 Capsules needed MS, [employer], CNM Ciprodex 4 drops in right 7.500ml H66.91 Gagen, 02/25/2018 - 0.3-0.1% ear twice a day Velma, 03/11/2018 Suspension for 7 days MS, [employer], CNM Prednisone 2 tabs (40 mg) 10tabs J02.9 Gagen, 02/25/2018 - 20mg Tablets daily for 5 days Velma, 03/11/2018 MS, [employer], CNM Atorvastatin Calcium take 1 tablet by 90tabs Gagen, 01/24/2018 - 20mg mouth once daily Velma, 07/02/2018 Tablets MS, [employer], CNM Rosuvastatin Calcium Take one every day 30tabs Gagen, 01/21/2018 - 10mg Velma, 01/24/2018 Tablets MS, [employer], CNM Losartan Potassium 1 by mouth 1 60tabs I10 Priya, Lorraine, 01/20/2018 - 50mg tablet twice a day 10/24/2018 Tablets Losartan Potassium Take 1/2 tablet 45tabs I10 Gagen, 01/09/2018 - 50mg (25 mg) in pm and Velma, 01/20/2018 Tablets take 1 tablet MS, [employer], CNM (50MG) in am Amoxicillin/Clavulanat 1 tab by mouth 20tabs J01.90 Priya Lorraine, 2017 - e Potassium q12hrs for 10 days 01/20/2018 875-125mg Tablets Amlodipine Besylate take 1 tablet by 30tabs I10 Priya, Lorraine, 12/17/2017 - 5mg mouth once daily MD 12/05/2018 Tablets Losartan Potassium 1 tab by mouth 60tabs I10 Priya, Lorraine, 12/09/2017 - 50mg twice a day MD 01/06/2018 Tablets Amoxicillin 1 tab by mouth 14caps Priya, Lorraine, 12/09/2017 - 500mg twice a day x 7 MD Unknown Capsules days Chlorzoxazone take one tablet by 90tabs Priya, Lorraine, 11/22/2017 - 500mg mouth two times a MD Unknown Tablets day Chlorzoxazone 1 tab three times 90tabs Errol Powersa, 11/21/2017 - 250mg a day 11/22/2017 Tablets Metaxalone 1 tab by mouth 90tabs Errol Powersa, 11/19/2017 - 400mg Tablets three times a day 11/21/2017 Valsartan 1 tab by mouth 30tabs Errol Powersa, 09/09/2017 - 80mg Tablets every day MD 09/09/2017 Amoxicillin 1 tab by mouth 20tabs Errol Powersa, 09/09/2017 - 500mg Tablets q12hrs x10 days Unknown Methocarbamol 1 tab by mouth 90tabs Lorraine Powers, 06/03/2017 - 750mg every 8 hours as 11/19/2017 Tablets needed muscle pain Lyrica 1 tab by mouth 90caps Errol Powersa, 05/29/2017 - 100mg Capsules three times a day 06/04/2017 mdd 3 Gabapentin 2 by mouth three Errol Powersa, 05/15/2017 - 100mg Capsules times a day 06/04/2017 Cheratussin ac 5ml by mouth every 236ml Lorraine Powers, 05/15/2017 - 4 hour as needed 09/09/2017 100-10mg/5ML Syrup cough Diazepam 1 tab by mouth 1 1tabs Lorraine Powers, 04/01/2017 - 2mg Tablets hour prior to MRI Unknown Tizanidine HCL 1 by mouth once in 30tabs Lorraine Powers, 02/11/2017 - 2mg evening for back Unknown Tablets pain/muscle spasms Omeprazole 1 by mouth every 30caps Errol Powersa, 02/11/2017 - 40mg Capsules day 01/15/2018 DR Prednisone 2 tabs (40 mg) 10tabs J20.9 Errol Powersa, 12/20/2016 - 20mg Tablets daily for 5 days Unknown for shortness of breath/wheezing Benzonatate 1 tab by mouth 90caps Priya Lorraine, 12/05/2016 - 100mg every 8 hours for 03/11/2018 Capsules cough Furosemide take 1 tablet by 30tabs Errol Powersa, 11/21/2016 - 20mg Tablets mouth once daily 07/16/2018 if needed Trazodone HCL take 1 tablet by 30tabs Lorraine Powers, 10/02/2016 - 50mg mouth at bedtime MD Unknown Tablets for sleep Dulera take one puff 8.800gm Lorraine Powers, 09/03/2016 - 100-5mcg/Act twice daily 09/14/2016 Aerosol Baclofen 1 by mouth once [...] Lorraine Powers, 08/28/2016 - every 6hrs as MD Unknown needed Labetalol HCL 1/2 tab by mouth 785.0 Milana Greenfield 03/20/2011 - 100mg every evening Mateusz, 10/22/2012 Tablets MSN, [employer]ER 796.2 Cleocin 1 tab po q 12 [...] Unknown - 150mg mouth daily 01/06/2018 Capsules Triamterene/Hydrochlo take 1/2 tablet 30tabs Lorraine Powers, - rothiazide by mouth every MD 12/01/2018 37.5-25mg morning Tablets Prednisone Calin Lewis DO - 20mg Tablets Unknown Amoxicillin Calin Lewis DO - 500mg Unknown Capsules Valacyclovir HCL Rolly, - 1gm Milana Olguin [employer] TE[employer]ER Unknown Tablets Ibuprofen 1 by mouth every 180tabs Priya, Lorraine, - 600mg Tablets 12 hours as 01/27/2018 needed pain Ibuprofen Unknown - 600mg Tablets 07/16/2014 Tylenol 8 Hour prn Unknown - 650mg 07/16/2014 Tablets ER Vitamin D High 1x week Unknown - Potency 03/06/2013 [id number] Capsules Labetalol HCL 1/2 tab po bid 785.0 Unknown - 100mg 03/20/2011 Tablets 796.2 Clindamycin HCL 1 tab by mouth twice 6caps Unknown - Unknown 300mg Capsules a day Immunizations CPT Code Status Date Vaccine Reaction Lot # 72235 Given 01/20/2018 Influenza Virus Vaccine, Quadrivalent, 36 [id number] Mos+, .5ML [id number] Given 02/11/2017 Influenza Virus Vaccine Quadrivalent Iiv4 [place] [id number] [address] Given 08/28/2016 Pneumovax Injection [id number] 02695 Given 03/22/2011 flu vaccination 36879 Given 03/22/2011 flu vaccination [id number] Vital Signs Date Vital Result Comment 12/08/2018 [...] kg/m2 BSA (Body Surface Area) 2.41 m2 [place] body weight in kilograms 48 kg O2 % BldC Oximetry 97 % Ra 12/01/2018 11:28am BP Systolic Sitting Left Arm 124 mmHg BP Diastolic Sitting Left Arm 94 mmHg Body Temperature 99.3 F Heart Rate 82 /min Respiratory Rate 20 /min Height 61 inches 5'1" Weight 354.00 lb BMI (Body Mass Index) 66.9 kg/m2 BSA (Body Surface Area) 2.41 m2 [place] body weight in kilograms 48 kg O2 % BldC Oximetry 96 % 10/22/2018 11:04am BP Systolic Sitting Left Arm 124 mmHg forearm BP Diastolic Sitting Left Arm 80 mmHg forearm Body Temperature 99.8 F Heart Rate 93 /min Respiratory Rate 20 /min Height 61 inches 5'1" Weight 356.00 lb BMI (Body Mass Index) 67.3 kg/m2 BSA (Body Surface Area) 2.41 m2 [place] body weight in kilograms 48 kg O2 % BldC Oximetry 95 % 10/20/2018 11:41am BP Systolic Sitting Left Arm 126 mmHg BP Diastolic Sitting Left Arm 66 mmHg Heart Rate 96 /min Respiratory Rate 18 /min Height 61 inches 5'1" Weight 360.00 lb BMI (Body Mass Index) 68.0 kg/m2 BSA (Body Surface Area) 2.42 m2 [place] body weight in kilograms 48 kg O2 % BldC Oximetry 96 % 09/25/2018 11:09am BP Systolic Sitting Right Arm 130 mmHg lower arm BP Diastolic Sitting Right Arm 82 mmHg lower arm Body Temperature 98.1 F Heart Rate 76 /min Respiratory Rate 28 /min Height 61 inches 5'1" Weight 359.00 lb BMI (Body Mass Index) 67.8 kg/m2 BSA (Body Surface Area) 2.42 m2 [place] body weight in kilograms 48 kg O2 % BldC Oximetry 96 % 09/16/2018 10:02am BP Systolic Sitting Right Arm 130 mmHg BP Diastolic Sitting Right Arm 82 mmHg Body Temperature 98.2 F Heart Rate 93 /min Height 61 inches 5'1" Weight 366.00 lb BMI (Body Mass Index) 69.1 kg/m2 BSA (Body Surface Area) 2.44 m2 [place] body weight in kilograms 48 kg O2 % BldC Oximetry 98 % 09/03/2018 9:51am BP Systolic Sitting Right Arm 110 mmHg BP Diastolic Sitting Right Arm 62 mmHg Body Temperature 98.3 F Heart Rate 100 /min Respiratory Rate 30 /min Height 61 inches 5'1" Weight 366.00 lb BMI (Body Mass Index) 69.1 kg/m2 BSA (Body Surface Area) 2.44 m2 [place] body weight in kilograms 48 kg O2 % BldC Oximetry 96 % 07/16/2018 9:57am BP Systolic Sitting Left Arm 110 mmHg manual forearm BP Diastolic Sitting Left Arm 80 mmHg manual forearm Body Temperature 98.9 F Heart Rate 90 /min Respiratory Rate 20 /min Height 61 inches 5'1" Weight 363.00 lb BMI (Body Mass Index) 68.6 kg/m2 BSA (Body Surface Area) 2.43 m2 [place] body weight in kilograms 48 kg O2 % BldC Oximetry 98 % 06/30/2018 1:23pm BP Systolic Sitting Left Arm 124 mmHg BP Diastolic Sitting Left Arm 66 mmHg Heart Rate 87 /min Respiratory Rate 18 /min Height 61 inches 5'1" Weight 362.00 lb BMI (Body Mass Index) 68.4 kg/m2 BSA (Body Surface Area) 2.43 m2 [place] body weight in kilograms 48 kg O2 [...] kg/m2 BSA (Body Surface Area) 2.43 m2 [place] body weight in kilograms 48 kg O2 % BldC Oximetry 98 % 04/02/2018 1:00pm BP Systolic Sitting Left Arm 147 mmHg Priscilla 136/90 BP Diastolic Sitting Left Arm 86 mmHg Priscilla 136/90 Body Temperature 98.6 F Heart Rate 89 /min Respiratory Rate 18 /min Height 61 inches 5'1" [place] body weight in kilograms 48 kg 03/11/2018 10:04am BP Systolic Sitting Right Arm 152 mmHg BP Diastolic Sitting Right Arm 91 mmHg Body Temperature 97.6 F Heart Rate 88 /min Respiratory Rate 16 /min Height 61 inches 5'1" Weight 363.00 lb BMI (Body Mass Index) 68.6 kg/m2 BSA (Body Surface Area) 2.43 m2 [place] body weight in kilograms 48 kg Last Menstrual Period [id number] O2 % BldC Oximetry 99 % 02/25/2018 9:38am BP Systolic Sitting Right Arm 122 mmHg BP Diastolic Sitting Right Arm 72 mmHg Body Temperature 99.2 F Heart Rate 74 /min reg Respiratory Rate 24 /min Height 61 inches 5'1" Weight 362.00 lb per pt. BMI (Body Mass Index) 68.4 kg/m2 BSA (Body Surface Area) 2.43 m2 [place] body weight in kilograms 48 kg O2 % BldC Oximetry 96 % 02/10/2018 11:09am BP Systolic Sitting Left Arm 132 mmHg BP Diastolic Sitting Left Arm 86 mmHg Heart Rate 86 /min Respiratory Rate 16 /min Height 61 inches 5'1" Weight 362.00 lb per pt BMI (Body Mass Index) 68.4 kg/m2 BSA (Body Surface Area) 2.43 m2 [place] body weight in kilograms 48 kg O2 % BldC Oximetry 97 % Room air 01/27/2018 8:31am BP Systolic Sitting Left Arm 150 mmHg BP Diastolic Sitting Left Arm 91 mmHg Body Temperature 98.6 F Heart Rate 83 /min Respiratory Rate 16 /min Height 61 inches 5'1" Weight 370.00 lb BMI (Body Mass Index) 69.9 kg/m2 BSA (Body Surface Area) 2.45 m2 [place] body weight in kilograms 48 kg O2 % BldC Oximetry 99 % 01/20/2018 10:55am BP Systolic Sitting Left Arm 154 mmHg BP Diastolic Sitting Left Arm 85 mmHg Body Temperature 99.5 F Heart Rate 93 /min Respiratory Rate 20 /min Height 61 inches 5'1" Weight 367.00 lb BMI (Body Mass Index) 69.3 kg/m2 BSA (Body Surface Area) 2.44 m2 [place] body weight in kilograms 48 kg O2 % BldC Oximetry 100 % 01/06/2018 10:40am BP Systolic 148 mmHg 161/94 BP Diastolic 96 mmHg 161/94 Body Temperature 98.2 F Heart Rate 99 /min Respiratory Rate 22 /min Weight 361.38 lb O2 % BldC Oximetry 97 % 12/25/2017 2:58pm BP Systolic Sitting Right Arm 132 mmHg BP Diastolic Sitting Right Arm 74 mmHg Heart Rate 105 /min Respiratory Rate 18 /min Height 61 inches 5'1" Weight 364.00 lb BMI (Body Mass Index) 68.8 kg/m2 BSA (Body Surface Area) 2.44 m2 [place] body weight in kilograms 48 kg O2 [...] kg/m2 BSA (Body Surface Area) 2.43 m2 [place] body weight in kilograms 48 kg O2 % BldC Oximetry 98 % 12/09/2017 2:16pm BP Systolic Sitting Right Arm 156 mmHg priscilla 166/89 BP Diastolic Sitting Right Arm 97 mmHg priscilla 166/89 Body Temperature 99.1 F Heart Rate 102 /min Respiratory Rate 28 /min Height 61 inches 5'1" Weight 367.00 lb BMI (Body Mass Index) 69.3 kg/m2 BSA (Body Surface Area) 2.44 m2 [place] body weight in kilograms 48 kg O2 % BldC Oximetry 94 % 10/09/2017 1:08pm BP Systolic Sitting Left Arm 142 mmHg BP Diastolic Sitting Left Arm 98 mmHg Heart Rate 83 /min Respiratory Rate 18 /min Height 61 inches 5'1" Weight 375.00 lb BMI (Body Mass Index) 70.8 kg/m2 BSA (Body Surface Area) 2.47 m2 [place] body weight in kilograms 48 kg O2 % BldC Oximetry 98 % 09/09/2017 10:47am BP Systolic Sitting Left Arm 166 mmHg priscilla 141/95 BP Diastolic Sitting Left Arm 101 mmHg priscilla 141/95 Body Temperature 98.8 F Heart Rate 98 /min Height 61 inches 5'1" Weight 375.00 lb BMI (Body Mass Index) 70.8 kg/m2 BSA (Body Surface Area) 2.47 m2 [place] body weight in kilograms 48 kg O2 % BldC Oximetry 96 % 05/15/2017 9:52am BP Systolic Sitting Left Arm 120 mmHg BP Diastolic Sitting Left Arm 82 mmHg Body Temperature 98.7 F Heart Rate 113 /min Respiratory Rate 24 /min Height 61 inches 5'1" Weight 360.00 lb BMI (Body Mass Index) 68.0 kg/m2 BSA (Body Surface Area) 2.42 m2 [place] body weight in kilograms 48 kg O2 % BldC Oximetry 95 % 04/18/2017 10:08am BP Systolic Sitting Left Arm 132 mmHg BP Diastolic Sitting Left Arm 77 mmHg Heart Rate 84 /min Respiratory Rate 20 /min Height 61 inches 5'1" Weight 374.00 lb BMI (Body Mass Index) 70.7 kg/m2 BSA (Body Surface Area) 2.46 m2 [place] body weight in kilograms 48 kg 03/28/2017 4:05pm BP Systolic Sitting Left Arm 136 mmHg BP Diastolic Sitting Left Arm 70 mmHg Heart Rate 89 /min Respiratory Rate 24 /min Height 61 inches 5'1" Weight 368.00 lb BMI (Body Mass Index) 69.5 kg/m2 BSA (Body Surface Area) 2.45 m2 [place] body weight in kilograms 48 kg O2 % BldC Oximetry 91 % ra 02/11/2017 8:48am BP Systolic 144 mmHg BP Diastolic 103 mmHg Heart Rate 114 /min Respiratory Rate 18 /min Height 61 inches 5'1" Weight 359.50 lb BMI (Body Mass Index) 67.9 kg/m2 BSA (Body Surface Area) 2.42 m2 [place] body weight in kilograms 48 kg O2 % BldC Oximetry 92 % 01/09/2017 2:08pm BP Systolic Sitting Left Arm 118 mmHg BP Diastolic Sitting Left Arm 60 mmHg Heart Rate 98 /min Respiratory Rate 18 /min Height 61 inches 5'1" Weight 358.00 lb BMI (Body Mass Index) 67.6 kg/m2 BSA (Body Surface Area) 2.42 m2 [place] body weight in kilograms 48 kg O2 % BldC Oximetry 96 % 12/20/2016 2:17pm BP Systolic Sitting Right Arm 158 mmHg BP Diastolic Sitting Right Arm 104 mmHg Body Temperature 98.6 F Heart Rate 107 /min Respiratory Rate 22 /min Height 61 inches 5'1" Weight 349.00 lb BMI (Body Mass Index) 65.9 kg/m2 BSA (Body Surface Area) 2.39 m2 [place] body weight in kilograms 48 kg O2 % BldC Oximetry 96 % 12/05/2016 1:22pm BP Systolic Sitting Right Arm 138 mmHg BP Diastolic Sitting Right Arm 74 mmHg Body Temperature 99.3 F Heart Rate 111 /min Respiratory Rate 16 /min Height 61 inches 5'1" Weight 343.00 lb BMI (Body Mass Index) 64.8 kg/m2 BSA (Body Surface Area) 2.38 m2 [place] body weight in kilograms 48 kg O2 % BldC Oximetry 94 % 11/21/2016 9:21am BP Systolic Sitting Right Arm 116 mmHg BP Diastolic Sitting Right Arm 78 mmHg Body Temperature 99.0 F Heart Rate 118 /min Height 61 inches 5'1" Weight 342.00 lb BMI (Body Mass Index) 64.6 kg/m2 BSA (Body Surface Area) 2.37 m2 [place] body weight in kilograms 48 kg O2 % BldC Oximetry 95 % 10/02/2016 9:18am BP Systolic Sitting Right Arm 130 mmHg BP Diastolic Sitting Right Arm 80 mmHg Height 61 inches 5'1" Weight 332.00 lb BMI (Body Mass Index) 62.7 kg/m2 BSA (Body Surface Area) 2.34 m2 [place] body weight in kilograms 48 kg 09/14/2016 2:23pm BP Systolic 156 mmHg BP Diastolic 92 mmHg Heart Rate 118 /min Height 61 inches 5'1" Weight 324.00 lb BMI (Body Mass Index) 61.2 kg/m2 BSA (Body Surface Area) 2.32 m2 [place] body weight in kilograms 48 kg 09/03/2016 [...] Facility Test Result H/L Range Note Urine Dipstick 12/05/2018 [facility] Ua Color yellow Yellow Ua Clarity cloudy Clear Ua Leuko negative Negative Ua Nitrite negative Negative Ua Urobilinogen 0.2 0.2 - 1.0 E.U./dL Ua Protein 1+ High Negative Ua PH 5.5 Low 6.5-7.5 Ua Blood negative Negative Ua Specific [place] 1.030 1.010-1.030 Ua Ketones negative Negative Ua Bilirubin negative Negative Ua Glucose negative Negative [id number] 12/05/2018 [facility] Penicillin G 4 Susceptible [address] [place] [address] [phone] Tetracycline <=1 Susceptible Nitrofurantoin <=16 Susceptible Ampicillin <=2 Susceptible Ciprofloxacin 1 Susceptible Levofloxacin 1 Susceptible Vancomycin 1 Susceptible Urine Culture 12/05/2018 [facility] Urine ENTEROCOCCUS GABO Abnormal [address] Culture <SEE NOTE> [place] [address] [phone] Quantity < 10,000 CFU/mL Genital Culture W/ 12/05/2018 [facility] Gram Stain FEW GR POS. BACI [address] Stain [address] <SEE NOTE> [place] [address] [phone] Gram Stain GRAM STAIN INDIC <SEE NOTE> 4 Genital Culture GENITAL GIOVANNI Affirm 12/05/2018 [facility] Trichomonas Negative [Negative] Vaginitis [address] [place] [address] [phone] Gardnerella vaginalis Negative [Negative] Evi species Negative [Negative] 5 Ua RFX Micro & Culture 12/01/2018 [facility] Urine Color YELLOW Yellow [address] [place] [address] [phone] Urine Clarity TURBID Clear Urine Glucose - Dipstick NEGATIVE mg/dL Negative Urine Bilirubin - Dipstick SMALL Abnormal Negative Urine Ketone NEGATIVE mg/dL Negative Urine Specific [place] >=1.030 Normal 1.010-1.030 Urine Blood SMALL Abnormal [...] Ua Blood 1+ High Negative Ua Specific [place] 1.030 1.010-1.030 Ua Ketones trace Negative Ua Bilirubin negative Negative Ua Glucose negative Negative Ua RFX Micro & Culture 11/28/2018 [facility] Urine Color YELLOW Yellow [address] [place] [address] [phone] Urine Clarity CLEAR Clear Urine Glucose - Dipstick NEGATIVE mg/dL Negative Urine Bilirubin - Dipstick NEGATIVE Negative Urine Ketone NEGATIVE mg/dL Negative Urine Specific [place] >=1.030 Normal 1.010-1.030 Urine Blood NEGATIVE Negative Urine PH 5.5 Low 6.5-7.5 Urine Protein - Dipstick NEGATIVE mg/dL Negative Urine Urobilinogen - Dipstick 0.2 E.U./dL Normal 0.2-1.0 Urine Nitrite - Dipstick NEGATIVE Negative Urine Leuk Esterase NEGATIVE Negative Laboratory 11/28/2018 [facility] Vitamin 20.6 Low 30.0-100.0 9 test finding [address] D,25-Hydroxy ng/[place] [address] [phone] Protein/Creati 11/28/2018 [facility] Creatinine,Urine 283.8 Not Estab. nine [address] mg/dL Ratio,[place] [address] [phone] Protein,Total,Urine 15.0 mg/dL Not Estab. Protein/Creatinine Ratio 53 MG/GCRE 0-200 10 CBC W/Automated 11/28/2018 [facility] White Blood 6.8 K/uL Normal 3.1-10.[address] [place] [address] [phone] Red Blood Count 4.75 M/uL Normal 3.90-5.40 [...] 40.4-72.8 Lymph % 24.1 % Normal 20.0-42.0 Prentiss % 4.9 % Normal 4.3-13.2 Eo% 2.5 % Normal 0.0-6.6 Bas% 0.7 % Normal 0.0-1.1 Immature Grans 0.7 % Normal 0.0-5.0 NRBC % 0.0 /100WBC < 10/ 100 WBC Neut# 4.53 K/uL Normal 1.8-7.0 Lymph # 1.63 K/uL Normal 1.0-4.0 Prentiss # 0.33 K/uL Normal 0.3-0.9 Eos # 0.17 K/uL Normal 0.0-0.5 Baso # 0.05 K/uL Normal 0.0-0.1 Immature Grans Absolute 0.05 K/uL NRBC # 0.00 K/uL Comprehensive 11/28/2018 [facility] Glucose 103 mg/dL Normal 74-106 Metabolic Panel [address] [place] [address] [phone] BUN 14 mg/dL Normal 7-18 Creatinine 1.0 mg/dL Normal 0.6-1.3 Glom Filtration Rate, Estimate >60 mL/min >60 If >60 mL/min >60 11 BUN/Creat 14.0 ratio Sodium 140 mmol/L Normal [...] U/L Normal 45-117 LDL Cholesterol Profile 11/28/2018 [facility] Cholesterol 196 mg/dL <200 12 [address] [place], [place] [id number] [phone] Triglycerides 166 mg/dL High <150 13 HDL Cholesterol 39 mg/dL Low >40 14 LDL-Cholesterol 124 mg/dL < 100 15 Comprehensive 11/20/2018 [facility] Glucose 111 mg/dL High 74-106 16 Metabolic Panel [address] [place] [address] [phone] BUN 18 mg/dL Normal 7-18 Creatinine 1.0 [...] 12-78 Alkaline Phosphatase 63 U/L Normal 45-117 CBC W/Automated 11/20/2018 [facility] White Blood 7.0 K/uL Normal 3.1-10.[address] [place] [address] [phone] Red Blood Count 4.27 M/uL Normal 3.90-5.40 [...] 40.4-72.8 Lymph % 29.8 % Normal 20.0-42.0 Prentiss % 4.2 % Low 4.3-13.2 Eo% 2.7 % Normal 0.0-6.6 Bas% 0.4 % Normal 0.0-1.1 Immature Grans 0.4 % Normal 0.0-5.0 NRBC % 0.0 /100WBC < 10/ 100 WBC Neut# 4.36 K/uL Normal 1.8-7.0 Lymph # 2.08 K/uL Normal 1.0-4.0 Prentiss # 0.29 K/uL Low 0.3-0.9 Eos # 0.19 K/uL Normal 0.0-0.5 Baso # 0.03 K/uL Normal 0.0-0.1 Immature Grans Absolute 0.03 K/uL NRBC # 0.00 K/uL Aot Request 10/28/2018 [facility] Aot Request Test(s) added [address] [place] [address] [phone] Tests to be added: magnesium crp CBC W/Automated 10/28/2018 [facility] White 8.4 K/uL Normal 3.1-10.7 20 Diff [address] [facility] [place] [address] Count [phone] Red Blood Count 4.67 M/uL Normal 3.90-5.40 [...] 40.4-72.8 Lymph % 19.9 % Low 20.0-42.0 Prentiss % 3.7 % Low 4.3-13.2 Eo% 2.0 % Normal 0.0-6.6 Bas% 0.5 % Normal 0.0-1.1 Immature Grans 0.6 % Normal 0.0-5.0 NRBC % 0.0 /100WBC < 10/ 100 WBC Neut# 6.16 K/uL Normal 1.8-7.0 Lymph # 1.67 K/uL Normal 1.0-4.0 Prentiss # 0.31 K/uL Normal 0.3-0.9 Eos # 0.17 K/uL Normal 0.0-0.5 Baso # 0.04 K/uL Normal 0.0-0.1 Immature Grans Absolute 0.05 K/uL NRBC # 0.00 K/uL Comprehensive 10/20/2018 [facility] Glucose 79 mg/dL Normal 74-106 21 Metabolic Panel [address] [place] [address] [phone] BUN 16 mg/dL Normal 7-18 Creatinine 1.0 [...] 70 U/L Normal 45-117 CBC W/Automated 10/20/2018 [facility] White Blood 6.6 K/uL Normal 3.1-10.[address] [place] [address] [phone] Red Blood Count 4.86 M/uL Normal 3.90-5.40 [...] 40.4-72.8 Lymph % 27.7 % Normal 20.0-42.0 Prentiss % 4.1 % Low 4.3-13.2 Eo% 2.4 % Normal 0.0-6.6 Bas% 0.6 % Normal 0.0-1.1 Immature Grans 0.6 % Normal 0.0-5.0 NRBC % 0.0 /100WBC < 10/ 100 WBC Neut# 4.23 K/uL Normal 1.8-7.0 Lymph # 1.82 K/uL Normal 1.0-4.0 Prentiss # 0.27 K/uL Low 0.3-0.9 Eos # 0.16 K/uL Normal 0.0-0.5 Baso # 0.04 K/uL Normal 0.0-0.1 Immature Grans Absolute 0.04 K/uL NRBC # 0.00 K/uL Laboratory test 10/20/2018 [facility] Vitamin 18.9 Low 30.0-100.0 [address] D,25-Hydroxy ng/[place] [address] [phone] LDL Cholesterol 10/20/2018 [facility] Cholesterol 181 <200 [address] mg/dL [place], [place] [id number] [phone] Triglycerides 174 mg/dL High <150 25 HDL Cholesterol 39 mg/dL Low >40 26 LDL-Cholesterol 107 mg/dL < 100 27 Serum or plasma 10/03/2018 N2N/CCD Import Serum or plasma 7 Low 8-16 anion gap anion gap Co2 SerPl-sCnc 10/03/2018 N2N/CCD Import Co2 SerPl-sCnc [...] glucose measurement (mass/volume) (mass/volume) Serum or plasma 10/03/2018 N2N/CCD Import Serum or plasma 8.9 8.5-10. calcium measurement calcium measurement 1 (mass/volume) (mass/volume) Serum or plasma 10/03/2018 N2N/CCD [...] by glucometer (mass/volume) CBC W/Automated Diff 10/03/2018 [facility] White Blood Count 7.7 Normal 3.1- 10. [address] K/uL 7 [place] [address] [phone] Red Blood Count 4.80 M/uL Normal 3.90-5.40 [...] 40.4-72.8 Lymph % 28.1 % Normal 20.0-42.0 Prentiss % 5.9 % Normal 4.3-13.2 Eo% 2.6 % Normal 0.0-6.6 Bas% 0.4 % Normal 0.0-1.1 Immature Grans 0.7 % Normal 0.0-5.0 NRBC % 0.0 /100WBC < 10/ 100 WBC Neut# 4.79 K/uL Normal 1.8-7.0 Lymph # 2.16 K/uL Normal 1.0-4.0 Prentiss # 0.45 K/uL Normal 0.3-0.9 Eos # 0.20 K/uL Normal 0.0-0.5 Baso # 0.03 K/uL Normal 0.0-0.1 Immature Grans Absolute 0.05 K/uL NRBC # 0.00 K/uL Protime 10/03/2018 [facility] Protime 13.7 seconds Normal 12.0-14.4 [address] [place], [place] [id number] [phone] Inr 1.1 Normal 0.9-1.1 29 Laboratory test 10/03/2018 [facility] Act 26.3 Normal 23.4-35.0 [address] [place] [address] Thrombo [phone] Time Comprehensive 10/03/2018 [facility] Glucose 103 mg/dL Normal 74-106 Metabolic Panel [address] [place], [place] [id number] [phone] BUN 14 mg/dL Normal 7-18 Creatinine 1.1 mg/dL Normal 0.6-1.3 Glom Filtration Rate, Estimate 60 mL/min >60 If >60 mL/min >60 31 BUN/Creat 12.7 ratio Sodium 141 mmol/L Normal [...] Alkaline Phosphatase 64 U/L Normal 45-117 Laboratory test finding 10/03/2018 [facility] CK 369 U/L High 26-192 [address] [place] [address] [phone] Troponin-I < 0.015 ng/mL 32 Automated 10/03/2018 N2N/CCD Import Automated 7.7 3.1-10.7 [...] mean platelet mean volume measurement volume measurement Platelet poor 10/03/2018 N2N/CCD Import Platelet poor 1.1 0.9-1.1 plasma plasma international international normalized rati normalized ratio (Inr) [...] as perc as percentage of total leukocytes Throat Culture 09/25/2018 [facility] Throat Culture NORMAL 33, Complete [address] Complete THROAT 34 [place] [address] [place] <SEE [phone] NOTE> Bacterial throat 09/25/2018 N2N/CCD Import Bacterial throat Normal culture culture Throat Giovanni Throat Culture 09/16/2018 [facility] Throat Culture NORMAL [address] [place] [address] [place] <SEE [phone] NOTE> Laboratory test 09/15/2018 [facility] Thyroid Stim 3.83 Normal 0.30-4.20 [address] Hormone uIU/[place] [address] [phone] Free T4 1.23 ng/dL Normal 0.76-1.46 Urine 09/15/2018 N2N/CCD Import Urine 167 0-200 protein/creatinine protein/creatinine mass ratio mass ratio Urine protein 09/15/2018 N2N/CCD Import Urine protein 47.4 Not measurement measurement Estab. (mass/volume) (mass/volume) Urine creatinine 09/15/2018 N2N/CCD Import Urine creatinine 284.6 Not measurement measurement Estab. (mass/volume) (mass/volume) Urine leukocyte 09/15/2018 N2N/CCD Import Urine leukocyte Negative Negative esterase detection esterase detection by automated te by automated test strip Basic Metabolic 09/15/2018 [facility] Glucose 103 mg/dL Normal 74-[address] [place] [address] [phone] BUN 16 mg/dL Normal 7-18 Creatinine 1.1 mg/dL Normal 0.6-1.3 Glom Filtration Rate, Estimate 60 mL/min >60 If >60 mL/min >60 37 BUN/Creat 14.5 ratio Sodium 139 mmol/L Normal 136-145 Potassium 3.3 mmol/L Low 3.5-5.1 Chloride 105 mmol/L Normal 98-107 Carbon Dioxide 24 mmol/L Normal 21-32 Anion Gap 10 mEq/L Normal 8-16 Calcium 9.3 mg/dL Normal 8.5-10.1 Laboratory test 09/15/2018 [facility] CK 284 U/L High 26-192 finding [address] [place] [address] [phone] Ua RFX Micro & 09/15/2018 [facility] Urine Color YELLOW Yellow Culture II [address] [place], [place] [address] [phone] Urine Clarity CLOUDY Clear Urine Glucose - Dipstick NEGATIVE mg/dL Negative Urine Bilirubin - Dipstick NEGATIVE Negative Urine Ketone NEGATIVE mg/dL Negative Urine Specific [place] >=1.030 Normal 1.010-1.030 Urine Blood TRACE Negative Urine PH 5.5 Low 6.5-7.5 Urine Protein - Dipstick 30 mg/dL High Negative Urine Urobilinogen - Dipstick 0.2 E.U./dL Normal 0.2-1.0 Urine Nitrite - Dipstick NEGATIVE Negative Urine Leuk Esterase NEGATIVE Negative Source: URINE, CLEAN CAT <SEE NOTE> 38 Protein/Creatinine 09/15/2018 [facility] Creatinine,Urine 284.6 Not Ratio,Urine [address] mg/dL Estab. [place], [place] [address] [phone] Protein,Total,Urine 47.4 mg/dL Not Estab. Protein/Creatinine Ratio 167 MG/GCRE 0-200 39 Urine color 09/15/2018 N2N/CCD Import Urine color Yellow Yellow determination determination Urine appearance 09/15/2018 N2N/CCD Import Urine appearance Cloudy Clear determination determination Urine glucose 09/15/2018 N2N/CCD Import Urine glucose [...] automated test automated test strip strip Urine nitrite 09/15/2018 N2N/CCD Import Urine nitrite Negative Negative detection by detection by automated test automated test strip strip Urine 09/15/2018 N2N/CCD Import Urine 0.2 0.2-1.0 urobilinogen urobilinogen measurement measurement (units/volume) by (units/volume) t by test strip Urine protein 09/15/2018 N2N/CCD Import Urine protein 30 High Negative measurement by measurement by automated test automated test strip strip (mass/volume) Urine pH 09/15/2018 N2N/CCD Import Urine pH 5.5 Low 6.5-7.5 measurement by measurement by automated test automated test strip strip CBC W/Automated 07/15/2018 [facility] White Blood 7.3 K/uL Normal 3.1-10.7 [address] [place] [address] [phone] Red Blood Count 4.84 M/uL Normal 3.90-5.40 [...] 40.4-72.8 Lymph % 29.5 % Normal 20.0-42.0 Prentiss % 4.8 % Normal 4.3-13.2 Eo% 1.8 % Normal 0.0-6.6 Bas% 0.3 % Normal 0.0-1.1 Neut# 4.61 K/uL Normal 1.8-7.0 Lymph # 2.14 K/uL Normal 1.0-4.0 Prentiss # 0.35 K/uL Normal 0.3-0.9 Eos # 0.13 K/uL Normal 0.0-0.5 Baso # 0.02 K/uL Normal 0.0-0.1 Comprehensive 07/15/2018 [facility] Glucose 101 mg/dL Normal 74-106 Metabolic Panel [address] [place] [address] [phone] BUN 17 mg/dL Normal 7-18 Creatinine 1.0 mg/dL Normal 0.6-1.3 Glom Filtration Rate, Estimate >60 mL/min >60 If >60 mL/min >60 41 BUN/Creat 17.0 ratio Sodium 140 mmol/L Normal [...] add FT4? Y LDL Cholesterol Profile 07/15/2018 [facility] Cholesterol 189 mg/dL <200 42 [address] [place] [address] [phone] Triglycerides 162 mg/dL High <150 43 HDL Cholesterol 41 mg/dL >40 44 LDL-Cholesterol 116 mg/dL < 100 45 Reflex add FT3? N Reflex add FT4? Y Laboratory test 07/15/2018 [facility] Vitamin 15.9 Low 30.0-100.0 46 finding [address] D,25-Hydroxy ng/[place] [address] [phone] Glycohemoglobin 07/15/2018 [facility] Glycohemoglobin 5.4 % Normal 4.2-6.[address] (A1c) [place] [address] [phone] eAG 108 mg/dL TSH Reflex 07/15/2018 [facility] Thyroid Stim 3.57 uIU/mL Normal 0.30-4.20 FT4 And/Or [address] [place] [place] FT3 [place] [address] [phone] Reflex add FT3? N Reflex add FT4? [...] SerPl-sCnc 139 136- 145 Laboratory test 05/15/2018 [facility] Troponin-I < 0.015 48, [address] ng/[place] [address] [phone] Automated blood 05/15/2018 N2N/CCD Import Automated blood [...] neutrophil count neutrophil count Basic Metabolic 05/15/2018 [facility] Glucose 113 High 74-[address] mg/[place] [address] [phone] BUN 17 mg/dL Normal 7-18 Creatinine 1.0 mg/dL Normal 0.6-1.3 Glom Filtration Rate, Estimate >60 mL/min >60 If >60 mL/min >60 50 BUN/Creat 17.0 ratio Sodium 139 mmol/L Normal 136-145 Potassium 3.3 mmol/L Low 3.5-5.1 Chloride 105 mmol/L Normal 98-107 Carbon Dioxide 24 mmol/L Normal 21-32 Anion Gap 10 mEq/L Normal 8-16 Calcium 8.8 mg/dL Normal 8.5-10.1 CBC W/Automated 05/15/2018 [facility] White Blood 9.1 K/uL Normal 3.1-10.[address] [place] [address] [phone] Red Blood Count 4.90 M/uL Normal 3.90-5.40 Hemoglobin 13.3 gm/dL Normal 11.6-15.8 Hematocrit 40.9 % Normal 36.0-46.1 Mean Cell Volume 83.5 fl Normal 80.9-99.0 Mean Corpuscular HGB 27.1 pg Normal 25.9-32.7 Mean Corpuscular HGB Conc 32.5 g/dL Normal 30.8-34.3 Platelet Count 326 K/uL Normal 155-360 Red Cell Distri Width SD 46.1 fl Normal 36-47 Red Cell Distri Width %CV 15.4 % High 11.7-14.4 Mean Platelet Volume 9.3 fL Normal 8.9-12.4 Neut% 64.5 % Normal 40.4-72.8 Lymph % 28.7 % Normal 20.0-42.0 Prentiss % 5.0 % Normal 4.3-13.2 Eo% 1.5 % Normal 0.0-6.6 Bas% 0.3 % Normal 0.0-1.1 Neut# 5.85 K/uL Normal 1.8-7.0 Lymph # 2.60 K/uL Normal 1.0-4.0 Prentiss # 0.45 K/uL Normal 0.3-0.9 Eos # 0.14 K/uL Normal 0.0-0.5 Baso # 0.03 K/uL Normal 0.0-0.1 Serum or plasma 05/15/2018 N2N/CCD Import Serum or plasma 8.8 8.5-10.1 calcium calcium measurement measurement (mass/volume) (mass/volume) Serum or plasma 05/15/2018 N2N/CCD Import Serum or plasma 10 8-16 anion gap anion gap Hct VFr Bld Auto 05/15/2018 N2N/CCD Import Hct VFr Bld Auto 40.9 36.0- 46.1 Co2 SerPl-sCnc 05/15/2018 N2N/CCD Import Co2 SerPl-sCnc 24 21-32 Blood monocytes 05/15/2018 N2N/CCD Import Blood monocytes 0.45 0.3-0.9 automated count automated count (number/volume) (number/volume) Blood hemoglobin 05/15/2018 N2N/CCD Import Blood hemoglobin 13.3 11.6- 15.8 measurement measurement (mass/volume) (mass/volume) Blood 05/15/2018 N2N/CCD Import Blood 4.90 3.90-5.40 erythrocytes erythrocytes automated count automated count (number/volume) (number/volume) Automated 05/15/2018 N2N/CCD Import Automated 5.0 4.3-13.2 monocyte % monocyte % Automated 05/15/2018 N2N/CCD Import Automated 83.5 80.9-99.0 erythrocyte mean erythrocyte mean corpuscular corpuscular volume (MCV volume (MCV) measurement Automated 05/15/2018 N2N/CCD Import Automated 32.5 30.8-34.3 erythrocyte mean erythrocyte mean corpuscular corpuscular hemoglobin hemoglobin concentration measurement (mass/volume) Automated 05/15/2018 N2N/CCD Import Automated 27.1 25.9-32.7 erythrocyte mean erythrocyte mean corpuscular corpuscular hemoglobin hemoglobin (mass per erythrocyte) Automated 05/15/2018 N2N/CCD Import Automated 15.4 High 11.7-14.4 erythrocyte erythrocyte distribution distribution width ratio width ratio Automated 05/15/2018 N2N/CCD Import Automated 46.1 36-47 erythrocyte erythrocyte distribution distribution width width Automated 05/15/2018 N2N/CCD Import Automated 1.5 0.0-6.6 eosinophil % eosinophil % Automated blood 05/15/2018 N2N/CCD Import Automated blood 9.3 8.9-12.4 platelet mean platelet mean volume volume measurement measurement Automated blood 05/15/2018 N2N/CCD Import Automated blood 326 155-360 platelet count platelet count Automated blood 05/15/2018 N2N/CCD Import Automated blood 64.5 40.4- 72.8 neutrophils/100 neutrophils/100 leukocytes leukocytes Serum or plasma 05/15/2018 N2N/CCD Import Serum [...] creatinine creatinine measurement measurement (mass/volum (mass/volume) Serum globulin 05/14/2018 N2N/CCD Import Serum globulin 3.8 1.9-4.3 measurement by measurement by calculation calculation (mass/vo (mass/volume) Serum or plasma 05/14/2018 N2N/CCD Import Serum or plasma 7.2 6.4-8.2 protein protein measurement measurement (mass/volume) (mass/volume) Aot Request 05/14/2018 [facility] Aot Request Test(s) 51, [address] added [address] [place] [address] [phone] Tests to be added: d-dimer CBC W/Automated 05/14/2018 [facility] White Blood 9.0 K/uL Normal 3.1-10.[address] [place] [address] [phone] Red Blood Count 5.19 M/uL Normal 3.90-5.40 Hemoglobin 14.2 gm/dL Normal 11.6-15.8 Hematocrit 43.1 % Normal 36.0-46.1 Mean Cell Volume 83.0 fl Normal 80.9-99.0 Mean Corpuscular HGB 27.4 pg Normal 25.9-32.7 Mean Corpuscular HGB Conc 32.9 g/dL Normal 30.8-34.3 Platelet Count 280 K/uL Normal 155-360 Red Cell Distri Width SD 45.7 fl Normal 36-47 Red Cell Distri Width %CV 15.2 % High 11.7-14.4 Mean Platelet Volume 8.9 fL Normal 8.9-12.4 Neut% 75.7 % High 40.4-72.8 Lymph % 17.9 % Low 20.0-42.0 Prentiss % 4.6 % Normal 4.3-13.2 Eo% 1.5 % Normal 0.0-6.6 Bas% 0.3 % Normal 0.0-1.1 Neut# 6.79 K/uL Normal 1.8-7.0 Lymph # 1.60 K/uL Normal 1.0-4.0 Prentiss # 0.41 K/uL Normal 0.3-0.9 Eos # 0.13 K/uL Normal 0.0-0.5 Baso # 0.03 K/uL Normal 0.0-0.1 Serum or plasma 05/14/2018 N2N/CCD Import Serum or plasma 68 12-78 alanine alanine aminotransferase aminotransferase measureme measurement (enzymatic activity/volume) Serum or plasma 05/14/2018 N2N/CCD Import Serum or plasma 35 15-37 aspartate aspartate aminotransferase aminotransferase measure measurement (enzymatic activity/volume) Fibrin D-dimer Feu 05/14/2018 N2N/CCD Import Fibrin D-dimer Feu 0.33 measurement in measurement in platelet poor pl platelet poor plasma (mass/volume) Serum or plasma total 05/14/2018 N2N/CCD Import Serum or plasma 0.2 0.2- 1.0 bilirubin measurement total bilirubin (mass/ measurement (mass/volume) Comprehensive 05/14/2018 [facility] Glucose 151 High 74-106 Metabolic Panel [address] mg/[place] [address] [phone] BUN 17 mg/dL Normal 7-18 Creatinine 1.1 mg/dL Normal 0.6-1.3 Glom Filtration Rate, Estimate >60 mL/min >60 If >60 mL/min >60 53 BUN/Creat 15.4 ratio Sodium 138 mmol/L Normal 136-145 Potassium 3.4 mmol/L Low 3.5-5.1 Chloride 105 mmol/L Normal 98-107 Carbon Dioxide 24 mmol/L Normal 21-32 Anion Gap 9 mEq/L Normal 8-16 Calcium 9.0 mg/dL Normal 8.5-10.1 Total Protein 7.2 g/dL Normal 6.4-8.2 Albumin 3.4 g/dL Normal 3.4-5.0 Globulin 3.8 g/dL Normal 1.9-4.3 Alb/Glob 0.9 ratio Bilirubin,Total 0.2 mg/dL Normal 0.2-1.0 Sgot/Ast 35 U/L Normal 15-37 SGPT/Alt 68 U/L Normal 12-78 Alkaline Phosphatase 72 U/L Normal 45-117 Serum or plasma 05/14/2018 N2N/CCD Import Serum or plasma 3.4 3.4-5.0 albumin measurement albumin measurement (mass/volume) (mass/volume) Serum or plasma 05/14/2018 N2N/CCD Import Serum or plasma 0.9 albumin/globulin albumin/globulin mass ratio mass ratio Laboratory test 05/14/2018 [facility] Troponin-I < 0.015 [address] ng/[place] [address] [phone] HCG,Serum (Qualitative) NEGATIVE (Negative) 55 D-Dimer, Quantitative 0.33 ug/mL 56 Serum or plasma 05/14/2018 N2N/CCD Import Serum or plasma 72 45-117 alkaline alkaline phosphatase phosphatase measurement ( measurement (enzymatic activity/volume) * Miscellaneous 05/14/2018 N2N/CCD Import * Miscellaneous Test(s) studies (set) studies (set) added Laboratory test 04/14/2018 [facility] PTH,Intact 39 pg/mL 15-65 57, finding [address] [place] [address] [phone] Basic Metabolic 04/14/2018 [facility] Glucose 106 Normal 74-[address] mg/[place] [address] [phone] BUN 14 mg/dL Normal 7-18 Creatinine 1.0 mg/dL Normal 0.6-1.3 Glom Filtration Rate, Estimate >60 mL/min >60 If >60 mL/min >60 59 BUN/Creat 14.0 ratio Sodium 139 mmol/L Normal 136-145 Potassium 3.6 mmol/L Normal 3.5-5.1 Chloride 102 mmol/L Normal 98-107 Carbon Dioxide 30 mmol/L Normal 21-32 Anion Gap 7 mEq/L Low 8-16 Calcium 8.8 mg/dL Normal 8.5-10.1 Serum or plasma 03/31/2018 N2N/CCD Import Serum or plasma 192 High <150 triglyceride triglyceride measurement measurement (mass/vol (mass/volume) HgbA1c % 03/31/2018 N2N/CCD Import HgbA1c % 5.9 4.2-6.3 Laboratory test 03/31/2018 [facility] Vitamin 21.5 Low 30.0-100 60, [address] D,25-Hydroxy ng/mL .0 [place] [address] [phone] Serum or plasma 03/31/2018 N2N/CCD Import Serum or plasma 114 < 100 cholesterol in LDL cholesterol in measurement by LDL measurement by calculation (mass/volume) Comprehensive 03/31/2018 [facility] Glucose 99 Normal 74-106 Metabolic Panel [address] mg/[place] [address] [phone] BUN 16 mg/dL Normal 7-18 Creatinine 1.0 mg/dL Normal 0.6-1.3 Glom Filtration Rate, Estimate >60 mL/min >60 If >60 mL/min >60 62 BUN/Creat 16.0 ratio Sodium 140 mmol/L Normal 136-145 Potassium 3.0 mmol/L Low 3.5-5.1 Chloride 104 mmol/L Normal 98-107 Carbon Dioxide 30 mmol/L Normal 21-32 Anion Gap 6 mEq/L Low 8-16 Calcium 8.8 mg/dL Normal 8.5-10.1 Total Protein 7.2 g/dL Normal 6.4-8.2 Albumin 3.4 g/dL Normal 3.4-5.0 Globulin 3.8 g/dL Normal 1.9-4.3 Alb/Glob 0.9 ratio Bilirubin,Total 0.4 mg/dL Normal 0.2-1.0 Sgot/Ast 34 U/L Normal 15-37 SGPT/Alt 60 U/L Normal 12-78 Alkaline Phosphatase 70 U/L Normal 45-117 Serum or plasma 03/31/2018 N2N/CCD Import Serum or plasma 192 <200 cholesterol cholesterol measurement measurement (mass/volu (mass/volume) Serum or plasma 03/31/2018 N2N/CCD Import Serum or plasma 40 >40 cholesterol in HDL cholesterol in HDL measurement (ma measurement (mass/volume) Glycohemoglobin A1c 03/31/2018 [facility] Glycohemoglobin 5.9 % Normal 4.2-6.[address] (A1c) [place], [place] [id number] [phone] eAG 123 mg/dL CBC W/Automated 03/31/2018 [facility] White Blood 6.6 K/uL Normal 3.1-10.[address] [place] [address] [phone] Red Blood Count 5.03 M/uL Normal 3.90-5.40 Hemoglobin 13.8 gm/dL Normal 11.6-15.8 Hematocrit 41.5 % Normal 36.0-46.1 Mean Cell Volume 82.5 fl Normal 80.9-99.0 Mean Corpuscular HGB 27.4 pg Normal 25.9-32.7 Mean Corpuscular HGB Conc 33.3 g/dL Normal 30.8-34.3 Platelet Count 286 K/uL Normal 155-360 Red Cell Distri Width SD 46.8 fl Normal 3-47 Red Cell Distri Width %CV 15.7 % High 11.7-14.4 Mean Platelet Volume 8.8 fL Low 8.9-12.4 Neut% 64.6 % Normal 40.4-72.8 Lymph % 28.3 % Normal 20.0-42.0 Prentiss % 4.8 % Normal 4.3-13.2 Eo% 2.0 % Normal 0.0-6.6 Bas% 0.3 % Normal 0.0-1.1 Neut# 4.26 K/uL Normal 1.8-7.0 Lymph # 1.87 K/uL Normal 1.0-4.0 Prentiss # 0.32 K/uL Normal 0.3-0.9 Eos # 0.13 K/uL Normal 0.0-0.5 Baso # 0.02 K/uL Normal 0.0-0.1 Blood estimated 03/31/2018 N2N/CCD Import Blood estimated 123 average glucose average glucose determination by e determination by estimation from glycated hemoglobin (mass/volume) Serum or plasma 03/31/2018 N2N/CCD Import Serum or plasma 21.5 Low 30.0- 1 25-hydroxyvitamin D 25-hydroxyvitamin D 00.0 measurement (m measurement (mass/volume) LDL Cholesterol 03/31/2018 [facility] Cholesterol 192 mg/dL <200 64 Profile [address] [place] [address] [phone] Triglycerides 192 mg/dL High <150 65 HDL Cholesterol 40 mg/dL >40 66 LDL-Cholesterol 114 mg/dL < 100 67 Genital Culture W/ 03/11/2018 [facility] Gram Stain GRAM STAIN 68, 69 Gram Stain [address] [facility] <[place] [address] NOTE> [phone] Gram Stain MODERATE GR POS. <SEE NOTE> 70 Gram Stain MODERATE GRAM VA <SEE NOTE> 71 Gram Stain RARE GRAM POSITI <SEE NOTE> 72 Gram Stain RARE RARE WHITE <SEE NOTE> 73 Genital Culture GENITAL GIOVANNI Urine Dipstick 03/11/2018 [facility] Ua Color orange Yellow Ua Clarity clear Clear Ua Leuko - Negative Ua Nitrite - Negative Ua Urobilinogen - Low 0.2 - 1.0 E.U./dL Ua Protein - Negative Ua PH 5 Low 6.5-7.5 Ua Blood - Negative Ua Specific [place] 1.030 1.010-1.030 Ua Ketones - Negative Ua Bilirubin - Negative Ua Glucose - Negative Comprehensive 01/20/2018 [facility] Glucose 94 mg/dL Normal 74-106 74 Metabolic Panel [address] [place], [place] [id number] [phone] BUN 13 mg/dL Normal 7-18 Creatinine 0.9 mg/dL Normal 0.6-1.3 Glom Filtration Rate, Estimate >60 mL/min >60 If >60 mL/min >60 75 BUN/Creat 14.4 ratio Sodium 141 mmol/L Normal 136-145 Potassium 3.7 mmol/L Normal 3.5-5.1 Chloride 102 mmol/L Normal 98-107 Carbon Dioxide 30 mmol/L Normal 21-32 Anion Gap 9 mEq/L Normal 8-16 Calcium 9.0 mg/dL Normal 8.5-10.1 Total Protein 7.2 g/dL Normal 6.4-8.2 Albumin 3.7 g/dL Normal 3.4-5.0 Globulin 3.5 g/dL Normal 1.9-4.3 Alb/Glob 1.1 ratio Bilirubin,Total 0.5 mg/dL Normal 0.2-1.0 Sgot/Ast 31 U/L Normal 15-37 SGPT/Alt 63 U/L Normal 12-78 Alkaline Phosphatase 76 U/L Normal 45-117 Laboratory test 01/20/2018 [facility] Ferritin 31 Normal 8-[address] ng/[place] [address] [phone] Glycohemoglobin 01/20/2018 [facility] Glycohemoglobin 6.1 % Normal 4.2-6.[address] (A1c) [place] [address] [phone] eAG 128 mg/dL Iron-Tibc-%Sat 01/20/2018 [facility] Serum Iron 55 g/dL Normal 50-[address] [place] [address] [phone] Total Iron Binding Capacity 383 g/dL Normal 250-450 Transferrin %Saturation 14 % Normal 12-57 Laboratory test 01/20/2018 [facility] Transferrin 296 200-370 [address] mg/[place] [address] [phone] Laboratory test 01/20/2018 [facility] Vitamin 16.2 Low 30.0-100.0 [address] D,25-Hydroxy ng/[place] [address] [phone] Serum or plasma 01/20/2018 N2N/CCD Import Serum or 14 12-57 iron saturation plasma iron measurement saturation (mass measurement (mass fraction) Serum or plasma 01/20/2018 N2N/CCD Import Serum or 55 50-170 iron plasma iron measurement measurement (mass/volume) (mass/volume) Serum or plasma 01/20/2018 N2N/CCD Import Serum or 296 200-370 transferrin plasma measurement transferrin (mass/volu measurement (mass/volume) Serum or plasma 01/20/2018 N2N/CCD Import Serum or 383 250-450 iron binding plasma iron capacity binding measurement capacity measurement (mass/volume) CBC W/Automated 01/20/2018 [facility] White Blood 7.3 K/uL Normal 3.1-10.[address] [place] [address] [phone] Red Blood Count 5.19 M/uL Normal 3.90-5.40 Hemoglobin 13.9 gm/dL Normal 11.6-15.8 Hematocrit 42.2 % Normal 36.0-46.1 Mean Cell Volume 81.3 fl Normal 80.9-99.0 Mean Corpuscular HGB 26.8 pg Normal 25.9-32.7 Mean Corpuscular HGB Conc 32.9 g/dL Normal 30.8-34.3 Platelet Count 285 K/uL Normal 155-360 Red Cell Distri Width SD 46.5 fl Normal 3-47 Red Cell Distri Width %CV 15.9 % High 11.7-14.4 Mean Platelet Volume 9.2 fL Normal 8.9-12.4 Neut% 69.1 % Normal 40.4-72.8 Lymph % 24.4 % Normal 20.0-42.0 Prentiss % 4.6 % Normal 4.3-13.2 Eo% 1.6 % Normal 0.0-6.6 Bas% 0.3 % Normal 0.0-1.1 Neut# 5.07 K/uL Normal 1.8-7.0 Lymph # 1.79 K/uL Normal 1.0-4.0 Prentiss # 0.34 K/uL Normal 0.3-0.9 Eos # 0.12 K/uL Normal 0.0-0.5 Baso # 0.02 K/uL Normal 0.0-0.1 LDL Cholesterol Profile 01/20/2018 [facility] Cholesterol 195 mg/dL <200 79 [address] [place] [address] [phone] Triglycerides 186 mg/dL High <150 80 HDL Cholesterol 41 mg/dL >40 81 LDL-Cholesterol 117 mg/dL < 100 82 Serum or plasma 01/20/2018 N2N/CCD Import Serum or plasma 31 6-073 ferritin measurement ferritin measurement (mass/volume) (mass/volume) Ua RFX Micro & 12/17/2017 [facility] Urine Color YELLOW Yellow 83 Culture II [address] [place], [place] [id number] [phone] Urine Clarity TURBID Clear Urine Glucose - Dipstick NEGATIVE mg/dL Negative Urine Bilirubin - Dipstick NEGATIVE Negative Urine Ketone NEGATIVE mg/dL Negative Urine Specific [place] >=1.030 Normal 1.010-1.030 Urine Blood NEGATIVE Negative Urine PH 6.0 Low 6.5-7.5 Urine Protein - Dipstick 30 mg/dL High Negative Urine Urobilinogen - Dipstick 0.2 E.U./dL Normal 0.2-1.0 Urine Nitrite - Dipstick NEGATIVE Negative Urine Leuk Esterase NEGATIVE Negative Source: URINE, CLEAN CAT <SEE NOTE> 84 Protein/Creatinine 12/17/2017 [facility] Creatinine,Urine 233.6 Not Ratio,Urine [address] mg/dL Estab. [place], [place] [id number] [phone] Protein,Total,Urine 49.5 mg/dL Not Estab. Protein/Creatinine Ratio 212 MG/GCRE High 0-200 85 CBS W/Automated 10/18/2017 [facility] White 8.0 K/uL Normal 3.1-10.7 [address] [place] [address] Count [phone] Red Blood Count 5.04 M/uL Normal 3.90-5.40 Hemoglobin 13.3 gm/dL Normal 11.6-15.8 Hematocrit 40.2 % Normal 36.0-46.1 Mean Cell Volume 79.8 fl Low 80.9-99.0 Mean Corpuscular HGB 26.4 pg Normal 25.9-32.7 Mean Corpuscular HGB Conc 33.1 g/dL Normal 30.8-34.3 Platelet Count 307 K/uL Normal 155-360 Red Cell Distri Width SD 45.1 fl Normal 3-47 Red Cell Distri Width %CV 16.2 % High 11.7-14.4 Mean Platelet Volume 9.1 fL Normal 8.9-12.4 Neut% 68.1 % Normal 40.4-72.8 Lymph % 25.2 % Normal 20.0-42.0 Prentiss % 4.4 % Normal 4.3-13.2 Eo% 1.9 % Normal 0.0-6.6 Bas% 0.4 % Normal 0.0-1.1 Neut# 5.42 K/uL Normal 1.8-7.0 Lymph # 2.00 K/uL Normal 1.0-4.0 Prentiss # 0.35 K/uL Normal 0.3-0.9 Eos # 0.15 K/uL Normal 0.0-0.5 Baso # 0.03 K/uL Normal 0.0-0.1 Chlmaydia/GC/Trichomonas 10/18/2017 [facility] Trichomonas Negative Negative PCR [address] [place] [address] PCR [phone] Chlamydia trachomatis, PCR Negative Negative Neisseria gonorrhoeae, PCR Negative Negative 87 Ua RFX Micro & Culture 10/18/2017 [facility] Urine Color YELLOW Yellow II [address] [place] [address] [phone] Urine Clarity SL CLOUDY Clear Urine Glucose - Dipstick NEGATIVE mg/dL Negative Urine Bilirubin - Dipstick NEGATIVE Negative Urine Ketone NEGATIVE mg/dL Negative Urine Specific [place] >=1.030 Normal 1.010-1.030 Urine Blood TRACE Negative Urine PH 5.5 Low 6.5-7.5 Urine Protein - Dipstick 30 mg/dL High Negative Urine Urobilinogen - Dipstick 0.2 E.U./dL Normal 0.2-1.0 Urine Nitrite - Dipstick NEGATIVE Negative Urine Leuk Esterase NEGATIVE Negative Source: URINE, CLEAN CAT <SEE NOTE> 88 Comprehensive 09/07/2017 [facility] Glucose 101 mg/dL Normal 74-106 89 Metabolic Panel [address] [place] [address] [phone] BUN 16 mg/dL Normal 7-18 Creatinine 1.1 mg/dL Normal 0.6-1.3 Glom Filtration Rate, Estimate >60 mL/min >60 If >60 mL/min >60 90 BUN/Creat 14.5 ratio Sodium 141 mmol/L Normal 136-145 Potassium 3.5 mmol/L Normal 3.5-5.1 Chloride 106 mmol/L Normal 98-107 Carbon Dioxide 30 mmol/L Normal 21-32 Anion Gap 5 mEq/L Low 8-16 Calcium 9.2 mg/dL Normal 8.5-10.1 Total Protein 7.2 g/dL Normal 6.4-8.2 Albumin 3.5 g/dL Normal 3.4-5.0 Globulin 3.7 g/dL Normal 1.9-4.3 Alb/Glob 0.9 ratio Bilirubin,Total 0.3 mg/dL Normal 0.2-1.0 Sgot/Ast 28 U/L Normal 15-37 SGPT/Alt 58 U/L Normal 12-78 Alkaline Phosphatase 70 U/L Normal 45-117 CBS W/Automated 09/07/2017 [facility] White Blood 6.6 K/uL Normal 3.1-10.[address] Count [place], [place] [id number] [phone] Red Blood Count 5.18 M/uL Normal 3.90-5.40 Hemoglobin 13.5 gm/dL Normal 11.6-15.8 Hematocrit 41.7 % Normal 36.0-46.1 Mean Cell Volume 80.5 fl Low 80.9-99.0 Mean Corpuscular HGB 26.1 pg Normal 25.9-32.7 Mean Corpuscular HGB Conc 32.4 g/dL Normal 30.8-34.3 Platelet Count 283 K/uL Normal 155-360 Red Cell Distri Width SD 45.2 fl Normal 3-47 Red Cell Distri Width %CV 15.7 % High 11.7-14.4 Mean Platelet Volume 8.9 fL Normal 8.9-12.4 Neut% 62.2 % Normal 40.4-72.8 Lymph % 30.0 % Normal 20.0-42.0 Prentiss % 5.3 % Normal 4.3-13.2 Eo% 2.0 % Normal 0.0-6.6 Bas% 0.5 % Normal 0.0-1.1 Neut# 4.14 K/uL Normal 1.8-7.0 Lymph # 1.99 K/uL Normal 1.0-4.0 Prentiss # 0.35 K/uL Normal 0.3-0.9 Eos # 0.13 K/uL Normal 0.0-0.5 Baso # 0.03 K/uL Normal 0.0-0.1 LDL Cholesterol Profile 09/07/2017 [facility] Cholesterol 180 mg/dL <[address] [place] [address] [phone] Triglycerides 182 mg/dL High <150 92 HDL Cholesterol 43 mg/dL >40 93 LDL-Cholesterol 101 mg/dL < 100 94 Glycohemoglobin 09/07/2017 [facility] Glycohemoglobin 6.2 % Normal 4.2-6.3 [address] (A1c) [place], [place] [id number] [phone] eAG 131 mg/dL Ua RFX Micro & Culture 09/07/2017 [facility] Urine Color YELLOW Yellow II [address] [place], [place] [address] [phone] Urine Clarity CLEAR Clear Urine Glucose - Dipstick NEGATIVE mg/dL Negative Urine Bilirubin - Dipstick NEGATIVE Negative Urine Ketone NEGATIVE mg/dL Negative Urine Specific [place] >=1.030 Normal 1.010-1.030 Urine Blood NEGATIVE Negative Urine PH 5.5 Low 6.5-7.5 Urine Protein - Dipstick TRACE mg/dL Negative Urine Urobilinogen - Dipstick 0.2 E.U./dL Normal 0.2-1.0 Urine Nitrite - Dipstick NEGATIVE Negative Urine Leuk Esterase NEGATIVE Negative Source: URINE, CLEAN CAT <SEE NOTE> 96 Protein/Creatinine 09/07/2017 [facility] Creatinine,Urine 291.1 Not Ratio,Urine [address] mg/dL [place]. [place], [place] [address] [phone] Protein,Total,Urine 47.2 mg/dL Not Estab. Protein/Creatinine Ratio 162 MG/GCRE 0-200 97 Laboratory 04/18/2017 [facility] Anti-Nuclear Negative Negative 98, 99 test finding [address] Antibodies AU/[place] [address] Direct [phone] Complement C4, Serum 36 mg/dL 14-44 Complement C3, Serum 202 mg/dL High 82-167 Glycohemoglobin 04/18/2017 [facility] Glycohemoglobin 6.2 % Normal 4.2-6.3 [address] (A1c) [place], [place] [address]05 [phone] eAG 131 mg/dL Laboratory test 04/18/2017 [facility] Rheumatoid < 10.0 Normal 0.0-15.[address] Factor Screen IU/[place] [address] [phone] LDL Cholesterol 04/18/2017 [facility] Cholesterol 184 <200 [address] mg/[place] [address] [phone] Triglycerides 199 mg/dL High <150 102 HDL Cholesterol 40 mg/dL >40 103 LDL-Cholesterol 104 mg/dL < 100 104 Comprehensive Metabolic 04/18/2017 [facility] Glucose 110 mg/dL High 74-[address] [place] [address] [phone] BUN 15 mg/dL Normal 7-18 Creatinine 1.0 mg/dL Normal 0.6-1.3 Glom Filtration Rate, Estimate >60 mL/min >60 If >60 mL/min >60 105 BUN/Creat 15.0 ratio Sodium 142 mmol/L Normal 136-145 Potassium 3.5 mmol/L Normal 3.5-5.1 Chloride 104 mmol/L Normal 98-107 Carbon Dioxide 32 mmol/L Normal 21-32 Anion Gap 6 mEq/L Low 8-16 Calcium 9.1 mg/dL Normal 8.5-10.1 Total Protein 7.1 g/dL Normal 6.4-8.2 Albumin 3.4 g/dL Normal 3.4-5.0 Globulin 3.7 g/dL Normal 1.9-4.3 Alb/Glob 0.9 ratio Bilirubin,Total 0.4 mg/dL Normal 0.2-1.0 Sgot/Ast 41 U/L High 15-37 SGPT/Alt 75 U/L Normal 12-78 Alkaline Phosphatase 68 U/L Normal 45-117 Allergens,Zone 1 01/09/2017 [facility] mRast Class (SEE NOTE) 106, [address] (Text Only) [place] [address] [phone] D Pteronyssinus <0.10 kU/L Class 0 D Farinae Mite <0.10 kU/L Class 0 Cat Hair/Dander <0.10 kU/L Class 0 Dog Hair/Dander <0.10 kU/L Class 0 Bluegrass,[place] <0.10 kU/L Class 0 Bermuda Grass <0.10 kU/L Class 0 Bahia Grass <0.10 kU/L Class 0 Cockroach,Ugandan <0.10 kU/L Class 0 Penicillium Not <0.10 kU/L Class 0 Cladosporium Herbarum <0.10 kU/L Class 0 Apergillis Fumigatus Ige <0.10 kU/L Class 0 Mucor Racemosus <0.10 kU/L Class 0 Alternaria Alternata <0.10 kU/L Class 0 Stemphylium Bot <0.10 kU/L Class 0 Birch,White <0.10 kU/L Class 0 Telluride,White <0.10 kU/L Class 0 Elm,Ugandan (White) <0.10 kU/L Class 0 Vipin,White <0.10 kU/L Class 0 Hazelnut Tree T004 Ige <0.10 kU/L Class 0 Madison,White <0.10 kU/L Class 0 Mesa,White <0.10 kU/L Class 0 Cl[place],Mountain <0.10 kU/L Class 0 Ragweed,Short/ <0.10 kU/L Class 0 Mugwort <0.10 kU/L Class 0 Plantain,Irish <0.10 kU/L Class 0 Pigweed,Rough <0.10 kU/L Class 0 Sheep [employer] (DO <0.10 kU/L Class 0 Nettle <0.10 kU/L Class 0 Maple/Jenks Ige T001 <0.10 kU/L Class 0 108 Laboratory 01/09/2017 [facility] Immunoglobulin 47 IU/mL 0-100 109 test finding [address] E,[place] [address] [phone] Laboratory 12/06/2016 [facility] Thyroid Stim 3.78 Normal 0.30-4.2 110 test finding [address] Hormone uIU/mL 0 [place] [address] [phone] Free T4 0.95 ng/dL Normal 0.76-1.46 Comprehensive 09/03/2016 [facility] Glucose 90 mg/dL Normal 74-106 111 Metabolic Panel [address] [place] [address] [phone] BUN 17 mg/dL Normal 7-18 Creatinine 1.0 mg/dL Normal 0.6-1.3 Glom Filtration Rate, Estimate >60 mL/min >60 If >60 mL/min >60 112 BUN/Creat 17.0 ratio Sodium 142 mmol/L Normal 136-145 Potassium 4.1 mmol/L Normal 3.5-5.1 Chloride 106 mmol/L Normal 98-107 Carbon Dioxide 28 mmol/L Normal 21-32 Anion Gap 8 mEq/L Normal 8-16 Calcium 8.8 mg/dL Normal 8.5-10.1 Total Protein 7.1 g/dL Normal 6.4-8.2 Albumin 3.6 g/dL Normal 3.4-5.0 Globulin 3.5 g/dL Normal 1.9-4.3 Alb/Glob 1.0 ratio Bilirubin,Total 0.5 mg/dL Normal 0.2-1.0 Sgot/Ast 24 U/L Normal 15-37 SGPT/Alt 46 U/L Normal 12-78 Alkaline Phosphatase 66 U/L Normal 45-117 Laboratory test 09/03/2016 [facility] Magnesium 2.0 mg/dL Normal 1.8-2.[address] [place], [place] [address] [phone] CBS W/Automated 09/03/2016 [facility] White Blood 8.2 K/uL Normal 3.1-10.[address] Count [place], [place] [address] [phone] Red Blood Count 5.39 M/uL Normal 3.90-5.40 Hemoglobin 15.0 gm/dL Normal 11.6-15.8 Hematocrit 45.0 % Normal 36.0-46.1 Mean Cell Volume 83.5 fl Normal 80.9-99.0 Mean Corpuscular HGB 27.8 pg Normal 25.9-32.7 Mean Corpuscular HGB Conc 33.3 g/dL Normal 30.8-34.3 Platelet Count 235 K/uL Normal 150-400 Red Cell Distri Width SD 47.2 fl High 3-47 Red Cell Distri Width %CV 15.8 % High 11.7-14.4 Mean Platelet Volume 10.2 fL Normal 8.9-12.4 Neut% 67.2 % Normal 40.4-72.8 Lymph % 24.8 % Normal 20.0-42.0 Prentiss % 5.0 % Normal 4.3-13.2 Eo% 2.8 % Normal 0.0-6.6 Bas% 0.2 % Normal 0.0-1.1 Neut# 5.47 K/uL Normal 1.8-7.0 Lymph # 2.02 K/uL Normal 1.0-4.0 Prentiss # 0.41 K/uL Normal 0.3-0.9 Eos # 0.23 K/uL Normal 0.0-0.5 Baso # 0.02 K/uL Normal 0.0-0.1 Urine Creat 04/10/2011 [facility] Urine Collection 24 Hours Clearance Profile [address] [facility] Time [place], [place] [id number] [phone] Urine Total Volume 750 mL Serum Creatinine 0.7 mg/dL 0.5-1.4 Urine Creatinine Conc 221 mg/dL Urine Creatinine Clearance 164 mL/min High 70-156 Urine Total Prot 04/10/2011 [facility] Urine Collection Time 24 Hours Timed Profile [address] [place] [address] [phone] Urine Total Volume 750 mL Urine Total Protein Conc 45.0 mg/dL Urine TP Total (mg/24hr) 338 [id number] High Comprehensive Metabolic 04/03/2011 [facility] Glucose 113 mg/dL 76-115 Panel [address] [place] [address] [phone] BUN 8 mg/dL 5-23 Creatinine 0.9 mg/dL 0.5-1.4 Glom Filtration Rate, Estimate >60 mL/min >60 If >60 mL/min >60 113 BUN/Creat 8.8 ratio Sodium 140 mmol/L 136-145 [...] 73 U/L 50-136 Laboratory test finding 04/03/2011 [facility] Uric Acid 3.4 mg/dL 2.1-7.4 [address] [place] [address] [phone] LDH 163 U/L Low 165-265 CBS W/Automated 04/03/2011 [facility] White Blood 11.1 K/uL High 3.1-10.[address] [place] [address] [phone] Red Blood Count 3.88 M/uL Low 3.90-5.40 [...] 40.4-72.8 Lymph % 15.4 % Low 17.0-46.1 Prentiss % 4.4 % 4.3-13.2 Eo% 0.9 % 0.0-6.6 Bas% 0.1 % 0.0-1.1 Neut# 8.76 K/uL High 1.0-7.0 Lymph # 1.70 K/uL 0.8-3.4 Prentiss # 0.49 K/uL 0.3-0.9 Eos # 0.10 K/uL 0.0-0.5 Baso # 0.01 K/uL 0.0-0.1 Red Cell Distri Width SD 46.3 fl 3-47 Urinalysis With 03/14/2011 [facility] Urine Color YELLOW Yellow Microscopic [address] [place] [address] [phone] Urine Clarity SL CLOUDY Clear Urine Glucose - Dipstick NEGATIVE mg/dL Negative Urine Bilirubin - Dipstick NEGATIVE Negative Urine Ketone TRACE mg/dL High Negative Urine Specific [place] 1.025 1.010-1.030 Urine Blood TRACE Negative Urine PH 6.5 6.5-7.5 Urine Protein - Dipstick 30 mg/dL High Negative Urine Urobilinogen - Dipstick 1.0 E.U./dL 0.2-1.0 Urine Nitrite - Dipstick NEGATIVE Negative Urine Leuk Esterase NEGATIVE Negative Urine RBC 0-2 rbc/hpf 0-7 Urine WBC 0-2 wbc/hpf 0-7 Urine Epithelial Cells MANY NONESEEN 114 Urine Bacteria MANY NONESEEN High Urine Amorph Sediment MODERATE Negative Laboratory test 03/14/2011 [facility] Culture If See Note [address] [place] [address] [phone] Urine Culture See Note 116 CBC 03/13/2011 [facility] White Blood Count 10.1 K/uL 3.1-10.[address] [place] [address] [phone] Red Blood Count 3.95 M/uL 3.90-5.40 Hemoglobin 11.9 gm/dL 11.6-15.8 Hematocrit 34.3 % Low 36.0-46.1 Mean Cell Volume 86.8 fl 80.9-99.0 Mean Corpuscular HGB 30.1 pg 25.9-32.7 Mean Corpuscular HGB Conc 34.7 g/dL High 30.8-34.3 Platelet Count 230 K/uL 155-360 Red Cell Distri Width %CV 14.7 % High 11.7-14.4 Mean Platelet Volume 8.9 fL 8.9-12.4 Affirm Test 03/13/2011 [facility] Gardnerella Vaginalis See Note [address] [place] [address] [phone] Trichomonas Vaginalis See Note 118 Evi Species See Note 119 OB Initial 12/26/2010 [facility] Thyroid Stim 1.27 uIU/mL 0.49-4.67 [address] [place] [address] [phone] Free T4 0.79 ng/dL 0.71-1.85 121 Toxoplasma IgG Antibody <6.5 IU/mL 0.0-6.4 122 Toxoplasma IgM Antibody <0.9 index 0.0-0.8 123 Varicella-Zoster Virus IgG Ab 1.49 index High 0.00-0.90 124 Varicella-Zoster Virus IgM Ab <0.91 AU 0.00-0.90 125 Urine Screen See Note 126 Urine Culture See Note 127 Parvovirus 12/26/2010 [facility] Parvovirus B19 3.0 index High 0.0-0.8 128 B19,Human [address] Igg Igg/[place] [address] [phone] Parvovirus B19 Igm 0.1 index 0.0-0.8 129 Glucose,1 HR 12/26/2010 [facility] 1 HR Glucose,Post 87 mg/dL -138 130 Post Glucola [address] Glucola [place], [place] [address] [phone] 1 Hour Urine Glucose NEGATIVE % Negative 1 Hour Urine Ketone NEGATIVE Negative CBS W/Automated Diff 12/26/2010 [facility] White Blood 8.9 K/uL 3.1-10.[address] [place] [address] [phone] Red Blood Count 4.96 M/uL 3.90-5.40 Hemoglobin 14.3 gm/dL 11.6-15.8 Hematocrit 40.9 % 36.0-46.1 Mean Cell Volume 82.5 fl 80.9-99.0 Mean Corpuscular HGB 28.8 pg 25.9-32.7 Mean Corpuscular HGB Conc 35.0 g/dL High 30.8-34.3 Platelet Count 238 K/uL 155-360 Red Cell Distri Width %CV 14.9 % High 11.7-14.4 Mean Platelet Volume 9.2 fL 8.9-12.4 Neut% 69.6 % 40.4-72.8 Lymph % 23.1 % 17.0-46.1 Prentiss % 5.5 % 4.3-13.2 Eo% 1.5 % 0.0-6.6 Bas% 0.3 % 0.0-1.1 Neut# 6.18 K/uL 1.0-7.0 Lymph # 2.05 K/uL 0.8-3.4 Prentiss # 0.49 K/uL 0.3-0.9 Eos # 0.13 K/uL 0.0-0.5 Baso # 0.03 K/uL 0.0-0.1 Red Cell Distri Width SD 44.0 fl 3-47 Laboratory test 12/26/2010 [facility] Rapid Plasma NONREACTIVE [address] Reagin NONREACTIVE [place], [place] [address] [phone] Hepatitis B Surface Antigen NEGATIVE Negative 132 Rubella IgG Antibody POSITIVE (Positive) 133 Type And Screen 12/26/2010 [facility] Patient Blood Type A POS [address] [place] [address] [phone] Antibody Screen NEGATIVE Urinalysis With 12/26/2010 [facility] Urine Color YELLOW Yellow Microscopic [address] [place] [address] [phone] Urine Clarity CLEAR Clear Urine Glucose - Dipstick NEGATIVE mg/dL Negative Urine Bilirubin - Dipstick NEGATIVE Negative Urine Ketone NEGATIVE mg/dL Negative Urine Specific [place] >=1.030 1.010-1.030 Urine Blood TRACE Negative Urine PH 6.0 Low 6.5-7.5 Urine Protein - Dipstick NEGATIVE mg/dL Negative Urine Urobilinogen - Dipstick 1.0 E.U./dL 0.2-1.0 Urine Nitrite - Dipstick NEGATIVE Negative Urine Leuk Esterase NEGATIVE Negative Urine RBC 0-2 rbc/hpf 0-7 Urine WBC NONE SEEN wbc/hpf 0-7 Urine Epithelial Cells MODERATE NONESEEN 134 Urine Bacteria MODERATE NONESEEN High Urine Mucus SMALL NONESEEN Dna Probe N. Gono 12/06/2010 [facility] Dna Probe For See Note 135 + C. Trach. [address] [place] [address] [phone] Dna Probe For N. Gonorrhoeae See Note 136 1 R30.0 2 ENTEROCOCCUS FAECALIS 3 FEW GR POS. BACILLI SUGGESTIVE OF LACTOBACILLUS SP. 4 GRAM STAIN INDICATES NORMAL GENITAL GIOVANNI 5 Method: BD Affirm VPIII DNA Probe Assay 6 R31.9 7 URINE, CLEAN CATCH 8 R79.89 9 Vitamin D deficiency has been defined by the [place] of [employer] and an Endocrine Society practice guideline as a level of serum 25-OH vitamin D less than 20 ng/mL (1,2). The Endocrine Society went on to further define vitamin D insufficiency as a level between 21 and 29 ng/mL (2). 1. IOM ([place] of [employer]). 2010. Dietary reference intakes for calcium and D. [place]: The National Academies Press. 2. Anitra MF, Jason NC, Irene MERLOS, et al. Evaluation, treatment, and prevention of vitamin D deficiency: an Endocrine Society clinical practice guideline. JCEM. 2010; 96(7):1911-30. Performed at: RN - [facility] [address] [place], [place] [id number] Parliamentary Librarian: Tonia Paz MD, Phone: [phone] 10 INFCE Result Units: mg/g creat Performed at: RN - [facility] [address] [place], [place] [id number] Parliamentary Librarian: Tonia Paz MD, Phone: [phone] 11 Note: Persistent reduction for 3 months or more in an eGFR <60 mL/min/1.73 m2 defines CKD. Patients with eGFR values >/=60 mL/min/1.73 m2 may also have CKD if evidence of persistent proteinuria is present. The original MDRD equation for estimated GFR is not valid for patients less than 18 years of age. Additional information may be found at www.kdoqi.org. 12 Reference Guidelines*: Desirable: ........... < 200 mg/dL Borderline High: ..... 200-239 mg/dL High: ................ >=240 mg/dL * The National Cholesterol Education Program (NCEP) 13 Reference Guidelines*: Normal: ............. < 150 mg/dL Borderline High: .... 150-199 mg/dL High: ............... 200-499 mg/dL Very High: .......... > 500 mg/dL * Source: National Cholesterol Education Program (NCEP) 14 Reference Guidelines*: Low HDL: ..... < 40 mg/dL Normal: ..... 40-60 mg/dL Desirable: ... > 60 mg/dL *The National Cholesterol Education Program(NCEP) 15 Reference Guidelines*: Optimal:........... <100 mg/dL Near Optimal....... 100-129 mg/dL Borderline High.... 130-159 mg/dL High............... 160-189 mg/dL Very High.......... >=190 mg/dL * Source: National Cholesterol Education Program (NCEP) 16 DIZZINESS 17 Note: Persistent reduction for [...] 20 CHEST FEELS HEAVY, LIGHT HEADED 21 R79.89 22 Note: Persistent reduction for 3 months [...] D deficiency has been defined by the [place] of [employer] and an Endocrine Society practice guideline as a level of serum 25-OH vitamin D less than 20 ng/mL (1,2). The Endocrine Society went on to further define vitamin D insufficiency as a level between 21 and 29 ng/mL (2). 1. IOM ([place] of [employer]). 2010. Dietary reference intakes for calcium and D. [place]: The National Academies Press. 2. Anitra SNOW, Jason [place], Irene MERLOS, et al. Evaluation, treatment, and prevention of vitamin D deficiency: an Endocrine Society clinical practice guideline. JCEM. 2010; 96(7):1911-30. Performed at: RN - [facility] [address] [id number] Parliamentary Librarian: Tonia Paz MD, Phone: [phone] 24 Reference Guidelines*: Desirable: ........... < 200 [...] Cholesterol Education Program (NCEP) 28 ?STROKE 29 THERAPEUTIC INR RANGE: 2.0 - 3.0 DVT, Pulmonary embolus, prophylaxis against venous thrombosis or systemic embolization in high risk patients. 2.5 - 3.5 Mechanical heart valves 30 Is patient on anticoagulants? Coumadin 31 Note: Persistent reduction for 3 months [...] Suggestive 0.6 - 1.5 ng/mL: Consistent 33 J02.9 34 NORMAL THROAT GIOVANNI 35 NORMAL THROAT GIOVANNI 36 Q61.2 E03.9 M62.82 37 Note: Persistent reduction for 3 months or more in an eGFR <60 mL/min/1.73 m2 defines CKD. Patients with eGFR values >/=60 mL/min/1.73 m2 may also have CKD if evidence of persistent proteinuria is present. The original MDRD equation for estimated GFR is not valid for patients less than 18 years of age. Additional information may be found at www.[email or web address]. 38 URINE, CLEAN CATCH 39 INFCE Result Units: mg/g creat Performed at: RN - [facility] [address] [id number] Parliamentary Librarian: Tonia Paz MD, Phone: [phone] 40 P68.4 P92.6 41 Note: Persistent reduction for 3 months or more in an eGFR <60 mL/min/1.73 m2 defines CKD. Patients with eGFR values >/=60 mL/min/1.73 m2 may also have CKD if evidence of persistent proteinuria is present. The original MDRD equation for estimated GFR is not valid for patients less than 18 years of age. Additional information may be found at [email or web address]. 42 Reference Guidelines*: Desirable: ........... < 200 [...] Source: National Cholesterol Education Program (NCEP) 46 Vitamin D deficiency has been defined by the [place] of [employer] and an Endocrine Society practice guideline as a level of serum 25-OH vitamin D less than 20 ng/mL (1,2). The Endocrine Society went on to further define vitamin D insufficiency as a level between 21 and 29 ng/mL (2). 1. IOM ([place] of [employer]). 2010. Dietary reference intakes for calcium and D. [place]: The National Academies Press. 2. Anitra MF, Jason NC, Irene MERLOS, et al. Evaluation, treatment, and prevention of vitamin D deficiency: an Endocrine Society clinical practice guideline. JCEM. 2010; 96(7):1911-30. Performed at: RN - [facility] [address] [id number] Parliamentary Librarian: Tonia Paz MD, Phone: [phone] 47 Elevated levels of HbA1c suggest the need for more aggressive treatment of glycemia. The [place] Diabetes Association recommends that a primary goal of therapy should be a HbA1c of <7% and that physicians should re-evaluate the treatment regimen in patients with HbA1c values consistently >8%. 48 CHEST PAIN 49 0.0 - 0.045 ng/mL: Normal 0.046 - 0.5 ng/mL: Suggestive 0.6 - 1.5 ng/mL: Consistent 50 Note: Persistent reduction for 3 months or more in an eGFR <60 mL/min/1.73 m2 defines CKD. Patients with eGFR values >/=60 mL/min/1.73 m2 may also have CKD if evidence of persistent proteinuria is present. The original MDRD equation for estimated GFR is not valid for patients less than 18 years of age. Additional information may be found at www.kdoqi.org. 51 CP 52 Tests: d-dimer Instructions: 53 Note: Persistent reduction for 3 months or more in an eGFR <60 mL/min/1.73 m2 defines CKD. Patients with eGFR values >/=60 mL/min/1.73 m2 may also have CKD if evidence of persistent proteinuria is present. The original MDRD equation for estimated GFR is not valid for patients less than 18 years of age. Additional information may be found at www.kdoqi.org. 54 0.0 - 0.045 ng/mL: Normal 0.046 - 0.5 ng/mL: Suggestive 0.6 - 1.5 ng/mL: Consistent 55 Method: MetalComp[employer]ue One-Step Immunoassay 56 <=0.49 ug/mL - Low likelihood of DIC, DVT or Pulmonary Embolism >0.49 ug/mL - Additional testing should be done to rule out DIC, DVT, or Pulmonary embolism as clinically indicated. ([facility] has established a 97.89% negative predictive value for thrombotic disease when a cutoff value of 0.5 ug/mL is used.) 57 E55.9 E87.6 58 Performed at: - [facility] [id number] Parliamentary Librarian: Tonia Paz MD, Phone: [phone] 59 Note: Persistent reduction for 3 months or more in an eGFR <60 mL/min/1.73 m2 defines CKD. Patients with eGFR values >/=60 mL/min/1.73 m2 may also have CKD if evidence of persistent proteinuria is present. The original MDRD equation for estimated GFR is not valid for patients less than 18 years of age. Additional information may be found at www.kdoqi.org. 60 R42 61 Vitamin D deficiency has been defined by the [place] of [employer] and an Endocrine Society practice guideline as a level of serum 25-OH vitamin D less than 20 ng/mL (1,2). The Endocrine Society went on to further define vitamin D insufficiency as a level between 21 and 29 ng/mL (2). 1. IOM ([place] of [employer]). 2010. Dietary reference intakes for calcium and D. [place]: The National Academies Press. 2. Anitra MF, Jason NC, Irene MERLOS, et al. Evaluation, treatment, and prevention of vitamin D deficiency: an Endocrine Society clinical practice guideline. JCEM. 2010; 96(7):1911-30. Performed at: - [facility] [id number] Parliamentary Librarian: Tonia Paz MD, Phone: [phone] 62 Note: Persistent reduction for 3 months or more in an eGFR <60 mL/min/1.73 m2 defines CKD. Patients with eGFR values >/=60 mL/min/1.73 m2 may also have CKD if evidence of persistent proteinuria is present. The original MDRD equation for estimated GFR is not valid for patients less than 18 years of age. Additional information may be found at www.kdoqi.org. 63 Elevated levels of HbA1c suggest the need for more aggressive treatment of glycemia. The [place] Diabetes Association recommends that a primary goal of therapy should be a HbA1c of <7% and that physicians should re-evaluate the treatment regimen in patients with HbA1c values consistently >8%. 64 Reference Guidelines*: Desirable: ........... < 200 mg/dL Borderline High: ..... 200-239 mg/dL High: ................ >=240 mg/dL * The National Cholesterol Education Program (NCEP) 65 Reference Guidelines*: Normal: ............. < 150 mg/dL Borderline High: .... 150-199 mg/dL High: ............... 200-499 mg/dL Very High: .......... > 500 mg/dL * Source: National Cholesterol Education Program (NCEP) 66 Reference Guidelines*: Low HDL: ..... < 40 mg/dL Normal: ..... 40-60 mg/dL Desirable: ... > 60 mg/dL *The National Cholesterol Education Program(NCEP) 67 Reference Guidelines*: Optimal:........... <100 mg/dL Near Optimal....... 100-129 mg/dL Borderline High.... 130-159 mg/dL High............... 160-189 mg/dL Very High.......... >=190 mg/dL * Source: National Cholesterol Education Program (NCEP) 68 N76.0 69 GRAM STAIN INDETERMINANT FOR BACTERIAL VAGINOSIS 70 MODERATE GR POS. BACILLI SUGGESTIVE OF LACTOBACILLUS SP. 71 MODERATE GRAM VARIABLE COCCOBACILLI 72 RARE GRAM POSITIVE COCCI 73 RARE RARE WHITE BLOOD CELLS 74 R42 N28.1 75 Note: Persistent reduction for 3 months or more in an eGFR <60 mL/min/1.73 m2 defines CKD. Patients with eGFR values >/=60 mL/min/1.73 m2 may also have CKD if evidence of persistent proteinuria is present. The original MDRD equation for estimated GFR is not valid for patients less than 18 years of age. Additional information may be found at www.kdoqi.org. 76 Elevated levels of HbA1c suggest the need for more aggressive treatment of glycemia. The [place] Diabetes Association recommends that a primary goal of therapy should be a HbA1c of <7% and that physicians should re-evaluate the treatment regimen in patients with HbA1c values consistently >8%. 77 Performed at: RN - [facility] [address] [id number] Parliamentary Librarian: Tonia Paz MD, Phone: [phone] 78 Vitamin D deficiency has been defined by the [place] of [employer] and an Endocrine Society practice guideline as a level of serum 25-OH vitamin D less than 20 ng/mL (1,2). The Endocrine Society went on to further define vitamin D insufficiency as a level between 21 and 29 ng/mL (2). 1. IOM ([place] of [employer]). 2010. Dietary reference intakes for calcium and D. [place]: The National Academies Press. 2. Anitra MF, Jason RINALDI, Irene MERLOS, et al. Evaluation, treatment, and prevention of vitamin D deficiency: an Endocrine Society clinical practice guideline. JCEM. 2010; 96(7):1911-30. Performed at: RN - [facility] [address] [id number] Parliamentary Librarian: Tonia Paz MD, Phone: [phone] 79 Reference Guidelines*: Desirable: ........... < 200 [...] Source: National Cholesterol Education Program (NCEP) 83 E66.01 I10 R82.99 84 URINE, CLEAN CATCH 85 INFCE Result Units: mg/g creat Performed at: RN - [facility] [address] [id number] Parliamentary Librarian: Tonia Paz MD, Phone: [phone] 86 SEVERE ABD BACK PAIN 87 A negative result for either C. trachomatis and/or N. gonorrhoeae does not preclued an infection because results are dependent on adequate specimen collection, absence of inhibitors, and sufficient DNA to be detected. 88 URINE, CLEAN CATCH 89 K21.9 E78.2 R73.9 90 Note: Persistent reduction for 3 months or more in an eGFR <60 mL/min/1.73 m2 defines CKD. Patients with eGFR values >/=60 mL/min/1.73 m2 may also have CKD if evidence of persistent proteinuria is present. The original MDRD equation for estimated GFR is not valid for patients less than 18 years of age. Additional information may be found at www.kdoqi.org. 91 Reference Guidelines*: Desirable: ........... < 200 mg/dL Borderline High: ..... 200-239 mg/dL High: ................ >=240 mg/dL * The National Cholesterol Education Program (NCEP) 92 Reference Guidelines*: Normal: ............. < 150 mg/dL Borderline High: .... 150-199 mg/dL High: ............... 200-499 mg/dL Very High: .......... > 500 mg/dL * Source: National Cholesterol Education Program (NCEP) 93 Reference Guidelines*: Low HDL: ..... < 40 mg/dL Normal: ..... 40-60 mg/dL Desirable: ... > 60 mg/dL *The National Cholesterol Education Program(NCEP) 94 Reference Guidelines*: Optimal:........... <100 mg/dL Near Optimal....... 100-129 mg/dL Borderline High.... 130-159 mg/dL High............... 160-189 mg/dL Very High.......... >=190 mg/dL * Source: National Cholesterol Education Program (NCEP) 95 Elevated levels of HbA1c suggest the need for more aggressive treatment of glycemia. The [place] Diabetes Association recommends that a primary goal of therapy should be a HbA1c of <7% and that physicians should re-evaluate the treatment regimen in patients with HbA1c values consistently >8%. 96 URINE, CLEAN CATCH 97 INFCE Result Units: mg/g creat Performed at: [facility] [address] [place] [id number] Parliamentary Librarian: Tonia Paz MD, Phone: [phone] 98 G80.9 O71.19 R53.82 R60.0 R66.01 99 Performed at: [facility] [address] [place] [id number] Parliamentary Librarian: Tonia Paz MD, Phone: [phone] 100 Elevated levels of HbA1c suggest the need for more aggressive treatment of glycemia. The [place] Diabetes Association recommends that a primary goal of therapy should be a HbA1c of <7% and that physicians should re-evaluate the treatment regimen in patients with HbA1c values consistently >8%. 101 Reference Guidelines*: Desirable: ........... < 200 mg/dL Borderline High: ..... 200-239 mg/dL High: ................ >=240 mg/dL * The National Cholesterol Education Program (NCEP) 102 Reference Guidelines*: Normal: ............. < 150 mg/dL Borderline High: .... 150-199 mg/dL High: ............... 200-499 mg/dL Very High: .......... > 500 mg/dL * Source: National Cholesterol Education Program (NCEP) 103 Reference Guidelines*: Low HDL: ..... < 40 mg/dL Normal: ..... 40-60 mg/dL Desirable: ... > 60 mg/dL *The National Cholesterol Education Program(NCEP) 104 Reference Guidelines*: Optimal:........... <100 mg/dL Near Optimal....... 100-129 mg/dL Borderline High.... 130-159 mg/dL High............... 160-189 mg/dL Very High.......... >=190 mg/dL * Source: National Cholesterol Education Program (NCEP) 105 Note: Persistent reduction for 3 months or more in an eGFR <60 mL/min/1.73 m2 defines CKD. Patients with eGFR values >/=60 mL/min/1.73 m2 may also have CKD if evidence of persistent proteinuria is present. The original MDRD equation for estimated GFR is not valid for patients less than 18 years of age. Additional information may be found at www.kdoqi.org. 106 J30.89 107 Levels of Specific IgE Class Description of Class ----- < 0.10 0 Negative 0.10 - 0.31 0/I Equivocal/Low 0.32 - 0.55 I Low 0.56 - 1.40 II Moderate 1.41 - 3.90 III High 3.91 - 19.00 IV Very High 19.01 - 100.00 V Very High >100.00 Very High 108 Performed at: - [facility] [id number] Parliamentary Librarian: Kwasi Henson MD, Phone: [phone] Performed at: [facility] [id number] Parliamentary Librarian: Tonia Paz MD, Phone: [phone] 109 Test(s) [id number] Cockroach, [place]; [id number] Deni Stanley were developed and had performance characteristics determined by [facility]. These tests have not been cleared or approved by the U.S. Food and Drug Administration. The FDA has determined that such clearance or approval is not necessary. These tests are used for clinical purposes. These should not be regarded as investigational or for research. 110 E07.9 111 INS HAS STAUBER- BEING FIXED (pittman name) 112 Note: Persistent reduction for 3 months or more in an eGFR <60 mL/min/1.73 m2 defines CKD. Patients with eGFR values >/=60 mL/min/1.73 m2 may also have CKD if evidence of persistent proteinuria is present. The original MDRD equation for estimated GFR is not valid for patients less than 18 years of age. Additional information may be found at www.kdoqi.org. 113 Note: Persistent reduction for 3 months or more in an eGFR <60 mL/min/1.73 m2 defines CKD. Patients with eGFR values >/=60 mL/min/1.73 m2 may also have CKD if evidence of persistent proteinuria is present. The original MDRD equation for estimated GFR is not valid for patients less than 18 years of age. Additional information may be found at www.kdoqi.org. 114 POSSIBLE UROGENITAL CONTAMINATION. 115 CULTURE TO FOLLOW 116 COLONY COUNT ! 40,000-50,000 CFU/ml Organism 1 ! MIXED URETHRAL GIOVANNI 117 POSITIVE FOR GARDNERELLA VAGINALIS 118 NEGATIVE FOR TRICHOMONAS VAGINALIS 119 NEGATIVE FOR EVI SPECIES Testing Performed by: [place] [address] 120 QUERY: @[facility] Pat ID: [id number] QUERY: @[facility] Req #: [id number] 121 QUERY: @[facility] Pat ID: [id number] QUERY: @[facility] Req #: [id number] 122 Negative <6.5 Equivocal 6.5 - 7.9 Positive >7.9 123 Negative <0.9 Indeterminate 0.9 - 1.0 Positive >1.0 Although the presence of Toxo IgM antibodies suggests an acute infection, low levels may persist for many months following infection. 124 Negative <0.91 Equivocal 0.91 - 1.09 Positive >1.09 125 Negative <0.91 Borderline 0.91 - 1.09 Positive >1.09 Performed at: - [facility] [id number] Parliamentary Librarian: Phil Roque MD, Phone: [phone] 126 12/26/10 LAB.[facility] Deleted by [facility] UACOM 127 COLONY COUNT ! >100,000 CFU/ml Organism 1 ! URETHRAL GIOVANNI 128 Negative <0.9 Equivocal 0.9 - 1.1 Positive >1.1 129 Negative <0.9 Equivocal 0.9 - 1.1 Positive >1.1 130 POST GLUCOLA 131 PENDING; TEST PERFORMED ON MONDAYS AND THURSDAYS QUERY: @[facility] Pat ID: [id number] QUERY: @[facility] Req #: [id number] QUERY: @[facility] Pat ID: [id number] QUERY: @[facility] Req #: [id number] 132 HBsAg not detected; does not exclude the possibility of exposure to or early acute infections with HBV. 133 QUERY: @[facility] Pat ID: [id number] QUERY: @[facility] Req #: [id number] 134 POSSIBLE UROGENITAL CONTAMINATION. 135 NEGATIVE FOR CHLAMYDIA TRACHOMATIS BY DNA HYBRIDIZATION ASSAY. THIS TEST IS APPROVED FOR OCULAR AND UROGENITAL SITES ONLY. 136 NEGATIVE FOR NEISSERIA GONORRHOEAE BY DNA HYBRIDIZATION ASSAY. THIS METHOD IS APPROVED FOR UROGENITAL SITES ONLY. Procedures Date Code Description Status 12/08/2018 84838 EKG-Tracing And Report Completed 10/20/2018 01466 EKG-Tracing And Report Completed 09/25/2018 82506 Pressurized/Non-Pressurized Inhalation Treatment,Acute Completed Obstructio 09/04/2018 68703 Event Monitor Inter/Review Only Completed 09/01/2018 93850 EKG-Tracing And Report Completed 07/09/2018 63492 EKG-Tracing And Report Completed 05/15/2018 41770 Echocardiogram Complete Completed 02/25/2018 58946 Pressurized/Non-Pressurized Inhalation Treatment,Acute Completed Obstructio 02/10/2018 68120 EKG-Tracing And Report Completed 12/25/2017 07226 EKG-Tracing And Report Completed 04/18/2017 78760 EKG-Tracing And Report Completed 12/26/2016 28153 Bronchospasm Provocation Evaluation Multi Spirometric Completed Determinati 12/26/2016 58787 Spirometry Completed 01/15/2013 44949 Anesthesia, Nose & Accessory Sinus Surgery Not Otherwise Completed Spec 10/22/2012 10992 EKG-Tracing And Report Completed 10/22/2012 48997 Event Monitor Inter/Review Only Completed 07/08/2011 31484 Anesthesia, Delivery Completed 03/22/2011 82845 Theraputic Or Diagnostic Injection Completed 03/22/2011 20576 For Antepartum 4-6 Total Office Visits Completed 03/20/2011 65045 EKG-Tracing And Report Completed 03/13/2011 05127 For Antepartum 4-6 Total Office Visits Completed 03/13/2011 45263 Non-Stress Test (NST) Completed 02/22/2011 84430 For Antepartum 4-6 Total Office Visits Completed 01/30/2011 34381 For Antepartum 4-6 Total Office Visits Completed 01/04/2011 74963 For Antepartum 4-6 Total Office Visits Completed 12/06/2010 24574 Ultrasound Transvag, Completed 09/06/2009 39758 Echocardiogram Complete Completed 09/06/2009 00347 EKG Interpretation And Report Only Completed Encounters Type Date Location Provider Dx Diagnosis Office Visit 12/08/2018 Cardiology Office Ra Banks I10 Essential ( primary) 11:00a [place] Esparza, FAC hypertension Office Visit 12/05/2018 Primary Care Komal, R30.0 Dysuria 10:00a Office MAL Do I10 Essential (primary) hypertension Office Visit 10/22/2018 11:00a Primary Care Lorraine Powers, Q61.2 Polycystic kidney, Office adult type E78.5 Hyperlipidemia, unspecified I10 Essential (primary) hypertension 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 G43.009 Migraine w/o aura, not intractable, w/o status migrainosus E87.6 Hypokalemia E55.9 Vitamin D deficiency, unspecified K76.0 Fatty (change of) liver, not elsewhere classified Office 10/20/2018 Cardiology Darren, R94.31 Abnormal Visit 11:40a Office Ra Esparza M.D., electrocardiogram FACC [ECG] [EKG] R00.0 Tachycardia, unspecified I45.81 Long QT syndrome Office Visit 09/25/2018 11:20a Primary Care Lorraine Powers, J02.9 Acute pharyngitis, Office unspecified R19.7 Diarrhea, unspecified J01.90 Acute sinusitis, unspecified R05 Cough B37.0 Candidal stomatitis Office Visit 09/16/2018 Primary Care Malathi, E03.9 Hypothyroidism, 10:00a Office Velma, MS, unspecified [employer], CNM J02.9 Acute pharyngitis, unspecified R79.89 Other specified abnormal findings of blood chemistry E87.6 Hypokalemia H69.93 Unspecified Eustachian tube disorder, bilateral Office Visit 09/03/2018 10:00a Primary Care Velma Servin, I10 Essential (primary) Office MS, [employer], CNM hypertension Q61.2 Polycystic kidney, adult type [...] Velma Servin, L29.8 Other pruritus Office , [employer], CNM E87.6 Hypokalemia M25.549 Pain in joints of unspecified hand G47.00 Insomnia, unspecified E66.9 Obesity, unspecified E55.9 Vitamin D deficiency, unspecified Q61.2 Polycystic kidney, adult type Office Visit 04/02/2018 1:00p Primary Care Velma Servin, E87.6 Hypokalemia Office MS, [employer], CNM E55.9 Vitamin D deficiency, unspecified Q61.2 Polycystic kidney, adult type E66.9 Obesity, unspecified E78.5 Hyperlipidemia, unspecified I10 Essential (primary) hypertension G47.00 Insomnia, unspecified M25.549 Pain in joints of unspecified hand M79.669 Pain in unspecified lower leg Office Visit 03/11/2018 10:00a Primary Care Velma Servin, Z00.00 Encntr for Office MS, [employer], CNM general adult medical exam w/o abnormal findings N76.0 Acute vaginitis I10 Essential (primary) hypertension E66.9 Obesity, unspecified Z71.3 Dietary counseling and surveillance Office Visit 02/25/2018 9:30a Primary Care Velma Servin, J06.9 Acute upper Office MS, [employer], CNM respiratory infection, unspecified J02.9 Acute pharyngitis, [...] Care Velma Servin, Q61.2 Polycystic Office , [employer], CNM kidney, adult type I10 Essential (primary) hypertension E66.01 Morbid (severe) obesity due to excess calories E55.9 Vitamin D deficiency, unspecified R60.0 Localized edema 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 E78.2 Mixed hyperlipidemia Office Visit 01/20/2018 11:00a Primary Care Velma Servin, I10 Essential (primary) Office MS, [employer], CNM hypertension Q61.2 Polycystic kidney, adult type E66.01 Morbid (severe) obesity due to excess calories M54.5 Low back pain Z23 Encounter for immunization Office Visit 01/06/2018 10:30a Primary Care Velma Servin, I10 Essential (primary) Office , [employer], CNM hypertension R29.6 Repeated falls R42 Dizziness [...] Visit 10/09/2017 1:00p Cardiology Office Ra Banks IApril.Asha Long QT [place] Esparza, FACC syndrome Office [...] Office Visit 04/18/2017 10:00a Cardiology Office Ra Banks.Asha Long QT [place] Esparza, FACC syndrome Office [...] [place] 785.0 Tachycardia Office MIRELA Child, Unspec [employer] 796.2 Blood Pressure Reading Elevated W/O Hypertension 278.00 Obesity Unspec Office Visit 03/13/2011 1:40p core mounter Office Chester Keenan, V22.1 Supervison Of M.DKortney Normal Other V22.1 Supervison Of Normal Other V23.9 High Risk Unspec 654.23 Delivery Previous Antepartum Cond Or Compl 644.03 Premature Labor Threatened Antepartum Cond Or Compl Office Visit 12/06/2010 10:20a core mounter Office Chester Keenan, V22.1 Supervison Of [place] Normal Other V23.9 High Risk Unspec 278.00 Obesity Unspec 654.23 Delivery Previous Antepartum Cond Or Compl Plan of Treatment Future Appointment(s):01/19/2019 10:00 am - Milana Greenfield, MSN, [employer] at Cardiology [id number]/29/2018 1:30 pm - Aravind Mancera MD at Upzwwqjjapv29/22/ 2019 - Velma Servin MS, [employer]-C, CNMR31.9 Hematuria, unspecifiedNew Medication:Cephalexin 500 mg - 1 by mouth three times a dayComments:--C/O oeendbnG30.2 Polycystic kidney, adult typeReferral:Jhonatan Andrews MD, ByinnkthhrR20 Essential (primary) hypertensionComments:--B/P 124/94--Continue low salt diet, lose weight -- Patient states she is taking losartan 50 mg poBID. She is not taking amlodipine for months now. She stopped taking the HCTZ 2 weeks agoR73.9 Hyperglycemia, zesmirarpegA29.5 Abnormal results of liver function studiesNew Xrays:Ultrasound, Abdominal, Scheduled: 12/30/18N92.0 Excessive and frequent menstruation with regular cycleNew Xrays:Ultrasound, Pelvic Trans Abdominal Complete (Non-Obstetric), Scheduled: 12/30/18AllFollow up :abdominal sono pelvic sono RTO 2 weeks with B/P readings
--- OUTSIDE RECORDS SUMMARY | 2018-12-16 13:26 | XMS REPORT | Continuity of Care Document ---
:1985 External Reference #:[id number] Author Name Lorraine Powers MD Address [address] [place] [address] Care Team Providers Name Role Phone Lorraine Powers MD Care Team Information Crew Member Unavailable Lorraine Powers MD Primary Care Physician Unavailable Payers Date Identification Numbers Payment Provider Subscriber Effective: 2009 Policy Number: [id number] [employer] Ginna Pittman PayID: [id number] [address] [place] [address] Effective: 2009 Policy Number: [id number] Medicaid Ginna Pittman Expires: 2012 PayID: [id number] [address] [place] [address] Problems Active Problems Provider Date Palpitations Ra Banks M.D., Onset: 10/22/2012 [facility] Dyspnea Ra Banks M.D., Onset: 10/22/2012 [facility] Migraine variants, not intractable Ra Banks M.D., Onset: 2012 [facility] Infantile cerebral palsy Heavenly Mcclendon MD Onset: 03/06/2013 Spastic hemiplegia of nondominant side Heavenly Mcclendon MD Onset: 03/06/2013 Cerebral palsy Cator, Heavenly, MD Onset: 07/16/2014 Essential hypertension Lorraine Powers MD Onset: 08/28/2016 Uncomplicated moderate persistent Lorraine Powers MD Onset: 08/28/2016 asthma Morbid obesity Lorraine Powers MD Onset: 08/28/2016 Anxiety state Lorraine Powers MD Onset: 08/28/2016 Thyroid nodule Lorraine Powers MD Onset: 08/28/2016 Long QT syndrome Ra Banks M.D., Onset: 04/18/2017 [facility] Neck pain Lorraine Powers MD Onset: 05/15/2017 Other specified myotonic disorders Lorraine Powers MD Onset: 05/15/2017 Otitis media Lorraine Powers MD Onset: 09/09/2017 Acquired renal cystic disease Lorraine Powers MD Onset: 12/09/2017 Benign neoplasm of skin of face Lorraine Powers MD Onset: 12/09/2017 Cyst of left ovary Lorraine Powers MD Onset: 12/09/2017 Hyperlipidemia Ra Banks M.D., Onset: 02/10/2018 [facility] Hypothyroidism Lorraine Powers MD Onset: 07/16/2018 Electrocardiogram abnormal Ra Banks M.D., Onset: 10/20/2018 [facility] Tachycardia Ra Banks M.D., Onset: 10/20/2018 [facility] Family History Date Family Member(s) Observation Comments [...] Unknown Never Smoked Cigarettes Smoking Status Reviewed: 12/01/18 Never Smoked Cigarettes ETOH Use Denies alcohol use Tobacco Use Start: Unknown Patient has never smoked Recreational Drug Use Denies Drug Use Exercise Type/Frequency Exercises rarely Currently Active Patient is currently sexually active Age 1st [place] 16 Years Old # Partners in a [...] and Velma, MS, Lotion shoulder area for [employer]-C, CNM severe itching two times a day Klor-Con M20 Take one tablet 60tabs E87.6 Gagen, 04/02/2018 20Meq twice a day Velma, MS, Tablets ER [employer], CNM Nebulizer use nebulizer 1units J45.40 Gagen, 02/25/2018 Kit/Tubing/Mouthpiece with albuterol q Velma, MS, 6 hrs as needed [employer], CNM Kit wheezing/ SOB Ipratropium [place] use 2 sprays in 15ml J06.9 Gagen, 02/25/2018 0.06% each nostril Velma, MS, Solution twice a day as [employer], CNM needed Nebulizer Compressor The Patient is 1units Gagen, 02/25/2018 using albuterol Velma, MS, Misc nebulizer [employer]C, CNM treatments and needs the compressor. dx: Moderate persistent asthma Vitamin D take 1 capsule by 4caps Lorraine Powers, 01/22/2018 (Ergocalciferol) mouth every week [id number] Capsules Zantac 75 1 tab by mouth 180tabs Lorraine Powers, 01/15/2018 75mg Tablets twice a day Omron 7 Series Blood use daily as 1units I10 Gagen, 01/06/2018 Pressure Monitor directed to MS Velma, Device monitor bp/ [employer], CNM dx:htn PT/OT Eval For Power PT/OT [...] 30tabs Gagen, 08/28/2016 10mg MS Velma, Tablets [employer], CNM CBD/THC Aerosol [place] Unknown Buspirone HCL 1 tab by mouth Am, PM and 90tabs Lorraine Powers, 7.5mg two at [facility] daily Tablets Flonase Allergy 1 spray to both nostrils 9.900ml Gagen, Relief daily. Velma MS, 50mcg/Act [employer], CNM Suspension Tylenol Extra 1-2 tabs by mouth every 4 Unknown Strength hours as needed 500mg Tablets Ventolin HFA 1-2 puffs every 4-6 hours 8gm Gagen, as needed Velma MS, 108(90Base) mcg/Act [employer], CNM Aerosol History Medications Amlodipine Besylate 1 by mouth every 30tabs I10 Lorraine Powers, 12/05/2018 - 2.5mg day MD 12/08/2018 Tablets Cyclobenzaprine HCL take one tablet 20tabs Lorraine Powers, 11/21/2018 - 7.5mg twice a day as MD 11/21/2018 Tablets needed Cyclobenzaprine HCL take 1 tablet by 20tabs Lorraine Powers, 11/21/2018 - 10mg mouth two times a MD 12/01/2018 Tablets day as needed for muscle spasms Ondansetron 1 tab by mouth one 30tabs Lorraine Powers, 09/25/2018 - 4mg Tablets time a day as Unknown Dispers needed for nausea Nystatin 5 milliliters by 473ml Lorraine Powers, 09/25/2018 - [id number]/ML mouth every 6hrs; 10/22/2018 Suspension swish in mouth for several minutes and spit for 14 days Amoxicillin/Clavulanat 1 tab by mouth 20tabs J01.90 Lorraine Powers, 2018 - e Potassium q12hrs for 10 days MD Adrian 875-125mg Tablets Probiotic Acidophilus 1 cap by mouth 30caps Lorraine Powers, 09/25/2018 - every day while on MD 10/22/2018 Capsules antibiotic Ergocalciferol take one a week 16caps E55.9 Lorraine Powers, 09/03/2018 - [id number] Unknown Capsules Potassium Chloride 1 tab by mouth 30tabs Lorraine Powers, 07/16/2018 - Tiffany ER three times a day MD 12/01/2018 20Meq Tablets ER Ergocalciferol take one a week 12caps E55.9 Gagen, 04/02/2018 - 73182Faip Velma, 07/16/2018 Capsules MS, [employer], CNM Trazodone HCL start with 1/2 30tabs G47.00 Gagen, 04/02/2018 - 50mg tablet every at Velma, 07/16/2018 Tablets bedtime after 2 MS, [employer], CNM weeks, may increase to one tablet Metrogel-Vaginal use in vagina for 70gm Gagen, 03/15/2018 - 0.75% 5 nights. no Velma, 04/02/2018 Gel alcohol during use MS, [employer], CNM and 2 days after Benzonatate take one capsule 30caps R05 Gagen, 02/25/2018 - 200mg every 8 hours as Velma, 03/11/2018 Capsules needed MS [employer], CNM Ciprodex 4 drops in right 7.500ml H66.91 Gagen, 02/25/2018 - 0.3-0.1% ear twice a day Velma, 03/11/2018 Suspension for 7 days MS, [employer], CNM Prednisone 2 tabs (40 mg) 10tabs J02.9 Gagen, 02/25/2018 - 20mg Tablets daily for 5 days Velma, 03/11/2018 MS, [employer], CNM Atorvastatin Calcium take 1 tablet by 90tabs Gagen, 01/24/2018 - 20mg mouth once daily Velma, 07/02/2018 Tablets MS, [employer], CNM Rosuvastatin Calcium Take one every day 30tabs Gagen, 01/21/2018 - 10mg Velma, 01/24/2018 Tablets MS, [employer], CNM Losartan Potassium 1 by mouth 1 60tabs I10 Priya, Lorraine, 01/20/2018 - 50mg tablet twice a day MD 10/24/2018 Tablets Losartan Potassium Take 1/2 tablet 45tabs I10 Gagen, 01/09/2018 - 50mg (25 mg) in pm and Velma, 01/20/2018 Tablets take 1 tablet MS [employer] CNM (50MG) in am Amoxicillin/Clavulanat 1 tab by mouth 20tabs J01.90 Priya, Lorraine, 2017 - e Potassium q12hrs for 10 days MD 01/20/2018 875-125mg Tablets Amlodipine Besylate take 1 [...] day Chlorzoxazone 1 tab three times 90tabs Lorraine Powers, 11/21/2017 - 250mg a day MD 11/22/2017 Tablets Metaxalone 1 tab by mouth 90tabs Errol Powersa, 11/19/2017 - 400mg Tablets three times a day 11/21/2017 Valsartan 1 tab by mouth 30tabs Lorraine Powers, 09/09/2017 - 80mg Tablets every day MD 09/09/2017 Amoxicillin 1 tab by mouth 20tabs Errol Powersa, 09/09/2017 - 500mg Tablets q12hrs x10 days Unknown Methocarbamol 1 tab by mouth 90tabs Lorriane Powers, 06/03/2017 - 750mg every 8 hours as 11/19/2017 Tablets needed muscle pain Lyrica 1 tab by mouth 90caps Lorraine Powers, 05/29/2017 - 100mg Capsules three times a [...] Lorraine Powers, 02/11/2017 - 40mg Capsules day 01/15/2018 DR [...] Milana [place] 03/20/2011 - 100mg every evening Simonetta, 10/22/2012 Tablets MSN, [employer] 796.2 Cleocin 1 tab po q 12 [...] 01/06/2018 Capsules Triamterene/Hydrochlo take 1/2 tablet 30tabs Priya, Lorraine, - rothiazide by mouth every MD 12/01/2018 [...] High 1x week Unknown - Potency 03/06/2013 [id number] Capsules Labetalol HCL 1/2 tab po bid 785.0 Unknown - 100mg 03/20/2011 Tablets 796.2 Clindamycin HCL 1 tab by mouth twice 6caps Unknown - Unknown 300mg Capsules a day Immunizations CPT Code Status Date Vaccine Reaction Lot # [id number] Given 01/20/2018 Influenza Virus Vaccine, Quadrivalent, 36 [id number] Mos+, .5ML 00044 Given 02/11/2017 Influenza Virus Vaccine Quadrivalent Iiv4 [place] [id number] [id number] Given 08/28/2016 Pneumovax Injection [id number] 74868 Given 03/22/2011 flu vaccination 25500 Given 03/22/2011 flu vaccination [id number] Vital Signs Date Vital Result Comment 12/08/2018 [...] kg/m2 BSA (Body Surface Area) 2.41 m2 [place] body weight in kilograms 48 kg O2 % BldC Oximetry 97 % Ra 12/01/2018 11:28am BP Systolic Sitting Left Arm 124 mmHg BP Diastolic Sitting Left Arm 94 mmHg Body Temperature 99.3 F Heart Rate 82 /min Respiratory Rate 20 /min Height 61 inches 5'1" Weight 354.00 lb BMI (Body Mass Index) 66.9 kg/m2 BSA (Body Surface Area) 2.41 m2 [place] body weight in kilograms 48 kg O2 % BldC Oximetry 96 % 10/22/2018 11:04am BP Systolic Sitting Left Arm 124 mmHg forearm BP Diastolic Sitting Left Arm 80 mmHg forearm Body Temperature 99.8 F Heart Rate 93 /min Respiratory Rate 20 /min Height 61 inches 5'1" Weight 356.00 lb BMI (Body Mass Index) 67.3 kg/m2 BSA (Body Surface Area) 2.41 m2 [place] body weight in kilograms 48 kg O2 % BldC Oximetry 95 % 10/20/2018 11:41am BP Systolic Sitting Left Arm 126 mmHg BP Diastolic Sitting Left Arm 66 mmHg Heart Rate 96 /min Respiratory Rate 18 /min Height 61 inches 5'1" Weight 360.00 lb BMI (Body Mass Index) 68.0 kg/m2 BSA (Body Surface Area) 2.42 m2 [place] body weight in kilograms 48 kg O2 % BldC Oximetry 96 % 09/25/2018 11:09am BP Systolic Sitting Right Arm 130 mmHg lower arm BP Diastolic Sitting Right Arm 82 mmHg lower arm Body Temperature 98.1 F Heart Rate 76 /min Respiratory Rate 28 /min Height 61 inches 5'1" Weight 359.00 lb BMI (Body Mass Index) 67.8 kg/m2 BSA (Body Surface Area) 2.42 m2 [place] body weight in kilograms 48 kg O2 % BldC Oximetry 96 % 09/16/2018 10:02am BP Systolic Sitting Right Arm 130 mmHg BP Diastolic Sitting Right Arm 82 mmHg Body Temperature 98.2 F Heart Rate 93 /min Height 61 inches 5'1" Weight 366.00 lb BMI (Body Mass Index) 69.1 kg/m2 BSA (Body Surface Area) 2.44 m2 [place] body weight in kilograms 48 kg O2 % BldC Oximetry 98 % 09/03/2018 9:51am BP Systolic Sitting Right Arm 110 mmHg BP Diastolic Sitting Right Arm 62 mmHg Body Temperature 98.3 F Heart Rate 100 /min Respiratory Rate 30 /min Height 61 inches 5'1" Weight 366.00 lb BMI (Body Mass Index) 69.1 kg/m2 BSA (Body Surface Area) 2.44 m2 [place] body weight in kilograms 48 kg O2 [...] kg/m2 BSA (Body Surface Area) 2.43 m2 [place] body weight in kilograms 48 kg O2 % BldC Oximetry 98 % Ra 06/30/2018 1:23pm BP Systolic Sitting Left Arm 124 mmHg BP Diastolic Sitting Left Arm 66 mmHg Heart Rate 87 /min Respiratory Rate 18 /min Height 61 inches 5'1" Weight 362.00 lb BMI (Body Mass Index) 68.4 kg/m2 BSA (Body Surface Area) 2.43 m2 [place] body weight in kilograms 48 kg O2 [...] kg/m2 BSA (Body Surface Area) 2.43 m2 [place] body weight in kilograms 48 kg O2 % BldC Oximetry 98 % ra 04/02/2018 1:00pm BP Systolic Sitting Left Arm 147 mmHg Priscilla 136/90 BP Diastolic Sitting Left Arm 86 mmHg Priscilla 136/90 Body Temperature 98.6 F Heart Rate 89 /min Respiratory Rate 18 /min Height 61 inches 5'1" [place] body weight in kilograms 48 kg 03/11/2018 10:04am BP Systolic Sitting Right Arm 152 mmHg BP Diastolic Sitting Right Arm 91 mmHg Body Temperature 97.6 F Heart Rate 88 /min Respiratory Rate 16 /min Height 61 inches 5'1" Weight 363.00 lb BMI (Body Mass Index) 68.6 kg/m2 BSA (Body Surface Area) 2.43 m2 [place] body weight in kilograms 48 kg Last Menstrual Period [id number] O2 % BldC Oximetry 99 % 02/25/2018 9:38am BP Systolic Sitting Right Arm 122 mmHg BP Diastolic Sitting Right Arm 72 mmHg Body Temperature 99.2 F Heart Rate 74 /min reg Respiratory Rate 24 /min Height 61 inches 5'1" Weight 362.00 lb per pt. BMI (Body Mass Index) 68.4 kg/m2 BSA (Body Surface Area) 2.43 m2 [place] body weight in kilograms 48 kg O2 % BldC Oximetry 96 % ra 02/10/2018 11:09am BP Systolic Sitting Left Arm 132 mmHg BP Diastolic Sitting Left Arm 86 mmHg Heart Rate 86 /min Respiratory Rate 16 /min Height 61 inches 5'1" Weight 362.00 lb per pt BMI (Body Mass Index) 68.4 kg/m2 BSA (Body Surface Area) 2.43 m2 [place] body weight in kilograms 48 kg O2 % BldC Oximetry 97 % Room air 01/27/2018 8:31am BP Systolic Sitting Left Arm 150 mmHg BP Diastolic Sitting Left Arm 91 mmHg Body Temperature 98.6 F Heart Rate 83 /min Respiratory Rate 16 /min Height 61 inches 5'1" Weight 370.00 lb BMI (Body Mass Index) 69.9 kg/m2 BSA (Body Surface Area) 2.45 m2 [place] body weight in kilograms 48 kg O2 % BldC Oximetry 99 % 01/20/2018 10:55am BP Systolic Sitting Left Arm 154 mmHg BP Diastolic Sitting Left Arm 85 mmHg Body Temperature 99.5 F Heart Rate 93 /min Respiratory Rate 20 /min Height 61 inches 5'1" Weight 367.00 lb BMI (Body Mass Index) 69.3 kg/m2 BSA (Body Surface Area) 2.44 m2 [place] body weight in kilograms 48 kg O2 [...] kg/m2 BSA (Body Surface Area) 2.44 m2 [place] body weight in kilograms 48 kg O2 [...] kg/m2 BSA (Body Surface Area) 2.43 m2 [place] body weight in kilograms 48 kg O2 % BldC Oximetry 98 % 12/09/2017 2:16pm BP Systolic Sitting Right Arm 156 mmHg priscilla 166/89 BP Diastolic Sitting Right Arm 97 mmHg priscilla 166/89 Body Temperature 99.1 F Heart Rate 102 /min Respiratory Rate 28 /min Height 61 inches 5'1" Weight 367.00 lb BMI (Body Mass Index) 69.3 kg/m2 BSA (Body Surface Area) 2.44 m2 [place] body weight in kilograms 48 kg O2 % BldC Oximetry 94 % 10/09/2017 1:08pm BP Systolic Sitting Left Arm 142 mmHg BP Diastolic Sitting Left Arm 98 mmHg Heart Rate 83 /min Respiratory Rate 18 /min Height 61 inches 5'1" Weight 375.00 lb BMI (Body Mass Index) 70.8 kg/m2 BSA (Body Surface Area) 2.47 m2 [place] body weight in kilograms 48 kg O2 % BldC Oximetry 98 % 09/09/2017 10:47am BP Systolic Sitting Left Arm 166 mmHg priscilla 141/95 BP Diastolic Sitting Left Arm 101 mmHg priscilla 141/95 Body Temperature 98.8 F Heart Rate 98 /min Height 61 inches 5'1" Weight 375.00 lb BMI (Body Mass Index) 70.8 kg/m2 BSA (Body Surface Area) 2.47 m2 [place] body weight in kilograms 48 kg O2 % BldC Oximetry 96 % 05/15/2017 9:52am BP Systolic Sitting Left Arm 120 mmHg BP Diastolic Sitting Left Arm 82 mmHg Body Temperature 98.7 F Heart Rate 113 /min Respiratory Rate 24 /min Height 61 inches 5'1" Weight 360.00 lb BMI (Body Mass Index) 68.0 kg/m2 BSA (Body Surface Area) 2.42 m2 [place] body weight in kilograms 48 kg O2 % BldC Oximetry 95 % 04/18/2017 10:08am BP Systolic Sitting Left Arm 132 mmHg BP Diastolic Sitting Left Arm 77 mmHg Heart Rate 84 /min Respiratory Rate 20 /min Height 61 inches 5'1" Weight 374.00 lb BMI (Body Mass Index) 70.7 kg/m2 BSA (Body Surface Area) 2.46 m2 [place] body weight in kilograms 48 kg 03/28/2017 4:05pm BP Systolic Sitting Left Arm 136 mmHg BP Diastolic Sitting Left Arm 70 mmHg Heart Rate 89 /min Respiratory Rate 24 /min Height 61 inches 5'1" Weight 368.00 lb BMI (Body Mass Index) 69.5 kg/m2 BSA (Body Surface Area) 2.45 m2 [place] body weight in kilograms 48 kg O2 % BldC Oximetry 91 % ra 02/11/2017 8:48am BP Systolic 144 mmHg BP Diastolic 103 mmHg Heart Rate 114 /min Respiratory Rate 18 /min Height 61 inches 5'1" Weight 359.50 lb BMI (Body Mass Index) 67.9 kg/m2 BSA (Body Surface Area) 2.42 m2 [place] body weight in kilograms 48 kg O2 % BldC Oximetry 92 % 01/09/2017 2:08pm BP Systolic Sitting Left Arm 118 mmHg BP Diastolic Sitting Left Arm 60 mmHg Heart Rate 98 /min Respiratory Rate 18 /min Height 61 inches 5'1" Weight 358.00 lb BMI (Body Mass Index) 67.6 kg/m2 BSA (Body Surface Area) 2.42 m2 [place] body weight in kilograms 48 kg O2 % BldC Oximetry 96 % 12/20/2016 2:17pm BP Systolic Sitting Right Arm 158 mmHg BP Diastolic Sitting Right Arm 104 mmHg Body Temperature 98.6 F Heart Rate 107 /min Respiratory Rate 22 /min Height 61 inches 5'1" Weight 349.00 lb BMI (Body Mass Index) 65.9 kg/m2 BSA (Body Surface Area) 2.39 m2 [place] body weight in kilograms 48 kg O2 % BldC Oximetry 96 % 12/05/2016 1:22pm BP Systolic Sitting Right Arm 138 mmHg BP Diastolic Sitting Right Arm 74 mmHg Body Temperature 99.3 F Heart Rate 111 /min Respiratory Rate 16 /min Height 61 inches 5'1" Weight 343.00 lb BMI (Body Mass Index) 64.8 kg/m2 BSA (Body Surface Area) 2.38 m2 [place] body weight in kilograms 48 kg O2 % BldC Oximetry 94 % 11/21/2016 9:21am BP Systolic Sitting Right Arm 116 mmHg BP Diastolic Sitting Right Arm 78 mmHg Body Temperature 99.0 F Heart Rate 118 /min Height 61 inches 5'1" Weight 342.00 lb BMI (Body Mass Index) 64.6 kg/m2 BSA (Body Surface Area) 2.37 m2 [place] body weight in kilograms 48 kg O2 % BldC Oximetry 95 % 10/02/2016 9:18am BP Systolic Sitting Right Arm 130 mmHg BP Diastolic Sitting Right Arm 80 mmHg Height 61 inches 5'1" Weight 332.00 lb BMI (Body Mass Index) 62.7 kg/m2 BSA (Body Surface Area) 2.34 m2 [place] body weight in kilograms 48 kg 09/14/2016 2:23pm BP Systolic 156 mmHg BP Diastolic 92 mmHg Heart Rate 118 /min Height 61 inches 5'1" Weight 324.00 lb BMI (Body Mass Index) 61.2 kg/m2 BSA (Body Surface Area) 2.32 m2 [place] body weight in kilograms 48 kg 09/03/2016 [...] Result H/L Range Note Urine Culture 12/05/2018 [facility] Urine ENTEROCOCCUS GABO Abnormal 1, [address] Culture <SEE NOTE> BECKI Aguilar [id number] [phone] Quantity < 10,000 CFU/mL Affirm 12/05/2018 [facility] Trichomonas Negative [Negative] Vaginitis [address] [place] [place] [address] [phone] Gardnerella vaginalis Negative [Negative] Evi species Negative [Negative] 3 Genital Culture W/ 12/05/2018 [facility] Gram Stain FEW GR POS. BACI [address] <SEE NOTE> [place]EC[place] [address] [phone] Gram Stain GRAM STAIN INDIC <SEE NOTE> 5 Genital Culture GENITAL GIOVANNI [id number] 12/05/2018 [facility] Penicillin G [address] [place] [id number] [phone] Tetracycline <=1 Susceptible Nitrofurantoin <=16 Susceptible Ampicillin <=2 Susceptible Ciprofloxacin 1 Susceptible Levofloxacin 1 Susceptible Vancomycin 1 Susceptible Urine Dipstick 12/05/2018 [facility] Ua Color yellow Yellow Ua Clarity cloudy Clear Ua Leuko negative Negative Ua Nitrite negative Negative Ua Urobilinogen 0.2 0.2 - 1.0 E.U./dL Ua Protein 1+ High Negative Ua PH 5.5 Low 6.5-7.5 Ua Blood negative Negative Ua Specific [place] 1.030 1.010-1.030 Ua Ketones negative Negative Ua Bilirubin negative Negative Ua Glucose negative Negative Urine Dipstick 12/01/2018 [facility] Ua Color yellow Yellow Ua Clarity cloudy Clear Ua Leuko negative Negative Ua Nitrite negative Negative Ua Urobilinogen 0.2 0.2 - 1.0 E.U./dL Ua Protein 2+ High Negative Ua PH 5.5 Low 6.5-7.5 Ua Blood 1+ High Negative Ua Specific [place] 1.030 1.010-1.030 Ua Ketones trace Negative Ua Bilirubin negative Negative Ua Glucose negative Negative Ua RFX Micro & Culture 12/01/2018 [facility] Urine Color YELLOW Yellow [address] [place], [place] [id number] [phone] Urine Clarity TURBID Clear Urine Glucose - Dipstick NEGATIVE mg/dL Negative Urine Bilirubin - Dipstick SMALL Abnormal Negative Urine Ketone NEGATIVE mg/dL Negative Urine Specific [place] >=1.030 Normal 1.010-1.030 Urine Blood SMALL Abnormal [...] Source: URINE, CLEAN CAT <SEE NOTE> 7 Ua RFX Micro & Culture 11/28/2018 [facility] Urine Color YELLOW Yellow [address] [place] [address] [phone] Urine Clarity CLEAR Clear Urine Glucose - Dipstick NEGATIVE mg/dL Negative Urine Bilirubin - Dipstick NEGATIVE Negative Urine Ketone NEGATIVE mg/dL Negative Urine Specific [place] >=1.030 Normal 1.010-1.030 Urine Blood NEGATIVE Negative Urine PH 5.5 Low 6.5-7.5 Urine Protein - Dipstick NEGATIVE mg/dL Negative Urine Urobilinogen - Dipstick 0.2 E.U./dL Normal 0.2-1.0 Urine Nitrite - Dipstick NEGATIVE Negative Urine Leuk Esterase NEGATIVE Negative Protein/Creatinine 11/28/2018 [facility] Creatinine,Urine 283.8 Not Ratio,Urine [address] mg/dL [place]. [place], [place] [id number] [phone] Protein,Total,Urine 15.0 mg/dL Not Estab. Protein/Creatinine Ratio 53 MG/GCRE 0-200 9 CBC W/Automated 11/28/2018 [facility] White Blood 6.8 K/uL Normal 3.1-10.[address] [place] [address] [phone] Red Blood Count 4.75 M/uL Normal 3.90-5.40 [...] 40.4-72.8 Lymph % 24.1 % Normal 20.0-42.0 [place] % 4.9 % Normal 4.3-13.2 Eo% 2.5 % Normal 0.0-6.6 Bas% 0.7 % Normal 0.0-1.1 Immature Grans 0.7 % Normal 0.0-5.0 NRBC % 0.0 /100WBC < 10/ 100 WBC Neut# 4.53 K/uL Normal 1.8-7.0 Lymph # 1.63 K/uL Normal 1.0-4.0 [place] # 0.33 K/uL Normal 0.3-0.9 Eos # 0.17 K/uL Normal 0.0-0.5 Baso # 0.05 K/uL Normal 0.0-0.1 Immature Grans Absolute 0.05 K/uL NRBC # 0.00 K/uL Comprehensive 11/28/2018 [facility] Glucose 103 mg/dL Normal 74-106 Metabolic Panel [address] [place], [place] [id number] [phone] BUN 14 mg/dL Normal 7-18 Creatinine 1.0 [...] U/L Normal 45-117 LDL Cholesterol Profile 11/28/2018 [facility] Cholesterol 196 mg/dL <[address] [place], [place] [id number] [phone] Triglycerides 166 mg/dL High <150 12 HDL Cholesterol 39 mg/dL Low >40 13 LDL-Cholesterol 124 mg/dL < 100 14 Laboratory test 11/28/2018 [facility] Vitamin 20.6 Low 30.0-100.0 [address] D,25-Hydroxy ng/[place] [address] [phone] Comprehensive 11/20/2018 [facility] Glucose 111 High 74-106 16 Metabolic Panel [address] mg/dL [place], [place] [id number] [phone] BUN 18 mg/dL Normal 7-18 Creatinine 1.0 [...] 63 U/L Normal 45-117 CBC W/Automated 11/20/2018 [facility] White Blood 7.0 K/uL Normal 3.1-10.[address] [place] [address] [phone] Red Blood Count 4.27 M/uL Normal 3.90-5.40 [...] 40.4-72.8 Lymph % 29.8 % Normal 20.0-42.0 [place] % 4.2 % Low 4.3-13.2 Eo% 2.7 % Normal 0.0-6.6 Bas% 0.4 % Normal 0.0-1.1 Immature Grans 0.4 % Normal 0.0-5.0 NRBC % 0.0 /100WBC < 10/ 100 WBC Neut# 4.36 K/uL Normal 1.8-7.0 Lymph # 2.08 K/uL Normal 1.0-4.0 [place] # 0.29 K/uL Low 0.3-0.9 Eos # 0.19 K/uL Normal 0.0-0.5 Baso # 0.03 K/uL Normal 0.0-0.1 Immature Grans Absolute 0.03 K/uL NRBC # 0.00 K/uL CBC W/Automated 10/28/2018 [facility] White 8.4 K/uL Normal 3.1-10.7 [address] [place] [address] Count [phone] Red Blood Count 4.67 M/uL Normal 3.90-5.40 [...] 40.4-72.8 Lymph % 19.9 % Low 20.0-42.0 [place] % 3.7 % Low 4.3-13.2 Eo% 2.0 % Normal 0.0-6.6 Bas% 0.5 % Normal 0.0-1.1 Immature Grans 0.6 % Normal 0.0-5.0 NRBC % 0.0 /100WBC < 10/ 100 WBC Neut# 6.16 K/uL Normal 1.8-7.0 Lymph # 1.67 K/uL Normal 1.0-4.0 [place] # 0.31 K/uL Normal 0.3-0.9 Eos # 0.17 K/uL Normal 0.0-0.5 Baso # 0.04 K/uL Normal 0.0-0.1 Immature Grans Absolute 0.05 K/uL NRBC # 0.00 K/uL Aot Request 10/28/2018 [facility] Aot Request Test(s) added 19, 20 [address] [place] [address] [phone] Tests to be added: magnesium crp LDL Cholesterol 10/20/2018 [facility] Cholesterol 181 mg/dL <200 21, [address] [place] [address] [phone] Triglycerides 174 mg/dL High <150 23 HDL Cholesterol 39 mg/dL Low >40 24 LDL-Cholesterol 107 mg/dL < 100 25 Laboratory 10/20/2018 [facility] Vitamin 18.9 Low 30.0-100.0 26 test finding [address] D,25-Hydroxy ng/[place] [address] [phone] CBC 10/20/2018 [facility] White Blood 6.6 K/uL Normal 3.1-10.7 W/Automated [address] [place] [address] [phone] Red Blood Count 4.86 M/uL Normal 3.90-5.40 [...] 40.4-72.8 Lymph % 27.7 % Normal 20.0-42.0 [place] % 4.1 % Low 4.3-13.2 Eo% 2.4 % Normal 0.0-6.6 Bas% 0.6 % Normal 0.0-1.1 Immature Grans 0.6 % Normal 0.0-5.0 NRBC % 0.0 /100WBC < 10/ 100 WBC Neut# 4.23 K/uL Normal 1.8-7.0 Lymph # 1.82 K/uL Normal 1.0-4.0 [place] # 0.27 K/uL Low 0.3-0.9 Eos # 0.16 K/uL Normal 0.0-0.5 Baso # 0.04 K/uL Normal 0.0-0.1 Immature Grans Absolute 0.04 K/uL NRBC # 0.00 K/uL Comprehensive 10/20/2018 [facility] Glucose 79 mg/dL Normal 74-106 Metabolic Panel [address] [place] [address] [phone] BUN 16 mg/dL Normal 7-18 Creatinine 1.0 mg/dL Normal 0.6-1.3 Glom Filtration Rate, Estimate >60 mL/min >60 If >60 mL/min >60 27 BUN/Creat 16.0 ratio Sodium 140 mmol/L Normal [...] 12-78 Alkaline Phosphatase 70 U/L Normal 45-117 Platelet poor plasma 10/03/2018 N2N/CCD Import Platelet [...] glucose measurement by glucometer by glucometer (mass/volume) Hct VFr Bld Auto 10/03/2018 N2N/CCD Import Hct VFr Bld Auto 40.5 36.0- 46.1 Blood hemoglobin 10/03/2018 N2N/CCD Import Blood hemoglobin 13.3 11.6- 15.8 measurement measurement (mass/volume) (mass/volume) Blood erythrocytes 10/03/2018 N2N/CCD Import Blood erythrocytes 4.80 3.90-5.40 automated count automated count (number/volume) (number/volume) Automated leukocyte 10/03/2018 N2N/CCD Import Automated leukocyte 7.7 3.1-10.7 count count (number/volume) (number/volume) Laboratory test 10/03/2018 [facility] CK 369 High 26-192 [address] U/[place] [address] [phone] Troponin-I < 0.015 ng/mL 29 Comprehensive 10/03/2018 [facility] Glucose 103 mg/dL Normal 74-106 Metabolic Panel [address] [place] [address] [phone] BUN 14 mg/dL Normal 7-18 Creatinine 1.1 [...] Phosphatase 64 U/L Normal 45-117 Laboratory 10/03/2018 [facility] Act Partial 26.3 Normal 23.4-35.0 31 test finding [address] [place] [address] Time [phone] Protime 10/03/2018 [facility] Protime 13.7 Normal 12.0-14.[address] [place] [address] [phone] Inr 1.1 Normal 0.9-1.1 32 CBC W/Automated 10/03/2018 [facility] White Blood 7.7 K/uL Normal 3.1-10.[address] [place] [address] [phone] Red Blood Count 4.80 M/uL Normal 3.90-5.40 [...] 40.4-72.8 Lymph % 28.1 % Normal 20.0-42.0 [place] % 5.9 % Normal 4.3-13.2 Eo% 2.6 % Normal 0.0-6.6 Bas% 0.4 % Normal 0.0-1.1 Immature Grans 0.7 % Normal 0.0-5.0 NRBC % 0.0 /100WBC < 10/ 100 WBC Neut# 4.79 K/uL Normal 1.8-7.0 Lymph # 2.16 K/uL Normal 1.0-4.0 [place] # 0.45 K/uL Normal 0.3-0.9 Eos # 0.20 K/uL Normal 0.0-0.5 Baso # 0.03 K/uL Normal 0.0-0.1 Immature Grans Absolute 0.05 K/uL NRBC # 0.00 K/uL Automated 10/03/2018 N2N/CCD Import Automated 84.4 80.9-99.0 erythrocyte erythrocyte mean mean corpuscular corpuscular volume (MCV) volume (MCV measurement Automated 10/03/2018 N2N/CCD Import Automated 27.7 25.9-32.7 erythrocyte erythrocyte mean mean corpuscular corpuscular hemoglobin (mass hemoglobin per erythrocyte) Automated 10/03/2018 N2N/CCD Import Automated 32.8 30.8-34.3 erythrocyte erythrocyte mean mean corpuscular corpuscular hemoglobin hemoglobin concentration measurement (mass/volume) Automated blood 10/03/2018 N2N/CCD Import Automated blood 296 155-360 platelet count platelet count (count/volume) (count/volume) Automated 10/03/2018 N2N/CCD Import Automated 44.2 36-47 erythrocyte erythrocyte distribution distribution width width Automated 10/03/2018 N2N/CCD Import Automated 14.6 High 11.7-14.4 erythrocyte erythrocyte distribution distribution width ratio width ratio Prothrombin 10/03/2018 N2N/CCD Import Prothrombin time 13.7 12.0-14.4 time (PT) in (PT) in platelet platelet poor poor plasma plasma Automated blood 10/03/2018 N2N/CCD Import Automated blood 0.00 nucleated nucleated erythrocyte erythrocyte count (count count (count/volume) Automated blood 10/03/2018 N2N/CCD Import Automated blood 0.05 immature immature granulocyte granulocyte count (number count (number/volume) Automated blood 10/03/2018 N2N/CCD Import Automated blood 0.03 0.0-0.1 basophil count basophil count (number/volume) (number/volume) Automated blood 10/03/2018 N2N/CCD Import Automated blood 0.20 0.0-0.5 eosinophil eosinophil count count Blood monocytes 10/03/2018 N2N/CCD Import Blood monocytes 0.45 0.3-0.9 automated count automated count (number/volume) (number/volume) Automated blood 10/03/2018 N2N/CCD Import Automated blood 2.16 1.0-4.0 lymphocyte lymphocyte count count (number/volume) (number/volume) Absolute 10/03/2018 N2N/CCD Import Absolute 4.79 1.8-7.0 neutrophil neutrophil count count Automated blood 10/03/2018 N2N/CCD Import Automated blood 0.0 < 10/ 100 nucleated nucleated WBC erythrocyte erythrocyte count as per count as percentage of total leukocytes Automated blood 10/03/2018 N2N/CCD Import Automated blood 0.7 0.0-5.0 immature immature granulocyte granulocyte count as perc count as percentage of total leukocytes Automated 10/03/2018 N2N/CCD Import Automated 0.4 0.0-1.1 basophil % basophil % Automated 10/03/2018 N2N/CCD Import Automated 2.6 0.0-6.6 eosinophil % eosinophil % Automated 10/03/2018 N2N/CCD Import Automated 5.9 4.3-13.2 monocyte % monocyte % Automated blood 10/03/2018 N2N/CCD Import Automated blood 28.1 20.0- 42.0 lymphocytes/100 lymphocytes/100 leukocytes leukocytes Automated blood 10/03/2018 N2N/CCD Import Automated blood 62.3 40.4- 72.8 neutrophils/100 neutrophils/100 leukocytes leukocytes Automated blood 10/03/2018 N2N/CCD Import Automated blood 8.9 8.9-12.4 platelet mean platelet mean volume volume measurement measurement Bacterial 09/25/2018 N2N/CCD Import Bacterial throat Normal throat culture culture Throat Giovanni Throat Culture 09/25/2018 [facility] Throat Culture NORMAL 33, Complete [address] Complete THROAT FL 34 [place] [address] <SEE NOTE> [phone] Throat Culture 09/16/2018 [facility] Throat Culture NORMAL [address] [place] [place] [address] <SEE NOTE> [phone] Urine 09/15/2018 N2N/CCD Import Urine 167 0-200 protein/creatin protein/creatini ine mass ratio ne mass ratio Urine protein 09/15/2018 N2N/CCD Import Urine protein 47.4 Not Estab. measurement measurement (mass/volume) (mass/volume) Urine 09/15/2018 N2N/CCD Import Urine creatinine 284.6 Not Estab. creatinine measurement measurement (mass/volume) (mass/volume) Urine leukocyte 09/15/2018 N2N/CCD Import Urine leukocyte Negative Negative esterase esterase detection by detection by automated te automated test strip Urine nitrite 09/15/2018 N2N/CCD Import Urine nitrite Negative Negative detection by detection by automated test automated test strip strip Urine 09/15/2018 N2N/CCD Import Urine 0.2 0.2-1.0 urobilinogen urobilinogen measurement measurement (units/volume) (units/volume) by t by test strip Urine protein 09/15/2018 N2N/CCD Import Urine protein 30 High Negative measurement by measurement by automated test automated test strip strip (mass/volume) Urine pH 09/15/2018 N2N/CCD Import Urine pH 5.5 Low 6.5-7.5 measurement by measurement by automated test automated test strip strip Urine 09/15/2018 N2N/CCD Import Urine hemoglobin Trace Negative hemoglobin detection by detection by automated test automated test strip strip Specific 09/15/2018 N2N/CCD Import Specific gravity >=1.030 1.010-1.030 gravity of of Urine by Urine by Automated test Automated test strip strip Laboratory test 09/15/2018 [facility] Thyroid Stim 3.83 uIU/mL Normal 0.30- 4.20 36 finding [address] [place] [address] [phone] Free T4 1.23 ng/dL Normal 0.76-1.46 Basic Metabolic Panel 09/15/2018 [facility] Glucose 103 mg/dL Normal 74-106 [address] [place], [place] [id number] [phone] BUN 16 mg/dL Normal 7-18 Creatinine 1.1 mg/dL Normal 0.6-1.3 Glom Filtration Rate, Estimate 60 mL/min >60 If >60 mL/min >60 37 BUN/Creat 14.5 ratio Sodium 139 mmol/L Normal 136-145 Potassium 3.3 mmol/L Low 3.5-5.1 Chloride 105 mmol/L Normal 98-107 Carbon Dioxide 24 mmol/L Normal 21-32 Anion Gap 10 mEq/L Normal 8-16 Calcium 9.3 mg/dL Normal 8.5-10.1 Laboratory test 09/15/2018 [facility] CK 284 U/L High 26-192 finding [address] [place] [address] [phone] Ua RFX Micro & 09/15/2018 [facility] Urine Color YELLOW Yellow Culture II [address] [place] [address] [phone] Urine Clarity CLOUDY Clear Urine Glucose - Dipstick NEGATIVE mg/dL Negative Urine Bilirubin - Dipstick NEGATIVE Negative Urine Ketone NEGATIVE mg/dL Negative Urine Specific [place] >=1.030 Normal 1.010-1.030 Urine Blood TRACE Negative Urine PH 5.5 Low 6.5-7.5 Urine Protein - Dipstick 30 mg/dL High Negative Urine Urobilinogen - Dipstick 0.2 E.U./dL Normal 0.2-1.0 Urine Nitrite - Dipstick NEGATIVE Negative Urine Leuk Esterase NEGATIVE Negative Source: URINE, CLEAN CAT <SEE NOTE> 38 Protein/Creatinine 09/15/2018 [facility] Creatinine,Urine 284.6 Not Ratio,Urine [address] [facility] mg/[place] [address] [phone] Protein,Total,Urine 47.4 mg/dL Not Estab. Protein/Creatinine Ratio [...] test strip strip (mass/volume) CBC W/Automated 07/15/2018 [facility] White Blood Count 7.3 K/uL Normal 3.1- 10.7 [address] [place] [address] [phone] Red Blood Count 4.84 M/uL Normal 3.90-5.40 [...] 40.4-72.8 Lymph % 29.5 % Normal 20.0-42.0 [place] % 4.8 % Normal 4.3-13.2 Eo% 1.8 % Normal 0.0-6.6 Bas% 0.3 % Normal 0.0-1.1 Neut# 4.61 K/uL Normal 1.8-7.0 Lymph # 2.14 K/uL Normal 1.0-4.0 [place] # 0.35 K/uL Normal 0.3-0.9 Eos # 0.13 K/uL Normal 0.0-0.5 Baso # 0.02 K/uL Normal 0.0-0.1 Comprehensive 07/15/2018 [facility] Glucose 101 mg/dL Normal 74-106 Metabolic Panel [address] [place] [address] [phone] BUN 17 mg/dL Normal 7-18 Creatinine 1.0 [...] add FT4? Y LDL Cholesterol Profile 07/15/2018 [facility] Cholesterol 189 mg/dL <200 42 [address] [place] [address] [phone] Triglycerides 162 mg/dL High <150 43 HDL Cholesterol 41 mg/dL >40 44 LDL-Cholesterol 116 mg/dL < 100 45 Reflex add FT3? N Reflex add FT4? Y Laboratory test 07/15/2018 [facility] Vitamin 15.9 Low 30.0-100.0 46 finding [address] D,25-Hydroxy ng/[place] [address] [phone] Glycohemoglobin 07/15/2018 [facility] Glycohemoglobin 5.4 % Normal 4.2-6.[address] (A1c) [place] [address] [phone] eAG 108 mg/dL TSH Reflex 07/15/2018 [facility] Thyroid Stim 3.57 uIU/mL Normal 0.30-4.20 FT4 And/Or [address] Hormone FT3 [place] [address] [phone] Reflex add FT3? N Reflex add FT4? [...] .0 D measurement (m D measurement (mass/volume) Blood estimated 07/15/2018 N2N/CCD Import Blood estimated 108 average glucose average glucose determination by e determination by estimation from glycated hemoglobin (mass/volume) Serum or plasma 05/15/2018 N2N/CCD Import [...] SerPl-sCnc 139 136- 145 Laboratory test 05/15/2018 [facility] Troponin-I < 0.015 48, [address] ng/[place] [address] [phone] Automated 05/15/2018 N2N/CCD Import Automated 1.5 0.0-6.6 eosinophil % eosinophil % Automated 05/15/2018 N2N/CCD Import Automated 46.1 36-47 erythrocyte erythrocyte distribution width distribution width Automated 05/15/2018 N2N/CCD Import Automated 15.4 High 11.7-14. erythrocyte erythrocyte 4 distribution width distribution width ratio ratio Automated 05/15/2018 N2N/CCD Import Automated 27.1 25.9-32. erythrocyte mean erythrocyte mean 7 corpuscular corpuscular hemoglobin hemoglobin (mass per erythrocyte) Automated blood 05/15/2018 N2N/CCD Import Automated blood 9.3 8.9-12.4 platelet mean platelet mean volume measurement volume measurement Automated blood 05/15/2018 N2N/CCD Import Automated [...] neutrophil count neutrophil count Basic Metabolic 05/15/2018 [facility] Glucose 113 High 74-[address] mg/[place] [address] [phone] BUN 17 mg/dL Normal 7-18 Creatinine 1.0 mg/dL Normal 0.6-1.3 Glom Filtration Rate, Estimate >60 mL/min >60 If >60 mL/min >60 50 BUN/Creat 17.0 ratio Sodium 139 mmol/L Normal 136-145 Potassium 3.3 mmol/L Low 3.5-5.1 Chloride 105 mmol/L Normal 98-107 Carbon Dioxide 24 mmol/L Normal 21-32 Anion Gap 10 mEq/L Normal 8-16 Calcium 8.8 mg/dL Normal 8.5-10.1 CBC W/Automated 05/15/2018 [facility] White Blood 9.1 K/uL Normal 3.1-10.[address] Count [place], [place] [id number] [phone] Red Blood Count 4.90 M/uL Normal 3.90-5.40 [...] 40.4-72.8 Lymph % 28.7 % Normal 20.0-42.0 [place] % 5.0 % Normal 4.3-13.2 Eo% 1.5 % Normal 0.0-6.6 Bas% 0.3 % Normal 0.0-1.1 Neut# 5.85 K/uL Normal 1.8-7.0 Lymph # 2.60 K/uL Normal 1.0-4.0 [place] # 0.45 K/uL Normal 0.3-0.9 Eos # [...] 11.6- 15.8 measurement measurement (mass/volume) (mass/volume) Blood erythrocytes 05/15/2018 N2N/CCD Import Blood erythrocytes 4.90 3.90-5.40 automated count automated count (number/volume) (number/volume) Automated monocyte 05/15/2018 N2N/CCD Import Automated monocyte 5.0 4.3- 13.2 % % Automated 05/15/2018 N2N/CCD Import Automated 83.5 80.9-99.0 erythrocyte mean erythrocyte mean corpuscular volume corpuscular volume (MCV (MCV) measurement Automated 05/15/2018 N2N/CCD Import Automated 32.5 30.8-34.3 erythrocyte mean erythrocyte mean corpuscular corpuscular hemoglobin hemoglobin concentration measurement (mass/volume) CBC W/Automated 05/14/2018 [facility] White Blood Count 9.0 Normal 3.1-10.7 [address] K/[place] [address] [phone] Red Blood Count 5.19 M/uL Normal 3.90-5.40 [...] 40.4-72.8 Lymph % 17.9 % Low 20.0-42.0 [place] % 4.6 % Normal 4.3-13.2 Eo% 1.5 % Normal 0.0-6.6 Bas% 0.3 % Normal 0.0-1.1 Neut# 6.79 K/uL Normal 1.8-7.0 Lymph # 1.60 K/uL Normal 1.0-4.0 [place] # 0.41 K/uL Normal 0.3-0.9 Eos # 0.13 K/uL Normal 0.0-0.5 Baso # 0.03 K/uL Normal 0.0-0.1 Comprehensive Metabolic 05/14/2018 [facility] Glucose 151 mg/dL High 74-106 Panel [address] [place] [address] [phone] BUN 17 mg/dL Normal 7-18 Creatinine 1.1 mg/dL Normal 0.6-1.3 Glom Filtration Rate, Estimate >60 mL/min >60 If >60 mL/min >60 52 BUN/Creat 15.4 ratio Sodium 138 mmol/L Normal [...] 12-78 Alkaline Phosphatase 72 U/L Normal 45-117 Laboratory test finding 05/14/2018 [facility] Troponin-I < 0.015 ng/mL 53 [address] [place] [address] [phone] HCG,Serum (Qualitative) NEGATIVE (Negative) 54 D-Dimer, Quantitative 0.33 ug/mL 55 Fibrin D-dimer Feu 05/14/2018 N2N/CCD Import Fibrin [...] albumin measurement albumin measurement .0 (mass/volume) (mass/volume) * Miscellaneous 05/14/2018 N2N/CCD Import * Miscellaneous Test(s) studies (set) studies (set) added Aot Request 05/14/2018 [facility] Aot Request Test(s) 56 [address] [place] [address] [phone] Tests to be added: d-dimer Serum or plasma 05/14/2018 N2N/CCD Import Serum or plasma 0.2 0.2-1.0 total bilirubin total bilirubin measurement (mass/ measurement (mass/volume) Serum or plasma 05/14/2018 N2N/CCD Import Serum or plasma 7.2 6.4-8.2 protein measurement protein measurement (mass/volume) (mass/volume) Serum or plasma 05/14/2018 N2N/CCD Import Serum or plasma 35 15-37 aspartate aspartate aminotransferase aminotransferase measure measurement (enzymatic activity/volume) Serum or plasma 05/14/2018 N2N/CCD Import Serum or plasma 72 45-117 alkaline phosphatase alkaline measurement ( phosphatase measurement (enzymatic activity/volume) Serum or plasma 05/14/2018 N2N/CCD Import Serum or plasma 0.9 albumin/globulin albumin/globulin mass ratio mass ratio Basic Metabolic 04/14/2018 [facility] Glucose 106 Normal 74-106 [address] mg/[place] [address] [phone] BUN 14 mg/dL Normal 7-18 Creatinine 1.0 mg/dL Normal 0.6-1.3 Glom Filtration Rate, Estimate >60 mL/min >60 If >60 mL/min >60 58 BUN/Creat 14.0 ratio Sodium 139 mmol/L Normal 136-145 Potassium 3.6 mmol/L Normal 3.5-5.1 Chloride 102 mmol/L Normal 98-107 Carbon Dioxide 30 mmol/L Normal 21-32 Anion Gap 7 mEq/L Low 8-16 Calcium 8.8 mg/dL Normal 8.5-10.1 Laboratory test 04/14/2018 [facility] PTH,Intact 39 pg/mL 15-65 [address] [place] [address] [phone] Serum or plasma 03/31/2018 N2N/CCD Import Serum [...] Serum or plasma 21.5 Low 30.0- 100 25-hydroxyvitami 25-hydroxyvitami .0 n D measurement n D measurement (m (mass/volume) HgbA1c % 03/31/2018 N2N/CCD Import HgbA1c % 5.9 4.2-6.3 Blood estimated 03/31/2018 N2N/CCD Import Blood estimated 123 average glucose average glucose determination by determination by e estimation from glycated hemoglobin (mass/volume) Laboratory test 03/31/2018 [facility] Vitamin 21.5 Low 30.0-100 60, finding [address] D,25-Hydroxy ng/mL .0 61 [place] [address] [phone] LDL Cholesterol 03/31/2018 [facility] Cholesterol 192 <200 [address] mg/[place] [address] [phone] Triglycerides 192 mg/dL High <150 63 HDL Cholesterol 40 mg/dL >40 64 LDL-Cholesterol 114 mg/dL < 100 65 Comprehensive 03/31/2018 [facility] Glucose 99 mg/dL Normal 74-106 Metabolic Panel [address] [place] [address] [phone] BUN 16 mg/dL Normal 7-18 Creatinine 1.0 mg/dL Normal 0.6-1.3 Glom Filtration Rate, Estimate >60 mL/min >60 If >60 mL/min >60 66 BUN/Creat 16.0 ratio Sodium 140 mmol/L Normal [...] 12-78 Alkaline Phosphatase 70 U/L Normal 45-117 Glycohemoglobin 03/31/2018 [facility] Glycohemoglobin 5.9 % Normal 4.2-6.3 [address] (A1c) [place] [address] [phone] eAG 123 mg/dL CBC W/Automated 03/31/2018 [facility] White Blood 6.6 K/uL Normal 3.1-10.[address] [place] [address] [phone] Red Blood Count 5.03 M/uL Normal 3.90-5.40 [...] 40.4-72.8 Lymph % 28.3 % Normal 20.0-42.0 [place] % 4.8 % Normal 4.3-13.2 Eo% 2.0 % Normal 0.0-6.6 Bas% 0.3 % Normal 0.0-1.1 Neut# 4.26 K/uL Normal 1.8-7.0 Lymph # 1.87 K/uL Normal 1.0-4.0 [place] # 0.32 K/uL Normal 0.3-0.9 Eos # 0.13 K/uL Normal 0.0-0.5 Baso # 0.02 K/uL Normal 0.0-0.1 Urine Dipstick 03/11/2018 [facility] Ua Color orange Yellow Ua Clarity clear Clear Ua Leuko - Negative Ua Nitrite - Negative Ua Urobilinogen - Low 0.2 - 1.0 E.U./dL Ua Protein - Negative Ua PH 5 Low 6.5-7.5 Ua Blood - Negative Ua Specific [place] 1.030 1.010-1.030 Ua Ketones - Negative Ua Bilirubin - Negative Ua Glucose - Negative Genital Culture W/ 03/11/2018 [facility] Gram Stain GRAM STAIN 68, [address] [place] <[place] [address] NOTE> [phone] Gram Stain MODERATE GR POS. <SEE NOTE> 70 Gram Stain MODERATE GRAM VA <SEE NOTE> 71 Gram Stain RARE GRAM POSITI <SEE NOTE> 72 Gram Stain RARE RARE WHITE <SEE NOTE> 73 Genital Culture GENITAL GIOVANNI Glycohemoglobin 01/20/2018 [facility] Glycohemoglobin 6.1 % Normal 4.2-6.3 74, A1c [address] (A1c) [address] [place] [address] [phone] eAG 128 mg/dL Laboratory test 01/20/2018 [facility] Vitamin 16.2 Low 30.0-100.0 [address] D,25-Hydroxy ng/[place] [address] [phone] LDL Cholesterol 01/20/2018 [facility] Cholesterol 195 <200 [address] mg/[place] [address] [phone] Triglycerides 186 mg/dL High <150 78 HDL Cholesterol 41 mg/dL >40 79 LDL-Cholesterol 117 mg/dL < 100 80 Comprehensive 01/20/2018 [facility] Glucose 94 mg/dL Normal 74-106 Metabolic Panel [address] [place] [address] [phone] BUN 13 mg/dL Normal 7-18 Creatinine 0.9 mg/dL Normal 0.6-1.3 Glom Filtration Rate, Estimate >60 mL/min >60 If >60 mL/min >60 81 BUN/Creat 14.4 ratio Sodium 141 mmol/L Normal [...] 12-78 Alkaline Phosphatase 76 U/L Normal 45-117 CBC W/Automated 01/20/2018 [facility] White Blood 7.3 K/uL Normal 3.1-10.[address] [place] [address] [phone] Red Blood Count 5.19 M/uL Normal 3.90-5.40 [...] 40.4-72.8 Lymph % 24.4 % Normal 20.0-42.0 [place] % 4.6 % Normal 4.3-13.2 Eo% 1.6 % Normal 0.0-6.6 Bas% 0.3 % Normal 0.0-1.1 Neut# 5.07 K/uL Normal 1.8-7.0 Lymph # 1.79 K/uL Normal 1.0-4.0 [place] # 0.34 K/uL Normal 0.3-0.9 Eos # 0.12 K/uL Normal 0.0-0.5 Baso # 0.02 K/uL Normal 0.0-0.1 Laboratory test 01/20/2018 [facility] Transferrin 296 200-370 [address] mg/[place] [address] [phone] Serum or plasma 01/20/2018 N2N/CCD Import Serum or plasma 31 8-252 ferritin ferritin measurement measurement (mass/volume) (mass/volume) Serum or plasma 01/20/2018 N2N/CCD Import Serum or plasma 383 250-450 iron binding iron binding capacity capacity measurement measurement (mass/volume) Serum or plasma 01/20/2018 N2N/CCD Import Serum or plasma 55 50-170 iron iron measurement measurement (mass/volume) (mass/volume) Serum or plasma 01/20/2018 N2N/CCD Import Serum or plasma 14 12-57 iron saturation iron saturation measurement measurement (mass (mass fraction) Serum or plasma 01/20/2018 N2N/CCD Import Serum or plasma 296 200-370 transferrin transferrin measurement measurement (mass/volu (mass/volume) Laboratory test 01/20/2018 [facility] Ferritin 31 ng/mL Normal 8-[address] [place] [address] [phone] Iron-Tibc-%Sat 01/20/2018 [facility] Serum Iron 55 Normal 50-[address] g/dL [place], [place] [address] [phone] Total Iron Binding Capacity 383 g/dL Normal 250-450 Transferrin %Saturation 14 % Normal 12-57 Protein/Creatinine 12/17/2017 [facility] Creatinine,Urine 233.6 Not 83 Ratio,Urine [address] mg/dL Estab. [place], [place] [id number] [phone] Protein,Total,Urine 49.5 mg/dL Not Estab. Protein/Creatinine Ratio 212 MG/GCRE High 0-200 84 Ua RFX Micro & Culture 12/17/2017 [facility] Urine Color YELLOW Yellow II [address] [place] [address] [phone] Urine Clarity TURBID Clear Urine Glucose - Dipstick NEGATIVE mg/dL Negative Urine Bilirubin - Dipstick NEGATIVE Negative Urine Ketone NEGATIVE mg/dL Negative Urine Specific [place] >=1.030 Normal 1.010-1.030 Urine Blood NEGATIVE Negative Urine PH 6.0 Low 6.5-7.5 Urine Protein - Dipstick 30 mg/dL High Negative Urine Urobilinogen - Dipstick 0.2 E.U./dL Normal 0.2-1.0 Urine Nitrite - Dipstick NEGATIVE Negative Urine Leuk Esterase NEGATIVE Negative Source: URINE, CLEAN CAT <SEE NOTE> 85 CBS W/Automated 10/18/2017 [facility] White 8.0 K/uL Normal 3.1-10.7 [address] [place] [address] Count [phone] Red Blood Count 5.04 M/uL Normal 3.90-5.40 [...] 40.4-72.8 Lymph % 25.2 % Normal 20.0-42.0 [place] % 4.4 % Normal 4.3-13.2 Eo% 1.9 % Normal 0.0-6.6 Bas% 0.4 % Normal 0.0-1.1 Neut# 5.42 K/uL Normal 1.8-7.0 Lymph # 2.00 K/uL Normal 1.0-4.0 [place] # 0.35 K/uL Normal 0.3-0.9 Eos # 0.15 K/uL Normal 0.0-0.5 Baso # 0.03 K/uL Normal 0.0-0.1 Ua RFX Micro & Culture 10/18/2017 [facility] Urine Color YELLOW Yellow II [address] [place] [address] [phone] Urine Clarity SL CLOUDY Clear Urine Glucose - Dipstick NEGATIVE mg/dL Negative Urine Bilirubin - Dipstick NEGATIVE Negative Urine Ketone NEGATIVE mg/dL Negative Urine Specific [place] >=1.030 Normal 1.010-1.030 Urine Blood TRACE Negative Urine PH 5.5 Low 6.5-7.5 Urine Protein - Dipstick 30 mg/dL High Negative Urine Urobilinogen - Dipstick 0.2 E.U./dL Normal 0.2-1.0 Urine Nitrite - Dipstick NEGATIVE Negative Urine Leuk Esterase NEGATIVE Negative Source: URINE, CLEAN CAT <SEE NOTE> 87 Chlmaydia/GC/Trichomonas 10/18/2017 [facility] Trichomonas Negative Negative PCR [address] [place] [address] PCR [phone] Chlamydia trachomatis, PCR Negative Negative Neisseria gonorrhoeae, PCR Negative Negative 88 Comprehensive 09/07/2017 [facility] Glucose 101 mg/dL Normal 74-106 89 Metabolic Panel [address] [place] [address] [phone] BUN 16 mg/dL Normal 7-18 Creatinine 1.1 [...] 70 U/L Normal 45-117 CBS W/Automated 09/07/2017 [facility] White Blood 6.6 K/uL Normal 3.1-10.[address] [place] [address] [phone] Red Blood Count 5.18 M/uL Normal 3.90-5.40 [...] 40.4-72.8 Lymph % 30.0 % Normal 20.0-42.0 [place] % 5.3 % Normal 4.3-13.2 Eo% 2.0 % Normal 0.0-6.6 Bas% 0.5 % Normal 0.0-1.1 Neut# 4.14 K/uL Normal 1.8-7.0 Lymph # 1.99 K/uL Normal 1.0-4.0 [place] # 0.35 K/uL Normal 0.3-0.9 Eos # 0.13 K/uL Normal 0.0-0.5 Baso # 0.03 K/uL Normal 0.0-0.1 LDL Cholesterol Profile 09/07/2017 [facility] Cholesterol 180 mg/dL <[address] [place] [address] [phone] Triglycerides 182 mg/dL High <150 92 HDL Cholesterol 43 mg/dL >40 93 LDL-Cholesterol 101 mg/dL < 100 94 Glycohemoglobin 09/07/2017 [facility] Glycohemoglobin 6.2 % Normal 4.2-6.3 [address] (A1c) [place], [place] [id number] [phone] eAG 131 mg/dL Ua RFX Micro & Culture 09/07/2017 [facility] Urine Color YELLOW Yellow II [address] [place], [place] [address] [phone] Urine Clarity CLEAR Clear Urine Glucose - Dipstick NEGATIVE mg/dL Negative Urine Bilirubin - Dipstick NEGATIVE Negative Urine Ketone NEGATIVE mg/dL Negative Urine Specific [place] >=1.030 Normal 1.010-1.030 Urine Blood NEGATIVE Negative Urine PH 5.5 Low 6.5-7.5 Urine Protein - Dipstick TRACE mg/dL Negative Urine Urobilinogen - Dipstick 0.2 E.U./dL Normal 0.2-1.0 Urine Nitrite - Dipstick NEGATIVE Negative Urine Leuk Esterase NEGATIVE Negative Source: URINE, CLEAN CAT <SEE NOTE> 96 Protein/Creatinine 09/07/2017 [facility] Creatinine,Urine 291.1 Not Ratio,Urine [address] mg/dL Estab. [place], [place] [id number] [phone] Protein,Total,Urine 47.2 mg/dL Not Estab. Protein/Creatinine Ratio 162 MG/GCRE 0-200 97 Laboratory 04/18/2017 [facility] Anti-Nuclear Negative Negative 98, 99 test finding [address] Antibodies AU/[place] [address] Direct [phone] Complement C4, Serum 36 mg/dL 14-44 Complement C3, Serum 202 mg/dL High 82-167 LDL Cholesterol 04/18/2017 [facility] Cholesterol 184 mg/dL <200 100 Profile [address] [place], [place] [address] [phone] Triglycerides 199 mg/dL High <150 101 HDL Cholesterol 40 mg/dL >40 102 LDL-Cholesterol 104 mg/dL < 100 103 Glycohemoglobin 04/18/2017 [facility] Glycohemoglobin 6.2 % Normal 4.2-6.3 [address] (A1c) [place] [address] [phone] eAG 131 mg/dL Laboratory test 04/18/2017 [facility] Rheumatoid < 10.0 Normal 0.0-15.[address] Factor Screen IU/[place] [address] [phone] Comprehensive 04/18/2017 [facility] Glucose 110 High 74-106 Metabolic Panel [address] mg/[place] [address] [phone] BUN 15 mg/dL Normal 7-18 Creatinine 1.0 [...] 68 U/L Normal 45-117 Allergens,Zone 1 01/09/2017 [facility] mRast Class (SEE NOTE) 106, [address] (Text Only) [place] [address] [phone] D Pteronyssinus <0.10 kU/L Class 0 D Farinae Mite <0.10 kU/L Class 0 Cat Hair/Dander <0.10 kU/L Class 0 Dog Hair/Dander <0.10 kU/L Class 0 Bluegrass,[place] <0.10 kU/L Class 0 Bermuda Grass <0.10 kU/L Class 0 Bahia Grass <0.10 kU/L Class 0 Cockroach,[place] <0.10 kU/L Class 0 Penicillium Not <0.10 kU/L Class 0 Cladosporium Herbarum <0.10 kU/L Class 0 Apergillis Fumigatus Ige <0.10 kU/L Class 0 Mucor Racemosus <0.10 kU/L Class 0 Alternaria Alternata <0.10 kU/L Class 0 Stemphylium Bot <0.10 kU/L Class 0 Birch,White <0.10 kU/L Class 0 Kent,White <0.10 kU/L Class 0 Elm,[place] (White) <0.10 kU/L Class 0 Vipin,White <0.10 kU/L Class 0 Hazelnut Tree T004 Ige <0.10 kU/L Class 0 Saginaw,White <0.10 kU/L Class 0 Bayonne,White <0.10 kU/L Class 0 Hadley,Mountain <0.10 kU/L Class 0 Ragweed,Short/ <0.10 kU/L Class 0 Mugwort <0.10 kU/L Class 0 Plantain,Azeri <0.10 kU/L Class 0 Pigweed,Rough <0.10 kU/L Class 0 Sheep [place] (DO <0.10 kU/L Class 0 Nettle <0.10 kU/L Class 0 Maple/Oconee Ige T001 <0.10 kU/L Class 0 108 Laboratory 01/09/2017 [facility] Immunoglobulin 47 IU/mL 0-100 109 test finding [address] E,[place] [address] [phone] Laboratory 12/06/2016 [facility] Thyroid Stim 3.78 Normal 0.30-4.2 110 test finding [address] Hormone uIU/mL 0 [place] [address] [phone] Free T4 0.95 ng/dL Normal 0.76-1.46 Comprehensive 09/03/2016 [facility] Glucose 90 mg/dL Normal 74-106 111 Metabolic Panel [address] [place] [address] [phone] BUN 17 mg/dL Normal 7-18 Creatinine 1.0 [...] 66 U/L Normal 45-117 Laboratory test 09/03/2016 [facility] Magnesium 2.0 mg/dL Normal 1.8-2.[address] [place] [address] [phone] CBS W/Automated 09/03/2016 [facility] White Blood 8.2 K/uL Normal 3.1-10.[address] [place] [address] [phone] Red Blood Count 5.39 M/uL Normal 3.90-5.40 [...] 40.4-72.8 Lymph % 24.8 % Normal 20.0-42.0 [place] % 5.0 % Normal 4.3-13.2 Eo% 2.8 % Normal 0.0-6.6 Bas% 0.2 % Normal 0.0-1.1 Neut# 5.47 K/uL Normal 1.8-7.0 Lymph # 2.02 K/uL Normal 1.0-4.0 [place] # 0.41 K/uL Normal 0.3-0.9 Eos # 0.23 K/uL Normal 0.0-0.5 Baso # 0.02 K/uL Normal 0.0-0.1 Urine Creat 04/10/2011 [facility] Urine Collection 24 Hours Clearance Profile [address] [facility] Time [place], [place] [id number] [phone] Urine Total Volume 750 mL Serum Creatinine 0.7 mg/dL 0.5-1.4 Urine Creatinine Conc 221 mg/dL Urine Creatinine Clearance 164 mL/min High 70-156 Urine Total Prot 04/10/2011 [facility] Urine Collection Time 24 Hours Timed Profile [address] [place], [place] [id number] [phone] Urine Total Volume 750 mL Urine Total Protein Conc 45.0 mg/dL Urine TP Total (mg/24hr) 338 [id number] High Comprehensive Metabolic 04/03/2011 [facility] Glucose 113 mg/dL 76-115 Panel [address] [place] [address] [phone] BUN 8 mg/dL 5-23 Creatinine 0.9 mg/dL [...] 73 U/L 50-136 Laboratory test finding 04/03/2011 [facility] Uric Acid 3.4 mg/dL 2.1-7.[address] [place] [address] [phone] LDH 163 U/L Low 165-265 CBS W/Automated 04/03/2011 [facility] White Blood 11.1 K/uL High 3.1-10.[address] Count [place] [address] [phone] Red Blood Count 3.88 M/uL Low 3.90-5.40 [...] 40.4-72.8 Lymph % 15.4 % Low 17.0-46.1 [place] % 4.4 % 4.3-13.2 Eo% 0.9 % 0.0-6.6 Bas% 0.1 % 0.0-1.1 Neut# 8.76 K/uL High 1.0-7.0 Lymph # 1.70 K/uL 0.8-3.4 [place] # 0.49 K/uL 0.3-0.9 Eos # 0.10 K/uL 0.0-0.5 Baso # 0.01 K/uL 0.0-0.1 Red Cell Distri Width SD 46.3 fl 3-47 Laboratory test 03/14/2011 [facility] Culture If See Note [address] Indicated Comment [place] [address] [phone] Urine Culture See Note 115 Urinalysis With 03/14/2011 [facility] Urine Color YELLOW Yellow Microscopic [address] [place] [address] [phone] Urine Clarity SL CLOUDY Clear Urine Glucose - Dipstick NEGATIVE mg/dL Negative Urine Bilirubin - Dipstick NEGATIVE Negative Urine Ketone TRACE mg/dL High Negative Urine Specific [place] 1.025 1.010-1.030 Urine Blood TRACE Negative Urine PH 6.5 6.5-7.5 Urine Protein - Dipstick 30 mg/dL High Negative Urine Urobilinogen - Dipstick 1.0 E.U./dL 0.2-1.0 Urine Nitrite - Dipstick NEGATIVE Negative Urine Leuk Esterase NEGATIVE Negative Urine RBC 0-2 rbc/hpf 0-7 Urine WBC 0-2 wbc/hpf 0-7 Urine Epithelial Cells MANY NONESEEN 116 Urine Bacteria MANY NONESEEN High Urine Amorph Sediment MODERATE Negative Affirm Test 03/13/2011 [facility] Gardnerella Vaginalis See Note 117 [address] [place] [address] [phone] Trichomonas Vaginalis See Note 118 Evi Species See Note 119 CBC 03/13/2011 [facility] White Blood Count 10.1 K/uL 3.1-10.7 [address] [place] [address] [phone] Red Blood Count 3.95 M/uL 3.90-5.40 Hemoglobin 11.9 gm/dL 11.6-15.8 Hematocrit 34.3 % Low 36.0-46.1 Mean Cell Volume 86.8 fl 80.9-99.0 Mean Corpuscular HGB 30.1 pg 25.9-32.7 Mean Corpuscular HGB Conc 34.7 g/dL High 30.8-34.3 Platelet Count 230 K/uL 155-360 Red Cell Distri Width %CV 14.7 % High 11.7-14.4 Mean Platelet Volume 8.9 fL 8.9-12.4 Glucose,1 HR 12/26/2010 [facility] 1 HR Glucose,Post 87 mg/dL -138 120 Post Glucola [address] [facility] [place] [address] [phone] 1 Hour Urine Glucose NEGATIVE % Negative 1 Hour Urine Ketone NEGATIVE Negative Parvovirus 12/26/2010 [facility] Parvovirus B19 3.0 index High 0.0-0.8 121 B19,Human [address] [facility] Igg Igg/[place] [address] [phone] Parvovirus B19 Igm 0.1 index 0.0-0.8 122 OB Initial 12/26/2010 [facility] Thyroid Stim 1.27 uIU/mL 0.49-4.67 [address] [place] [address] [phone] Free T4 0.79 ng/dL 0.71-1.85 124 Toxoplasma IgG Antibody <6.5 IU/mL 0.0-6.4 125 Toxoplasma IgM Antibody <0.9 index 0.0-0.8 126 Varicella-Zoster Virus IgG Ab 1.49 index High 0.00-0.90 127 Varicella-Zoster Virus IgM Ab <0.91 AU 0.00-0.90 128 Urine Screen See Note 129 Urine Culture See Note 130 CBS W/Automated Diff 12/26/2010 [facility] White Blood 8.9 K/uL 3.1-10.[address] [place] [address] [phone] Red Blood Count 4.96 M/uL 3.90-5.40 Hemoglobin 14.3 gm/dL 11.6-15.8 Hematocrit 40.9 % 36.0-46.1 Mean Cell Volume 82.5 fl 80.9-99.0 Mean Corpuscular HGB 28.8 pg 25.9-32.7 Mean Corpuscular HGB Conc 35.0 g/dL High 30.8-34.3 Platelet Count 238 K/uL 155-360 Red Cell Distri Width %CV 14.9 % High 11.7-14.4 Mean Platelet Volume 9.2 fL 8.9-12.4 Neut% 69.6 % 40.4-72.8 Lymph % 23.1 % 17.0-46.1 [place] % 5.5 % 4.3-13.2 Eo% 1.5 % 0.0-6.6 Bas% 0.3 % 0.0-1.1 Neut# 6.18 K/uL 1.0-7.0 Lymph # 2.05 K/uL 0.8-3.4 [place] # 0.49 K/uL 0.3-0.9 Eos # 0.13 K/uL 0.0-0.5 Baso # 0.03 K/uL 0.0-0.1 Red Cell Distri Width SD 44.0 fl 3-47 Urinalysis With 12/26/2010 [facility] Urine Color YELLOW Yellow Microscopic [address] [place], [place] [address] [phone] Urine Clarity CLEAR Clear Urine Glucose - Dipstick NEGATIVE mg/dL Negative Urine Bilirubin - Dipstick NEGATIVE Negative Urine Ketone NEGATIVE mg/dL Negative Urine Specific [place] >=1.030 1.010-1.030 Urine Blood TRACE Negative Urine PH 6.0 Low 6.5-7.5 Urine Protein - Dipstick NEGATIVE mg/dL Negative Urine Urobilinogen - Dipstick 1.0 E.U./dL 0.2-1.0 Urine Nitrite - Dipstick NEGATIVE Negative Urine Leuk Esterase NEGATIVE Negative Urine RBC 0-2 rbc/hpf 0-7 Urine WBC NONE SEEN wbc/hpf 0-7 Urine Epithelial Cells MODERATE NONESEEN 131 Urine Bacteria MODERATE NONESEEN High Urine Mucus SMALL NONESEEN Type And Screen 12/26/2010 [facility] Patient Blood Type A POS [address] [place], [place] [address] [phone] Antibody Screen NEGATIVE Laboratory test 12/26/2010 [facility] Rapid Plasma NONREACTIVE [address] Reagin NONREACTIVE [place], [place] [address] [phone] Hepatitis B Surface Antigen NEGATIVE Negative 133 Rubella IgG Antibody POSITIVE (Positive) 134 Dna Probe N. Gono 12/06/2010 [facility] Dna Probe For See Note 135 + C. Trach. [address] Chlamydia Trac. [place], [place] [address] [phone] Dna Probe For N. Gonorrhoeae See Note 136 1 R30.0 2 ENTEROCOCCUS FAECALIS 3 Method: BD Affirm VPIII DNA Probe Assay 4 FEW GR POS. BACILLI SUGGESTIVE OF LACTOBACILLUS SP. 5 GRAM STAIN INDICATES NORMAL GENITAL GIOVANNI 6 R31.9 7 URINE, CLEAN CATCH 8 R79.89 9 INFCE Result Units: mg/g creat Performed at: RN - [facility] [address] [id number] Automatic Pad Making Machine Operator: Tonia Paz MD, Phone: [phone] 10 Note: Persistent reduction for 3 months [...] D deficiency has been defined by the [place] of [employer] and an Endocrine Society practice guideline as a level of serum 25-OH vitamin D less than 20 ng/mL (1,2). The Endocrine Society went on to further define vitamin D insufficiency as a level between 21 and 29 ng/mL (2). 1. IOM ([place] of Medicine). 2010. Dietary reference intakes for calcium and D. [place]: The National Academies Press. 2. Anitra SNOW, Jason RINALDI, Irene MERLOS, et al. Evaluation, treatment, and prevention of vitamin D deficiency: an Endocrine Society clinical practice guideline. JCEM. 2010; 96(7):1911-30. Performed at: RN - [facility] [address] [id number] Automatic Pad Making Machine Operator: Tonia Paz MD, Phone: [phone] 16 DIZZINESS 17 Note: Persistent reduction for [...] may be found at www.kdoqi.org. 18 CHEST FEELS HEAVY, LIGHT HEADED 19 CHEST PAIN 20 Tests: magnesium crp Instructions: 21 R79.89 22 Reference Guidelines*: Desirable: ........... < 200 [...] D deficiency has been defined by the [place] of [employer] and an Endocrine Society practice guideline as a level of serum 25-OH vitamin D less than 20 ng/mL (1,2). The Endocrine Society went on to further define vitamin D insufficiency as a level between 21 and 29 ng/mL (2). 1. IOM ([place] of [employer]). 2010. Dietary reference intakes for calcium and D. [place]: The National Academies Press. 2. Anitra MF, Jason RINALDI, Irene MERLOS, et al. Evaluation, treatment, and prevention of vitamin D deficiency: an Endocrine Society clinical practice guideline. JCEM. 2010; 96(7):1911-30. Performed at: RN - [facility] [address] [id number] Automatic Pad Making Machine Operator: Tonia Paz MD, Phone: [phone] 27 Note: Persistent reduction for 3 months or more in an eGFR <60 mL/min/1.73 m2 defines CKD. Patients with eGFR values >/=60 mL/min/1.73 m2 may also have CKD if evidence of persistent proteinuria is present. The original MDRD equation for estimated GFR is not valid for patients less than 18 years of age. Additional information may be found at www.kdoqi.org. 28 ?STROKE 29 0.0 - 0.045 ng/mL: [...] mg/g creat Performed at: RN - [facility] [address] [id number] Automatic Pad Making Machine Operator: Tonia Paz MD, Phone: [phone] 40 N29.6 Y95.3 41 Note: Persistent reduction for 3 months [...] D deficiency has been defined by the [place] of [employer] and an Endocrine Society practice guideline as a level of serum 25-OH vitamin D less than 20 ng/mL (1,2). The Endocrine Society went on to further define vitamin D insufficiency as a level between 21 and 29 ng/mL (2). 1. IOM ([place] of Medicine). 2010. Dietary reference intakes for calcium and D. [place]: The National Academies Press. 2. Anitra MF, Jason RINALDI, Irene MERLOS, et al. Evaluation, treatment, and prevention of vitamin D deficiency: an Endocrine Society clinical practice guideline. JCEM. 2010; 96(7):1911-30. Performed at: RN - [facility] [address] [id number] Automatic Pad Making Machine Operator: Tonia Paz MD, Phone: [phone] 47 Elevated levels of HbA1c suggest the need for more aggressive treatment of glycemia. The [place] Diabetes Association recommends that a primary goal [...] be found at www.kdoqi.org. 51 CP 52 Note: Persistent reduction for 3 months or more in an eGFR <60 mL/min/1.73 m2 defines CKD. Patients with eGFR values >/=60 mL/min/1.73 m2 may also have CKD if evidence of persistent proteinuria is present. The original MDRD equation for estimated GFR is not valid for patients less than 18 years of age. Additional information may be found at www.kdoqi.org. 53 0.0 - 0.045 ng/mL: Normal 0.046 - 0.5 ng/mL: Suggestive 0.6 - 1.5 ng/mL: Consistent 54 Method: Quidel QuickVue One-Step Immunoassay 55 <=0.49 ug/mL - Low likelihood of DIC, DVT or Pulmonary Embolism >0.49 ug/mL - Additional testing should be done to rule out DIC, DVT, or Pulmonary embolism as clinically indicated. ([facility] has established a 97.89% negative predictive value for thrombotic disease when a cutoff value of 0.5 ug/mL is used.) 56 Tests: d-dimer Instructions: 57 E55.9 E87.6 58 Note: Persistent reduction for 3 months or more in an eGFR <60 mL/min/1.73 m2 defines CKD. Patients with eGFR values >/=60 mL/min/1.73 m2 may also have CKD if evidence of persistent proteinuria is present. The original MDRD equation for estimated GFR is not valid for patients less than 18 years of age. Additional information may be found at www.kdoqi.org. 59 Performed at: RN - [facility] [address] [id number] Automatic Pad Making Machine Operator: Tonia Paz MD, Phone: [phone] 60 P95 61 Vitamin D deficiency has been defined by the [place] of [employer] and an Endocrine Society practice guideline as a level of serum 25-OH vitamin D less than 20 ng/mL (1,2). The Endocrine Society went on to further define vitamin D insufficiency as a level between 21 and 29 ng/mL (2). 1. IOM ([place] of Medicine). 2010. Dietary reference intakes for calcium and D. [place]: The National Academies Press. 2. Anitra MF, Jason [place], Irene MERLOS, et al. Evaluation, treatment, and prevention of vitamin D deficiency: an Endocrine Society clinical practice guideline. JCEM. 2010; 96(7):1911-30. Performed at: RN - [facility] [address] [place], [place] [id number] Automatic Pad Making Machine Operator: Tonia Paz MD, Phone: [phone] 62 Reference Guidelines*: Desirable: ........... < 200 mg/dL Borderline High: ..... 200-239 mg/dL High: ................ >=240 mg/dL * The National Cholesterol Education Program (NCEP) 63 Reference Guidelines*: Normal: ............. < 150 mg/dL Borderline High: .... 150-199 mg/dL High: ............... 200-499 mg/dL Very High: .......... > 500 mg/dL * Source: National Cholesterol Education Program (NCEP) 64 Reference Guidelines*: Low HDL: ..... < 40 mg/dL Normal: ..... 40-60 mg/dL Desirable: ... > 60 mg/dL *The National Cholesterol Education Program(NCEP) 65 Reference Guidelines*: Optimal:........... <100 mg/dL Near Optimal....... 100-129 mg/dL Borderline High.... 130-159 mg/dL High............... 160-189 mg/dL Very High.......... >=190 mg/dL * Source: National Cholesterol Education Program (NCEP) 66 Note: Persistent reduction for 3 months or more in an eGFR <60 mL/min/1.73 m2 defines CKD. Patients with eGFR values >/=60 mL/min/1.73 m2 may also have CKD if evidence of persistent proteinuria is present. The original MDRD equation for estimated GFR is not valid for patients less than 18 years of age. Additional information may be found at www.kdoqi.org. 67 Elevated levels of HbA1c suggest the need for more aggressive treatment of glycemia. The [place] Diabetes Association recommends that a primary goal of therapy should be a HbA1c of <7% and that physicians should re-evaluate the treatment regimen in patients with HbA1c values consistently >8%. 68 N76.0 69 GRAM STAIN INDETERMINANT FOR BACTERIAL VAGINOSIS 70 MODERATE GR POS. BACILLI SUGGESTIVE OF LACTOBACILLUS SP. 71 MODERATE GRAM VARIABLE COCCOBACILLI 72 RARE GRAM POSITIVE COCCI 73 RARE RARE WHITE BLOOD CELLS 74 R42 N28.1 75 Elevated levels of HbA1c suggest the need for more aggressive treatment of glycemia. The [place] Diabetes Association recommends that a primary goal of therapy should be a HbA1c of <7% and that physicians should re-evaluate the treatment regimen in patients with HbA1c values consistently >8%. 76 Vitamin D deficiency has been defined by the [place] of [employer] and an Endocrine Society practice guideline as a level of serum 25-OH vitamin D less than 20 ng/mL (1,2). The Endocrine Society went on to further define vitamin D insufficiency as a level between 21 and 29 ng/mL (2). 1. IOM ([place] of [employer]). 2010. Dietary reference intakes for calcium and D. [place]: The National Academies Press. 2. Anitra MF, Jason RINALDI, Irene MERLOS, et al. Evaluation, treatment, and prevention of vitamin D deficiency: an Endocrine Society clinical practice guideline. JCEM. 2010; 96(7):1911-30. Performed at: RN - [facility] [address] [id number] Automatic Pad Making Machine Operator: Tonia Paz MD, Phone: [phone] 77 Reference Guidelines*: Desirable: ........... < 200 mg/dL Borderline High: ..... 200-239 mg/dL High: ................ >=240 mg/dL * The National Cholesterol Education Program (NCEP) 78 Reference Guidelines*: Normal: ............. < 150 mg/dL Borderline High: .... 150-199 mg/dL High: ............... 200-499 mg/dL Very High: .......... > 500 mg/dL * Source: National Cholesterol Education Program (NCEP) 79 Reference Guidelines*: Low HDL: ..... < 40 mg/dL Normal: ..... 40-60 mg/dL Desirable: ... > 60 mg/dL *The National Cholesterol Education Program(NCEP) 80 Reference Guidelines*: Optimal:........... <100 mg/dL Near Optimal....... 100-129 mg/dL Borderline High.... 130-159 mg/dL High............... 160-189 mg/dL Very High.......... >=190 mg/dL * Source: National Cholesterol Education Program (NCEP) 81 Note: Persistent reduction for 3 months or more in an eGFR <60 mL/min/1.73 m2 defines CKD. Patients with eGFR values >/=60 mL/min/1.73 m2 may also have CKD if evidence of persistent proteinuria is present. The original MDRD equation for estimated GFR is not valid for patients less than 18 years of age. Additional information may be found at www.kdoqi.org. 82 Performed at: [facility] [address] [id number] Automatic Pad Making Machine Operator: Tonia Paz MD, Phone: [phone] 83 E66.01 I10 R82.99 84 INFCE Result Units: mg/g creat Performed at: [facility] [address] [place], [place] [id number] Automatic Pad Making Machine Operator: Tonia Paz MD, Phone: [phone] 85 URINE, CLEAN CATCH 86 SEVERE ABD BACK PAIN 87 URINE, CLEAN CATCH 88 A negative result for either C. trachomatis and/or N. gonorrhoeae does not preclued an infection because results are dependent on adequate specimen collection, absence of inhibitors, and sufficient DNA to be detected. 89 K21.9 E78.2 R73.9 90 Note: Persistent [...] for more aggressive treatment of glycemia. The [place] Diabetes Association recommends that a primary goal of therapy should be a HbA1c of <7% and that physicians should re-evaluate the treatment regimen in patients with HbA1c values consistently >8%. 96 URINE, CLEAN CATCH 97 INFCE Result Units: mg/g creat Performed at: [facility] [address] [id number] Automatic Pad Making Machine Operator: Tonia Paz MD, Phone: [phone] 98 G80.9 O71.19 R53.82 R60.0 R66.01 99 Performed at: [facility] [address] [id number] Automatic Pad Making Machine Operator: Tonia Paz MD, Phone: [phone] 100 Reference Guidelines*: Desirable: ........... < 200 mg/dL Borderline High: ..... 200-239 mg/dL High: ................ >=240 mg/dL * The National Cholesterol Education Program (NCEP) 101 Reference Guidelines*: Normal: ............. < 150 mg/dL Borderline High: .... 150-199 mg/dL High: ............... 200-499 mg/dL Very High: .......... > 500 mg/dL * Source: National Cholesterol Education Program (NCEP) 102 Reference Guidelines*: Low HDL: ..... < 40 mg/dL Normal: ..... 40-60 mg/dL Desirable: ... > 60 mg/dL *The National Cholesterol Education Program(NCEP) 103 Reference Guidelines*: Optimal:........... <100 mg/dL Near Optimal....... 100-129 mg/dL Borderline High.... 130-159 mg/dL High............... 160-189 mg/dL Very High.......... >=190 mg/dL * Source: National Cholesterol Education Program (NCEP) 104 Elevated levels of HbA1c suggest the need for more aggressive treatment of glycemia. The [place] Diabetes Association recommends that a primary goal of therapy should be a HbA1c of <7% and that physicians should re-evaluate the treatment regimen in patients with HbA1c values consistently >8%. 105 Note: Persistent reduction for 3 months [...] >100.00 Very High 108 Performed at: - [facility] [id number] Automatic Pad Making Machine Operator: Kawsi Henson MD, Phone: [phone] Performed at: [facility] [address] [id number] Automatic Pad Making Machine Operator: Tonia Paz MD, Phone: [id number] Test(s) [id number] Randa Palauan; [id number]- [id number]-IbZ Deni Stanley were developed and had performance [...] information may be found at [email or web address]. 114 CULTURE TO FOLLOW 115 COLONY COUNT ! 40,000-50,000 CFU/ml Organism 1 ! MIXED URETHRAL GIOVANNI 116 POSSIBLE UROGENITAL CONTAMINATION. 117 POSITIVE FOR GARDNERELLA VAGINALIS 118 NEGATIVE FOR TRICHOMONAS VAGINALIS 119 NEGATIVE FOR EVI SPECIES Testing Performed by: [place] [address] 120 POST GLUCOLA 121 Negative <0.9 Equivocal 0.9 - 1.1 Positive >1.1 122 Negative <0.9 Equivocal 0.9 - 1.1 Positive >1.1 123 QUERY: @[facility] Pat ID: [id number] QUERY: @[facility] Req #: [id number] 124 QUERY: @[facility] Pat ID: [id number] QUERY: @[facility] Req #: [id number] 125 Negative <6.5 Equivocal 6.5 - 7.9 Positive >7.9 126 Negative <0.9 Indeterminate 0.9 - 1.0 Positive >1.0 Although the presence of Toxo IgM antibodies suggests an acute infection, low levels may persist for many months following infection. 127 Negative <0.91 Equivocal 0.91 - 1.09 Positive >1.09 128 Negative <0.91 Borderline 0.91 - 1.09 Positive >1.09 Performed at: [facility] [address] [id number] [employer] Making Machine Operator: Phil Roque MD, Phone: [phone] 129 12/26/10 LAB.[email or web address] Deleted by [facility] 130 COLONY COUNT ! >100,000 CFU/ml Organism 1 ! URETHRAL GIOVANNI 131 POSSIBLE UROGENITAL CONTAMINATION. 132 PENDING; TEST PERFORMED ON MONDAYS AND THURSDAYS QUERY: @[facility] Pat ID: [id number] QUERY: @[facility] Req #: [id number] QUERY: @[facility] Pat ID: [id number] QUERY: @[facility] Req #: [id number] 133 HBsAg not detected; does not exclude the possibility of exposure to or early acute infections with HBV. 134 QUERY: @[facility] Pat ID: [id number] QUERY: @[facility] Req #: [id number] 135 NEGATIVE FOR CHLAMYDIA TRACHOMATIS BY DNA HYBRIDIZATION ASSAY. THIS TEST IS APPROVED FOR OCULAR AND UROGENITAL SITES ONLY. 136 NEGATIVE FOR NEISSERIA GONORRHOEAE BY DNA HYBRIDIZATION ASSAY. THIS METHOD IS APPROVED FOR UROGENITAL SITES ONLY. Procedures Date Code Description Status 10/20/2018 37487 EKG-Tracing And Report Completed 09/25/2018 90880 Pressurized/Non-Pressurized Inhalation Treatment,Acute Completed Obstructio 09/04/2018 26143 Event Monitor Inter/Review Only Completed 09/01/2018 24272 EKG-Tracing And Report Completed 07/09/2018 33280 EKG-Tracing And Report Completed 05/15/2018 39529 Echocardiogram Complete Completed 02/25/2018 31788 Pressurized/Non-Pressurized Inhalation Treatment,Acute Completed Obstructio 02/10/2018 30309 EKG-Tracing And Report Completed 12/25/2017 39966 EKG-Tracing And Report Completed 04/18/2017 42074 EKG-Tracing And Report Completed 12/26/2016 31786 Bronchospasm Provocation Evaluation Multi Spirometric Completed Determinati 12/26/2016 30373 Spirometry Completed 01/15/2013 77021 Anesthesia, Nose & Accessory Sinus Surgery Not Otherwise Completed Spec 10/22/2012 17456 EKG-Tracing And Report Completed 10/22/2012 10122 Event Monitor Inter/Review Only Completed 07/08/2011 68982 Anesthesia, Delivery Completed 03/22/2011 16539 Theraputic Or Diagnostic Injection Completed 03/22/2011 87128 For Antepartum 4-6 Total Office Visits Completed 03/20/2011 22741 EKG-Tracing And Report Completed 03/13/2011 28733 For Antepartum 4-6 Total Office Visits Completed 03/13/2011 95815 Non-Stress Test (NST) Completed 02/22/2011 67139 For Antepartum 4-6 Total Office Visits Completed 01/30/2011 77450 For Antepartum 4-6 Total Office Visits Completed 01/04/2011 07776 For Antepartum 4-6 Total Office Visits Completed 12/06/2010 61714 Ultrasound Transvag, Completed 09/06/2009 41538 Echocardiogram Complete Completed 09/06/2009 08584 EKG Interpretation And Report Only Completed Encounters Type Date Location Provider Dx Diagnosis Office Visit 12/05/2018 Primary Care Office Ansley Sauceda R30.0 Dysuria 10:00a H., PA I10 Essential (primary) hypertension Office Visit 10/22/2018 [...] E03.9 Hypothyroidism, 10:00a Office MS Velma, unspecified GLASSWARE VERIFIER-C, CNM J02.9 Acute pharyngitis, unspecified R79.89 Other specified abnormal findings of blood chemistry E87.6 Hypokalemia H69.93 Unspecified Eustachian tube disorder, bilateral Office Visit 09/03/2018 10:00a Primary Care Velma Servin, I10 Essential (primary) Office , ALEJANDRO-Dorothy, ROMANA hypertension Q61.2 Polycystic kidney, adult type G71.11 [...] Velma Servin, L29.8 Other pruritus Office , ALEJANDRO-C, CNBernie E87.6 Hypokalemia M25.549 Pain in joints of unspecified hand G47.00 Insomnia, unspecified E66.9 Obesity, unspecified E55.9 Vitamin D deficiency, unspecified Q61.2 Polycystic kidney, adult type Office Visit 04/02/2018 1:00p Primary Care Velma Servin, E87.6 Hypokalemia Office , ALEJANDRO-C, CNBernie E55.9 Vitamin D deficiency, unspecified Q61.2 Polycystic kidney, adult type E66.9 Obesity, unspecified E78.5 Hyperlipidemia, unspecified I10 Essential (primary) hypertension G47.00 Insomnia, unspecified M25.549 Pain in joints of unspecified hand M79.669 Pain in unspecified lower leg Office Visit 03/11/2018 10:00a Primary Care Velma Servin, Z00.00 Encntr for Office MS, GLASSWARE VERIFIER-C, CNM general adult medical exam w/o abnormal findings N76.0 Acute vaginitis I10 Essential (primary) hypertension E66.9 Obesity, unspecified Z71.3 Dietary counseling and surveillance Office Visit 02/25/2018 9:30a Primary Care Velma Servin, J06.9 Acute upper Office MS, GLASSWARE VERIFIER-C, CNM respiratory infection, unspecified J02.9 Acute pharyngitis, unspecified J45.40 Moderate persistent asthma, uncomplicated J06.9 Acute upper respiratory infection, unspecified J45.40 Moderate persistent asthma, uncomplicated H66.91 Otitis media, unspecified, right ear R05 Cough Office Visit 02/10/2018 11:00a Cardiology Office Ra Banks 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., FACC syndrome E78.5 Hyperlipidemia, unspecified I10 Essential (primary) hypertension Office Visit 01/27/2018 8:30a Primary Care Velma Servin, Q61.2 Polycystic Office MS, GLASSWARE VERIFIER-C, CNM kidney, adult type I10 Essential (primary) hypertension E66.01 Morbid (severe) obesity due to excess calories E55.9 Vitamin D deficiency, unspecified R60.0 Localized edema 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 E78.2 Mixed hyperlipidemia Office Visit 01/20/2018 11:00a Primary Care Velma Servin, I10 Essential (primary) Office MS, GLASSWARE VERIFIER-C, CNM hypertension Q61.2 Polycystic kidney, adult type E66.01 Morbid (severe) obesity due to excess calories M54.5 Low back pain Z23 Encounter for immunization Office Visit 01/06/2018 10:30a Primary Care Velma Servin, I10 Essential (primary) Office MS, GLASSWARE VERIFIER-C, CNM hypertension R29.6 Repeated falls R42 Dizziness [...] Office Visit 10/09/2017 1:00p Cardiology Office Ra Banks.Asha Long QT [place] [...] [place] 785.0 Tachycardia Office MIRELA Child, Unspec GLASS[employer] VERIFIER 796.2 Blood Pressure Reading Elevated W/O Hypertension 278.00 Obesity Unspec Office Visit 03/13/2011 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 Chester Keenan, V22.1 Supervison Of MBernadette Normal Other V22.1 Supervison Of Normal Other V23.9 High Risk Unspec 654.23 Delivery Previous Antepartum Cond Or Compl 644.03 Premature Labor Threatened Antepartum Cond Or Compl Office Visit 12/06/2010 10:20a 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 Chester Keenan, V22.1 Supervison Of [place] Normal Other V23.9 High Risk Unspec 278.00 Obesity Unspec 654.23 Delivery Previous Antepartum Cond Or Compl Plan of Treatment Future Appointment(s):12/15/2018 11:30 am - Velma Servin MS, ALEJANDRO-C, CNM at Primary Care Cpbyol9801/19/2019 10:00 am - Milana [place], MSN, GLASSWARE VERIFIER at Cardiology Szafzd0512/29/2018 1:30 pm - Aravind Mancera MD at Smisyjrzhnf16/22/ 2019 - Velma Servin MS, ALEJANDRO-C, CNMR31.9 Hematuria, unspecifiedNew Medication:Cephalexin 500 mg - 1 by mouth three times a dayComments:--C/O ikqiwveV30.2 Polycystic kidney, adult typeReferral:Jhonatan Andrews MD, ZovhfccpcrI13 Essential (primary) hypertensionComments:--B/P 124/94--Continue low salt diet, lose weight -- Patient states she is taking losartan 50 mg poBID. She is not taking amlodipine for months now. She stopped taking the HCTZ 2 weeks agoR73.9 Hyperglycemia, nwzpfxikgjcQ70.5 Abnormal results of liver function studiesNew Xrays:Ultrasound, Abdominal, Scheduled: 12/30/18N92.0 Excessive and frequent menstruation with regular cycleNew Xrays:Ultrasound, Pelvic Trans Abdominal Complete (Non-Obstetric), Scheduled: 12/30/18AllFollow up :abdominal sono pelvic sono RTO 2 weeks with B/P readings
--- OUTSIDE RECORDS SUMMARY | 2018-12-16 13:27 | XMS REPORT | Continuity of Care Document ---
:1985 External Reference #:[id number] Author Name Lorraine Powers MD Address [address] [place] [address] Care Team Providers Name Role Phone Lorraine Powers MD Care Team Information Social Science Analyst Unavailable Lorraine Powers MD Primary Care Physician Unavailable Payers Date Identification Numbers Payment Provider Subscriber Effective: 2009 Policy Number: [id number] [employer] Ginna Pittman PayID: [id number] [address] [place] [address] Effective: 2009 Policy Number: [id number] Medicaid Ginna Pittman Expires: 2012 PayID: [id number] [address] [place] [address] Problems Active Problems Provider Date Palpitations Ra Banks M.D., Onset: 10/22/2012 [facility] Dyspnea Ra Banks M.D., Onset: 10/22/2012 [facility] Migraine variants, not intractable Ra Banks M.D., Onset: 2012 [facility] Infantile cerebral palsy Heavenly Mcclendon MD [...] QT syndrome Ra Banks M.D., Onset: 04/18/2017 [facility] Neck pain Lorraine Powers MD Onset: 05/15/2017 Other specified myotonic disorders Lorraine Powers MD Onset: 05/15/2017 Otitis media Lorraine Powers MD Onset: 09/09/2017 Acquired renal cystic disease Lorraine Powers MD Onset: 12/09/2017 Benign neoplasm of skin of face Lorraine Powers MD Onset: 12/09/2017 Cyst of left ovary Lorraine Powers MD Onset: 12/09/2017 Hyperlipidemia Ra Banks M.D., Onset: 02/10/2018 [facility] Hypothyroidism Lorraine Powers MD Onset: 07/16/2018 Electrocardiogram abnormal Ra Banks M.D., Onset: 10/20/2018 [facility] Tachycardia Ra Banks M.D., Onset: 10/20/2018 [facility] Family History Date Family Member(s) Observation [...] Patient is currently sexually active Age [address] 16 Years Old # Partners in a Lifetime 2 Allergies, Adverse Reactions, Alerts Description No Known Drug Allergies Medications Active Medications SIG Qnty Indications Ordering Date Provider Amlodipine Besylate 1 by mouth every 30tabs I10 Lorraine Powers, 12/05/2018 2.5mg day MD Tablets Metronidazole Apply to external 45gm R30.0 Lorraine [...] and Velma, MS, Lotion shoulder area for AUGER OPERATOR-C, CNM severe itching two times a day Klor-Con M20 Take one tablet 60tabs E87.6 Gagen, 04/02/2018 20Meq twice a day Velma, MS, Tablets ER AUGER OPERATOR-C, CNM Nebulizer use nebulizer 1units J45.40 Gagen, 02/25/2018 Kit/Tubing/Mouthpiece with albuterol q Velma, MS, 6 hrs as needed AUGER OPERATOR-C, CNM Kit wheezing/ SOB Ipratropium [place] use 2 sprays in 15ml J06.9 Gagen, 02/25/2018 0.06% each nostril Velma, MS, Solution twice a day as AUGER OPERATOR-C, CNM needed Nebulizer Compressor The Patient is 1units Gagen, 02/25/2018 using albuterol Velma, MS, Misc nebulizer AUGER OPERATOR-C, CNM treatments and needs the compressor. dx: Moderate persistent asthma Vitamin D take 1 capsule by 4caps Lorraine Powers, 01/22/2018 (Ergocalciferol) mouth every week MD [id number] Capsules Zantac 75 1 tab by mouth 180tabs Lorraine Powers, 01/15/2018 75mg Tablets twice a day Omron 7 Series Blood use daily as 1units I10 Gagen, 01/06/2018 Pressure Monitor directed to MS Velma, Device monitor bp/ AUGER OPERATOR-C, CNM dx:htn PT/OT Eval For Power PT/OT eval for 1units G80.9 Lorraine Powers, 09/24/2017 Mobility Device power mobility device G71.19 R26.89 Motorized Power Device Motorized power mobility Apolinar71.19 Lorraine Powers MD 09/09/2017 scooter G80.9 R26.89 Roller Walker use wide set Heavy Duty 1unmatthew Jiang71.19 Lorraine Powers MD Misc 4 wheel walker with seat for ambulation G80.9 Albuterol Sulfate nebulized every 6 hours as 75ml Lorraine Powers, 2016 needed for MD (2.5mg/3ML) 0.083% sob/cough/wheezing Nebulizer Dulera inhale 1 puff by mouth 13units Lorraine Powers, 09/14/2016 200-5mcg/Act twice a day Aerosol Zyrtec Allergy 1 tab by mouth every night 30tabs Gagen, 08/28/2016 10mg MS Velma, Tablets AUGER OPERATOR-C, CNM CBD/THC Aerosol [place] Unknown Buspirone HCL 1 tab by mouth Am, PM and 90tabs Lorraine Powers, 7.5mg two at QHS daily Tablets Ventolin HFA 1-2 puffs every 4-6 hours 8gm Gagen, as needed MS Velma, 108(90Base) mcg/Act AUGER OPERATOR-C, CNM Aerosol Flonase Allergy 1 spray to both nostrils 9.900ml Gagen, Relief daily. MS Velma, 50mcg/Act AUGER OPERATOR-C, CNM Suspension Tylenol Extra 1-2 tabs by mouth every 4 Unknown Strength hours as needed 500mg Tablets History Medications Cyclobenzaprine HCL take one tablet 20tabs Lorraine [...] milliliters by 473ml Lorraine Powers, 09/25/2018 - [id number]/ML mouth every 6hrs; 10/22/2018 Suspension swish in [...] week 16caps E55.9 Lorraine Powers, 09/03/2018 - [id number] Unknown Capsules Potassium Chloride 1 tab by mouth 30tabs Lorraine Powers, 07/16/2018 - Tiffayn ER three times a day 12/01/2018 20Meq Tablets ER Trazodone HCL start with 1/2 30tabs G47.00 Gagen, 04/02/2018 - 50mg tablet every at Velma, 07/16/2018 Tablets bedtime after 2 MS, AUGER OPERATOR-C, CNM weeks, may increase to one tablet Ergocalciferol take one a week 12caps E55.9 Gagen, 04/02/2018 - 80359Hkcb Velma, 07/16/2018 Capsules MS, AUGER OPERATOR-C, CNM Metrogel-Vaginal use in vagina for 70gm Gagen, 03/15/2018 - 0.75% 5 nights. no Velma, 04/02/2018 Gel alcohol during use MS, AUGER OPERATOR-C, CNM and 2 days after Benzonatate take one capsule 30caps R05 Gagen, 02/25/2018 - 200mg every 8 hours as Velma, 03/11/2018 Capsules needed MS AUGER OPERATOR-C CNBernie Ciprodex 4 drops in right 7.500ml H66.91 Gagen, 02/25/2018 - 0.3-0.1% ear twice a day Velma, 03/11/2018 Suspension for 7 days MS AUGER OPERATOR-C, CNM Prednisone 2 tabs (40 mg) 10tabs J02.9 Gagen, 02/25/2018 - 20mg Tablets daily for 5 days Velma, 03/11/2018 MS AUGER OPERATOR-C, CNM Atorvastatin Calcium take 1 tablet by 90tabs Gagen, 01/24/2018 - 20mg mouth once daily Velma, 07/02/2018 Tablets MS, AUGER OPERATOR-C, CNBernie Rosuvastatin Calcium Take one every day 30tabs Gagen, 01/21/2018 - 10mg Velma, 01/24/2018 Tablets MS AUGER OPERATOR-C, CNM Losartan Potassium 1 by mouth 1 60tabs I10 Errol Powersa, 01/20/2018 - 50mg tablet twice a day MD 10/24/2018 Tablets Losartan Potassium Take 1/2 tablet 45tabs I10 Gagen, 01/09/2018 - 50mg (25 mg) in pm and Velma, 01/20/2018 Tablets take 1 tablet ALEJANDRO REYNOSO-ROMANA De La Cruz (50MG) in am Amlodipine Besylate take 1 tablet by 30tabs I10 Priya, Lorraine, 12/17/2017 - 5mg mouth once daily MD 12/05/2018 Tablets Amoxicillin/Clavulanat 1 tab by mouth 20tabs J01.90 Priya Lorraine, 2017 - e Potassium q12hrs for 10 days MD 01/20/2018 875-125mg Tablets Losartan Potassium 1 tab by mouth [...] Unknown Methocarbamol 1 tab by mouth 90tabs Priya Lorraine, 06/03/2017 - 750mg every 8 hours as 11/19/2017 Tablets needed muscle pain Lyrica 1 tab by mouth 90caps Priya Lorraine, 05/29/2017 - 100mg Capsules three times a day 06/04/2017 mdd 3 Cheratussin ac 5ml by mouth every 236ml Errol Powersa, 05/15/2017 - 4 hour as needed MD 09/09/2017 100-10mg/5ML Syrup cough Gabapentin 2 by mouth three Priya, Lorraine, 05/15/2017 - 100mg Capsules times a day 06/04/2017 Diazepam 1 tab by mouth 1 1tabs Errol Powersa, 04/01/2017 - 2mg Tablets hour prior to MRI Unknown Tizanidine HCL 1 by mouth once in 30tabs Errol Powersa, 02/11/2017 - 2mg evening for back Unknown Tablets pain/muscle spasms Omeprazole 1 by mouth every 30caps Errol Powersa, 02/11/2017 - 40mg Capsules day 01/15/2018 Prednisone 2 tabs (40 mg) 10tabs J20.9 Priya Lorraine, 12/20/2016 - 20mg Tablets daily for 5 [...] 100mg every evening Mateusz, 10/22/2012 Tablets MSN, AUGER OPERATOR 796.2 Cleocin 1 tab po q 12 [...] High 1x week Unknown - Potency 03/06/2013 [id number] Capsules Labetalol HCL 1/2 tab po bid 785.0 Unknown - 100mg 03/20/2011 Tablets 796.2 Clindamycin HCL 1 tab by mouth twice 6caps Unknown - Unknown 300mg Capsules a day Immunizations CPT Code Status Date Vaccine Reaction Lot # 95719 Given 01/20/2018 Influenza Virus Vaccine, Quadrivalent, 36 [id number] Mos+, .5ML 02848 Given 02/11/2017 Influenza Virus Vaccine Quadrivalent Iiv4 [place] [id number] [address] Given 08/28/2016 Pneumovax Injection [id number] 96874 Given 03/22/2011 flu vaccination 58709 Given 03/22/2011 flu vaccination [id number] Vital Signs Date Vital Result Comment 12/05/2018 10:11am BP Systolic Sitting Left Arm 170 mmHg BP Diastolic Sitting Left Arm 98 mmHg Body Temperature 99.6 F Heart Rate 83 /min Respiratory Rate 22 /min Height 61 inches 5'1" Weight 354.00 lb previous BMI (Body Mass Index) 66.9 kg/m2 BSA (Body Surface Area) 2.41 m2 [place] body weight in kilograms 48 kg O2 % BldC Oximetry 97 % Ra 12/01/2018 11:28am BP Systolic Sitting Left Arm 124 mmHg BP Diastolic Sitting Left Arm 94 mmHg Body Temperature 99.3 F Heart Rate 82 /min Respiratory Rate 20 /min Height 61 inches 5'1" Weight 354.00 lb BMI (Body Mass Index) 66.9 kg/m2 BSA (Body Surface Area) 2.41 m2 [place] body weight in kilograms 48 kg O2 % BldC Oximetry 96 % 10/22/2018 11:04am BP Systolic Sitting Left Arm 124 mmHg forearm BP Diastolic Sitting Left Arm 80 mmHg forearm Body Temperature 99.8 F Heart Rate 93 /min Respiratory Rate 20 /min Height 61 inches 5'1" Weight 356.00 lb BMI (Body Mass Index) 67.3 kg/m2 BSA (Body Surface Area) 2.41 m2 [place] body weight in kilograms 48 kg O2 % BldC Oximetry 95 % 10/20/2018 11:41am BP Systolic Sitting Left Arm 126 mmHg BP Diastolic Sitting Left Arm 66 mmHg Heart Rate 96 /min Respiratory Rate 18 /min Height 61 inches 5'1" Weight 360.00 lb BMI (Body Mass Index) 68.0 kg/m2 BSA (Body Surface Area) 2.42 m2 [place] body weight in kilograms 48 kg O2 % BldC Oximetry 96 % 09/25/2018 11:09am BP Systolic Sitting Right Arm 130 mmHg lower arm BP Diastolic Sitting Right Arm 82 mmHg lower arm Body Temperature 98.1 F Heart Rate 76 /min Respiratory Rate 28 /min Height 61 inches 5'1" Weight 359.00 lb BMI (Body Mass Index) 67.8 kg/m2 BSA (Body Surface Area) 2.42 m2 [place] body weight in kilograms 48 kg O2 % BldC Oximetry 96 % 09/16/2018 10:02am BP Systolic Sitting Right Arm 130 mmHg BP Diastolic Sitting Right Arm 82 mmHg Body Temperature 98.2 F Heart Rate 93 /min Height 61 inches 5'1" Weight 366.00 lb BMI (Body Mass Index) 69.1 kg/m2 BSA (Body Surface Area) 2.44 m2 [place] body weight in kilograms 48 kg O2 % BldC Oximetry 98 % 09/03/2018 9:51am BP Systolic Sitting Right Arm 110 mmHg BP Diastolic Sitting Right Arm 62 mmHg Body Temperature 98.3 F Heart Rate 100 /min Respiratory Rate 30 /min Height 61 inches 5'1" Weight 366.00 lb BMI (Body Mass Index) 69.1 kg/m2 BSA (Body Surface Area) 2.44 m2 [place] body weight in kilograms 48 kg O2 % BldC Oximetry 96 % 07/16/2018 9:57am BP Systolic Sitting Left Arm 110 mmHg manual forearm BP Diastolic Sitting Left Arm 80 mmHg manual forearm Body Temperature 98.9 F Heart Rate 90 /min Respiratory Rate 20 /min Height 61 inches 5'1" Weight 363.00 lb BMI (Body Mass Index) 68.6 kg/m2 BSA (Body Surface Area) 2.43 m2 [place] body weight in kilograms 48 kg O2 % BldC Oximetry 98 % Ra 06/30/2018 1:23pm BP Systolic Sitting Left Arm 124 mmHg BP Diastolic Sitting Left Arm 66 mmHg Heart Rate 87 /min Respiratory Rate 18 /min Height 61 inches 5'1" Weight 362.00 lb BMI (Body Mass Index) 68.4 kg/m2 BSA (Body Surface Area) 2.43 m2 [place] body weight in kilograms 48 kg O2 [...] kg/m2 BSA (Body Surface Area) 2.43 m2 [place] body weight in kilograms 48 kg O2 % BldC Oximetry 98 % ra 04/02/2018 1:00pm BP Systolic Sitting Left Arm 147 mmHg Priscilla 136/90 BP Diastolic Sitting Left Arm 86 mmHg Priscilla 136/90 Body Temperature 98.6 F Heart Rate 89 /min Respiratory Rate 18 /min Height 61 inches 5'1" [place] body weight in kilograms 48 kg 03/11/2018 10:04am BP Systolic Sitting Right Arm 152 mmHg BP Diastolic Sitting Right Arm 91 mmHg Body Temperature 97.6 F Heart Rate 88 /min Respiratory Rate 16 /min Height 61 inches 5'1" Weight 363.00 lb BMI (Body Mass Index) 68.6 kg/m2 BSA (Body Surface Area) 2.43 m2 [place] body weight in kilograms 48 kg Last Menstrual Period [id number] O2 % BldC Oximetry 99 % 02/25/2018 9:38am BP Systolic Sitting Right Arm 122 mmHg BP Diastolic Sitting Right Arm 72 mmHg Body Temperature 99.2 F Heart Rate 74 /min reg Respiratory Rate 24 /min Height 61 inches 5'1" Weight 362.00 lb per pt. BMI (Body Mass Index) 68.4 kg/m2 BSA (Body Surface Area) 2.43 m2 [place] body weight in kilograms 48 kg O2 % BldC Oximetry 96 % ra 02/10/2018 11:09am BP Systolic Sitting Left Arm 132 mmHg BP Diastolic Sitting Left Arm 86 mmHg Heart Rate 86 /min Respiratory Rate 16 /min Height 61 inches 5'1" Weight 362.00 lb per pt BMI (Body Mass Index) 68.4 kg/m2 BSA (Body Surface Area) 2.43 m2 [place] body weight in kilograms 48 kg O2 % BldC Oximetry 97 % Room air 01/27/2018 8:31am BP Systolic Sitting Left Arm 150 mmHg BP Diastolic Sitting Left Arm 91 mmHg Body Temperature 98.6 F Heart Rate 83 /min Respiratory Rate 16 /min Height 61 inches 5'1" Weight 370.00 lb BMI (Body Mass Index) 69.9 kg/m2 BSA (Body Surface Area) 2.45 m2 [place] body weight in kilograms 48 kg O2 % BldC Oximetry 99 % 01/20/2018 10:55am BP Systolic Sitting Left Arm 154 mmHg BP Diastolic Sitting Left Arm 85 mmHg Body Temperature 99.5 F Heart Rate 93 /min Respiratory Rate 20 /min Height 61 inches 5'1" Weight 367.00 lb BMI (Body Mass Index) 69.3 kg/m2 BSA (Body Surface Area) 2.44 m2 [place] body weight in kilograms 48 kg O2 [...] kg/m2 BSA (Body Surface Area) 2.44 m2 [place] body weight in kilograms 48 kg O2 [...] kg/m2 BSA (Body Surface Area) 2.43 m2 [place] body weight in kilograms 48 kg O2 % BldC Oximetry 98 % 12/09/2017 2:16pm BP Systolic Sitting Right Arm 156 mmHg priscilla 166/89 BP Diastolic Sitting Right Arm 97 mmHg priscilla 166/89 Body Temperature 99.1 F Heart Rate 102 /min Respiratory Rate 28 /min Height 61 inches 5'1" Weight 367.00 lb BMI (Body Mass Index) 69.3 kg/m2 BSA (Body Surface Area) 2.44 m2 [place] body weight in kilograms 48 kg O2 % BldC Oximetry 94 % 10/09/2017 1:08pm BP Systolic Sitting Left Arm 142 mmHg BP Diastolic Sitting Left Arm 98 mmHg Heart Rate 83 /min Respiratory Rate 18 /min Height 61 inches 5'1" Weight 375.00 lb BMI (Body Mass Index) 70.8 kg/m2 BSA (Body Surface Area) 2.47 m2 [place] body weight in kilograms 48 kg O2 % BldC Oximetry 98 % 09/09/2017 10:47am BP Systolic Sitting Left Arm 166 mmHg priscilla 141/95 BP Diastolic Sitting Left Arm 101 mmHg priscilla 141/95 Body Temperature 98.8 F Heart Rate 98 /min Height 61 inches 5'1" Weight 375.00 lb BMI (Body Mass Index) 70.8 kg/m2 BSA (Body Surface Area) 2.47 m2 [place] body weight in kilograms 48 kg O2 % BldC Oximetry 96 % 05/15/2017 9:52am BP Systolic Sitting Left Arm 120 mmHg BP Diastolic Sitting Left Arm 82 mmHg Body Temperature 98.7 F Heart Rate 113 /min Respiratory Rate 24 /min Height 61 inches 5'1" Weight 360.00 lb BMI (Body Mass Index) 68.0 kg/m2 BSA (Body Surface Area) 2.42 m2 [place] body weight in kilograms 48 kg O2 % BldC Oximetry 95 % 04/18/2017 10:08am BP Systolic Sitting Left Arm 132 mmHg BP Diastolic Sitting Left Arm 77 mmHg Heart Rate 84 /min Respiratory Rate 20 /min Height 61 inches 5'1" Weight 374.00 lb BMI (Body Mass Index) 70.7 kg/m2 BSA (Body Surface Area) 2.46 m2 [place] body weight in kilograms 48 kg 03/28/2017 4:05pm BP Systolic Sitting Left Arm 136 mmHg BP Diastolic Sitting Left Arm 70 mmHg Heart Rate 89 /min Respiratory Rate 24 /min Height 61 inches 5'1" Weight 368.00 lb BMI (Body Mass Index) 69.5 kg/m2 BSA (Body Surface Area) 2.45 m2 [place] body weight in kilograms 48 kg O2 % BldC Oximetry 91 % ra 02/11/2017 8:48am BP Systolic 144 mmHg BP Diastolic 103 mmHg Heart Rate 114 /min Respiratory Rate 18 /min Height 61 inches 5'1" Weight 359.50 lb BMI (Body Mass Index) 67.9 kg/m2 BSA (Body Surface Area) 2.42 m2 [place] body weight in kilograms 48 kg O2 % BldC Oximetry 92 % 01/09/2017 2:08pm BP Systolic Sitting Left Arm 118 mmHg BP Diastolic Sitting Left Arm 60 mmHg Heart Rate 98 /min Respiratory Rate 18 /min Height 61 inches 5'1" Weight 358.00 lb BMI (Body Mass Index) 67.6 kg/m2 BSA (Body Surface Area) 2.42 m2 [place] body weight in kilograms 48 kg O2 % BldC Oximetry 96 % 12/20/2016 2:17pm BP Systolic Sitting Right Arm 158 mmHg BP Diastolic Sitting Right Arm 104 mmHg Body Temperature 98.6 F Heart Rate 107 /min Respiratory Rate 22 /min Height 61 inches 5'1" Weight 349.00 lb BMI (Body Mass Index) 65.9 kg/m2 BSA (Body Surface Area) 2.39 m2 [place] body weight in kilograms 48 kg O2 % BldC Oximetry 96 % 12/05/2016 1:22pm BP Systolic Sitting Right Arm 138 mmHg BP Diastolic Sitting Right Arm 74 mmHg Body Temperature 99.3 F Heart Rate 111 /min Respiratory Rate 16 /min Height 61 inches 5'1" Weight 343.00 lb BMI (Body Mass Index) 64.8 kg/m2 BSA (Body Surface Area) 2.38 m2 [place] body weight in kilograms 48 kg O2 % BldC Oximetry 94 % 11/21/2016 9:21am BP Systolic Sitting Right Arm 116 mmHg BP Diastolic Sitting Right Arm 78 mmHg Body Temperature 99.0 F Heart Rate 118 /min Height 61 inches 5'1" Weight 342.00 lb BMI (Body Mass Index) 64.6 kg/m2 BSA (Body Surface Area) 2.37 m2 [place] body weight in kilograms 48 kg O2 % BldC Oximetry 95 % 10/02/2016 9:18am BP Systolic Sitting Right Arm 130 mmHg BP Diastolic Sitting Right Arm 80 mmHg Height 61 inches 5'1" Weight 332.00 lb BMI (Body Mass Index) 62.7 kg/m2 BSA (Body Surface Area) 2.34 m2 [place] body weight in kilograms 48 kg 09/14/2016 2:23pm BP Systolic 156 mmHg BP Diastolic 92 mmHg Heart Rate 118 /min Height 61 inches 5'1" Weight 324.00 lb BMI (Body Mass Index) 61.2 kg/m2 BSA (Body Surface Area) 2.32 m2 [place] body weight in kilograms 48 kg 09/03/2016 [...] 6.5-7.5 Ua Blood negative Negative Ua Specific [place] 1.030 1.010-1.030 Ua Ketones negative Negative Ua Bilirubin negative Negative Ua Glucose negative Negative Ua RFX Micro & Culture 12/01/2018 [facility] Urine Color YELLOW Yellow [address] [place] [address] [phone] Urine Clarity TURBID Clear Urine Glucose - Dipstick NEGATIVE mg/dL Negative Urine Bilirubin - Dipstick SMALL Abnormal Negative Urine Ketone NEGATIVE mg/dL Negative Urine Specific [place] >=1.030 Normal 1.010-1.030 Urine Blood SMALL Abnormal [...] Negative Source: URINE, CLEAN CAT <SEE NOTE> 2 Urine Dipstick 12/01/2018 [facility] Inhouse Ua Color yellow Yellow Ua Clarity cloudy Clear Ua Leuko negative Negative Ua Nitrite negative Negative Ua Urobilinogen 0.2 0.2 - 1.0 E.U./dL Ua Protein 2+ High Negative Ua PH 5.5 Low 6.5-7.5 Ua Blood 1+ High Negative Ua Specific [place] 1.030 1.010-1.030 Ua Ketones trace Negative Ua Bilirubin negative Negative Ua Glucose negative Negative Laboratory 11/28/2018 [facility] Vitamin 20.6 Low 30.0-100.0 3, 4 test finding [address] D,25-Hydroxy ng/[place] [address] [phone] LDL 11/28/2018 [facility] Cholesterol 196 <200 [address] mg/[place] [address] [phone] Triglycerides 166 mg/dL High <150 6 HDL Cholesterol 39 mg/dL Low >40 7 LDL-Cholesterol 124 mg/dL < 100 8 Comprehensive 11/28/2018 [facility] Glucose 103 mg/dL Normal 74-106 Metabolic Panel [address] [place] [address] [phone] BUN 14 mg/dL Normal 7-18 Creatinine 1.0 mg/dL Normal 0.6-1.3 Glom Filtration Rate, Estimate >60 mL/min >60 If >60 mL/min >60 9 BUN/Creat 14.0 ratio Sodium 140 mmol/L Normal [...] 12-78 Alkaline Phosphatase 69 U/L Normal 45-117 CBC W/Automated 11/28/2018 [facility] White Blood 6.8 K/uL Normal 3.1-10.[address] [place] [address] [phone] Red Blood Count 4.75 M/uL Normal 3.90-5.40 [...] 40.4-72.8 Lymph % 24.1 % Normal 20.0-42.0 [place] % 4.9 % Normal 4.3-13.2 Eo% 2.5 % Normal 0.0-6.6 Bas% 0.7 % Normal 0.0-1.1 Immature Grans 0.7 % Normal 0.0-5.0 NRBC % 0.0 /100WBC < 10/ 100 WBC Neut# 4.53 K/uL Normal 1.8-7.0 Lymph # 1.63 K/uL Normal 1.0-4.0 [place] # 0.33 K/uL Normal 0.3-0.9 Eos # 0.17 K/uL Normal 0.0-0.5 Baso # 0.05 K/uL Normal 0.0-0.1 Immature Grans Absolute 0.05 K/uL NRBC # 0.00 K/uL Protein/Creatinine 11/28/2018 [facility] Creatinine,Urine 283.8 Not Ratio,Urine [address] mg/[place] [address] [phone] Protein,Total,Urine 15.0 mg/dL Not Estab. Protein/Creatinine Ratio 53 MG/GCRE 0-200 10 Ua RFX Micro & Culture 11/28/2018 [facility] Urine Color YELLOW Yellow II [address] [place] [address] [phone] Urine Clarity CLEAR Clear Urine Glucose - Dipstick NEGATIVE mg/dL Negative Urine Bilirubin - Dipstick NEGATIVE Negative Urine Ketone NEGATIVE mg/dL Negative Urine Specific [place] >=1.030 Normal 1.010-1.030 Urine Blood NEGATIVE Negative Urine PH 5.5 Low 6.5-7.5 Urine Protein - Dipstick NEGATIVE mg/dL Negative Urine Urobilinogen - Dipstick 0.2 E.U./dL Normal 0.2-1.0 Urine Nitrite - Dipstick NEGATIVE Negative Urine Leuk Esterase NEGATIVE Negative Comprehensive 11/20/2018 [facility] Glucose 111 mg/dL High 74-106 11 Metabolic Panel [address] [place] [address] [phone] BUN 18 mg/dL Normal 7-18 Creatinine 1.0 mg/dL Normal 0.6-1.3 Glom Filtration Rate, Estimate >60 mL/min >60 If >60 mL/min >60 12 BUN/Creat 18.0 ratio Sodium 144 mmol/L Normal [...] 63 U/L Normal 45-117 CBC W/Automated 11/20/2018 [facility] White Blood 7.0 K/uL Normal 3.1-10.[address] Count [place], [place] [id number] [phone] Red Blood Count 4.27 M/uL Normal 3.90-5.40 [...] 40.4-72.8 Lymph % 29.8 % Normal 20.0-42.0 [place] % 4.2 % Low 4.3-13.2 Eo% 2.7 % Normal 0.0-6.6 Bas% 0.4 % Normal 0.0-1.1 Immature Grans 0.4 % Normal 0.0-5.0 NRBC % 0.0 /100WBC < 10/ 100 WBC Neut# 4.36 K/uL Normal 1.8-7.0 Lymph # 2.08 K/uL Normal 1.0-4.0 [place] # 0.29 K/uL Low 0.3-0.9 Eos # 0.19 K/uL Normal 0.0-0.5 Baso # 0.03 K/uL Normal 0.0-0.1 Immature Grans Absolute 0.03 K/uL NRBC # 0.00 K/uL Aot Request 10/28/2018 [facility] Aot Request Test(s) added 13, 14 [address], [place] [id number] [phone] Tests to be added: magnesium crp CBC W/Automated 10/28/2018 [facility] White 8.4 K/uL Normal 3.1-10.7 15 Diff [address] [facility] [place] [address] Count [phone] Red Blood Count 4.67 M/uL Normal 3.90-5.40 [...] 40.4-72.8 Lymph % 19.9 % Low 20.0-42.0 [place] % 3.7 % Low 4.3-13.2 Eo% 2.0 % Normal 0.0-6.6 Bas% 0.5 % Normal 0.0-1.1 Immature Grans 0.6 % Normal 0.0-5.0 NRBC % 0.0 /100WBC < 10/ 100 WBC Neut# 6.16 K/uL Normal 1.8-7.0 Lymph # 1.67 K/uL Normal 1.0-4.0 [place] # 0.31 K/uL Normal 0.3-0.9 Eos # 0.17 K/uL Normal 0.0-0.5 Baso # 0.04 K/uL Normal 0.0-0.1 Immature Grans Absolute 0.05 K/uL NRBC # 0.00 K/uL Comprehensive 10/20/2018 [facility] Glucose 79 mg/dL Normal 74-106 16 Metabolic Panel [address] [place] [address] [phone] BUN 16 mg/dL Normal 7-18 Creatinine 1.0 mg/dL Normal 0.6-1.3 Glom Filtration Rate, Estimate >60 mL/min >60 If >60 mL/min >60 17 BUN/Creat 16.0 ratio Sodium 140 mmol/L Normal [...] 70 U/L Normal 45-117 CBC W/Automated 10/20/2018 [facility] White Blood 6.6 K/uL Normal 3.1-10.[address] [place] [address] [phone] Red Blood Count 4.86 M/uL Normal 3.90-5.40 [...] 40.4-72.8 Lymph % 27.7 % Normal 20.0-42.0 [place] % 4.1 % Low 4.3-13.2 Eo% 2.4 % Normal 0.0-6.6 Bas% 0.6 % Normal 0.0-1.1 Immature Grans 0.6 % Normal 0.0-5.0 NRBC % 0.0 /100WBC < 10/ 100 WBC Neut# 4.23 K/uL Normal 1.8-7.0 Lymph # 1.82 K/uL Normal 1.0-4.0 [place] # 0.27 K/uL Low 0.3-0.9 Eos # 0.16 K/uL Normal 0.0-0.5 Baso # 0.04 K/uL Normal 0.0-0.1 Immature Grans Absolute 0.04 K/uL NRBC # 0.00 K/uL Laboratory test 10/20/2018 [facility] Vitamin 18.9 Low 30.0-100.0 [address] D,25-Hydroxy ng/[place] [address] [phone] LDL Cholesterol 10/20/2018 [facility] Cholesterol 181 <200 [address] mg/[place] [address] [phone] Triglycerides 174 mg/dL High <150 20 HDL Cholesterol 39 mg/dL Low >40 21 LDL-Cholesterol 107 mg/dL < 100 22 Serum or plasma 10/03/2018 N2N/CCD Import Serum or plasma 1.1 0.6-1.3 creatinine creatinine measurement measurement (mass/volum (mass/volume) Estimated glomerular 10/03/2018 N2N/CCD Import Estimated glomerular 60 > 60 filtration rate filtration rate (GFR) non-Afr (GFR) non- GFR/Bsa pred.black 10/03/2018 N2N/CCD Import GFR/Bsa pred.black >60 >60 SerPl MDRD-ArVRat SerPl MDRD-ArVRat Serum or plasma urea 10/03/2018 N2N/CCD Import Serum or plasma urea 12.7 nitrogen/creatinine nitrogen/creatinine mass rati mass ratio Sodium SerPl-sCnc 10/03/2018 N2N/CCD Import [...] glucose measurement by glucometer by glucometer (mass/volume) Laboratory test 10/03/2018 [facility] CK 369 High 26-192 [address] U/[place] [address] [phone] Troponin-I < 0.015 ng/mL 24 Comprehensive 10/03/2018 [facility] Glucose 103 mg/dL Normal 74-106 Metabolic Panel [address] [place], [place] [id number] [phone] BUN 14 mg/dL Normal 7-18 Creatinine 1.1 mg/dL Normal 0.6-1.3 Glom Filtration Rate, Estimate 60 mL/min >60 If >60 mL/min >60 25 BUN/Creat 12.7 ratio Sodium 141 mmol/L Normal [...] Phosphatase 64 U/L Normal 45-117 Laboratory 10/03/2018 [facility] Act Partial 26.3 Normal 23.4-35.0 26 test finding [address] [place] [address] Time [phone] Protime 10/03/2018 [facility] Protime 13.7 Normal 12.0-14.[address] seconds [place], [place] [id number] [phone] Inr 1.1 Normal 0.9-1.1 27 CBC W/Automated 10/03/2018 [facility] White Blood 7.7 K/uL Normal 3.1-10.[address] Count [place], [place] [id number] [phone] Red Blood Count 4.80 M/uL Normal 3.90-5.40 [...] 40.4-72.8 Lymph % 28.1 % Normal 20.0-42.0 [place] % 5.9 % Normal 4.3-13.2 Eo% 2.6 % Normal 0.0-6.6 Bas% 0.4 % Normal 0.0-1.1 Immature Grans 0.7 % Normal 0.0-5.0 NRBC % 0.0 /100WBC < 10/ 100 WBC Neut# 4.79 K/uL Normal 1.8-7.0 Lymph # 2.16 K/uL Normal 1.0-4.0 [place] # 0.45 K/uL Normal 0.3-0.9 Eos # 0.20 K/uL Normal 0.0-0.5 Baso # 0.03 K/uL Normal 0.0-0.1 Immature Grans Absolute 0.05 K/uL NRBC # 0.00 K/uL Automated 10/03/2018 N2N/CCD Import Automated 7.7 3.1-10.7 leukocyte count leukocyte count (number/volume) (number/volume) Blood 10/03/2018 N2N/CCD Import Blood 4.80 3.90-5.40 erythrocytes erythrocytes automated count automated count [...] Automated 5.9 4.3-13.2 monocyte % monocyte % Serum or plasma 10/03/2018 N2N/CCD Import Serum or plasma 14 7-18 urea nitrogen urea nitrogen measurement measurement (mass/vo (mass/volume) Serum or plasma 10/03/2018 N2N/CCD Import Serum or plasma 103 74-106 glucose glucose measurement measurement (mass/volume) (mass/volume) Platelet poor 10/03/2018 N2N/CCD Import Platelet poor [...] automated count automated count (number/volume) (number/volume) Automated 10/03/2018 N2N/CCD Import Automated 2.6 0.0-6.6 [...] 1.0-4.0 lymphocyte count lymphocyte count (number/volume) (number/volume) Throat Culture 09/25/2018 [facility] Throat Culture NORMAL 28, Complete [address] Complete THROAT FL 29 [place] [address] <SEE NOTE> [phone] Bacterial throat 09/25/2018 N2N/CCD Import Bacterial throat Normal culture culture Throat Giovanni Throat Culture 09/16/2018 [facility] Throat Culture NORMAL [address] [place] [place] [address] <SEE NOTE> [phone] Urine 09/15/2018 N2N/CCD Import Urine 167 0-200 protein/creatinin protein/creatinin e mass ratio e mass ratio Urine protein [...] by automated test automated test strip strip Laboratory test 09/15/2018 [facility] Thyroid Stim 3.83 Normal 0.30-4.20 31 finding 134 [facility] Hormone uIU/[place] [address] [phone] Free T4 1.23 ng/dL Normal 0.76-1.46 Basic Metabolic Panel 09/15/2018 [facility] Glucose 103 mg/dL Normal 74-106 [address] [place] [address] [phone] BUN 16 mg/dL Normal 7-18 Creatinine 1.1 mg/dL Normal 0.6-1.3 Glom Filtration Rate, Estimate 60 mL/min >60 If >60 mL/min >60 32 BUN/Creat 14.5 ratio Sodium 139 mmol/L Normal 136-145 Potassium 3.3 mmol/L Low 3.5-5.1 Chloride 105 mmol/L Normal 98-107 Carbon Dioxide 24 mmol/L Normal 21-32 Anion Gap 10 mEq/L Normal 8-16 Calcium 9.3 mg/dL Normal 8.5-10.1 Laboratory test 09/15/2018 [facility] CK 284 U/L High 26-192 finding [address] [place] [address] [phone] Ua RFX Micro & 09/15/2018 [facility] Urine Color YELLOW Yellow Culture II [address] [place] [address] [phone] Urine Clarity CLOUDY Clear Urine Glucose - Dipstick NEGATIVE mg/dL Negative Urine Bilirubin - Dipstick NEGATIVE Negative Urine Ketone NEGATIVE mg/dL Negative Urine Specific [place] >=1.030 Normal 1.010-1.030 Urine Blood TRACE Negative Urine PH 5.5 Low 6.5-7.5 Urine Protein - Dipstick 30 mg/dL High Negative Urine Urobilinogen - Dipstick 0.2 E.U./dL Normal 0.2-1.0 Urine Nitrite - Dipstick NEGATIVE Negative Urine Leuk Esterase NEGATIVE Negative Source: URINE, CLEAN CAT <SEE NOTE> 33 Protein/Creatinine 09/15/2018 [facility] Creatinine,Urine 284.6 Not Ratio,Urine [address] mg/[place] [address] [phone] Protein,Total,Urine 47.4 mg/dL Not Estab. Protein/Creatinine Ratio 167 MG/GCRE 0-200 34 Urine color 09/15/2018 N2N/CCD Import Urine color [...] automated test automated test strip strip Urine hemoglobin 09/15/2018 N2N/CCD Import Urine hemoglobin Trace Negative detection by detection by automated test automated test strip strip Specific gravity 09/15/2018 N2N/CCD Import Specific gravity >=1.030 1.010-1.030 of Urine by of Urine by Automated test Automated test strip strip CBC W/Automated 07/15/2018 [facility] White Blood 7.3 K/uL Normal 3.1-10.7 [address] [place] [address] [phone] Red Blood Count 4.84 M/uL Normal 3.90-5.40 [...] 40.4-72.8 Lymph % 29.5 % Normal 20.0-42.0 [place] % 4.8 % Normal 4.3-13.2 Eo% 1.8 % Normal 0.0-6.6 Bas% 0.3 % Normal 0.0-1.1 Neut# 4.61 K/uL Normal 1.8-7.0 Lymph # 2.14 K/uL Normal 1.0-4.0 [place] # 0.35 K/uL Normal 0.3-0.9 Eos # 0.13 K/uL Normal 0.0-0.5 Baso # 0.02 K/uL Normal 0.0-0.1 Comprehensive 07/15/2018 [facility] Glucose 101 mg/dL Normal 74-106 Metabolic Panel [address] [place] [address] [phone] BUN 17 mg/dL Normal 7-18 Creatinine 1.0 mg/dL Normal 0.6-1.3 Glom Filtration Rate, Estimate >60 mL/min >60 If >60 mL/min >60 36 BUN/Creat 17.0 ratio Sodium 140 mmol/L Normal [...] add FT4? Y LDL Cholesterol Profile 07/15/2018 [facility] Cholesterol 189 mg/dL <[address] [place], [place] [id number] [phone] Triglycerides 162 mg/dL High <150 38 HDL Cholesterol 41 mg/dL >40 39 LDL-Cholesterol 116 mg/dL < 100 40 Reflex add FT3? N Reflex add FT4? Y Laboratory test 07/15/2018 [facility] Vitamin 15.9 Low 30.0-100.0 [address] D,25-Hydroxy ng/mL [place], [place] [id number] [phone] Glycohemoglobin 07/15/2018 [facility] Glycohemoglobin 5.4 % Normal 4.2-6.[address] (A1c) [place], [place] [id number] [phone] eAG 108 mg/dL TSH Reflex 07/15/2018 [facility] Thyroid Stim 3.57 uIU/mL Normal 0.30-4.20 FT4 And/Or [address] Hormone FT3 [place], [place] [id number] [phone] Reflex add FT3? N Reflex add FT4? [...] SerPl-sCnc 139 136- 145 Laboratory test 05/15/2018 [facility] Troponin-I < 0.015 43, [address] ng/[place] [address] [phone] Automated blood 05/15/2018 N2N/CCD Import Automated blood 0.14 0.0-0.5 eosinophil count eosinophil count Automated blood 05/15/2018 N2N/CCD Import Automated blood 0.03 0.0-0.1 basophil count basophil count (number/volume) (number/volume) Automated basophil 05/15/2018 N2N/CCD Import Automated basophil 0.3 0.0- 1.1 % % Absolute 05/15/2018 N2N/CCD Import Absolute 5.85 1.8-7.0 neutrophil count neutrophil count Basic Metabolic 05/15/2018 [facility] Glucose 113 High 74-[address] mg/[place] [address] [phone] BUN 17 mg/dL Normal 7-18 Creatinine 1.0 mg/dL Normal 0.6-1.3 Glom Filtration Rate, Estimate >60 mL/min >60 If >60 mL/min >60 45 BUN/Creat 17.0 ratio Sodium 139 mmol/L Normal 136-145 Potassium 3.3 mmol/L Low 3.5-5.1 Chloride 105 mmol/L Normal 98-107 Carbon Dioxide 24 mmol/L Normal 21-32 Anion Gap 10 mEq/L Normal 8-16 Calcium 8.8 mg/dL Normal 8.5-10.1 CBC W/Automated 05/15/2018 [facility] White Blood 9.1 K/uL Normal 3.1-10.[address] [place] [address] [phone] Red Blood Count 4.90 M/uL Normal 3.90-5.40 [...] 40.4-72.8 Lymph % 28.7 % Normal 20.0-42.0 [place] % 5.0 % Normal 4.3-13.2 Eo% 1.5 % Normal 0.0-6.6 Bas% 0.3 % Normal 0.0-1.1 Neut# 5.85 K/uL Normal 1.8-7.0 Lymph # 2.60 K/uL Normal 1.0-4.0 [place] # 0.45 K/uL Normal 0.3-0.9 Eos # 0.14 K/uL Normal 0.0-0.5 Baso # 0.03 K/uL Normal 0.0-0.1 Automated blood 05/15/2018 N2N/CCD Import Automated [...] platelet mean volume measurement volume measurement Automated 05/15/2018 N2N/CCD Import Automated 1.5 0.0-6.6 eosinophil % eosinophil % Automated 05/15/2018 N2N/CCD Import Automated 46.1 36-47 erythrocyte erythrocyte distribution width distribution width Automated 05/15/2018 N2N/CCD Import Automated 15.4 High 11.7-14.4 erythrocyte erythrocyte distribution width distribution width ratio ratio Automated 05/15/2018 N2N/CCD Import Automated 27.1 25.9-32.7 erythrocyte mean erythrocyte mean corpuscular corpuscular hemoglobin hemoglobin (mass per erythrocyte) Automated 05/15/2018 N2N/CCD Import Automated 32.5 30.8-34.3 erythrocyte mean erythrocyte mean corpuscular corpuscular hemoglobin hemoglobin concentration measurement (mass/volume) Automated 05/15/2018 N2N/CCD Import Automated 83.5 80.9-99.0 erythrocyte mean erythrocyte mean corpuscular volume corpuscular volume (MCV (MCV) measurement Automated monocyte 05/15/2018 N2N/CCD Import Automated monocyte 5.0 4.3- 13.2 % % Blood erythrocytes 05/15/2018 N2N/CCD Import Blood erythrocytes 4.90 3.90-5.40 automated count automated count (number/volume) (number/volume) Blood hemoglobin 05/15/2018 N2N/CCD Import Blood hemoglobin 13.3 11.6- 15.8 measurement measurement (mass/volume) (mass/volume) Blood monocytes 05/15/2018 N2N/CCD Import Blood monocytes 0.45 0.3-0.9 automated count automated count (number/volume) (number/volume) Serum or plasma 05/15/2018 N2N/CCD Import Serum or plasma 1.0 0.6-1.3 creatinine creatinine measurement measurement (mass/volum (mass/volume) Serum or plasma 05/15/2018 N2N/CCD Import Serum or plasma 105 98-107 chloride chloride measurement measurement Serum or plasma 05/15/2018 N2N/CCD Import Serum or plasma 8.8 8.5-10.1 calcium measurement calcium measurement (mass/volume) (mass/volume) Serum or plasma 05/15/2018 N2N/CCD Import Serum or plasma 10 8-16 anion gap anion gap Hct VFr Bld Auto 05/15/2018 N2N/CCD Import Hct VFr Bld Auto 40.9 36.0- 46.1 Co2 SerPl-sCnc 05/15/2018 N2N/CCD Import Co2 SerPl-sCnc 24 21-32 Serum or plasma 05/14/2018 N2N/CCD Import Serum or plasma 35 15-37 aspartate aspartate aminotransferase aminotransferase measure measurement (enzymatic activity/volume) Serum or plasma 05/14/2018 N2N/CCD Import Serum or plasma 72 45-117 alkaline alkaline phosphatase phosphatase measurement ( measurement (enzymatic activity/volume) Serum or plasma 05/14/2018 N2N/CCD Import Serum or plasma 0.9 albumin/globulin albumin/globulin mass ratio mass ratio Serum or plasma 05/14/2018 N2N/CCD Import Serum or plasma 3.4 3.4-5.0 albumin measurement albumin measurement (mass/volume) (mass/volume) Serum or plasma 05/14/2018 N2N/CCD Import Serum or plasma 68 12-78 alanine alanine aminotransferase aminotransferase measureme measurement (enzymatic activity/volume) Serum globulin 05/14/2018 N2N/CCD Import Serum globulin 3.8 1.9-4.3 measurement by measurement by calculation calculation (mass/vo (mass/volume) Fibrin D-dimer Feu 05/14/2018 N2N/CCD Import Fibrin D-dimer Feu 0.33 measurement in measurement in platelet poor pl platelet poor plasma (mass/volume) Laboratory test 05/14/2018 [facility] Troponin-I < 46, finding [address] 0.015 47 [place] [address] ng/mL [phone] HCG,Serum (Qualitative) NEGATIVE (Negative) 48 D-Dimer, Quantitative 0.33 ug/mL 49 Comprehensive Metabolic 05/14/2018 [facility] Glucose 151 mg/dL High 74-[address] [place], [place] [id number] [phone] BUN 17 mg/dL Normal 7-18 Creatinine 1.1 mg/dL Normal 0.6-1.3 Glom Filtration Rate, Estimate >60 mL/min >60 If >60 mL/min >60 50 BUN/Creat 15.4 ratio Sodium 138 mmol/L Normal [...] 12-78 Alkaline Phosphatase 72 U/L Normal 45-117 CBC W/Automated 05/14/2018 [facility] White Blood 9.0 K/uL Normal 3.1-10.[address] [place] [address] [phone] Red Blood Count 5.19 M/uL Normal 3.90-5.40 [...] 40.4-72.8 Lymph % 17.9 % Low 20.0-42.0 [place] % 4.6 % Normal 4.3-13.2 Eo% 1.5 % Normal 0.0-6.6 Bas% 0.3 % Normal 0.0-1.1 Neut# 6.79 K/uL Normal 1.8-7.0 Lymph # 1.60 K/uL Normal 1.0-4.0 [place] # 0.41 K/uL Normal 0.3-0.9 Eos # 0.13 K/uL Normal 0.0-0.5 Baso # 0.03 K/uL Normal 0.0-0.1 Serum or plasma 05/14/2018 N2N/CCD Import Serum or plasma 7.2 6.4-8.2 protein measurement protein measurement (mass/volume) (mass/volume) Serum or plasma 05/14/2018 N2N/CCD Import Serum or plasma 0.2 0.2-1.0 total bilirubin total bilirubin measurement (mass/ measurement (mass/volume) Aot Request 05/14/2018 [facility] Aot Request Test(s) [address] added [place], [place] [id number] [phone] Tests to be added: d-dimer * Miscellaneous 05/14/2018 N2N/CCD Import * Miscellaneous Test(s) studies (set) studies (set) added Laboratory test 04/14/2018 [facility] PTH,Intact 39 pg/mL 15-6 52, [address] 5 [place], [place] [id number] [phone] Basic Metabolic 04/14/2018 [facility] Glucose 106 mg/dL Normal 74-[address] 06 [place] [address] [phone] BUN 14 mg/dL Normal 7-18 Creatinine 1.0 mg/dL Normal 0.6-1.3 Glom Filtration Rate, Estimate >60 mL/min >60 If >60 mL/min >60 54 BUN/Creat 14.0 ratio Sodium 139 mmol/L Normal [...] from glycated hemoglobin (mass/volume) Laboratory test 03/31/2018 [facility] Vitamin 21.5 Low 30.0-100 55, [address] D,25-Hydroxy ng/mL .0 [place] [address] [phone] LDL Cholesterol 03/31/2018 [facility] Cholesterol 192 <200 [address] mg/[place] [address] [phone] Triglycerides 192 mg/dL High <150 58 HDL Cholesterol 40 mg/dL >40 59 LDL-Cholesterol 114 mg/dL < 100 60 Comprehensive 03/31/2018 [facility] Glucose 99 mg/dL Normal 74-106 Metabolic Panel [address] [place] [address] [phone] BUN 16 mg/dL Normal 7-18 Creatinine 1.0 mg/dL Normal 0.6-1.3 Glom Filtration Rate, Estimate >60 mL/min >60 If >60 mL/min >60 61 BUN/Creat 16.0 ratio Sodium 140 mmol/L Normal [...] Phosphatase 70 U/L Normal 45-117 Glycohemoglobin 03/31/2018 [facility] Glycohemoglobin 5.9 % Normal 4.2-6.[address] (A1c) [place], [place] [id number] [phone] eAG 123 mg/dL CBC W/Automated 03/31/2018 [facility] White Blood 6.6 K/uL Normal 3.1-10.[address] Count [place], [place] [address]791 [phone] Red Blood Count 5.03 M/uL Normal 3.90-5.40 [...] 40.4-72.8 Lymph % 28.3 % Normal 20.0-42.0 [place] % 4.8 % Normal 4.3-13.2 Eo% 2.0 % Normal 0.0-6.6 Bas% 0.3 % Normal 0.0-1.1 Neut# 4.26 K/uL Normal 1.8-7.0 Lymph # 1.87 K/uL Normal 1.0-4.0 [place] # 0.32 K/uL Normal 0.3-0.9 Eos # 0.13 K/uL Normal 0.0-0.5 Baso # 0.02 K/uL Normal 0.0-0.1 Genital Culture W/ 03/11/2018 [facility] Gram Stain GRAM STAIN 63, [address] [place] <[place] [address] NOTE> [phone] Gram Stain MODERATE GR POS. <SEE NOTE> 65 Gram Stain MODERATE GRAM VA <SEE NOTE> 66 Gram Stain RARE GRAM POSITI <SEE NOTE> 67 Gram Stain RARE RARE WHITE <SEE NOTE> 68 Genital Culture GENITAL GIOVANNI Urine Dipstick 03/11/2018 [facility] Ua Color orange Yellow Ua Clarity clear Clear Ua Leuko - Negative Ua Nitrite - Negative Ua Urobilinogen - Low 0.2 - 1.0 E.U./dL Ua Protein - Negative Ua PH 5 Low 6.5-7.5 Ua Blood - Negative Ua Specific [place] 1.030 1.010-1.030 Ua Ketones - Negative Ua Bilirubin - Negative Ua Glucose - Negative Laboratory test 01/20/2018 [facility] Vitamin 16.2 Low 30.0-100.0 69, finding [address] D,25-Hydroxy ng/mL 70 [place] [address] [phone] Glycohemoglobin 01/20/2018 [facility] Glycohemoglobin 6.1 % Normal 4.2-6.3 71 A1c [address] [facility] (A1c) [place], [place] [address] [phone] eAG 128 mg/dL LDL Cholesterol Profile 01/20/2018 [facility] Cholesterol 195 mg/dL <[address] [place], [place] [id number] [phone] Triglycerides 186 mg/dL High <150 73 HDL Cholesterol 41 mg/dL >40 74 LDL-Cholesterol 117 mg/dL < 100 75 Comprehensive 01/20/2018 [facility] Glucose 94 mg/dL Normal 74-106 Metabolic Panel [address] [place] [address] [phone] BUN 13 mg/dL Normal 7-18 Creatinine 0.9 mg/dL Normal 0.6-1.3 Glom Filtration Rate, Estimate >60 mL/min >60 If >60 mL/min >60 76 BUN/Creat 14.4 ratio Sodium 141 mmol/L Normal [...] 76 U/L Normal 45-117 CBC W/Automated 01/20/2018 [facility] White Blood 7.3 K/uL Normal 3.1-10.[address] [place] [address] [phone] Red Blood Count 5.19 M/uL Normal 3.90-5.40 [...] 40.4-72.8 Lymph % 24.4 % Normal 20.0-42.0 [place] % 4.6 % Normal 4.3-13.2 Eo% 1.6 % Normal 0.0-6.6 Bas% 0.3 % Normal 0.0-1.1 Neut# 5.07 K/uL Normal 1.8-7.0 Lymph # 1.79 K/uL Normal 1.0-4.0 [place] # 0.34 K/uL Normal 0.3-0.9 Eos # 0.12 K/uL Normal 0.0-0.5 Baso # 0.02 K/uL Normal 0.0-0.1 Laboratory test 01/20/2018 [facility] Transferrin 296 mg/dL 200-370 [address] [place] [address] [phone] Iron-Tibc-%Sat 01/20/2018 [facility] Serum Iron 55 g/dL Normal 50-170 [address] [place] [address] [phone] Total Iron Binding Capacity 383 g/dL Normal 250-450 Transferrin %Saturation 14 % Normal 12-57 Laboratory test 01/20/2018 [facility] Ferritin 31 ng/mL Normal 8-252 finding [address] [place] [address] [phone] Serum or plasma 01/20/2018 N2N/CCD Import Serum [...] 8-252 ferritin ferritin measurement measurement (mass/volume) (mass/volume) Protein/Creatin 12/17/2017 [facility] Creatinine,Urin 233.6 Not 78 ine Ratio,Urine [address] [facility] e mg/[place] [address] [phone] Protein,Total,Urine 49.5 mg/dL Not Estab. Protein/Creatinine Ratio 212 MG/GCRE High 0-200 79 Ua RFX Micro & Culture 12/17/2017 [facility] Urine Color YELLOW Yellow II [address] [place] [address] [phone] Urine Clarity TURBID Clear Urine Glucose - Dipstick NEGATIVE mg/dL Negative Urine Bilirubin - Dipstick NEGATIVE Negative Urine Ketone NEGATIVE mg/dL Negative Urine Specific [place] >=1.030 Normal 1.010-1.030 Urine Blood NEGATIVE Negative Urine PH 6.0 Low 6.5-7.5 Urine Protein - Dipstick 30 mg/dL High Negative Urine Urobilinogen - Dipstick 0.2 E.U./dL Normal 0.2-1.0 Urine Nitrite - Dipstick NEGATIVE Negative Urine Leuk Esterase NEGATIVE Negative Source: URINE, CLEAN CAT <SEE NOTE> 80 Chlmaydia/GC/Trichomonas 10/18/2017 [facility] Trichomonas Negative Negative [address] [place] [address] PCR [phone] Chlamydia trachomatis, PCR Negative Negative Neisseria gonorrhoeae, PCR Negative Negative 82 Ua RFX Micro & Culture 10/18/2017 [facility] Urine Color YELLOW Yellow II [address] [place] [address] [phone] Urine Clarity SL CLOUDY Clear Urine Glucose - Dipstick NEGATIVE mg/dL Negative Urine Bilirubin - Dipstick NEGATIVE Negative Urine Ketone NEGATIVE mg/dL Negative Urine Specific [place] >=1.030 Normal 1.010-1.030 Urine Blood TRACE Negative Urine PH 5.5 Low 6.5-7.5 Urine Protein - Dipstick 30 mg/dL High Negative Urine Urobilinogen - Dipstick 0.2 E.U./dL Normal 0.2-1.0 Urine Nitrite - Dipstick NEGATIVE Negative Urine Leuk Esterase NEGATIVE Negative Source: URINE, CLEAN CAT <SEE NOTE> 83 CBS W/Automated 10/18/2017 [facility] White Blood 8.0 K/uL Normal 3.1-10.[address] [place] [address] [phone] Red Blood Count 5.04 M/uL Normal 3.90-5.40 [...] 40.4-72.8 Lymph % 25.2 % Normal 20.0-42.0 [place] % 4.4 % Normal 4.3-13.2 Eo% 1.9 % Normal 0.0-6.6 Bas% 0.4 % Normal 0.0-1.1 Neut# 5.42 K/uL Normal 1.8-7.0 Lymph # 2.00 K/uL Normal 1.0-4.0 [place] # 0.35 K/uL Normal 0.3-0.9 Eos # 0.15 K/uL Normal 0.0-0.5 Baso # 0.03 K/uL Normal 0.0-0.1 Protein/Creatinine 09/07/2017 [facility] Creatinine,Urine 291.1 Not 84 Ratio,Urine [address] mg/[place] [address] [phone] Protein,Total,Urine 47.2 mg/dL Not Estab. Protein/Creatinine Ratio 162 MG/GCRE 0-200 85 Ua RFX Micro & Culture 09/07/2017 [facility] Urine Color YELLOW Yellow II [address] [place] [address] [phone] Urine Clarity CLEAR Clear Urine Glucose - Dipstick NEGATIVE mg/dL Negative Urine Bilirubin - Dipstick NEGATIVE Negative Urine Ketone NEGATIVE mg/dL Negative Urine Specific [place] >=1.030 Normal 1.010-1.030 Urine Blood NEGATIVE Negative Urine PH 5.5 Low 6.5-7.5 Urine Protein - Dipstick TRACE mg/dL Negative Urine Urobilinogen - Dipstick 0.2 E.U./dL Normal 0.2-1.0 Urine Nitrite - Dipstick NEGATIVE Negative Urine Leuk Esterase NEGATIVE Negative Source: URINE, CLEAN CAT <SEE NOTE> 86 Glycohemoglobin 09/07/2017 [facility] Glycohemoglobin 6.2 % Normal 4.2-6.[address] (A1c) [place] [address] [phone] eAG 131 mg/dL LDL Cholesterol Profile 09/07/2017 [facility] Cholesterol 180 mg/dL <[address] [place] [address] [phone] Triglycerides 182 mg/dL High <150 89 HDL Cholesterol 43 mg/dL >40 90 LDL-Cholesterol 101 mg/dL < 100 91 CBS W/Automated 09/07/2017 [facility] White Blood 6.6 K/uL Normal 3.1-10.[address] [place] [address] [phone] Red Blood Count 5.18 M/uL Normal 3.90-5.40 [...] 40.4-72.8 Lymph % 30.0 % Normal 20.0-42.0 [place] % 5.3 % Normal 4.3-13.2 Eo% 2.0 % Normal 0.0-6.6 Bas% 0.5 % Normal 0.0-1.1 Neut# 4.14 K/uL Normal 1.8-7.0 Lymph # 1.99 K/uL Normal 1.0-4.0 [place] # 0.35 K/uL Normal 0.3-0.9 Eos # 0.13 K/uL Normal 0.0-0.5 Baso # 0.03 K/uL Normal 0.0-0.1 Comprehensive 09/07/2017 [facility] Glucose 101 mg/dL Normal 74-106 Metabolic Panel [address] [place] [address] [phone] BUN 16 mg/dL Normal 7-18 Creatinine 1.1 mg/dL Normal 0.6-1.3 Glom Filtration Rate, Estimate >60 mL/min >60 If >60 mL/min >60 92 BUN/Creat 14.5 ratio Sodium 141 mmol/L Normal [...] 12-78 Alkaline Phosphatase 70 U/L Normal 45-117 Laboratory 04/18/2017 [facility] Anti-Nuclear Negative Negative 93, 94 test finding [address] Antibodies AU/[place] [address] Direct [phone] Complement C4, Serum 36 mg/dL 14-44 Complement C3, Serum 202 mg/dL High 82-167 LDL Cholesterol Profile 04/18/2017 [facility] Cholesterol 184 mg/dL <[address] [place], [place] [id number] [phone] Triglycerides 199 mg/dL High <150 96 HDL Cholesterol 40 mg/dL >40 97 LDL-Cholesterol 104 mg/dL < 100 98 Glycohemoglobin 04/18/2017 [facility] Glycohemoglobin 6.2 % Normal 4.2-6.3 [address] (A1c) [place], [place] [id number] [phone] eAG 131 mg/dL Laboratory test 04/18/2017 [facility] Rheumatoid < 10.0 Normal 0.0-15.[address] Factor Screen IU/mL [place], [place] [id number] [phone] Comprehensive 04/18/2017 [facility] Glucose 110 High 74-106 Metabolic Panel [address] mg/dL [place], [place] [id number] [phone] BUN 15 mg/dL Normal 7-18 Creatinine 1.0 mg/dL Normal 0.6-1.3 Glom Filtration Rate, Estimate >60 mL/min >60 If >60 mL/min >60 100 BUN/Creat 15.0 ratio Sodium 142 mmol/L Normal [...] 68 U/L Normal 45-117 Allergens,Zone 1 01/09/2017 [facility] mRast Class (SEE NOTE) 101, [address] (Text Only) [place] [address] [phone] D Pteronyssinus <0.10 kU/L Class 0 D Farinae Mite <0.10 kU/L Class 0 Cat Hair/Dander <0.10 kU/L Class 0 Dog Hair/Dander <0.10 kU/L Class 0 Bluegrass,[place] <0.10 kU/L Class 0 [place] Grass <0.10 kU/L Class 0 [place]ia Grass <0.10 kU/L Class 0 Cockroach,Malagasy <0.10 kU/L Class 0 Penicillium Not <0.10 kU/L Class 0 Cladosporium Herbarum <0.10 kU/L Class 0 Apergillis Fumigatus Ige <0.10 kU/L Class 0 Mucor Racemosus <0.10 kU/L Class 0 Alternaria Alternata <0.10 kU/L Class 0 Stemphylium Bot <0.10 kU/L Class 0 Birch,White <0.10 kU/L Class 0 [place],White <0.10 kU/L Class 0 Elm,Malagasy (White) <0.10 kU/L Class 0 Vipin,White <0.10 kU/L Class 0 Hazelnut Tree T004 Ige <0.10 kU/L Class 0 [place],White <0.10 kU/L Class 0 Faulkner,White <0.10 kU/L Class 0 [place],Mountain <0.10 kU/L Class 0 Ragweed,Short/ <0.10 kU/L Class 0 Mugwort <0.10 kU/L Class 0 Plantain,Bulgarian <0.10 kU/L Class 0 Pigweed,Rough <0.10 kU/L Class 0 Sheep [place] (DO <0.10 kU/L Class 0 Nettle <0.10 kU/L Class 0 Maple/[place] Ige T001 <0.10 kU/L Class 0 103 Laboratory 01/09/2017 [facility] Immunoglobulin 47 IU/mL 0-100 104 test finding [address],[place] [address] [phone] Laboratory 12/06/2016 [facility] Thyroid Stim 3.78 Normal 0.30-4.2 105 test finding [address] Hormone uIU/mL 0 [place], [place] [id number] [phone] Free T4 0.95 ng/dL Normal 0.76-1.46 CBS W/Automated 09/03/2016 [facility] White 8.2 K/uL Normal 3.1-10.7 [address] [place] [address] Count [phone] Red Blood Count 5.39 M/uL Normal 3.90-5.40 [...] 40.4-72.8 Lymph % 24.8 % Normal 20.0-42.0 [place] % 5.0 % Normal 4.3-13.2 Eo% 2.8 % Normal 0.0-6.6 Bas% 0.2 % Normal 0.0-1.1 Neut# 5.47 K/uL Normal 1.8-7.0 Lymph # 2.02 K/uL Normal 1.0-4.0 [place] # 0.41 K/uL Normal 0.3-0.9 Eos # 0.23 K/uL Normal 0.0-0.5 Baso # 0.02 K/uL Normal 0.0-0.1 Laboratory test 09/03/2016 [facility] Magnesium 2.0 mg/dL Normal 1.8-2.4 finding [address] [place] [address] [phone] Comprehensive 09/03/2016 [facility] Glucose 90 mg/dL Normal 74-106 Metabolic Panel [address] [place] [address] [phone] BUN 17 mg/dL Normal 7-18 Creatinine 1.0 mg/dL Normal 0.6-1.3 Glom Filtration Rate, Estimate >60 mL/min >60 If >60 mL/min >60 107 BUN/Creat 17.0 ratio Sodium 142 mmol/L Normal [...] 12-78 Alkaline Phosphatase 66 U/L Normal 45-117 Urine Creat 04/10/2011 [facility] Urine Collection 24 Hours Clearance Profile [address] [place] [address] [phone] Urine Total Volume 750 mL Serum Creatinine 0.7 mg/dL 0.5-1.4 Urine Creatinine Conc 221 mg/dL Urine Creatinine Clearance 164 mL/min High 70-156 Urine Total Prot 04/10/2011 [facility] Urine Collection Time 24 Hours Timed Profile [address] [place] [address] [phone] Urine Total Volume 750 mL Urine Total Protein Conc 45.0 mg/dL Urine TP Total (mg/24hr) 338 [id number] High Laboratory test finding 04/03/2011 [facility] Uric Acid 3.4 mg/dL 2.1-7.4 [address] [place] [address] [phone] LDH 163 U/L Low 165-265 CBS W/Automated 04/03/2011 [facility] White Blood 11.1 K/uL High 3.1-10.[address] [place] [address] [phone] Red Blood Count 3.88 M/uL Low 3.90-5.40 [...] 40.4-72.8 Lymph % 15.4 % Low 17.0-46.1 [place] % 4.4 % 4.3-13.2 Eo% 0.9 % 0.0-6.6 Bas% 0.1 % 0.0-1.1 Neut# 8.76 K/uL High 1.0-7.0 Lymph # 1.70 K/uL 0.8-3.4 [place] # 0.49 K/uL 0.3-0.9 Eos # 0.10 K/uL 0.0-0.5 Baso # 0.01 K/uL 0.0-0.1 Red Cell Distri Width SD 46.3 fl 3-47 Comprehensive Metabolic 04/03/2011 [facility] Glucose 113 mg/dL 76-[address] [place] [address] [phone] BUN 8 mg/dL 5-23 Creatinine 0.9 mg/dL 0.5-1.4 Glom Filtration Rate, Estimate >60 mL/min >60 If >60 mL/min >60 108 BUN/Creat 8.8 ratio Sodium 140 mmol/L 136-145 [...] Low 30-65 Alkaline Phosphatase 73 U/L 50-136 Urinalysis With 03/14/2011 [facility] Urine Color YELLOW Yellow Microscopic [address] [place] [address] [phone] Urine Clarity SL CLOUDY Clear Urine Glucose - Dipstick NEGATIVE mg/dL Negative Urine Bilirubin - Dipstick NEGATIVE Negative Urine Ketone TRACE mg/dL High Negative Urine Specific [place] 1.025 1.010-1.030 Urine Blood TRACE Negative Urine PH 6.5 6.5-7.5 Urine Protein - Dipstick 30 mg/dL High Negative Urine Urobilinogen - Dipstick 1.0 E.U./dL 0.2-1.0 Urine Nitrite - Dipstick NEGATIVE Negative Urine Leuk Esterase NEGATIVE Negative Urine RBC 0-2 rbc/hpf 0-7 Urine WBC 0-2 wbc/hpf 0-7 Urine Epithelial Cells MANY NONESEEN 109 Urine Bacteria MANY NONESEEN High Urine Amorph Sediment MODERATE Negative Laboratory test 03/14/2011 [facility] Culture If See Note 110 finding [address] [place] [address] [phone] Urine Culture See Note 111 CBC 03/13/2011 [facility] White Blood Count 10.1 K/uL 3.1-10.[address] [place] [address] [phone] Red Blood Count 3.95 M/uL 3.90-5.40 Hemoglobin 11.9 gm/dL 11.6-15.8 Hematocrit 34.3 % Low 36.0-46.1 Mean Cell Volume 86.8 fl 80.9-99.0 Mean Corpuscular HGB 30.1 pg 25.9-32.7 Mean Corpuscular HGB Conc 34.7 g/dL High 30.8-34.3 Platelet Count 230 K/uL 155-360 Red Cell Distri Width %CV 14.7 % High 11.7-14.4 Mean Platelet Volume 8.9 fL 8.9-12.4 Affirm Test 03/13/2011 [facility] Gardnerella Vaginalis See Note 112 [address] [place] [address] [phone] Trichomonas Vaginalis See Note 113 Evi Species See Note 114 Type And Screen 12/26/2010 [facility] Patient Blood Type A POS [address] [place] [address] [phone] Antibody Screen NEGATIVE Urinalysis With 12/26/2010 [facility] Urine Color YELLOW Yellow Microscopic [address] [place] [address] [phone] Urine Clarity CLEAR Clear Urine Glucose - Dipstick NEGATIVE mg/dL Negative Urine Bilirubin - Dipstick NEGATIVE Negative Urine Ketone NEGATIVE mg/dL Negative Urine Specific [place] >=1.030 1.010-1.030 Urine Blood TRACE Negative Urine PH 6.0 Low 6.5-7.5 Urine Protein - Dipstick NEGATIVE mg/dL Negative Urine Urobilinogen - Dipstick 1.0 E.U./dL 0.2-1.0 Urine Nitrite - Dipstick NEGATIVE Negative Urine Leuk Esterase NEGATIVE Negative Urine RBC 0-2 rbc/hpf 0-7 Urine WBC NONE SEEN wbc/hpf 0-7 Urine Epithelial Cells MODERATE NONESEEN 115 Urine Bacteria MODERATE NONESEEN High Urine Mucus SMALL NONESEEN OB Initial 12/26/2010 [facility] Thyroid Stim 1.27 uIU/mL 0.49-4.67 116 Labs [address] [place] [address] [phone] Free T4 0.79 ng/dL 0.71-1.85 117 Toxoplasma IgG Antibody <6.5 IU/mL 0.0-6.4 118 Toxoplasma IgM Antibody <0.9 index 0.0-0.8 119 Varicella-Zoster Virus IgG Ab 1.49 index High 0.00-0.90 120 Varicella-Zoster Virus IgM Ab <0.91 AU 0.00-0.90 121 Urine Screen See Note 122 Urine Culture See Note 123 Laboratory test 12/26/2010 [facility] Rapid Plasma NONREACTIVE 124 finding [address] [facility] [place] [address] [phone] Hepatitis B Surface Antigen NEGATIVE Negative 125 Rubella IgG Antibody POSITIVE (Positive) 126 Glucose,1 HR 12/26/2010 [facility] 1 HR Glucose,Post 87 mg/dL -138 127 Post Glucola [address] [place] [address] [phone] 1 Hour Urine Glucose NEGATIVE % Negative 1 Hour Urine Ketone NEGATIVE Negative Parvovirus 12/26/2010 [facility] Parvovirus B19 3.0 index High 0.0-0.8 128 B19,Human [address] Igg Igg/[place] [address] [phone] Parvovirus B19 Igm 0.1 index 0.0-0.8 129 CBS W/Automated Diff 12/26/2010 [facility] White Blood 8.9 K/uL 3.1-10.[address] [place] [address] [phone] Red Blood Count 4.96 M/uL 3.90-5.40 Hemoglobin 14.3 gm/dL 11.6-15.8 Hematocrit 40.9 % 36.0-46.1 Mean Cell Volume 82.5 fl 80.9-99.0 Mean Corpuscular HGB 28.8 pg 25.9-32.7 Mean Corpuscular HGB Conc 35.0 g/dL High 30.8-34.3 Platelet Count 238 K/uL 155-360 Red Cell Distri Width %CV 14.9 % High 11.7-14.4 Mean Platelet Volume 9.2 fL 8.9-12.4 Neut% 69.6 % 40.4-72.8 Lymph % 23.1 % 17.0-46.1 [place] % 5.5 % 4.3-13.2 Eo% 1.5 % 0.0-6.6 Bas% 0.3 % 0.0-1.1 Neut# 6.18 K/uL 1.0-7.0 Lymph # 2.05 K/uL 0.8-3.4 [place] # 0.49 K/uL 0.3-0.9 Eos # 0.13 K/uL 0.0-0.5 Baso # 0.03 K/uL 0.0-0.1 Red Cell Distri Width SD 44.0 fl 3-47 Dna Probe NKortney John 12/06/2010 [facility] Dna Probe For See Note 130 + C. Trach. [address] Chlamydia [facility] [place] [address] [phone] Dna Probe For N. Gonorrhoeae See Note 131 1 R31.9 2 URINE, CLEAN CATCH 3 R79.89 4 Vitamin D deficiency has been defined by the Rembrandt of [employer] and an Endocrine Society practice guideline as a level of serum 25-OH vitamin D less than 20 ng/mL (1,2). The Endocrine Society went on to further define vitamin D insufficiency as a level between 21 and 29 ng/mL (2). 1. IOM (Rembrandt of Medicine). 2010. Dietary reference intakes for calcium and D. [place]: The National Academies Press. 2. Anitra MF, Jason RINALDI, Irene MERLOS, et al. Evaluation, treatment, and prevention of vitamin D deficiency: an Endocrine Society clinical practice guideline. JCEM. 2010; 96(7):1911-30. Performed at: RN - [facility] [address] [id number] Insurance Licensing Supervisor: Tonia Paz MD, Phone: [phone] 5 Reference Guidelines*: Desirable: ........... < 200 mg/dL Borderline High: ..... 200-239 mg/dL High: ................ >=240 mg/dL * The National Cholesterol Education Program (NCEP) 6 Reference Guidelines*: Normal: ............. < 150 mg/dL Borderline High: .... 150-199 mg/dL High: ............... 200-499 mg/dL Very High: .......... > 500 mg/dL * Source: National Cholesterol Education Program (NCEP) 7 Reference Guidelines*: Low HDL: ..... < 40 mg/dL Normal: ..... 40-60 mg/dL Desirable: ... > 60 mg/dL *The National Cholesterol Education Program(NCEP) 8 Reference Guidelines*: Optimal:........... <100 mg/dL Near Optimal....... 100-129 mg/dL Borderline High.... 130-159 mg/dL High............... 160-189 mg/dL Very High.......... >=190 mg/dL * Source: National Cholesterol Education Program (NCEP) 9 Note: Persistent reduction for 3 months or more in an eGFR <60 mL/min/1.73 m2 defines CKD. Patients with eGFR values >/=60 mL/min/1.73 m2 may also have CKD if evidence of persistent proteinuria is present. The original MDRD equation for estimated GFR is not valid for patients less than 18 years of age. Additional information may be found at www.[email or web address]. 10 INFCE Result Units: mg/g creat Performed at: RN - [facility] [address] [id number] Insurance Licensing Supervisor: Tonia Paz MD, Phone: [phone] 11 DIZZINESS 12 Note: Persistent reduction for 3 months or more in an eGFR <60 mL/min/1.73 m2 defines CKD. Patients with eGFR values >/=60 mL/min/1.73 m2 may also have CKD if evidence of persistent proteinuria is present. The original MDRD equation for estimated GFR is not valid for patients less than 18 years of age. Additional information may be found at www.[email or web address]. 13 CHEST PAIN 14 Tests: magnesium crp Instructions: 15 CHEST FEELS HEAVY, LIGHT HEADED 16 D39.89 17 Note: Persistent reduction for 3 months or more in an eGFR <60 mL/min/1.73 m2 defines CKD. Patients with eGFR values >/=60 mL/min/1.73 m2 may also have CKD if evidence of persistent proteinuria is present. The original MDRD equation for estimated GFR is not valid for patients less than 18 years of age. Additional information may be found at www.kdoqi.org. 18 Vitamin D deficiency has been defined by the Rembrandt of Medicine and an Endocrine Society practice guideline as a level of serum 25-OH vitamin D less than 20 ng/mL (1,2). The Endocrine Society went on to further define vitamin D insufficiency as a level between 21 and 29 ng/mL (2). 1. IOM (Rembrandt of Medicine). 2010. Dietary reference intakes for calcium and D. [place]: The National Academies Press. 2. Anitra MF, Jason NC, Irene MERLOS, et al. Evaluation, treatment, and prevention of vitamin D deficiency: an Endocrine Society clinical practice guideline. JCEM. 2010; 96(7):1911-30. Performed at: RN - [facility] [address] [id number] Insurance Licensing Supervisor: Tonia Paz MD, Phone: [phone] 19 Reference Guidelines*: Desirable: ........... < 200 mg/dL Borderline High: ..... 200-239 mg/dL High: ................ >=240 mg/dL * The National Cholesterol Education Program (NCEP) 20 Reference Guidelines*: Normal: ............. < 150 mg/dL Borderline High: .... 150-199 mg/dL High: ............... 200-499 mg/dL Very High: .......... > 500 mg/dL * Source: National Cholesterol Education Program (NCEP) 21 Reference Guidelines*: Low HDL: ..... < 40 mg/dL Normal: ..... 40-60 mg/dL Desirable: ... > 60 mg/dL *The National Cholesterol Education Program(NCEP) 22 Reference Guidelines*: Optimal:........... <100 mg/dL Near Optimal....... 100-129 mg/dL Borderline High.... 130-159 mg/dL High............... 160-189 mg/dL Very High.......... >=190 mg/dL * Source: National Cholesterol Education Program (NCEP) 23 ?STROKE 24 0.0 - 0.045 ng/mL: Normal 0.046 - 0.5 ng/mL: Suggestive 0.6 - 1.5 ng/mL: Consistent 25 Note: Persistent reduction for 3 months or more in an eGFR <60 mL/min/1.73 m2 defines CKD. Patients with eGFR values >/=60 mL/min/1.73 m2 may also have CKD if evidence of persistent proteinuria is present. The original MDRD equation for estimated GFR is not valid for patients less than 18 years of age. Additional information may be found at www.kdoqi.org. 26 Is patient on anticoagulants? Coumadin 27 THERAPEUTIC INR RANGE: 2.0 - 3.0 DVT, Pulmonary embolus, prophylaxis against venous thrombosis or systemic embolization in high risk patients. 2.5 - 3.5 Mechanical heart valves 28 J02.9 29 NORMAL THROAT GIOVANNI 30 NORMAL THROAT GIOVANNI 31 Q61.2 E03.9 M62.82 32 Note: Persistent reduction for 3 months or more in an eGFR <60 mL/min/1.73 m2 defines CKD. Patients with eGFR values >/=60 mL/min/1.73 m2 may also have CKD if evidence of persistent proteinuria is present. The original MDRD equation for estimated GFR is not valid for patients less than 18 years of age. Additional information may be found at www.[email or web address]. 33 URINE, CLEAN CATCH 34 INFCE Result Units: mg/g creat Performed at: RN - [facility] [address] [id number] Insurance Licensing Supervisor: Tonia Paz MD, Phone: [phone] 35 C01.0 R46.0 36 Note: Persistent reduction for 3 months or more in an eGFR <60 mL/min/1.73 m2 defines CKD. Patients with eGFR values >/=60 mL/min/1.73 m2 may also have CKD if evidence of persistent proteinuria is present. The original MDRD equation for estimated GFR is not valid for patients less than 18 years of age. Additional information may be found at www.kdoqi.org. 37 Reference Guidelines*: Desirable: ........... < 200 mg/dL Borderline High: ..... 200-239 mg/dL High: ................ >=240 mg/dL * The National Cholesterol Education Program (NCEP) 38 Reference Guidelines*: Normal: ............. < 150 mg/dL Borderline High: .... 150-199 mg/dL High: ............... 200-499 mg/dL Very High: .......... > 500 mg/dL * Source: National Cholesterol Education Program (NCEP) 39 Reference Guidelines*: Low HDL: ..... < 40 mg/dL Normal: ..... 40-60 mg/dL Desirable: ... > 60 mg/dL *The National Cholesterol Education Program(NCEP) 40 Reference Guidelines*: Optimal:........... <100 mg/dL Near Optimal....... 100-129 mg/dL Borderline High.... 130-159 mg/dL High............... 160-189 mg/dL Very High.......... >=190 mg/dL * Source: National Cholesterol Education Program (NCEP) 41 Vitamin D deficiency has been defined by the Rembrandt of [employer] and an Endocrine Society practice guideline as a level of serum 25-OH vitamin D less than 20 ng/mL (1,2). The Endocrine Society went on to further define vitamin D insufficiency as a level between 21 and 29 ng/mL (2). 1. IOM (Rembrandt of Medicine). 2010. Dietary reference intakes for calcium and D. [place]: The National Academies Press. 2. Anitra MF, Jason NC, Hansa-Loy MERLOS, et al. Evaluation, treatment, and prevention of vitamin D deficiency: an Endocrine Society clinical practice guideline. JCEM. 2010; 96(7):1911-30. Performed at: RN - [facility] [address] [id number] Insurance Licensing Supervisor: Tonia Paz MD, Phone: [phone] 42 Elevated levels of HbA1c suggest the need for more aggressive treatment of glycemia. The [place] Diabetes Association recommends that a primary goal of therapy should be a HbA1c of <7% and that physicians should re-evaluate the treatment regimen in patients with HbA1c values consistently >8%. 43 CHEST PAIN 44 0.0 - 0.045 ng/mL: Normal 0.046 - 0.5 ng/mL: Suggestive 0.6 - 1.5 ng/mL: Consistent 45 Note: Persistent reduction for 3 months or more in an eGFR <60 mL/min/1.73 m2 defines CKD. Patients with eGFR values >/=60 mL/min/1.73 m2 may also have CKD if evidence of persistent proteinuria is present. The original MDRD equation for estimated GFR is not valid for patients less than 18 years of age. Additional information may be found at www.[email or web address]. 46 CP 47 0.0 - 0.045 ng/mL: Normal 0.046 - 0.5 ng/mL: Suggestive 0.6 - 1.5 ng/mL: Consistent 48 Method: Quidel QuickVue One-Step Immunoassay 49 <=0.49 ug/mL - Low likelihood of DIC, DVT or Pulmonary Embolism >0.49 ug/mL - Additional testing should be done to rule out DIC, DVT, or Pulmonary embolism as clinically indicated. ([facility] has established a 97.89% negative predictive value for thrombotic disease when a cutoff value of 0.5 ug/mL is used.) 50 Note: Persistent reduction for 3 months or more in an eGFR <60 mL/min/1.73 m2 defines CKD. Patients with eGFR values >/=60 mL/min/1.73 m2 may also have CKD if evidence of persistent proteinuria is present. The original MDRD equation for estimated GFR is not valid for patients less than 18 years of age. Additional information may be found at www.[email or web address]. 51 Tests: d-dimer Instructions: 52 E55.9 E87.6 53 Performed at: RN - [facility] [address] [id number] Insurance Licensing Supervisor: Tonia Paz MD, Phone: [phone] 54 Note: Persistent reduction for 3 months or more in an eGFR <60 mL/min/1.73 m2 defines CKD. Patients with eGFR values >/=60 mL/min/1.73 m2 may also have CKD if evidence of persistent proteinuria is present. The original MDRD equation for estimated GFR is not valid for patients less than 18 years of age. Additional information may be found at www.[email or web address]. 55 R42 56 Vitamin D deficiency has been defined by the Rembrandt of [employer] and an Endocrine Society practice guideline as a level of serum 25-OH vitamin D less than 20 ng/mL (1,2). The Endocrine Society went on to further define vitamin D insufficiency as a level between 21 and 29 ng/mL (2). 1. IOM (Rembrandt of Medicine). 2010. Dietary reference intakes for calcium and D. [place]: The National Academies Press. 2. Anitra MF, Jason NC, Irene MERLOS, et al. Evaluation, treatment, and prevention of vitamin D deficiency: an Endocrine Society clinical practice guideline. JCEM. 2010; 96(7):1911-30. Performed at: RN - [facility] [address] [id number] Insurance Licensing Supervisor: Tonia Paz MD, Phone: [phone] 57 Reference Guidelines*: Desirable: ........... < 200 [...] information may be found at www.kdoqi.org. 62 Elevated levels of HbA1c suggest the need for more aggressive treatment of glycemia. The [place] Diabetes Association recommends that a primary goal of therapy should be a HbA1c of <7% and that physicians should re-evaluate the treatment regimen in patients with HbA1c values consistently >8%. 63 N76.0 64 GRAM STAIN INDETERMINANT FOR BACTERIAL VAGINOSIS 65 MODERATE GR POS. BACILLI SUGGESTIVE OF LACTOBACILLUS SP. 66 MODERATE GRAM VARIABLE COCCOBACILLI 67 RARE GRAM POSITIVE COCCI 68 RARE RARE WHITE BLOOD CELLS 69 R42 N28.1 70 Vitamin D deficiency has been defined by the Rembrandt of Medicine and an Endocrine Society practice guideline as a level of serum 25-OH vitamin D less than 20 ng/mL (1,2). The Endocrine Society went on to further define vitamin D insufficiency as a level between 21 and 29 ng/mL (2). 1. IOM (Rembrandt of Medicine). 2010. Dietary reference intakes for calcium and D. [place]: The National AcademMen's Market Press. 2. Anitra MF, Jason RINALDI, Irene MERLOS, et al. Evaluation, treatment, and prevention of vitamin D deficiency: an Endocrine Society clinical practice guideline. JCEM. 2010; 96(7):1911-30. Performed at: RN - [facility] [address] [id number] Insurance Licensing Supervisor: Tonia Paz MD, Phone: [phone] 71 Elevated levels of HbA1c suggest the need for more aggressive treatment of glycemia. The [place] Diabetes Association recommends that a primary goal of therapy should be a HbA1c of <7% and that physicians should re-evaluate the treatment regimen in patients with HbA1c values consistently >8%. 72 Reference Guidelines*: Desirable: ........... < 200 [...] Source: National Cholesterol Education Program (NCEP) 76 Note: Persistent reduction for 3 months or more in an eGFR <60 mL/min/1.73 m2 defines CKD. Patients with eGFR values >/=60 mL/min/1.73 m2 may also have CKD if evidence of persistent proteinuria is present. The original MDRD equation for estimated GFR is not valid for patients less than 18 years of age. Additional information may be found at www.[email or web address]. 77 Performed at: [facility] [employer] [id number] Insurance Licensing Supervisor: Tonia Paz MD, Phone: [phone] 78 E66.01 I10 R82.99 79 INFCE Result Units: mg/g creat Performed at: [address] [id number] Insurance Licensing Supervisor: Tonia Paz MD, Phone: [phone] 80 URINE, CLEAN CATCH 81 SEVERE ABD BACK PAIN 82 A negative result for either C. trachomatis and/or N. gonorrhoeae does not preclued an infection because results are dependent on adequate specimen collection, absence of inhibitors, and sufficient DNA to be detected. 83 URINE, CLEAN CATCH 84 K21.9 E78.2 R73.9 85 INFCE Result Units: mg/g creat Performed at: [address] [id number] Insurance Licensing Supervisor: Tonia Paz MD, Phone: [phone] 86 URINE, CLEAN CATCH 87 Elevated levels of HbA1c suggest the need for more aggressive treatment of glycemia. The [place] Diabetes Association recommends that a primary goal of therapy should be a HbA1c of <7% and that physicians should re-evaluate the treatment regimen in patients with HbA1c values consistently >8%. 88 Reference Guidelines*: Desirable: ........... < 200 mg/dL Borderline High: ..... 200-239 mg/dL High: ................ >=240 mg/dL * The National Cholesterol Education Program (NCEP) 89 Reference Guidelines*: Normal: ............. < 150 mg/dL Borderline High: .... 150-199 mg/dL High: ............... 200-499 mg/dL Very High: .......... > 500 mg/dL * Source: National Cholesterol Education Program (NCEP) 90 Reference Guidelines*: Low HDL: ..... < 40 mg/dL Normal: ..... 40-60 mg/dL Desirable: ... > 60 mg/dL *The National Cholesterol Education Program(NCEP) 91 Reference Guidelines*: Optimal:........... <100 mg/dL Near Optimal....... 100-129 mg/dL Borderline High.... 130-159 mg/dL High............... 160-189 mg/dL Very High.......... >=190 mg/dL * Source: National Cholesterol Education Program (NCEP) 92 Note: Persistent reduction for 3 months or more in an eGFR <60 mL/min/1.73 m2 defines CKD. Patients with eGFR values >/=60 mL/min/1.73 m2 may also have CKD if evidence of persistent proteinuria is present. The original MDRD equation for estimated GFR is not valid for patients less than 18 years of age. Additional information may be found at www.[email or web address]. 93 G80.9 O71.19 R53.82 R60.0 R66.01 94 Performed at: RN - [facility] [address] [id number] Insurance Licensing Supervisor: Tonia Paz MD, Phone: [phone] 95 Reference Guidelines*: Desirable: ........... < 200 mg/dL Borderline High: ..... 200-239 mg/dL High: ................ >=240 mg/dL * The National Cholesterol Education Program (NCEP) 96 Reference Guidelines*: Normal: ............. < 150 mg/dL Borderline High: .... 150-199 mg/dL High: ............... 200-499 mg/dL Very High: .......... > 500 mg/dL * Source: National Cholesterol Education Program (NCEP) 97 Reference Guidelines*: Low HDL: ..... < 40 mg/dL Normal: ..... 40-60 mg/dL Desirable: ... > 60 mg/dL *The National Cholesterol Education Program(NCEP) 98 Reference Guidelines*: Optimal:........... <100 mg/dL Near Optimal....... 100-129 mg/dL Borderline High.... 130-159 mg/dL High............... 160-189 mg/dL Very High.......... >=190 mg/dL * Source: National Cholesterol Education Program (NCEP) 99 Elevated levels of HbA1c suggest the need for more aggressive treatment of glycemia. The [place] Diabetes [employer] recommends that a primary goal of therapy should be a HbA1c of <7% and that physicians should re-evaluate the treatment regimen in patients with HbA1c values consistently >8%. 100 Note: Persistent reduction for 3 months or more in an eGFR <60 mL/min/1.73 m2 defines CKD. Patients with eGFR values >/=60 mL/min/1.73 m2 may also have CKD if evidence of persistent proteinuria is present. The original MDRD equation for estimated GFR is not valid for patients less than 18 years of age. Additional information may be found at www.kdoqi.org. 101 J30.89 102 Levels of Specific IgE Class Description of Class ----- < 0.10 0 Negative 0.10 - 0.31 0/I Equivocal/Low 0.32 - 0.55 I Low 0.56 - 1.40 II Moderate 1.41 - 3.90 III High 3.91 - 19.00 IV Very High 19.01 - 100.00 V Very High >100.00 Very High 103 Performed at: - [facility] [id number] Insurance Licensing Supervisor: Kwasi Henson MD, Phone: [phone] Performed at: - [facility] [address] [id number] Insurance Licensing Supervisor: Tonia Paz MD, Phone: [phone] Test(s) [id number] Randa, Malagasy; [id number] Deni Stanley were developed and had performance characteristics determined by [facility]. These tests have not been cleared or approved by the U.S. Food and Drug Administration. The FDA has determined that such clearance or approval is not necessary. These tests are used for clinical purposes. These should not be regarded as investigational or for research. 105 E07.9 106 INS HAS STAUBER- BEING FIXED (pittman name) 107 Note: Persistent reduction for 3 months or more in an eGFR <60 mL/min/1.73 m2 defines CKD. Patients with eGFR values >/=60 mL/min/1.73 m2 may also have CKD if evidence of persistent proteinuria is present. The original MDRD equation for estimated GFR is not valid for patients less than 18 years of age. Additional information may be found at www.kdoqi.org. 108 Note: Persistent reduction for 3 months or more in an eGFR <60 mL/min/1.73 m2 defines CKD. Patients with eGFR values >/=60 mL/min/1.73 m2 may also have CKD if evidence of persistent proteinuria is present. The original MDRD equation for estimated GFR is not valid for patients less than 18 years of age. Additional information may be found at www.kdoqi.org. 109 POSSIBLE UROGENITAL CONTAMINATION. 110 CULTURE TO FOLLOW 111 COLONY COUNT ! 40,000-50,000 CFU/ml Organism 1 ! MIXED URETHRAL GIOVANNI 112 POSITIVE FOR GARDNERELLA VAGINALIS 113 NEGATIVE FOR TRICHOMONAS VAGINALIS 114 NEGATIVE FOR EVI SPECIES Testing Performed by: [place] [address] 115 POSSIBLE UROGENITAL CONTAMINATION. 116 QUERY: @[facility] Pat ID: [id number] QUERY: @[facility] Req #: [id number] 117 QUERY: @[facility] Pat ID: [id number] QUERY: @[facility] Req #: [id number] 118 Negative <6.5 Equivocal 6.5 - 7.9 Positive >7.9 119 Negative <0.9 Indeterminate 0.9 - 1.0 Positive >1.0 Although the presence of Toxo IgM antibodies suggests an acute infection, low levels may persist for many months following infection. 120 Negative <0.91 Equivocal 0.91 - 1.09 Positive >1.09 121 Negative <0.91 Borderline 0.91 - 1.09 Positive >1.09 Performed at: [facility] [id number] Insurance Licensing Supervisor: Phil Roque MD, Phone: [phone] 12/26/10 LAB.[email or web address] Deleted by [facility] 123 COLONY COUNT ! >100,000 CFU/ml Organism 1 ! URETHRAL GIOVANNI 124 PENDING; TEST PERFORMED ON MONDAYS AND THURSDAYS QUERY: @[facility] Pat ID: [id number] QUERY: @[facility] Req #: [id number] QUERY: @[facility] Pat ID: [id number] QUERY: @[facility] Req #: [id number] 125 HBsAg not detected; does not exclude the possibility of exposure to or early acute infections with HBV. 126 QUERY: @[facility] Pat ID: [id number] QUERY: @[facility] Req #: [id number] 127 POST GLUCOLA 128 Negative <0.9 Equivocal 0.9 - 1.1 Positive >1.1 129 Negative <0.9 Equivocal 0.9 - 1.1 Positive >1.1 130 NEGATIVE FOR CHLAMYDIA TRACHOMATIS BY DNA HYBRIDIZATION ASSAY. THIS TEST IS APPROVED FOR OCULAR AND UROGENITAL SITES ONLY. 131 NEGATIVE FOR NEISSERIA GONORRHOEAE BY DNA HYBRIDIZATION ASSAY. THIS METHOD IS APPROVED FOR UROGENITAL SITES ONLY. Procedures Date Code Description Status 10/20/2018 72335 EKG-Tracing And Report Completed 09/25/2018 69560 Pressurized/Non-Pressurized Inhalation Treatment,Acute Completed Obstructio 09/04/2018 00178 Event Monitor Inter/Review Only Completed 09/01/2018 70187 EKG-Tracing And Report Completed 07/09/2018 44090 EKG-Tracing And Report Completed 05/15/2018 03178 Echocardiogram Complete Completed 02/25/2018 66753 Pressurized/Non-Pressurized Inhalation Treatment,Acute Completed Obstructio 02/10/2018 68583 EKG-Tracing And Report Completed 12/25/2017 45960 EKG-Tracing And Report Completed 04/18/2017 39347 EKG-Tracing And Report Completed 12/26/2016 58233 Bronchospasm Provocation Evaluation Multi Spirometric Completed Determinati 12/26/2016 07858 Spirometry Completed 01/15/2013 83427 Anesthesia, Nose & Accessory Sinus Surgery Not Otherwise Completed Spec 10/22/2012 02576 EKG-Tracing And Report Completed 10/22/2012 06950 Event Monitor Inter/Review Only Completed 07/08/2011 46106 Anesthesia, Delivery Completed 03/22/2011 15250 Theraputic Or Diagnostic Injection Completed 03/22/2011 75950 For Antepartum 4-6 Total Office Visits Completed 03/20/2011 46420 EKG-Tracing And Report Completed 03/13/2011 86315 For Antepartum 4-6 Total Office Visits Completed 03/13/2011 45783 Non-Stress Test (NST) Completed 02/22/2011 62890 For Antepartum 4-6 Total Office Visits Completed 01/30/2011 43436 For Antepartum 4-6 Total Office Visits Completed 01/04/2011 19989 For Antepartum 4-6 Total Office Visits Completed 12/06/2010 98731 Ultrasound Transvag, Completed 09/06/2009 89105 Echocardiogram Complete Completed 09/06/2009 70249 EKG Interpretation And Report Only Completed Encounters [...] E03.9 Hypothyroidism, 10:00a Office MS Velma, unspecified AUGER OPERATOR-C, CNM J02.9 Acute pharyngitis, unspecified R79.89 Other specified abnormal findings of blood chemistry E87.6 Hypokalemia H69.93 Unspecified Eustachian tube disorder, bilateral Office Visit 09/03/2018 10:00a Primary Care Velma Servin, I10 Essential (primary) Office MS, AUGER OPERATOR-C, CNM hypertension Q61.2 Polycystic kidney, adult type [...] Velma Servin, L29.8 Other pruritus Office MS, AUGER OPERATOR-C, CNM E87.6 Hypokalemia M25.549 Pain in joints of unspecified hand G47.00 Insomnia, unspecified E66.9 Obesity, unspecified E55.9 Vitamin D deficiency, unspecified Q61.2 Polycystic kidney, adult type Office Visit 04/02/2018 1:00p Primary Care Velma Servin, E87.6 Hypokalemia Office MS, AUGER OPERATOR-C, CNM E55.9 Vitamin D deficiency, unspecified Q61.2 Polycystic kidney, adult type E66.9 Obesity, unspecified E78.5 Hyperlipidemia, unspecified I10 Essential (primary) hypertension G47.00 Insomnia, unspecified M25.549 Pain in joints of unspecified hand M79.669 Pain in unspecified lower leg Office Visit 03/11/2018 10:00a Primary Care Velma Servin, Z00.00 Encntr for Office MS, AUGER OPERATOR-C, CNM general adult medical exam w/o abnormal findings N76.0 Acute vaginitis I10 Essential (primary) hypertension E66.9 Obesity, unspecified Z71.3 Dietary counseling and surveillance Office Visit 02/25/2018 9:30a Primary Care Velma Servin, J06.9 Acute upper Office MS, AUGER OPERATOR-C, CNM respiratory infection, unspecified J02.9 Acute pharyngitis, [...] Care Velma Servin, Q61.2 Polycystic Office MS, AUGER OPERATOR-C, CNM kidney, adult type I10 Essential (primary) hypertension E66.01 Morbid (severe) obesity due to excess calories E55.9 Vitamin D deficiency, unspecified R60.0 Localized edema 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 E78.2 Mixed hyperlipidemia Office Visit 01/20/2018 11:00a Primary Care Velma Servin, I10 Essential (primary) Office MS, AUGER OPERATOR-C, CNM hypertension Q61.2 Polycystic kidney, adult type E66.01 Morbid (severe) obesity due to excess calories M54.5 Low back pain Z23 Encounter for immunization Office Visit 01/06/2018 10:30a Primary Care Velma Servin, I10 Essential (primary) Office MS, AUGER OPERATOR-C, CNM hypertension R29.6 Repeated falls R42 Dizziness [...] [place] 785.0 Tachycardia Office MIRELA Child, Unspec AUGER OPERATOR 796.2 Blood Pressure Reading Elevated W/O Hypertension 278.00 Obesity Unspec Office Visit 03/13/2011 1:40p supervisor contingents Office Chester Keenan, V22.1 Supervison Of M.DKortney Normal Other V22.1 Supervison Of Normal Other V23.9 High Risk Unspec 654.23 Delivery Previous Antepartum Cond Or Compl 644.03 Premature Labor Threatened Antepartum Cond Or Compl Office Visit 12/06/2010 10:20a supervisor contingents Office Chester Keenan, V22.1 Supervison Of MKortneyDKortney Normal Other V23.9 High Risk Unspec 278.00 Obesity Unspec 654.23 Delivery Previous Antepartum Cond Or Compl Plan of Treatment Future Appointment(s):12/19/2018 11:30 am - Velma Servin, MS, AUGER OPERATOR-C, CNM at [facility]1312/29/2018 1:30 pm - Aravind Mancera MD at [facility]19/22 /2019 - Velma Servin, MS, KAYLIE, CNMR31.9 Hematuria, unspecifiedNew Medication:Cephalexin 500 mg - 1 by mouth three times a dayComments:--C/O afqmdxqR39.2 Polycystic kidney, adult typeReferral:Jhonatan Andrews MD, [id number] Essential (primary) hypertensionComments:--B/P 124/94--Continue low salt diet, lose weight -- Patient states she is taking losartan 50 mg poBID. She is not taking amlodipine for months now. She stopped taking the HCTZ 2 weeks agoR73.9 Hyperglycemia, geopygkkejdN07.5 Abnormal results of liver function studiesNew Xrays:Ultrasound, Abdominal, Scheduled: 12/30/18N92.0 Excessive and frequent menstruation with regular cycleNew Xrays:Ultrasound, Pelvic Trans Abdominal Complete (Non-Obstetric), Scheduled: 12/30/18AllFollow up :abdominal sono pelvic sono RTO 2 weeks with B/P readings
[2018-12-16 13:55] VITALS: BP 144/86
--- NOTE | 2018-12-16 14:02 | UC ---
Lower Extremity/Ankle HPI - HPI Summary HPI Summary: 33-year-old woman comes over the right complaint of right calf pain. Started 3- 4 days ago. Pains worse with activity and palpation. No chest pain or shortness of breath. No prior history of DVT. No known trauma. No rash. - History of Current Complaint Chief Complaint: UCLowerExtremity Stated Complaint: RIGHT LOWER LEG CONCERN Time Seen by Provider: 12/16/18 13:38 Hx Last Menstrual Period: today Pain Intensity: 4 - Allergies/Home Medications Allergies/Adverse Reactions: Allergies Allergy/AdvReac Type Severity Reaction Status Date / Time gabapentin Allergy Severe Coughing Verified 12/16/18 13:25 Adhesive Tape Allergy Intermediate Rash Verified 12/16/18 13:25 NARCOTICS AdvReac See Comment Uncoded 12/16/18 13:25 Home Medications: Home Medications Acetaminophen [Tylenol Extra Strength] 1,000 mg PO Q6H 12/16/18 [History Confirmed 12/16/18] Ibuprofen TAB* [Motrin TAB* 400 MG] 400 mg PO ONCE PRN 12/16/18 [History Confirmed 12/16/18] PMH/Surg Hx/FS Hx/Imm Hx Previously Healthy: Yes - FIBROMYALGIA - Surgical History Surgical History: Yes Surgery Procedure, Year, and Place: COLOSTOMY WITH REVERSAL- A CHILD - RUPTURE. TENDON - STRAIGHTENED & LENGTHENED LLE - CEREBAL PALSY - Lt SIDE. CYSTECTOMY FROM OVARY. TUBAL LIGATION, 2 C SECTIONS. CHOLECYSTECTOMY - TOTAL OPEN. CYST REMOVED FROM NASAL CAVATY - Family History Known Family History: Positive: Hypertension, Respiratory Disease Negative: Cardiac Disease, Diabetes Family History: no cardiac, cancer history in family - Social History Alcohol Use: None Substance Use Type: None Smoking Status (MU): Never Smoked Tobacco Have You Smoked in the Last Year: No - Immunization History Most Recent Influenza Vaccination: yes 2016 Most Recent Tetanus Shot: UTD Most Recent Pneumonia Vaccination: N/A Vaccination Up to Date: Yes Review of Systems All Other Systems Reviewed And Are Negative: Yes Constitutional: Positive: Negative Skin: Positive: Negative Eyes: Positive: Negative ENT: Positive: Negative Respiratory: Positive: Negative Cardiovascular: Positive: Negative Gastrointestinal: Positive: Negative Motor: Positive: Weakness - CHRONIC Neurovascular: Positive: Negative Musculoskeletal: Positive: Other: - SEE HPI Neurological: Positive: Negative Psychological: Positive: Negative Is Patient Immunocompromised?: No Physical Exam Triage Information Reviewed: Yes Appearance: Well-Appearing, No Pain Distress, Well-Nourished Vital Signs: Initial Vital Signs Temp 99 F 12/16/18 13:33 Pulse 83 12/16/18 13:33 Resp 28 12/16/18 13:33 BP 144/86 12/16/18 13:33 Pulse Ox 99 12/16/18 13:33 Vital Signs Reviewed: Yes Eye Exam: Normal Eyes: Positive: Conjunctiva Clear Respiratory: Positive: No respiratory distress Musculoskeletal: Positive: Other: - Tender to palpation right calf. There is some swelling of the right calf. No rash. Normal capillary refill and sensation distally. Neurological: Positive: Alert Psychological: Positive: Age Appropriate Behavior Skin Exam: Normal Lower Extremity Course/Dx - Course Course Of Treatment: Patient Name: LÁZARO KRAUSE Medical Record#: [id number] Ordering Physician: Kwasi Burciaga MD Acct.#: [id number] : 1985 Age: 33 Sex: F Location: [facility] [place] Exam Date: 12/16/18 1340 ADM Status: REG ER Order Information: VL LOWER EXT VEINS RIGHT Accession Number: [id number] CPT: 38313 Indication: right leg edema. Duplex Doppler sonography of the deep venous system of the right lower extremity deep venous system was performed. Bilaterally the common femoral veins appear patent and compressible. Right proximal greater saphenous vein, proximal deep femoral vein, femoral vein, popliteal vein , posterior tibial veins appear patent and compressible.Peroneal veins are not visualized. IMPRESSION: NO EVIDENCE OF DEEP VENOUS THROMBOSIS IS IDENTIFIED. PERONEAL VEINS NOT VISUALIZED. <Electronically signed by Gaby Middleton MD in OV> 12/16/18 1413 Patient Name: LÁZARO KRAUSE Medical Record#: [id number] Ordering Physician: Kwasi Burciaga MD Acct.#: [id number] : 1985 Age: 33 Sex: F Location: [facility] [place] Exam Date: 12/16/18 1431 ADM Status: REG ER Order Information: TIBIA FIBULA RIGHT Accession Number: [id number] CPT: 33597 Indication: Right lower leg pain. 2 views of the right lower leg demonstrates no fracture. No other bone or joint abnormality is identified. IMPRESSION: No fracture of the right lower leg is noted. <Electronically signed by Gaby Middleton MD in OV> 12/16/18 0483 I discussed the ultrasound and x-ray results with the patient. Patient is most tender in the lateral aspect of the right calf. While discussing this with the patient it appears the pain is relatively superficial. On the venous Doppler of the peroneal veins were not seen which are deep veins. With the pain and tenderness being relatively superficial it makes the peroneal veins unlikely to be the cause of the pain. I did discuss with the patient that because we did not see the peroneal veins we did not completely rule out the possibility of DVT. At this time the probability of a DVT is small. This was all discussed with the patient. We discussed going to the emergency department now for further evaluation and potentially getting a d-dimer. Overall the patient's going to elevate the leg and rest it's and use cold compresses as needed. If it does not improve or worsens we discussed that she should go to the emergency department further evaluation and care. - Differential Dx/Diagnosis Provider Diagnosis: Pain in right lower leg Discharge - Sign-Out/Discharge Documenting (check all that apply): Patient Departure All imaging exams completed and their final reports reviewed: Yes - Discharge Plan Condition: Stable Disposition: HOME Patient Education Materials: Leg Pain (ED) Referrals: Lorraine Powers MD [Primary Care Provider] - Additional Instructions: FOLLOW UP WITH YOUR DOCTOR IF NOT COMPLETELY IMPROVED. The ultrasound of your leg did not show a deep venous thrombosis however the peroneal veins were not visualized therefore a deep venous thrombosis is not completely ruled out. GO TO THE EMERGENCY DEPARTMENT IF YOUR SYMPTOMS DO NOT IMPROVE OR WORSEN; PAIN, SHORTNESS OF BREATH, CHEST PAIN OR ANY QUESTIONS OR CONCERNS. - Billing Disposition and Condition Condition: STABLE Disposition: Home
== END 2018-12-16 15:22 | disposition home or self-care (01) ==
LOC: UCCORT 12:51
DX: M79.661 Pain in right lower leg (principal); M79.7 Fibromyalgia; G80.9 Cerebral palsy, unspecified
CPT/HCPCS: 99212; G0463

== ENCOUNTER 2019-07-09 09:04 | Emergency (ER) | payer MEDICARE, MEDICAID ==
--- OUTSIDE RECORDS SUMMARY | 2019-07-09 10:19 | XMS REPORT | Continuity of Care Document ---
:1985 External Reference #:[id number] Author Name Gauri Damon PNP-BC, MANUFACTURING TECHNOLOGY PROFESSOR, Ibclc Address [address] [place] [id number] Care Team Providers Name Role Phone Ra Banks MD [facility] - Care Team Information K[place] Skimmer [phone] Cardiovascular Disease [facility] Physical Therapy/[facility] Care Team Information K[place] Skimmer [phone] Alin Obrien MD - Neurology Care Team Information [place] Kwasi Burciaga MD - Emergency Care Team Information [place] Medicine Jhonatan Andrews MD - Nephrology Care Team Information [place]immer [phone] Haris Bunch T, MD - Nephrology Care Team Information [place]immer Gauri Damon, BEATRICE-BC, MANUFACTURING TECHNOLOGY PROFESSOR, Ibclc Care Team Information Kettle Skimmer [phone] - Family Problems Active Problems Provider Date Migraine variants, not intractable Ra Banks M.D., Onset: 2012 [facility] Spastic hemiplegia of nondominant Heavenly Mcclendon MD Onset: 03/06/2013 side Cerebral palsy Heavenly Mcclendon MD Onset: 07/16/2014 Essential hypertension Lorraine Powers MD Onset: 08/28/2016 Uncomplicated moderate persistent Lorraine Powers MD Onset: 08/28/2016 asthma Morbid obesity Lorraine Powers MD Onset: 08/28/2016 Anxiety state Lorraine Powers MD Onset: 08/28/2016 Thyroid nodule Lorraine Powers MD Onset: 08/28/2016 Long QT syndrome Ra Banks M.D., Onset: 04/18/2017 [facility] Neck pain Lorraine Powers MD Onset: 05/15/2017 Other specified myotonic disorders Lorraine Powers MD Onset: 05/15/2017 Benign neoplasm of skin of face Lorraine Powers MD Onset: 12/09/2017 Cyst of left ovary Lorraine Powers MD Onset: 12/09/2017 Hyperlipidemia Ra Banks M.D., Onset: 02/10/2018 FAC Hypothyroidism Lorraine Powers MD Onset: 07/16/2018 Polycystic kidney disease, infantile Gauri Damon PNP-BC, MANUFACTURING TECHNOLOGY PROFESSOR, Onset: 03/18 type Ibclc Benign hypertension Gauri Damon PNP-BC, MANUFACTURING TECHNOLOGY PROFESSOR, Onset: 03/18/2019 Ibclc Social History Type Date Description Comments Sex Unknown Tobacco Use Start: Unknown Never Smoked Cigarettes Smoking Status Reviewed: 06/22/19 Never Smoked Cigarettes ETOH Use Denies alcohol use Tobacco Use Start: Unknown Patient has never smoked Recreational Drug Use Denies Drug Use Exercise Type/Frequency Exercises rarely Allergies, Adverse Reactions, Alerts Description No Known Drug Allergies Medications Active Medications SIG Qnty Indications Ordering Date Provider Ranitidine HCL Please specify 1Tablet Gauri Damon, 07/02/2019 150mg Tablets directions, PNP-BC, MANUFACTURING TECHNOLOGY PROFESSOR, refills and Ibclc quantity Ranitidine HCL Please specify 1Tablet Gauri Damon, 07/02/2019 150mg Tablets directions, PNP-BC, MANUFACTURING TECHNOLOGY PROFESSOR, refills and Ibclc quantity OT/PT Wheelchair Mobility as directed G71.11 Gauri Damon, 06/22/2019 Eval PNP-BC, MANUFACTURING TECHNOLOGY PROFESSOR, Ibclc Wall Grab Bar long diagonal 1units G71.11 Gauri Damon, 06/09/2019 Text/32" Misc grab bar PNP-BC, MANUFACTURING TECHNOLOGY PROFESSOR, Ibclc Losartan Potassium 1 by mouth every 90tabs I10 Gauri Damon, 05/12/2019 100mg day PNP-BC, MANUFACTURING TECHNOLOGY PROFESSOR, Tablets Ibclc Hydrochlorothiazide 1 by mouth every 90tabs Gauri Damon, 05/12/2019 12.5mg day PNP-BC, MANUFACTURING TECHNOLOGY PROFESSOR, Tablets Ibclc Fluoxetine HCL take daily 7caps F32.81 Gauri Damon, 05/07/2019 10mg Capsules during your PNP-BC, MANUFACTURING TECHNOLOGY PROFESSOR, period. Ibclc Advair HFA 2 puff twice a 12gm J45.20 Gauri Damon, 04/22/2019 115-21mcg/Act day PNP-BC, MANUFACTURING TECHNOLOGY PROFESSOR, Aerosol Ibclc Vitamin D3 Ultra Potency take one capsule 16tabs [place], 04/22/2019 1.25mg once a week MD Bailey, ([address] [address]) Tablets PHD Pro Comfort Inhaler as directed 1units J45.20 Gauri Damon, 03/18/2019 Spacer Chamber Adult PNP-BC, MANUFACTURING TECHNOLOGY PROFESSOR, Misc Ibclc Amlodipine Besylate 1 by mouth every 90tabs I10 Gauri Damon, 01/01/2019 2.5mg day PNP-BC, MANUFACTURING TECHNOLOGY PROFESSOR, Tablets Ibclc Levothyroxine Sodium 1 tab by mouth 30tabs Priya, Lorraine, 07/02/2018 25mcg every day MD Tablets Montelukast Sodium take 1 tablet by 30tabs J45.30 Gauri Damon, 2018 10mg Tablets mouth once daily PNP-BC, MANUFACTURING TECHNOLOGY PROFESSOR, Ibclc Hydrocortisone use sparingly to 118ml L29.8 Gauri Damon, 04/16/2018 2.5% Lotion lower back and PNP-BC, MANUFACTURING TECHNOLOGY PROFESSOR, shoulder area Ibclc for severe itching two times a day Nebulizer use nebulizer 1units J45.40 Gagen, 02/25/2018 Kit/Tubing/Mouthpiece with albuterol q Velma, Kit 6 hrs as needed MS, MANUFACTURING TECHNOLOGY PROFESSOR-C, CNM wheezing/ SOB Ipratropium Blanchard use 2 sprays in 15ml J06.9 Gauri Damon, 02/25/2018 0.06% each nostril PNP-BC, MANUFACTURING TECHNOLOGY PROFESSOR, Solution twice a day as Ibclc needed Nebulizer Compressor The Patient is 1units Gagen, 02/25/2018 Misc using albuterol Velma, nebulizer MS, MANUFACTURING TECHNOLOGY PROFESSOR-C, CNM treatments and needs the compressor. dx: Moderate persistent asthma Omron 7 Series Blood use daily as 1units I10 Gagen, 01/06/2018 Pressure Monitor directed to Velma, Device monitor bp/ MS, MANUFACTURING TECHNOLOGY PROFESSOR-C, CNM dx:htn PT/OT Eval For Power PT/OT eval for 1units G80.9 Lorraine Powers, 09/24/2017 Mobility Device power mobility device G71.19 R26.89 Motorized Power Device Motorized power mobility G71.19 Lorraine Powers MD 09/09/2017 scooter G80.9 R26.89 Roller Walker use wide set Heavy Duty 1units G71.19 Lorraine Powers MD [facility] 4 wheel walker with seat for ambulation G80.9 Albuterol Sulfate nebulized every 6 hours as 75ml J45.20 Gauri Damon, needed for PNP-BC, MANUFACTURING TECHNOLOGY PROFESSOR, (2.5mg/3ML) 0.083% sob/cough/wheezing Ibclc Nebulizer Zyrtec Allergy 1 tab by mouth every night 30tabs Gauri Damon, 2016 10mg PNP-BC, MANUFACTURING TECHNOLOGY PROFESSOR, Tablets Ibclc CBD/THC Aerosol Rheems Unknown Buspirone HCL take 1 tablet by mouth 90tabs Gauri Damon, 7.5mg three times a day PNP-BC, MANUFACTURING TECHNOLOGY PROFESSOR, Tablets Ibclc Flonase Allergy 1 spray to both nostrils 9.900ml Gauri Damon, Relief daily. PNP-BC, MANUFACTURING TECHNOLOGY PROFESSOR, 50mcg/Act Ibclc Suspension Tylenol Extra 1-2 tabs by mouth every 4 120tabs Gauri Damon, Strength hours as needed PNP-BC, MANUFACTURING TECHNOLOGY PROFESSOR, 500mg Ibclc Tablets Ventolin HFA 1-2 puffs every 4-6 hours 8gm Gauri Damon, as needed PNP-BC, MANUFACTURING TECHNOLOGY PROFESSOR, 108(90Base) mcg/Act Ibclc Aerosol History Medications Pepcid 1 tab by mouth 60tabs Gauri Damon, 05/31/2019 - 20mg Tablets bid as needed PNP-BC, MANUFACTURING TECHNOLOGY PROFESSOR, 07/01/2019 Ibclc Ranitidine HCL 1 tab po bid 60tabs Gauri Damon, 04/22/2019 - 75mg PNP-BC, MANUFACTURING TECHNOLOGY PROFESSOR, 05/31/2019 Tablets Ibclc Fluoxetine HCL take during 7tabs F32.81 Gauri Damon 04/22/2019 - (PMDD) your period PNP-BC, MANUFACTURING TECHNOLOGY PROFESSOR, 05/07/2019 10mg Tablets Ibclc Pepcid 1 tab by mouth 60tabs Gauri Damon, 04/07/2019 - 20mg Tablets once a day as PNP-BC, MANUFACTURING TECHNOLOGY PROFESSOR, 04/07/2019 needed Ibclc Famotidine Take 1 Tablet 90tabs Gauri Damon, 04/07/2019 - 150mg By Mouth Every PNP-BC, MANUFACTURING TECHNOLOGY PROFESSOR, 04/22/2019 Tablets Day as Needed Ibclc Breo Ellipta 1 puff qd 28units J45.20 Gauri Damon, 03/18/2019 - PNP-BC, MANUFACTURING TECHNOLOGY PROFESSOR, 04/22/2019 115-21mcg/Act Ibclc Aerosol Losartan 1 by mouth 30tabs I10 Gauri Damon, 03/18/2019 - Potassium/Hydrochlor every day PNP-BC, MANUFACTURING TECHNOLOGY PROFESSOR, 05/12/2019 othiazide Ibclc 100-12.5mg Tablets Losartan Potassium Take 1 Tablet 60tabs I10 Lorraine Powers, 02/10/2019 - By Mouth Twice MD 03/18/2019 50mg Tablets A Day Immunizations CPT Code Status Date Vaccine Reaction Lot # 17440 Given 01/20/2018 Influenza Virus Vaccine, Quadrivalent, 36 [id number] Mos+, .5ML 44223 Given 02/11/2017 Influenza Virus Vaccine Quadrivalent Iiv4 [place] [id number] [address] Given 08/28/2016 Pneumovax Injection [id number] 26035 Given 03/22/2011 flu vaccination [id number] Given 03/22/2011 flu vaccination [id number] Vital Signs Date Vital Result Comment 06/23/2019 5:10pm BP Systolic 124 mmHg BP Diastolic 82 mmHg Body Temperature 99.5 F Heart Rate 95 /min Respiratory Rate 18 /min O2 % BldC Oximetry 98 % 04/22/2019 10:39am BP Systolic 122 mmHg BP Diastolic 80 mmHg Body Temperature 98.7 F Heart Rate 90 /min Respiratory Rate 17 /min O2 % BldC Oximetry 98 % Results Test Acquired Date Facility Test Result H/L Range Note CBC 06/15/2019 [facility] White Blood 6.8 K/uL Normal 3.1-10.7 1 W/Automated [address] [place] [address] [phone] Red Blood Count 5.11 M/uL Normal 3.90-5.40 Hemoglobin 13.3 gm/dL Normal 11.6-15.8 Hematocrit 42.3 % Normal 36.0-46.1 Mean Cell Volume 82.8 fl Normal 80.9-99.0 Mean Corpuscular HGB 26.0 pg Normal 25.9-32.7 Mean Corpuscular HGB Conc 31.4 g/dL Normal 30.8-34.3 Platelet Count 294 K/uL Normal 155-360 Red Cell Distri Width SD 43.1 fl Normal 36-47 Red Cell Distri Width %CV 14.5 % High 11.7-14.4 Mean Platelet Volume 8.6 fl Low 8.9-12.4 Neut% 59.5 % Normal 40.4-72.8 Lymph % 32.2 % Normal 20.0-42.0 Dane % 4.5 % Normal 4.3-13.2 Eo% 2.5 % Normal 0.0-6.6 Bas% 0.7 % Normal 0.0-1.1 Immature Grans 0.6 % Normal 0.0-5.0 NRBC % 0.0 /100WBC < 10/ 100 WBC Neut# 4.07 K/uL Normal 1.8-7.0 Lymph # 2.20 K/uL Normal 1.0-4.0 Dane # 0.31 K/uL Normal 0.3-0.9 Eos # 0.17 K/uL Normal 0.0-0.5 Baso # 0.05 K/uL Normal 0.0-0.1 Immature Grans Absolute 0.04 K/uL NRBC # 0.00 K/uL Laboratory test 06/15/2019 [facility] D-Dimer, 0.48 ug/mL [address] [place] [address] [phone] Basic Metabolic 06/15/2019 [facility] Glucose 111 mg/dL High 74-[address] [place] [address] [phone] BUN 14 mg/dL Normal 7-18 Creatinine 1.1 mg/dL Normal 0.6-1.3 Glom Filtration Rate, Estimate 60 mL/min >60 If >60 mL/min >60 3 BUN/Creat 12.7 ratio Sodium 138 mmol/L Normal 136-145 Potassium 3.4 mmol/L Low 3.5-5.1 Chloride 105 mmol/L Normal 98-107 Carbon Dioxide 30 mmol/L Normal 21-32 Anion Gap 3 mEq/L Low 8-16 Calcium 9.3 mg/dL Normal 8.5-10.1 CBC W/Automated 03/18/2019 [facility] White Blood 7.8 K/uL Normal 3.1-10.7 [address] [place] [address] [phone] Red Blood Count 5.21 M/uL Normal 3.90-5.40 Hemoglobin 14.0 gm/dL Normal 11.6-15.8 Hematocrit 43.7 % Normal 36.0-46.1 Mean Cell Volume 83.9 fl Normal 80.9-99.0 Mean Corpuscular HGB 26.9 pg Normal 25.9-32.7 Mean Corpuscular HGB Conc 32.0 g/dL Normal 30.8-34.3 Platelet Count 349 K/uL Normal 155-360 Red Cell Distri Width SD 44.5 fl Normal 36-47 Red Cell Distri Width %CV 14.8 % High 11.7-14.4 Mean Platelet Volume 9.2 fl Normal 8.9-12.4 Neut% 63.7 % Normal 40.4-72.8 Lymph % 28.4 % Normal 20.0-42.0 Dane % 4.7 % Normal 4.3-13.2 Eo% 1.9 % Normal 0.0-6.6 Bas% 0.5 % Normal 0.0-1.1 Immature Grans 0.8 % Normal 0.0-5.0 NRBC % 0.0 /100WBC < 10/ 100 WBC Neut# 4.99 K/uL Normal 1.8-7.0 Lymph # 2.22 K/uL Normal 1.0-4.0 Dane # 0.37 K/uL Normal 0.3-0.9 Eos # 0.15 K/uL Normal 0.0-0.5 Baso # 0.04 K/uL Normal 0.0-0.1 Immature Grans Absolute 0.06 K/uL NRBC # 0.00 K/uL Comprehensive 03/18/2019 [facility] Glucose 93 mg/dL Normal 74-106 Metabolic Panel [address] [place] [address] [phone] BUN 12 mg/dL Normal 7-18 Creatinine 1.0 mg/dL Normal 0.6-1.3 Glom Filtration Rate, Estimate >60 mL/min >60 If >60 mL/min >60 5 BUN/Creat 12.0 ratio Sodium 139 mmol/L Normal 136-145 Potassium 4.1 mmol/L Normal 3.5-5.1 Chloride 107 mmol/L Normal 98-107 Carbon Dioxide 26 mmol/L Normal 21-32 Anion Gap 6 mEq/L Low 8-16 Calcium 9.0 mg/dL Normal 8.5-10.1 Total Protein 7.6 g/dL Normal 6.4-8.2 Albumin 3.6 g/dL Normal 3.4-5.0 Globulin 4.0 g/dL Normal 1.9-4.3 Alb/Glob 0.9 ratio Bilirubin,Total 0.4 mg/dL Normal 0.2-1.0 Sgot/Ast 22 U/L Normal 15-37 SGPT/Alt 54 U/L Normal 12-78 Alkaline Phosphatase 76 U/L Normal 45-117 Laboratory 03/18/2019 [facility] Vitamin 23.0 Low 30.0-100.0 6 test finding [address],25-Hydroxy ng/[place] [address] [phone] T7/TSH 03/18/2019 [facility] T3 Uptake 31 % Normal 31-39 [address] [place] [address] [phone] Thyroxine (T4) 12.7 g/dL Normal 4.7-13.3 T7 3.94 g/dL Low 5.0-12.0 Thyroid Stim Hormone 2.65 uIU/mL Normal 0.30-4.20 Laboratory test finding 03/18/2019 [facility] CK 403 U/L High 26-192 [address] [place] [address] [phone] 1 SEVER PAIN RIGHT LOWER CALF 2 <=0.49 ug/mL - Low likelihood of DIC, DVT or Pulmonary Embolism >0.49 ug/mL - Additional testing should be done to rule out DIC, DVT, or Pulmonary embolism as clinically indicated. ([facility] has established a 97.89% negative predictive value for thrombotic disease when a cutoff value of 0.5 ug/mL is used.) 3 Note: Persistent reduction for 3 months or more in an eGFR <60 mL/min/1.73 m2 defines CKD. Patients with eGFR values >/=60 mL/min/1.73 m2 may also have CKD if evidence of persistent proteinuria is present. The original MDRD equation for estimated GFR is not valid for patients less than 18 years of age. Additional information may be found at www.kdoqi.org. 4 J45.20 I10 E55.9 E03.9 G71.11 5 Note: Persistent reduction for 3 months or more in an eGFR <60 mL/min/1.73 m2 defines CKD. Patients with eGFR values >/=60 mL/min/1.73 m2 may also have CKD if evidence of persistent proteinuria is present. The original MDRD equation for estimated GFR is not valid for patients less than 18 years of age. Additional information may be found at www.kdoqi.org. 6 Vitamin D deficiency has been defined by the [place] [employer] and an Endocrine Society practice guideline as a level of serum 25-OH vitamin D less than 20 ng/mL (1,2). The Endocrine Society went on to further define vitamin D insufficiency as a level between 21 and 29 ng/mL (2). 1. IOM ([place] of [employer]). 2010. Dietary reference intakes for calcium and D. [place]: The National Academies Press. 2. Anitra MF, Jason NC, Irene MERLOS, et al. Evaluation, treatment, and prevention of vitamin D deficiency: an Endocrine Society clinical practice guideline. JCEM. 2010; 96(7):1911-30. Performed at: RN - [facility] [address] [id number] Commanding Officer Motorized [employer]: Tonia Paz MD, Phone: [phone] Procedures Date Code Description Status 05/28/2019 80047 EKG-Tracing And Report Completed 05/28/2019 62659 EKG-Tracing And Report Completed 04/02/2019 38085 EKG-Tracing And Report Completed 03/04/2019 95993 EKG-Tracing And Report Completed 01/19/2019 63934 EKG-Tracing And Report Completed Medical Devices Description No Information Available Encounters Type Date Location Provider Dx Diagnosis Office Visit 06/23/2019 Family Medicine Gauri Damon, G71.11 Myotonic muscular 5:20p [address] PNP-BC, MANUFACTURING TECHNOLOGY PROFESSOR, dystrophy Ibclc Office Visit 05/28/2019 Cardiology Office Marcela Patino I45.81 Long QT syndrome 11:00a MAL Mojica Office Visit 04/22/2019 Family Medicine Gauri Damon, F41.9 Anxiety disorder, 10:30a [address] PNP-BC, MANUFACTURING TECHNOLOGY PROFESSOR, unspecified Ibclc I10 Essential (primary) hypertension J45.20 Mild intermittent asthma, uncomplicated F32.81 Premenstrual dysphoric disorder Office Visit 04/02/2019 11:00a Cardiology Office Sukumar I45.81 Long QT syndrome MAL [place] Office Visit 03/18/2019 11:00a Family Medicine Gauri Damon, F41.9 Anxiety disorder, [address] RD PNP-BC, MANUFACTURING TECHNOLOGY PROFESSOR, unspecified Ibclc F41.9 Anxiety disorder, unspecified I10 Essential (primary) hypertension I10 Essential (primary) hypertension J45.20 Mild intermittent asthma, uncomplicated J45.20 Mild intermittent asthma, uncomplicated E55.9 Vitamin D deficiency, unspecified E55.9 Vitamin D deficiency, unspecified E03.9 Hypothyroidism, unspecified N93.9 Abnormal uterine and vaginal bleeding, unspecified E28.2 Polycystic ovarian syndrome 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 Office Visit 03/04/2019 Cardiology Milana Greenfield I45.81 Long QT syndrome 11:20a Office MIRELA Child, MANUFACTURING TECHNOLOGY PROFESSOR Office Visit 01/19/2019 Cardiology Milana Greenfield R00.2 Palpitations 10:00a Office MIRELA Child, MANUFACTURING TECHNOLOGY PROFESSOR Assessments Date Code Description Provider 06/23/2019 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 Gauri Damon PNP-BC, MANUFACTURING TECHNOLOGY PROFESSOR, Ibclc 05/28/2019 I45.81 Long QT syndrome Ra Banks M.D., [facility] 05/28/2019 I45.81 Long QT syndrome Marcela Patino PA 04/22/2019 F41.9 Anxiety disorder, unspecified Gauri Damon PNP-BC, MANUFACTURING TECHNOLOGY PROFESSOR, Ibclc 04/22/2019 I10 Essential (primary) hypertension Gauri Damon PNP-BC, MANUFACTURING TECHNOLOGY PROFESSOR, Ibclc 04/22/2019 J45.20 Mild intermittent asthma, Nelson, Gauri, PNP-BC, MANUFACTURING TECHNOLOGY PROFESSOR, uncomplicated Ibclc 04/22/2019 F32.81 Premenstrual dysphoric disorder Gauri Damon PNP-BC, MANUFACTURING TECHNOLOGY PROFESSOR , Ibclc 04/02/2019 I45.81 Long QT syndrome Marcela Patino, PA 03/18/2019 F41.9 Anxiety disorder, unspecified Gauri Damon PNP-BC, MANUFACTURING TECHNOLOGY PROFESSOR, Ibclc 03/18/2019 F41.9 Anxiety disorder, unspecified Gauri Damon PNP-BC, MANUFACTURING TECHNOLOGY PROFESSOR, Ibclc 03/18/2019 I10 Essential (primary) hypertension Gauri Damon PNP-BC, MANUFACTURING TECHNOLOGY PROFESSOR, Ibclc 03/18/2019 I10 Essential (primary) hypertension Gauri Damon PNP-BC, MANUFACTURING TECHNOLOGY PROFESSOR, Ibclc 03/18/2019 J45.20 Mild intermittent asthma, Gauri Damon PNP-BC, MANUFACTURING TECHNOLOGY PROFESSOR, uncomplicated Ibclc 03/18/2019 J45.20 Mild intermittent asthma, Gauri Damon PNP-BC, MANUFACTURING TECHNOLOGY PROFESSOR, uncomplicated Ibclc 03/18/2019 E55.9 Vitamin D deficiency, unspecified Gauri Damon PNP-BC, MANUFACTURING TECHNOLOGY PROFESSOR, Ibclc 03/18/2019 E55.9 Vitamin D deficiency, unspecified Gauri Damon PNP-BC, MANUFACTURING TECHNOLOGY PROFESSOR, Ibclc 03/18/2019 E03.9 Hypothyroidism, unspecified Gauri Damon PNP-BC, MANUFACTURING TECHNOLOGY PROFESSOR, Ibclc 03/18/2019 N93.9 Abnormal uterine and vaginal Gauri Damon PNP-BC, MANUFACTURING TECHNOLOGY PROFESSOR, bleeding, unspecified Ibclc 03/18/2019 E28.2 Polycystic ovarian syndrome Gauri Damon PNP-BC, MANUFACTURING TECHNOLOGY PROFESSOR, Ibclc 03/18/2019 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 Functional Status Functional Condition Comment Date Status Dependent with all ADL's Active Electric wheelchair is used to ambulate Active Mental Status Description No Information Available Referrals Refer to Reason for Referral Status Appt Date Charles Palacio M.D. interested in uterine ablation Closed 05/26/[address] [address] [phone] Haris Bunch T, MD Polycystic kidney disease. Eval and treat Closed 01/07/19 faxed notes... [address] [place] [address] [phone]
[2019-07-09 10:48] VITALS: BP 113/71
[2019-07-09 11:18] LABS: Influenza A Molecular Negative (Negative); Influenza B Molecular Negative (Negative)
--- NOTE | 2019-07-09 11:18 | UC ---
FLU HPI - HPI Summary HPI Summary: 34yo female presenting with for fever, bodyaches, nonproductive cough, nasal congestion, and b/l ear aches x3 days. Patient also states she had diffuse abdominal pain that was "bubbly" but has since resolved. Notes nausea intermittently. Denies vomiting and diarrhea. Does note sob at times and notes inhaler for her asthma helps some. Denies wheezing and chest pain. Taking tylenol for fever relief. States fever up to 101.2. Notes decreased appetite but maintaining fluids. PMHx significant for asthma, cerebral palsy, PKD, PCOS, and GERD. - History of Current Complaint Chief Complaint: UCGeneralIllness Stated Complaint: FATIGUE BODYACHES Hx Obtained From: Patient Hx Last Menstrual Period: 07/03/19 Pain Intensity: 6 Pain Scale Used: 0-10 Numeric - Allergy/Home Medications Allergies/Adverse Reactions: Allergies Allergy/AdvReac Type Severity Reaction Status Date / Time gabapentin Allergy Severe Coughing Verified 07/09/19 10:33 Adhesive Tape Allergy Intermediate Rash Verified 07/09/19 10:33 NARCOTICS AdvReac See Comment Uncoded 07/09/19 10:33 Home Medications: Home Medications Albuterol HFA INHALER* [Ventolin HFA Inhaler*] 2 puff Q6HR PRN 10/27/18 [ History Confirmed 07/09/19] Cholecalciferol TAB* [Vitamin D TAB*] 50,000 unit PO WEEKLY 10/27/18 [History Confirmed 07/09/19] Fluticasone NASAL SPRAY 50MCG* [Flonase NASAL SPRAY 50MCG*] 2 spray BOTH NARES DAILY 10/27/18 [History Confirmed 12/16/18] Levothyroxine TAB* [Synthroid 25 MCG TAB*] 25 mcg PO DAILY 10/27/18 [History Confirmed 12/16/18] Losartan Potassium [Cozaar] 100 mg PO DAILY 10/27/18 [History Confirmed 07/09/19 ] Montelukast Sodium TAB* [Singulair 10 MG TAB*] 10 mg PO QPM 10/27/18 [History Confirmed 07/09/19] amLODIPine TAB* [Norvasc 5 mg TAB*] 2.5 mg PO DAILY 10/27/18 [History Confirmed 07/09/19] busPIRone TAB* [Buspar TAB*] 7.5 mg PO TID PRN 10/27/18 [History Confirmed 07/09] Acetaminophen [Tylenol Extra Strength] 1,000 mg PO Q6H 12/16/18 [History Confirmed 07/09/19] Ibuprofen TAB* [Motrin TAB* 400 MG] 400 mg PO ONCE PRN 12/16/18 [History Confirmed 12/16/18] Famotidine TAB* [Pepcid 20 MG TAB*] 20 mg PO DAILY 07/09/19 [History Confirmed 07/09/19] Fluticas/Salmet 115/21 HFA(NF) [Advair HFA 115/21 (NF)] 1 puff INH BID 07/09/19 [History Confirmed 07/09/19] Hydrochlorothiazide TAB* [Hydrodiuril TAB*] 12.5 mg PO DAILY 07/09/19 [History Confirmed 07/09/19] PMH/Surg Hx/FS Hx/Imm Hx Endocrine History: Hypothyroidism Cardiovascular History: Hypertension Respiratory History: Asthma GI/ History: Gastroesophageal Reflux, Other - PCOS, PKD - Surgical History Surgical History: Yes Surgery Procedure, Year, and Place: COLOSTOMY WITH REVERSAL- A CHILD - RUPTURE. TENDON - STRAIGHTENED & LENGTHENED LLE - CEREBAL PALSY - Lt SIDE. CYSTECTOMY FROM OVARY. TUBAL LIGATION, 2 C SECTIONS. CHOLECYSTECTOMY - TOTAL OPEN. CYST REMOVED FROM NASAL CAVATY. ear tubes. - Family History Known Family History: Positive: Hypertension, Respiratory Disease Negative: Cardiac Disease, Diabetes Family History: no cardiac, cancer history in family - Social History Alcohol Use: None Substance Use Type: None Smoking Status (MU): Never Smoked Tobacco Have You Smoked in the Last Year: No - Immunization History Most Recent Influenza Vaccination: yes 2016 Most Recent Tetanus Shot: UTD Most Recent Pneumonia Vaccination: N/A Vaccination Up to Date: Yes Review of Systems All Other Systems Reviewed And Are Negative: Yes Constitutional: Positive: Fever, Fatigue ENT: Positive: Ear Ache, Sinus Congestion Respiratory: Positive: Cough. Negative: Shortness Of Breath Cardiovascular: Positive: Negative Gastrointestinal: Positive: Abdominal Pain - yesterday, Nausea - intermittent. Negative: Vomiting, Diarrhea Genitourinary: Positive: Negative Musculoskeletal: Positive: Myalgia Neurological/Mental Status: Positive: Headache Physical Exam - Summary Physical Exam Summary: Vital Signs Reviewed: Yes A+Ox3, no distress, obese, sitting comfortably in motorized wheelchair Eyes: Conjunctiva Clear ENT: Hearing grossly normal, TM x 2 clear, moist, uvula midline, no exudate, no erythema Neck: Positive: Supple Respiratory: Positive: No respiratory distress, No accessory muscle use, talking in complete sentences without issue, + CTA throughout no w/r Cardiovascular: RRR nl s1, s2 no m/r Neurological: Positive: Alert Psychological: Positive: age appropriate behavior Skin: Positive: no rash, no ecchymosis Vital Signs: Initial Vital Signs Temp 97.8 F 07/09/19 10:38 Pulse 80 07/09/19 10:38 Resp 28 07/09/19 10:38 BP 113/71 07/09/19 10:38 Pulse Ox 97 07/09/19 10:38 Lab Results 07/09/19 Range/Units 11:06 Influenza A (Rapid) Negative (Negative) Influenza B (Rapid) Negative (Negative) Flu Course/Dx - Course Course Of Treatment: Negative rapid flu. Discussed likely viral etiology of symptoms with patient. I educated on treatment of symptoms and maintaining hydration. Informed her that she may continue with otc medications and inhaler use. Educated on s/s of worsening illness and instructed to go to ED if any occur. Patient voiced understanding and agreed with the treatment plan. - Differential Dx/Diagnosis Provider Diagnosis: Flu-like symptoms Discharge ED - Sign-Out/Discharge Documenting (check all that apply): Patient Departure All imaging exams completed and their final reports reviewed: No Studies - Discharge Plan Condition: Stable Disposition: HOME Patient Education Materials: Viral Syndrome (ED) Referrals: Gauri Damon NP [Primary Care Provider] - Additional Instructions: As discussed, your symptoms are likely caused by a virus and should resolve on their own without treatment. Continue to use your inhaler or nebulizer as needed. You may also continue with tylenol or motrin as directed for pain and fever relief. Get plenty of rest and increase your fluid intake. Go to the emergency room with any new or worsening symptoms. - Billing Disposition and Condition Condition: STABLE Disposition: Home - Attestation Statements Provider Attestation: This patient was not examined by me. I was available for consult. Chart reviewed. RONEY
== END 2019-07-09 11:45 | disposition home or self-care (01) ==
LOC: UCCORT 09:04
DX: R10.84 Generalized abdominal pain (principal); R05 Cough; R09.81 Nasal congestion; H92.03 Otalgia, bilateral; R11.0 Nausea; R53.83 Other fatigue; M79.10 Myalgia, unspecified site; R50.9 Fever, unspecified; R51 Headache; J45.909 Unspecified asthma, uncomplicated; E03.9 Hypothyroidism, unspecified; I10 Essential (primary) hypertension; E28.2 Polycystic ovarian syndrome; Z88.5 Allergy status to narcotic agent; Z88.8 Allergy status to other drugs, medicaments and biological substances; Z79.890 Hormone replacement therapy; Z79.899 Other long term (current) drug therapy; Z91.09 Other allergy status, other than to drugs and biological substances
CPT/HCPCS: 99211; G0463